=== PATIENT | male | born 1940 | race Caucasian/White ===

== ENCOUNTER → 2016-09-08 | Outpatient (CLI) | payer MEDICARE ==
--- OUTSIDE RECORDS SUMMARY | 2016-09-08 12:17 | XMS REPORT ---
Author Author Chet Tobin Organization [employer] Address Unknown Phone Unavailable Care Team Providers Care Antisubmarine Weapons Officer Name Role Phone Chet Tobin CP Unavailable Allergies No Known Allergies Problems Problem Type Condition ICD-9 Code Onset Dates Condition Status Problem Benign neoplasm of skin, site unspecified 216.9 Inactive Problem Other and unspecified conjunctivitis 372.39 Inactive Problem Aortic valve disorders 424.1 Inactive Problem Unspecified sinusitis (chronic) 473.9 Inactive Problem Acute upper respiratory infections of unspecified site 465.9 Inactive Problem Acute pharyngitis 462 Inactive Problem Occlusion and stenosis of carotid artery without mention of cerebral infarction 433.10 Inactive Problem Encounter for long-term (current) use of anticoagulants V58.61 Inactive Problem Special screening for malignant neoplasms, colon V76.51 Inactive Problem Hypertrophy (benign) of prostate without urinary obstruction and other lower urinary tract symptoms [LUTS] 600.00 Inactive Problem Allergic rhinitis 477.9 Active Problem Other follow-up examination V67.59 Inactive Problem CAD (coronary artery disease) 414.00 Active Problem Aortic stenosis 424.1 Active Problem Heart failure 428.9 Inactive Problem Hypertension 401.9 Active Problem Hyperlipidemia 272.4 Active Problem Lipoma of unspecified site 214.9 Inactive Problem Congestive heart failure, unspecified 428.0 Inactive Problem Cerebral vascular accident 434.91 Active Problem Atrial flutter 427.32 Active Problem Prostatic hyperplasia 600.90 Active Problem Cognitive impairment 294.9 Active Problem Heart failure, systolic 428.20 Active Problem Diabetes mellitus, type 2 250.00 Active Problem Unspecified hypertrophic and atrophic condition of skin 701.9 Inactive Problem Proteinuria 791.0 Active Problem Screening for unspecified condition V82.9 Inactive Problem Generalized hyperhidrosis 780.8 Inactive Problem Lipoma of other skin and subcutaneous tissue 214.1 Inactive Problem Unspecified seborrheic dermatitis 690.10 Inactive Problem Other fluid overload 276.69 Inactive Problem Obesity, unspecified 278.00 Active Medications No Known Medications Results No Known Results Summary Purpose eClinicalWorks Submission
--- NOTE | 2016-09-10 08:04 | ECHOCARDIOGRAPHY REPORT ---
PROCEDURE PHYSICIAN: CARLOS HUTCHINSON DATE OF PROCEDURE: 09/08/2016 TWO DIMENSIONAL ECHOCARDIOGRAM REPORT PRIMARY PHYSICIAN: OTHER PHYSICIAN: REFERRING PHYSICIAN: Dr. Jules ORDERING PHYSICIAN: INDICATION FOR THE PROCEDURE: Aortic valve stenosis. MEASUREMENTS DERIVED VALUES LV DIAMETER (LAX) NORMALS NORMALS Diastolic 5.4 (3.6-5.2) Eject. Fract. 60% (60%+/-6%) Systolic (2.3-3.9) Diastolic Vol. % Shortening (0.22-0.42) Systolic Vol. Aortic Root IVS THICKNESS Diastolic 1.2 (0.6-1.1) LVPW THICKNESS Diastolic 1.2 (0.6-1.1) LA DIAMETER Systolic 4.8 (2.1-3.7) FINDINGS: 1. Technical quality is acceptable. 2. The left ventricle is normal in size with mild left ventricular hypertrophy noted diffusely. Systolic function appeared to be normal. Estimated ejection fraction 60%. 3. The left atrium is dilated. No clot or thrombus were seen within the left atrium. 4. The right atrium and right ventricle are normal in size. No clot or thrombus were seen within the right side. 5. 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 Mild mitral regurgitation noted by color Doppler flow. No mitral valve prolapse. No mitral valve stenosis. 6. Aortic valve is heavily calcified, leaflets were not well visualized. Doppler across the aortic valve estimated the peak gradient of 21 mmHg, mean gradient of 12 mmHg, calculated valve area of 1.96 sq cm. Trivial, if any, aortic valve stenosis is present. There is mild aortic regurgitation noted by color Doppler flow. 7. Tricuspid valve is normal in morphology with moderate tricuspid regurgitation noted by color Doppler flow. Doppler across the tricuspid valve estimated pulmonary artery pressure of 14+ right atrial pressure. 8. Pulmonic valve is functioning normally. 9. No pericardial effusion. IN CONCLUSION: 1. Mild left ventricular hypertrophy noted diffusely. Systolic function appeared to be normal. Estimated ejection fraction 60%. 2. Left atrial dilatation. 3. Trivial aortic valve stenosis. Mild aortic regurgitation. 4. 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 Mild mitral regurgitation, moderate tricuspid regurgitation. 5. Estimated pulmonary artery pressure of 25 mmHg. Job ID: [id number] Dictated Date: 09/09/2016 15:46:23 Multiple Tube Winding Machine Operator Date: 09/10/2016 08:00:12 / charity
== END ==
LOC: CARD 12:13
PROVIDERS: ATTEND Internal Medicine Cardiovascular Disease
DX: I35.0 Nonrheumatic aortic (valve) stenosis (principal); I25.10 Atherosclerotic heart disease of native coronary artery without angina pectoris; I10 Essential (primary) hypertension; I34.0 Nonrheumatic mitral (valve) insufficiency; R07.9 Chest pain, unspecified
CPT/HCPCS: 93306

== ENCOUNTER → 2017-03-17 | Outpatient (CLI) | payer MEDICARE ==
[~2017-03-17] MED LIST: CATHETER FLUSH 10 ML SYR IV PRN; IOHEXOL 350 MG/ML 100 ML (OMNIPAQUE 350) VIAL IV ONE; NS 100 ML (IVPB) BAG IV ONE
[2017-03-17 09:23] LABS: ALANINE AMINOTRANSFERASE 18 U/L (0-55); ALBUMIN 3.6 GM/DL (3.2-4.5); ANION GAP 10 MMOL/L (5-14); ASPARTATE AMINO TRANSFERASE 22 U/L (5-34); BLOOD UREA NITROGEN 15 MG/DL (7-18); BUN/CREATININE RATIO 13; CALCIUM 8.9 MG/DL (8.5-10.1); CARBON DIOXIDE 25 MMOL/L (21-32); CHLORIDE 107 MMOL/L (98-107); CHOLESTEROL 230 MG/DL (< 200); CREATININE SERUM 1.13 MG/DL (0.60-1.30); DIRECT LDL 143 MG/DL (1-129); GFR ESTIMATED > 60; GLUCOSE 138 MG/DL (70-105); POTASSIUM 3.9 MMOL/L (3.6-5.0); SODIUM 142 MMOL/L (135-145); TOTAL PROTEIN 6.7 GM/DL (6.4-8.2); TRIGLYCERIDES 240 MG/DL (<150); VLDL CHOLESTEROL 48 MG/DL (5-40)
--- NOTE | 2017-03-17 11:47 | Diagnostic Imaging Report ---
EXAMINATION: The CT angiogram of the neck was performed with intravenous contrast with axial and MIP technique. Coronal reconstructions were performed. INDICATION: Severe atherosclerotic disease. CONTRAST: 80 mL of Omnipaque 350 was administered intravenously. FINDINGS: Please note, there is only moderate opacification of the arteries which could be related to slow circulation which is probably secondary to cardiac disease. There is a prominent plaque that is partially calcified but is predominantly soft plaque at the carotid bifurcation on the right side extending to the proximal internal carotid artery with an estimated underlying stenosis of 80%. The external carotid artery on the right side is patent and the right common carotid artery appears patent. The brachiocephalic artery is patent. The left common carotid artery is patent with atherosclerotic plaque at the carotid bifurcation on the left side resulting in a less than 50% stenosis in the proximal left internal carotid artery. Please note, there is tortuosity noted in the carotid arteries with a medial course of the mid segment of the carotid artery bilaterally, more on the right side, projecting into the retropharyngeal space. The vertebral arteries appears to be opacified with the proximal segments in particular not well evaluated. The soft tissues demonstrate symmetric appearance of the parotid and submandibular glands and an unremarkable appearance of the thyroid gland. IMPRESSION: 1. There is prominent plaque along the proximal right internal carotid artery resulting in an estimated stenosis of about 80%. 2. Atherosclerotic plaque along the proximal left internal carotid artery with a less than 50% stenosis. 3. The report was faxed to the of office of Dr. Gautam by RADHA at 11:50 AM. Dictated by: Dictated on workstation # [id number]
== END ==
LOC: RAD 08:37
PROVIDERS: ATTEND Internal Medicine Cardiovascular Disease
DX: I65.23 Occlusion and stenosis of bilateral carotid arteries (principal); I10 Essential (primary) hypertension; I35.0 Nonrheumatic aortic (valve) stenosis; E78.2 Mixed hyperlipidemia; I48.0 Paroxysmal atrial fibrillation
CPT/HCPCS: 36415; 70498; 80053; 80061

== ENCOUNTER → 2017-09-25 | Outpatient (CLI) | payer MEDICARE, OTHER | LOC: CARD 08:15 | PROVIDERS: ATTEND Internal Medicine Cardiovascular Disease | DX: I25.10 Atherosclerotic heart disease of native coronary artery without angina pectoris (principal); I10 Essential (primary) hypertension; E78.2 Mixed hyperlipidemia; I48.0 Paroxysmal atrial fibrillation; I34.0 Nonrheumatic mitral (valve) insufficiency; I35.8 Other nonrheumatic aortic valve disorders | CPT/HCPCS: 93306 ==

== ENCOUNTER → 2017-10-14 | Outpatient (CLI) | payer MEDICARE, OTHER ==
[~2017-10-14] MED LIST changes: -IOHEXOL 350 MG/ML 100 ML (OMNIPAQUE 350) VIAL IV ONE; -NS 100 ML (IVPB) BAG IV ONE; +REGADENOSON 0.4 MG/5 ML SYR (LEXISCAN) IV ONE
[2017-10-14 09:53] VITALS: BP 185/86
[2017-10-14 09:58] VITALS: BP 172/87
--- NOTE | 2017-10-14 18:08 | STRESS TEST ---
DATE OF SERVICE: 10/14/2017 LEXISCAN MYOVIEW STRESS TEST REPORT REFERRING PHYSICIAN: Baseline heart rate is 62. Baseline blood pressure 185/86. Baseline EKG is sinus rhythm with right bundle branch block. SUMMARY: The patient received 10.28 mCi of technetium-99 Myoview and the resting images were obtained. Then, the patient received 0.4 mg of Lexiscan followed by 29.1 mCi of technetium-99 Myoview. Throughout the test, there were no EKG changes. The resting and stress images were reviewed and compared in the short axis, horizontal long axis, and vertical long axis views. Review of the images showed fixed defect involving the whole anterior wall and anterolateral wall, a mild fixed defect at the inferoapical segment. SSS 11, SDS 0, TID value 1.03. On the gated images, the left ventricle appeared to be dilated with hypokinesia diffusely, more pronounced at the anterior wall and anterolateral wall and anterior septum. Calculated ejection fraction 41%. CONCLUSION: 1. The patient tolerated Lexiscan well. 2. Fixed defect involving the mid to apical anterior wall and anterior lateral wall and anterior septum, mild, mild fixed defect at the inferior apex. 3. Prominent left ventricle with hypokinesia noted diffusely, more pronounced at the anterior wall and anterolateral wall and anterior septum. Calculated ejection fraction 41%. Job ID: [id number] DocumentID: [id number] Dictated Date: 10/14/2017 15:40:40 Elementary School Social Worker Date: 10/14/2017 18:07:18 Dictated By: CARLOS HUTCHINSON MD
== END ==
LOC: CARD 07:48
PROVIDERS: ATTEND Internal Medicine Cardiovascular Disease
DX: I35.8 Other nonrheumatic aortic valve disorders (principal); I25.10 Atherosclerotic heart disease of native coronary artery without angina pectoris; I10 Essential (primary) hypertension; I34.0 Nonrheumatic mitral (valve) insufficiency; E78.5 Hyperlipidemia, unspecified; I48.0 Paroxysmal atrial fibrillation
CPT/HCPCS: 78452; 93017

== ENCOUNTER 2017-11-25 07:42 | Day surgery (SDC) | payer MEDICARE, MEDICAID ==
[2017-11-25] VITALS (10 sets, daily range): BP systolic 110–166; BP diastolic 72–99
[~2017-11-25] VITALS: Ht 170.2 cm; Wt 140.2 kg
--- OUTSIDE RECORDS SUMMARY | 2017-11-25 07:44 | XMS REPORT ---
Author Chet Carcamo [facility] eClinicalWorks Address Unknown Phone Unavailable Care Team Providers Care Olericulturist Name Role Phone Chet Tobin CP Unavailable Allergies, Adverse Reactions, Alerts Substance Reaction Event Type N.K.D.A. Info Not Available Non Drug Allergy Problems Problem Type Condition ICD-9 Code Onset Dates Condition Status Problem Benign neoplasm of skin, site unspecified 216.9 Inactive Assessment Atrial flutter 427.32 Active Problem Other and unspecified conjunctivitis 372.39 Inactive [...] Problem Diabetes mellitus, type 2 250.00 Active Assessment Heart failure, systolic 428.20 Active Problem Unspecified hypertrophic and atrophic condition of skin 701.9 Inactive Assessment Diabetes mellitus, type 2 250.00 Active Problem Proteinuria 791.0 Active Problem Screening for unspecified condition V82.9 Inactive Problem Generalized hyperhidrosis 780.8 Inactive Problem Lipoma of other skin and subcutaneous tissue 214.1 Inactive Problem Unspecified seborrheic dermatitis 690.10 Inactive Problem Other fluid overload 276.69 Inactive Problem Obesity, unspecified 278.00 Active Medications Medication Code System Code Instructions Start Date End Date Status Dosage Nasonex [facility] [address]-70 50 MCG/ACT Nasal 2 (two) in each nostril daily Jul 25, 2013 not defined Amiodarone HCl [facility] [address]-85 200 MG Oral 1 (one) Tablet two times daily January 31, 2014 not defined Lisinopril [facility] [address]-62 20 MG Oral 1 (one) daily January 31, 2014 1 tablet Carvedilol [facility] 44933698328 6.25 MG TAKE 1 TABLET BY MOUTH TWO TIMES DAILY Nitrostat [facility] [address]-25 0.4 MG Sublingual as needed not defined Xyzal [facility] [address]-38 5 MG Orally Once a day Feb 07, 2015 1 tablet in the evening Insulin Syringe NDC 0 31G X 5/16 Subcutaneous 1 (one) Misc four times daily Mar 22, 2013 dx 250.00 Apixaban [facility] [address]-53 5 MG Orally BID January 19, 2015 as directed atorvastatin NDC 0 40 MG Oral 1 (one) at bedtime January 31, 2014 1 tablet Metformin HCl [facility] [address]-78 1000 MG Orally Twice a day January 19, 2015 1 tablet with meals Embrace Blood Glucose Test NDC 0 1 In Vitro Three times daily November 09, 2014 as directed(last a1c 7.3% 01/31/14, life time use Dx 250.00 Spironolactone [facility] [address]-78 25 MG Oral 1 (one) Tablet daily January 31, 2014 not defined Fish Oil Concentrate [facility] [address]-54162 1000 MG Oral 1 daily not defined OneTouch Test NDC 0 1 In Vitro Three times daily November 13, 2014 as directed Levemir [facility] [address]-80 100 UNIT/ML Subcutaneous qHS January 19, 2015 15 units Eileen Contour Test NDC 0 In Vitro 1 (one) Strip three times daily November 24, 2013 In future pt does not want onetouchdx: 250.00 Furosemide [facility] [address]-91 20 MG Oral 1 (one) Tablet two times daily January 31, 2014 decreased dose OneTouch Basic System [facility] [address]-06 w/Device Subcutaneous Three times daily November 13, 2014 as directed Procedures Procedure Coding System Code Date Office Visit, Est Pt., Level 4 CPT-4 62145 Feb 22, 2015 Vital Signs Date/Time: Feb 22, 2015 Temperature 98.1 F Weight 311 lb 6 oz lbs Height 68 in Respiratory Rate 16 /min Cardiac Monitoring Heart Rate 72 /min Blood Pressure Diastolic 72 mm Hg Blood Pressure Systolic 132 mm Hg BMI 47.34 Index Results No Known Results Summary Purpose eClinicalWorks Submission
--- OUTSIDE RECORDS SUMMARY | 2017-11-25 07:44 | XMS REPORT ---
Author Chet Carcamo [facility] eClinicalWorks Address Unknown Phone Unavailable Care Team Providers Care Cephalometric Analyst Name Role Phone Chet Tobin CP Unavailable Allergies, Adverse Reactions, Alerts Substance Reaction Event Type N.K.D.A. Info Not Available Non Drug Allergy Problems Problem Type Condition Code Onset Dates Condition Status Assessment Heart failure, systolic I50.20 Active Assessment Severe aortic stenosis I35.0 Active Assessment Atrial flutter I48.92 Active Problem Atrial flutter I48.92 Active Problem Coronary artery disease involving [place] coronary artery of [place] heart, angina presence unspecified I25.10 Active Problem Type 2 diabetes mellitus E11.9 Active Problem Morbid obesity, unspecified obesity type E66.01 Active Problem Chronic systolic heart failure I50.22 Active Problem Severe aortic stenosis I35.0 Active Problem Essential hypertension I10 Active Medications Medication Code System Code Instructions Start Date End Date Status Dosage Xyzal [facility] [address]-27 5 MG Orally Once a day Feb 07, 2015 1 tablet in the evening INTERNET BUSINESS TRADER Basic System [facility] [address]-30 w/Device Subcutaneous Three times daily November 13, 2014 as directed atorvastatin NDC 0 40 MG Oral 1 (one) at bedtime January 31, 2014 1 tablet Spironolactone [facility] [address]-81 25 MG Oral 1 (one) Tablet daily January 31, 2014 1 tablet Apixaban [facility] [address]-01 5 MG Orally BID January 19, 2015 as directed OneTouch Test NDC 0 1 In Vitro Three times daily November 13, 2014 as directed Gabapentin [facility] [address]-63 100 MG Orally Three times a day 1 capsule Metformin HCl [facility] [address]-31 1000 MG Orally Twice a day January 19, 2015 1 tablet with meals Lisinopril [facility] [address]-84 40 MG Orally 1 (one) daily January 31, 2014 1 tablet Amiodarone HCl [facility] [address]-43 200 MG Oral 1 (one) Tablet two times daily January 31, 2014 1 tablet Carvedilol [facility] 63808085320 6.25 MG Orally two times daily TAKE 1 TABLET BY MOUTH TWO TIMES DAILY Furosemide [facility] [address]-73 20 MG Oral 1 (one) Tablet two times daily January 31, 2014 decreased dose Levemir [facility] [address]-93 100 UNIT/ML Subcutaneous qHS January 19, 2015 25 units Proventil HFA [facility] [address]-16 108 (90 Base) MCG/ACT Inhalation every 4 hrs 2 puffs as needed Insulin Syringe NDC 0 31G X 5/16 Subcutaneous 1 (one) Misc four times daily Mar 22, 2013 dx 250.00 Procedures Procedure Coding System Code Date Office Visit, Est Pt., Level 4 CPT-4 59927 Apr 14, 2016 Billed by outside source CPT-4 NOBLL Apr 14, 2016 Vital Signs Date/Time: Apr 14, 2016 Temperature 97.9 F Weight 299.5 lbs Height 68 in Respiratory Rate 16 /min Cardiac Monitoring Heart Rate 60 /min Blood Pressure Diastolic 88 mm Hg Blood Pressure Systolic 118 mm Hg BMI 45.53 Index Results No Known Results Summary Purpose eClinicalWorks Submission
--- OUTSIDE RECORDS SUMMARY | 2017-11-25 07:44 | XMS REPORT ---
Author Chet Carcamo Organization [employer] Address Unknown Phone Unavailable Care Team Providers Care Mill Worker Name Role Phone Chet Tobin CP Unavailable Allergies No Known Allergies Problems Problem Type Condition ICD-9 Code Onset Dates Condition Status Problem Aortic valve disorders 424.1 Active Problem Benign neoplasm of skin, site unspecified 216.9 Inactive Problem Unspecified persistent mental disorders due to conditions classified elsewhere 294.9 Active Problem Other and unspecified conjunctivitis 372.39 Inactive Problem Unspecified sinusitis (chronic) 473.9 Inactive Problem Acute upper respiratory infections of unspecified site 465.9 Inactive Problem Acute pharyngitis 462 Inactive Problem Obesity, unspecified 278.00 Active Problem Occlusion and stenosis of carotid artery without mention of cerebral infarction 433.10 Inactive Problem Lipoma of other skin and subcutaneous tissue 214.1 Inactive Problem Encounter for long-term (current) use of anticoagulants V58.61 Active Problem Unspecified seborrheic dermatitis 690.10 Inactive Problem Other and unspecified hyperlipidemia 272.4 Active Problem Diabetes mellitus without mention of complication, type II or unspecified type, not stated as uncontrolled 250.00 Active Problem Heart failure 428.9 Active Problem CAD (coronary artery disease) 414.00 Active Problem Other follow-up examination V67.59 Inactive Problem Unspecified systolic heart failure 428.20 Active Problem Aortic stenosis 424.1 Active Problem Hypertrophy (benign) of prostate without urinary obstruction and other lower urinary tract symptoms [LUTS] 600.00 Active Problem 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 Active Problem Unspecified essential hypertension 401.9 Active Problem Allergic rhinitis 477.9 Active Problem Special screening for malignant neoplasms, colon V76.51 Inactive Problem Lipoma of unspecified site 214.9 Inactive Problem Screening for unspecified condition V82.9 Inactive Problem Atrial flutter 427.32 Active Problem Congestive heart failure, unspecified 428.0 Inactive Problem Proteinuria 791.0 Active Problem Other fluid overload 276.69 Inactive Problem Generalized hyperhidrosis 780.8 Inactive Problem Unspecified hypertrophic and atrophic condition of skin 701.9 Inactive Medications No Known Medications Results No Known Results Summary Purpose eClinicalWorks Submission
--- OUTSIDE RECORDS SUMMARY | 2017-11-25 07:44 | XMS REPORT ---
Author Author Chet Tobin Organization [employer] Address Unknown Phone Unavailable Care Team Providers Care Desktop Operator Name Role Phone Chet Tobin CP Unavailable [...]
--- OUTSIDE RECORDS SUMMARY | 2017-11-25 07:45 | XMS REPORT ---
Author Chet Carcamo [facility] eClinicalWorks Address Unknown Phone Unavailable Care Team Providers Care Scale Model Maker Name Role Phone Chet Tobin CP Unavailable Allergies No Known Allergies Problems Problem Type Condition Code Onset Dates Condition Status Problem Occlusion and stenosis of carotid artery without mention of cerebral infarction 433.10 Inactive Problem Acute pharyngitis 462 Inactive Problem Hypertrophy (benign) of prostate without urinary obstruction and other lower urinary tract symptoms [LUTS] 600.00 Inactive Problem Encounter for long-term (current) use of anticoagulants V58.61 Inactive Problem Other follow-up examination V67.59 Inactive Problem Atrial flutter 427.32 Active Problem Congestive heart failure, unspecified 428.0 Inactive Problem Lipoma of unspecified site 214.9 Inactive Problem Screening for unspecified condition V82.9 Inactive Problem Prostatic hyperplasia 600.90 Active Problem Generalized hyperhidrosis 780.8 Inactive Problem Diabetes mellitus, type 2 250.00 Active Problem Unspecified hypertrophic and atrophic condition of skin 701.9 Inactive Problem Heart failure, systolic 428.20 Active Problem Hypertension 401.9 Active Problem Hyperlipidemia 272.4 Active Problem Heart failure, systolic I50.20 Active Problem Type 2 diabetes mellitus E11.9 Active Problem Obesity, unspecified 278.00 Active Problem Other fluid overload 276.69 Inactive Assessment Heart failure, systolic I50.20 Active Problem 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 Active Problem Proteinuria 791.0 Active Problem Severe aortic stenosis I35.0 Active Problem Cerebral vascular accident 434.91 Active Problem Atrial flutter I48.92 Active Problem Coronary artery disease involving enterprise coronary artery of enterprise heart, angina presence unspecified I25.10 Active Problem Unspecified sinusitis (chronic) 473.9 Inactive Problem Special screening for malignant neoplasms, colon V76.51 Inactive Problem Acute upper respiratory infections of unspecified site 465.9 Inactive Problem Allergic rhinitis 477.9 Active Problem Aortic valve disorders 424.1 Inactive Problem Lipoma of other skin and subcutaneous tissue 214.1 Inactive Problem Other and unspecified conjunctivitis 372.39 Inactive Problem Unspecified seborrheic dermatitis 690.10 Inactive Assessment Atrial flutter I48.92 Active Problem Aortic stenosis 424.1 Active Problem Benign neoplasm of skin, site unspecified 216.9 Inactive Problem Cognitive impairment 294.9 Active Problem CAD (coronary artery disease) 414.00 Active Problem Heart failure 428.9 Inactive Medications Medication Code System Code Instructions Start Date End Date Status Dosage Amiodarone HCl [facility] [address]-44 200 MG Oral 1 (one) Tablet two times daily January 31, 2014 1 tablet Furosemide [facility] [address]-80 20 MG Oral 1 (one) Tablet two times daily January 31, 2014 decreased dose Results No Known Results Summary Purpose eClinicalWorks Submission
--- OUTSIDE RECORDS SUMMARY | 2017-11-25 07:45 | XMS REPORT ---
Author Author Chet Tobin [facility] Address [address], [place] [id number] Care Team Providers Care Theatrical Trouper Name Role Phone Chet Tobin Unavailable PROBLEMS Type Condition ICD9-CM Code QEE05-HT Code Onset Dates Condition Status SNOMED Code Problem Atrial flutter I48.92 Active 2400789 Assessment Acute on chronic systolic (congestive) heart failure I50.23 Jun, Active 575397220 Problem Aortic stenosis, severe I35.0 Active 97962532 Problem Diabetes mellitus E11.9 Active 17367650 Problem Obesity, morbid E66.01 Active 733437713 Problem Coronary artery disease I25.10 Active 35884208 Problem Heart failure, systolic, chronic I50.22 Active 460274107 Problem Hypertension I10 Active 70142799 ALLERGIES Unknown Allergies SOCIAL HISTORY No smoking Hx information available PLAN OF CARE VITAL SIGNS Height 68 in 2016-06-24 Heart Rate 88 /min 2016-06-24 Respiratory Rate 20 /min 2016-06-24 Blood pressure systolic 138 mm Hg 2016-06-24 Blood pressure diastolic 88 mm Hg 2016-06-24 MEDICATIONS Medication Instructions Dosage Frequency Start Date End Date Duration Status Levemir 100 UNIT/ML Subcutaneous qHS 15 units Jan, Active Insulin Syringe 31G X 5/16 Subcutaneous 1 (one) Misc four times daily dx 250.00 17 Mar, 2013 30 Active Metformin HCl 1000 MG Orally Twice a day 1 tablet with meals 12h Jan, 90 days Active Carvedilol 12.5 MG Orally two times daily TAKE 1 TABLET BY MOUTH TWO TIMES DAILY Active Xyzal 5 MG Orally Once a day 1 tablet in the evening 24h Feb, 30 days Active Apixaban 5 MG Orally BID as directed 12h Jan, 90 days Active Furosemide 20 MG Oral 1 (one) Tablet two times daily decreased dose Jan, 90 days Active Proventil HFA 108 (90 Base) MCG/ACT Inhalation every 4 hrs 2 puffs as needed 4h Active TaigenToQuickoLabs Basic System w/Device Subcutaneous Three times daily as directed November, 30 days Active Gabapentin 100 MG Orally Three times a day 1 capsule 8h 90 days Active Amiodarone HCl 200 MG Oral 1 (one) Tablet two times daily 1 tablet Jan 90 days Active atorvastatin 40 MG Oral 1 (one) at bedtime 1 tablet Jan, 90 days Active OneTouch Test 1 In Vitro Three times daily as directed November, 30 days Active Spironolactone 25 MG Oral 1 (one) Tablet daily 1 tablet Jan, 90 days Active RESULTS No Results PROCEDURES Procedure Date Ordered Related Diagnosis Body Site Office Visit, Est Pt., Level 4 Jun 24, 2016 IMMUNIZATIONS No Known Immunizations
--- OUTSIDE RECORDS SUMMARY | 2017-11-25 07:45 | XMS REPORT ---
Author Author Chet Tobin Organization eClinicalWorks Address Unknown Phone Unavailable Care Team Providers Care Control Valve Technician Name Role Phone Chet Tobin CP Unavailable [...]
--- OUTSIDE RECORDS SUMMARY | 2017-11-25 07:45 | XMS REPORT ---
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 734637472 Problem Morbid obesity due to excess calories E66.01 Active 392653409 Problem Coronary artery disease involving [place] heart without angina pectoris , unspecified vessel or lesion type I25.10 Active 23176070 Problem Proteinuria, unspecified R80.9 Active 06246642 Problem Essential hypertension I10 Active 47613896 ALLERGIES No Information ENCOUNTERS Encounter Location Date Diagnosis [place] [address] [address] November, [address] [address] Oct, Coronary artery disease involving [place] heart without angina pectoris, unspecified vessel or lesion type I25.10 ; Type 2 diabetes mellitus with other circulatory complication, 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 ; Morbid obesity due to excess calories E66.01 ; Essential hypertension I10 ; Chronic atrial fibrillation I48.2 ; Proteinuria, unspecified R80.9 ; Hyperlipidemia, unspecified hyperlipidemia type E78.5 and BMI 45.0-49.9 , adult Z68.[address] [address] Oct, [place] [address] [address] Sep, Type 2 diabetes mellitus with other diabetic kidney complication E11.29 [place] [address] [place] [phone] Sep, Type 2 diabetes mellitus with other diabetic kidney complication E11.29 and BMI 45.0-49.9, adult Z68.42 [place] [address] [place] [id number] [place] [address] 12 Sep, 2017 [place] [address] [place] [id number] [place] [address] Jun, [place] [address] [place] [id number] [place] [address] Jun, [place] [address] [place] [id number] [place] [address] Jun, Encounter for immunization Z23 ; Type 2 diabetes mellitus with other circulatory complication, 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 ; Coronary artery disease involving [place] heart without angina pectoris , unspecified vessel or lesion type I25.10 ; Proteinuria, unspecified R80.9 and BMI 45.0-49.9, adult Z68.42 [place] [address] [place] [id number] [place] [address] 14 Mar, 2017 [place] [address] [place] [address] Feb, [place] [address] [place] [id number] [place] [address] Feb, Type 2 diabetes mellitus with other circulatory complication , 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 ; Proteinuria, unspecified R80.9 and Type 2 diabetes mellitus with other diabetic kidney complication E11.29 [place] [address] [place] [id number] [place] [address] Jan, Acute right-sided low back pain without sciatica M54.5 [place] [address] [place] [id number] [place] [address] Jan, Coronary artery disease involving [place] heart without angina pectoris, unspecified vessel or lesion type I25.10 ; Type 2 diabetes mellitus with other circulatory complication, 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 PLAN OF CARE VITAL SIGNS MEDICATIONS Unknown Medications RESULTS No Results PROCEDURES No Known procedures INSTRUCTIONS MEDICATIONS ADMINISTERED No Known Medications MEDICAL (GENERAL) HISTORY Type Description Date Medical History Hypertension Medical History Hyperlipidemia Medical History Seasonal allergies Medical History Restless leg syndrome Medical History Type 2 Diabetes Medical History Atrila Fibrillation Medical History CAD, aortic valvular repair Surgical History open heart surgery, valve replacement and blockage repair Surgical History Cardiac stent placement 2005 Surgical History Cardiac stent placement 2008 Surgical History Cardiac stent placement 2013 Hospitalization History Past surgeries
--- OUTSIDE RECORDS SUMMARY | 2017-11-25 07:45 | XMS REPORT ---
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 Active Problem Proteinuria 791.0 Active Problem Severe aortic stenosis I35.0 Active Problem Cerebral vascular accident 434.91 Active Problem Atrial flutter I48.92 Active Problem Coronary artery disease involving [place] coronary artery of [place] heart, angina presence unspecified I25.10 Active Problem [...] Problem Unspecified seborrheic dermatitis 690.10 Inactive Problem Aortic stenosis 424.1 Active Problem Benign neoplasm of skin, site unspecified 216.9 Inactive Problem Cognitive impairment 294.9 Active Problem CAD (coronary artery disease) 414.00 Active Problem Heart failure 428.9 Inactive Medications No Known Medications Results No Known Results Summary Purpose eClinicalWorks Submission
--- OUTSIDE RECORDS SUMMARY | 2017-11-25 07:45 | XMS REPORT ---
Author Author Chet Tobin [facility] Address [address], [place] [id number] Care Team Providers Care Knit Tubing Dyer Name Role Phone Chet Tobin Unavailable PROBLEMS Type Condition ICD9-CM Code UBO24-OV Code Onset Dates Condition Status SNOMED Code Problem Morbid obesity, unspecified obesity type E66.01 Active 144144655 Problem Chronic systolic heart failure I50.22 Active 684573200 Problem Heart failure, systolic I50.20 Active 468772422 Problem Type 2 diabetes mellitus E11.9 Active 12418435 Problem Severe aortic stenosis I35.0 Active 83111088 Problem Essential hypertension I10 Active 70104304 Problem Atrial flutter I48.92 Active 4292884 Problem Coronary artery disease involving [place] coronary artery of [place] heart, angina presence unspecified I25.10 Active [id number] ALLERGIES Unknown Allergies SOCIAL HISTORY No smoking Hx information available PLAN OF CARE VITAL SIGNS MEDICATIONS Unknown Medications RESULTS No Results PROCEDURES No Known procedures IMMUNIZATIONS No Known Immunizations
--- OUTSIDE RECORDS SUMMARY | 2017-11-25 07:45 | XMS REPORT | Referral Summary ---
Author Author [facility] Organization [facility] Address Unknown Phone Unavailable Care Team Providers Care Cleaner Touch Up Worker Name Role Phone [id number], [facility] PCP Unavailable Encounter VC Date(s): 06/24/16 - 07/21/[address] [facility] [address] [place] [address] Discharge Diagnosis: Gastric ulcer Discharge Disposition: 01-Home or Self Care Attending Physician: Izzy Morataya MD Admitting Physician: Izzy Morataya MD Vital Signs Most recent to 1 oldest [Reference Range]: Temperature Axillary 36.8 degC [35.2-36.7 degC] *HI* (07/17/16 12:00 PM) Temperature Oral 36.9 degC [35.8-37.3 degC] (07/21/16 8:10 AM) Temperature Temporal 36.7 degC Artery [36.3-37.8 (07/16/16 4:00 PM) degC] Peripheral Pulse 88 bpm Rate [60-100 bpm] (07/21/16 9:59 AM) Peripheral Pulse 74 bpm Rate with Activity (07/15/16 8:40 AM) Heart Rate Monitored 80 bpm [60-100 bpm] (07/20/16 9:28 PM) Respiratory Rate 16 br/min [14-20 br/min] (07/21/16 8:41 AM) Blood Pressure 119/65 mmHg [90-140/60-90 mmHg] (07/21/16 9:59 AM) Systolic Blood 127 mmHg Pressure with (07/15/16 8:40 AM) Activity Diastolic Blood 62 mmHg Pressure with (07/15/16 8:40 AM) Activity Mean Arterial 75 mmHg Pressure, Cuff (07/15/16 12:00 PM) Blood Pressure 100/49 mmHg Invasive (07/11/16 10:00 PM) [90-140/60-90 mmHg] Mean Arterial 67 mmHg Pressure, Invasive (07/11/16 10:00 PM) Pulse Rate [60-100 80 bpm bpm] (07/21/16 8:41 AM) SpO2 92 % (07/21/16 8:10 AM) Remote Telemetry Ongoing (07/20/16 9:00 PM) Problem List Condition Effective Dates Status Health Status Informant Acute Active pain(Confirmed) Alteration in Active nutrition(Confirmed) 1 At risk for Active falls(Confirmed)2 At risk for Active infection(Confirmed) 3 At risk of pressure Active sore(Confirmed) Bleeding Active precautions(Confirme d)4 Bowel Active dysfunction(Confirme d)5 Fluid Active imbalance(Confirmed) 6 Heart Active failure(Confirmed) Impaired gas Active exchange(Confirmed)7 Impaired skin Active integrity(Confirmed) 8 Ineffective airway Active clearance(Confirmed) 9 Knowledge Active deficit(Confirmed)10 Tissue perfusion Active alteration(Confirmed )11 1Problem added automatically by system based on initiation of Alteration in Nutrition Plan of Care 2This problem was added by Discern Expert. 3Problem added automatically by system based on initiation of At Risk for Infection in Nutrition Plan of Care 4Problem added automatically by system based on initiation of Bleeding Precautions Plan of Care 5Problem added automatically by system based on initiation of Bowel Dysfunction Plan of Care 6Problem added automatically by system based on initiation of Fluid Volume Imbalance Plan of Care 7Problem added automatically by system based on initiation of Impaired Gas Exchange Plan of Care 8Problem added automatically by system based on initiation of Impaired Skin Integrity Plan of Care 9Problem added automatically by system based on initiation of Ineffective Airway Clearance Plan of Care 10Problem added automatically by system based on initiation of Knowledge Deficit Plan of Care 11Problem added automatically by system based on initiation of Tissue Perfusion Cerebral Plan of Care Allergies, Adverse Reactions, Alerts No Known Allergies Medications amiodarone 200 mg, Oral, BID, 0 Refill(s) Start Date: 06/24/16 Status: Ordered apixaban 5 mg oral tablet 5 mg 1 tabs, Oral, BID, 0 Refill(s) Start Date: 07/21/16 Status: Ordered aspirin 81 mg oral delayed release tablet 81 mg 1 tabs, Oral, Daily, 0 Refill(s) Start Date: 07/21/16 Status: Ordered bumetanide 1 mg oral tablet 1 mg 1 tabs, Oral, BID, 0 Refill(s) Start Date: 07/21/16 Status: Ordered ferrous sulfate 325 mg (65 mg elemental iron) oral delayed release tablet 325 mg 1 tabs, Oral, Daily, 0 Refill(s) Start Date: 07/21/16 Status: Ordered Keflex 500 mg oral capsule 500 mg 1 caps, Oral, TID, 0 Refill(s) Start Date: 07/21/16 Stop Date: 07/28/16 Status: Ordered Levemir 100 units/mL subcutaneous solution 8 units, SubCutaneous, Bedtime (once a day), 0 Refill(s) Start Date: 07/21/16 Status: Ordered magnesium oxide 400 mg (241.3 mg elemental magnesium) oral tablet 400 mg 1 tabs, Oral, BID, 0 Refill(s) Start Date: 07/21/16 Status: Ordered metoprolol tartrate 25 mg oral tablet 6.25 mg 0.25 tabs, Oral, BID, 0 Refill(s) Start Date: 07/21/16 Status: Ordered potassium chloride 20 mEq oral tablet, extended release 40 mEq 2 tabs, Oral, BID, 0 Refill(s) Start Date: 07/21/16 Status: Ordered rOPINIRole 0.25 mg oral tablet 0.5 mg 2 tabs, Oral, TID, 0 Refill(s) Start Date: 07/21/16 Status: Ordered Senokot 8.6 mg oral tablet 8.6 mg 1 tabs, Oral, BID, 0 Refill(s) Start Date: 07/21/16 Status: Ordered spironolactone 25 mg oral tablet 25 mg 1 tabs, Oral, Daily, 0 Refill(s) Start Date: 08/28/15 Status: Ordered Xyzal 5 mg, Oral, qPM, 0 Refill(s) Start Date: 06/24/16 Status: Ordered Results Blood Gases Most recent to 1 oldest [Reference Range]: pH [7.35-7.45] 7.33 *LOW* (07/11/16 5:07 AM) PCO2 Arterial POC 42 mmHg [35-45 mmHg] (07/10/16 2:26 PM) pCO2 Art [35-45 43 mmHg mmHg] (07/11/16 5:07 AM) CO2 Totl Art [23-27 23 mEq/L mEq/L] (07/10/16 2:26 PM) Bicarbonate [22-26 22 mEq/L mEq/L] (07/11/16 5:07 AM) Bicarbonate Arterial 22 mEq/L POC [22-26 mEq/L] (07/10/16 2:26 PM) Base Excess Arterial -4 POC [0-2] *LOW* (07/10/16 2:26 PM) Base Excess Art -3 [0-2] *LOW* (07/11/16 5:07 AM) O2 Sat Art 98.3 % [90.0-97.0 %] *HI* (07/11/16 5:07 AM) pO2 Art [80-100 122 mmHg mmHg] *HI* (07/11/16 5:07 AM) O2 Saturation 94.0 % Arterial POC (07/10/16 2:26 PM) [90.0-97.0 %] pH Arterial POC 7.32 [7.35-7.45] *LOW* (07/10/16 2:26 PM) PO2 Arterial POC 76 mmHg [80-100 mmHg] *LOW* (07/10/16 2:26 PM) LPM Art 6.0 L/min (07/02/16 9:05 AM) O2 Panel it 0.9 fio2 50% (07/11/16 5:07 AM) Vent Mode vc+ (07/11/16 5:07 AM) Set Vt 550 mL (07/11/16 5:07 AM) Set Rate 14 br/min (07/11/16 5:07 AM) PEEP 5.0 (07/11/16 5:07 AM) Spec Site a-line (07/11/16 5:07 AM) pH Venous POC 7.27 [7.32-7.42] *LOW* (07/10/16 1:29 PM) PCO2 Venous POC 56 mmHg [41-51 mmHg] *HI* (07/10/16 1:29 PM) PO2 Venous POC 272 mmHg [80-100 mmHg] *HI* (07/10/16 1:29 PM) Total CO2 Venous POC 27 mEq/L [25-29 mEq/L] (07/10/16 1:29 PM) Bicarbonate Venous 26 mEq/L POC [24-28 mEq/L] (07/10/16 1:29 PM) Base Excess Venous -1 POC [0-4] *LOW* (07/10/16 1:29 PM) O2 Saturation Venous 100.0 % POC [90.0-97.0 %] *HI* (07/10/16 1:29 PM) Hematology Most recent to 1 oldest [Reference Range]: WBC [4.8-10.8 7.5 10*3/uL 10*3/uL] (07/20/16 8:01 AM) RBC [4.60-6.20] 3.08 *LOW* (07/20/16 8:01 AM) Hgb [14.0-18.0 8.6 gm/dL gm/dL] *LOW* (07/20/16 8:01 AM) Hct [42.0-52.0 %] 28.0 % *LOW* (07/20/16 8:01 AM) MCV [82.0-99.0 fL] 90.9 fL (07/20/16 8:01 AM) MCH [27.0-32.0 pg] 27.9 pg (07/20/16 8:01 AM) MCHC [32.0-36.0 30.7 gm/dL gm/dL] *LOW* (07/20/16 8:01 AM) RDW [11.5-14.5 %] 17.4 % *HI* (07/20/16 8:01 AM) Platelet [150-400 165 10*3/uL 10*3/uL] (07/20/16 8:01 AM) MPV [9.4-12.3 fL] 9.1 fL *LOW* (07/20/16 8:01 AM) Immature 0.5 % Granulocytes (07/19/16 5:13 AM) [0.0-1.0 %] Neutrophils [51-75 62 % %] (07/19/16 5:13 AM) Band Man [0-8 %] 1 % (07/02/16 6:04 AM) Lymphocytes [20-46 19 % %] *LOW* (07/19/16 5:13 AM) Monocytes [4-11 %] 14 % *HI* (07/19/16 5:13 AM) Eosinophils [0-4 %] 4 % (07/19/16 5:13 AM) Basophils [0-2 %] 1 % (07/19/16 5:13 AM) Neutro Absolute 4.68 [1.90-7.00] (07/19/16 5:13 AM) Lymph Absolute 1.40 [0.80-3.30] (07/19/16 5:13 AM) Barry Absolute 1.09 [0.30-1.00] *HI* (07/19/16 5:13 AM) Eos Absolute 0.29 [0.00-0.50] (07/19/16 5:13 AM) Baso Absolute 0.05 [0.00-0.20] (07/19/16 5:13 AM) Polychrom Occasional *ABN* (06/24/16 3:57 PM) Ovalocytes Occasional *ABN* (07/02/16 6:04 AM) [place] Cell Occasional *ABN* (07/02/16 6:04 AM) Stippled RBC Occasional *ABN* (07/02/16 6:04 AM) Nucleated RBC 0.0 /100 WBC Automated [0 /100 (07/19/16 5:13 AM) WBC] Differential Manual *ABN* (07/02/16 6:04 AM) Coagulation Most recent to 1 oldest [Reference Range]: INR [0.9-1.2] 1.9 *HI* (07/21/16 6:48 AM) PTT [25.0-35.0 39.4 seconds seconds] *HI* (07/10/16 1:25 PM) Fibrinogen Lvl 271 mg/dL [187-520 mg/dL] (07/10/16 1:25 PM) Thrombelastograph See Scan (07/10/16 1:25 PM) Chemistry Most recent to 1 oldest [Reference Range]: Sodium Lvl [136-144 136 mEq/L mEq/L] (07/21/16 6:48 AM) Potassium Lvl 3.8 mEq/L [3.6-5.1 mEq/L] (07/21/16 6:48 AM) Chloride [99-109 99 mEq/L mEq/L] (07/21/16 6:48 AM) CO2 [22-32 mEq/L] 31 mEq/L (07/21/16 6:48 AM) AGAP [3-20] 6 (07/21/16 6:48 AM) BUN [4-20 mg/dL] 27 mg/dL *HI* (07/21/16 6:48 AM) Glucose Lvl [70-100 116 mg/dL mg/dL] *HI* (07/21/16 6:48 AM) Creatinine Lvl 1.41 mg/dL [0.64-1.27 mg/dL] *HI* (07/21/16 6:48 AM) eGFR [>60] 49 1 *ABN* (07/21/16 6:48 AM) Calcium Lvl 8.3 mg/dL [8.6-10.0 mg/dL] *LOW* (07/21/16 6:48 AM) Albumin Lvl [3.5-4.8 2.5 gm/dL gm/dL] *LOW* (07/21/16 6:48 AM) Total Protein 5.4 gm/dL [6.1-7.9 gm/dL] *LOW* (07/21/16 6:48 AM) Globulin [1.9-4.3 2.9 gm/dL gm/dL] (07/21/16 6:48 AM) ALT [17-63 U/L] 72 U/L *HI* (07/21/16 6:48 AM) AST [15-41 U/L] 43 U/L *HI* (07/21/16 6:48 AM) Alk Phos [26-104 98 U/L U/L] (07/21/16 6:48 AM) Bili Total [0.2-1.2 1.5 mg/dL 2 mg/dL] *HI* (07/21/16 6:48 AM) Bili Direct [0.0-0.2 0.4 mg/dL mg/dL] *HI* (07/17/16 6:48 AM) Bili Indirect 1.2 mg/dL [0.0-1.0 mg/dL] *HI* (07/17/16 6:48 AM) Magnesium Lvl 1.7 mg/dL [1.8-2.5 mg/dL] *LOW* (07/20/16 8:01 AM) Phosphorus [2.4-4.7 3.2 mg/dL 3 mg/dL] (07/19/16 5:13 AM) Calcium Ionized 1.17 mmol/L [1.19-1.41 mmol/L] *LOW* (07/13/16 3:31 AM) BNP [0-99 pg/mL] 1497 pg/mL *HI* (07/09/16 6:13 AM) Troponin [<0.06 1.72 ng/mL 4 ng/mL] *HHI* (07/07/16 10:50 AM) Lactic Acid Lvl 2.0 mEq/L [0.5-2.2 mEq/L] (07/02/16 6:04 AM) Cortisol AM [7-18 27 mcg/dL mcg/dL] *HI* (07/02/16 6:04 AM) Sodium Arterial NPT 146 mEq/L [136-144 mEq/L] *HI* (07/10/16 2:26 PM) Potassium Arterial 3.3 mEq/L 5 NPT [3.6-5.1 mEq/L] *LOW* (07/10/16 2:26 PM) Calcium Ionized 1.05 mmol/L Arterial NPT *LOW* [1.19-1.41 mmol/L] (07/10/16 2:26 PM) HCT Arterial NPT 26.0 % (07/10/16 2:26 PM) HGB Arterial NPT 8.8 gm/dL (07/10/16 2:26 PM) Arterial Glucose NPT 130 mg/dL [70-100 mg/dL] *HI* (07/10/16 2:26 PM) Sodium Venous NPT 144 mEq/L [136-144 mEq/L] (07/10/16 1:29 PM) Potassium Venous NPT 3.5 mEq/L 6 [3.6-5.1 mEq/L] *LOW* (07/10/16 1:29 PM) Calcium Ionized 1.15 mmol/L Venous NPT *LOW* [1.19-1.41 mmol/L] (07/10/16 1:29 PM) Glucose Venous NPT 153 mg/dL [70-100 mg/dL] *HI* (07/10/16 1:29 PM) HCT Venous NPT 22.0 % (07/10/16 1:29 PM) HGB Benjamin NPT 7.5 gm/dL (07/10/16 1:29 PM) Activated Clotting 157 seconds Time NPT [100-146 *HI* seconds] (07/10/16 3:24 PM) Blood Glucose, 133 mg/dL Capillary [70-100 *HI* mg/dL] (07/21/16 10:52 AM) Blood Glucose, High Capillary Out of (07/03/16 6:36 AM) Range Chol [0-200 mg/dL] 127 mg/dL (06/25/16 6:36 AM) Trig [0-150 mg/dL] 86 mg/dL (06/25/16 6:36 AM) HDL [>40 mg/dL] 34 mg/dL *ABN* (06/25/16 6:36 AM) LDL [0-100 mg/dL] 76 mg/dL (06/25/16 6:36 AM) VLDL Cholesterol 17 mg/dL [0-30 mg/dL] (06/25/16 6:36 AM) Cardiac Risk 3.7 [0.0-5.7] (06/25/16 6:36 AM) T4 Free [0.6-1.1 1.5 ng/dL ng/dL] *HI* (06/24/16 3:57 PM) TSH [0.35-5.50] 1.69 (06/24/16 3:57 PM) Hgb A1c [4.1-5.6 %] 6.5 % *HI* (07/08/16 4:49 AM) eAvg Glucose 139.9 mg/dL (07/08/16 9:23 AM) 1Result Comment: Multiply eGFR results by 1.21 for race. 2Result Comment: Naproxen, specifically the metabolite O-desmethylnaproxen, may cause spurious elevation in Total Bilirubin levels. 3Result Comment: High dosages of liposomal Amphotericin B (AmBisome) therapy or other drug preparations that use a liposomal envelope to facilitate drug delivery may cause falsely elevated results for phosphorus. 4Result Comment: Critical value called, and read-back verified. Called to Yoly Crespo RN F4SW 07/07/2016 11:48 5Result Comment: This test was performed on a whole blood specimen. The presence or absence of hemolysis cannot be assessed. Hemolysis can falsely elevate potassium levels. Normals are for venous specimens only. 6Result Comment: This test was performed on a whole blood specimen. The presence or absence of hemolysis cannot be assessed. Hemolysis can falsely elevate potassium levels. Normals are for venous specimens only. Urinalysis Most recent to 1 oldest [Reference Range]: UA Color Yellow (07/12/16 9:08 AM) UA Appear Sl Cloudy (07/12/16 9:08 AM) UA pH [5.0-8.0] 5.0 (07/12/16 9:08 AM) UA Leuk Est Pos 1+ [Negative] *ABN* (07/12/16 9:08 AM) UA Nitrite Negative [Negative] (07/12/16 9:08 AM) UA Protein Pos 2+ [Negative] *ABN* (07/12/16 9:08 AM) UA Glucose Negative [Negative] (07/12/16 9:08 AM) UA Ketones Negative [Negative] (07/12/16 9:08 AM) UA Urobilinogen Negative [<1.0] (07/12/16 9:08 AM) UA Bili [Negative] Negative (07/12/16 9:08 AM) UA Blood [Negative] Pos 2+ *ABN* (07/12/16 9:08 AM) UA Spec Grav 1.015 [1.003-1.030] (07/12/16 9:08 AM) Type Not Specified (07/12/16 9:08 AM) UA WBC [0-4] 5-10 *ABN* (07/12/16 9:08 AM) UA RBC [0-2] 10-20 *ABN* (07/12/16 9:08 AM) Epithelial Cells 2-5 (07/12/16 9:08 AM) UA Bacteria Occasional *ABN* (07/12/16 9:08 AM) UA Hyal Cast [0-3 >12 [LPF] [LPF]] *ABN* (07/12/16 9:08 AM) UA Mucous Present (07/12/16 9:08 AM) Blood Bank Results Most recent to 1 oldest [Reference Range]: ABO/Rh AB POS (07/10/16 4:30 PM) Antibody Screen Tube NEG (07/10/16 4:30 PM) Microbiology Reports TEST: Blood Culture STATUS: Auth (Verified) BODY SITE: SOURCE: Blood COLLECTED DATE/TIME: 07/01/16 10:18 PM Blood Culture No growth after 5 days of incubation. TEST: Blood Culture STATUS: Auth (Verified) BODY SITE: SOURCE: Blood COLLECTED DATE/TIME: 07/01/16 10:18 PM Blood Culture No growth after 5 days of incubation. TEST: Blood Culture STATUS: Auth (Verified) BODY SITE: SOURCE: Blood COLLECTED DATE/TIME: 07/01/16 9:03 AM Blood Culture No growth after 5 days of incubation. TEST: Blood Culture STATUS: Auth (Verified) BODY SITE: SOURCE: Blood COLLECTED DATE/TIME: 07/01/16 8:55 AM Blood Culture No growth after 5 days of incubation. Immunizations Given and Recorded Vaccine Date Status Refusal Reason pneumococcal 23-polyvalent vaccine 06/24/16 Given Procedures Procedure Date Related Diagnosis Body Site Bypass Graft Coronary Artery with Valve 07/10/16 Replacement1 [place] Vein Endoscopic (Left)2 07/10/16 Esophagogastroduodenoscopy - SN3 07/03/16 Catheterization Left Heart with Coronary 06/26/16 Angiography4 Catheterization Right Heart5 06/26/16 Arterial stent 1auto-populated from documented surgical case 2auto-populated from documented surgical case 3auto-populated from documented surgical case 4auto-populated from documented surgical case 5auto-populated from documented surgical case Social History Social History Type Response Smoking Status Never smoker Assessment and Plan Extracted from: Title: Progress/SOAP Note Author: Vlad Rodas III, MD Date: 07/09/16 Assessment/Plan 1.Gastric ulcer Discussed approach with Dr White- though we don't expect healing of ulcers, no bleeding now and treatment underway for H pylori and is well- tolerated. Had critical + severe CAD; agree with decision to proceed. ContinueBID PPI + h pylori treatments postop. Addendum by Adrianna Duran is a fib with RBBB. 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
--- OUTSIDE RECORDS SUMMARY | 2017-11-25 07:45 | XMS REPORT ---
Author Author Chet Tobin Organization [employer] Address Unknown Phone Unavailable Care Team Providers Care Pellet Machine Operator Name Role Phone Chet Tobin CP Unavailable Allergies No Known Allergies Problems Problem Type Condition Code Onset Dates Condition Status Problem Chronic systolic heart failure I50.22 Active Assessment Heart failure, systolic I50.20 Active Problem Type 2 diabetes mellitus E11.9 Active Problem Atrial flutter I48.92 Active Problem Heart failure, systolic I50.20 Active Problem Essential hypertension I10 Active Problem Morbid obesity, unspecified obesity type E66.01 Active Problem Coronary artery disease involving lime coronary artery of lime heart, angina presence unspecified I25.10 Active Problem Severe aortic stenosis I35.0 Active Medications No Known Medications Results No Known Results Summary Purpose eClinicalWorks Submission
--- OUTSIDE RECORDS SUMMARY | 2017-11-25 07:45 | XMS REPORT ---
Author Author Chet Tobin [facility] [employer] Address Unknown Phone Unavailable Care Team Providers Care Grated Cheese Maker Name Role Phone Chet Tobin CP Unavailable Allergies No Known Allergies Problems Problem Type Condition Code Onset Dates Condition Status Problem Benign [...] Instructions Start Date End Date Status Dosage Insulin Syringe NDC 0 31G X 5/16 Subcutaneous 1 (one) Misc four times daily Mar 22, 2013 dx 250.00 Results No Known Results Summary Purpose [employer]ClinicalWorks Submission
--- OUTSIDE RECORDS SUMMARY | 2017-11-25 07:46 | XMS REPORT ---
Author Chet Carcamo Organization eClinicalWorks Address Unknown Phone Unavailable Care Team Providers Care Puppy Trainer Name Role Phone Chet Tobin CP Unavailable Allergies No Known Allergies Problems Problem Type Condition ICD-9 Code Onset Dates Condition Status Assessment Allergic rhinitis 477.9 Active Problem Aortic valve disorders 424.1 Active Problem [...] atrophic condition of skin 701.9 Inactive Medications Medication Code System Code Instructions Start Date End Date Status Dosage Xyzal [facility] [address]-54 5 MG Orally Once a day Feb 07, 2015 1 tablet in the evening Results No Known Results Summary Purpose eClinicalWorks Submission
--- OUTSIDE RECORDS SUMMARY | 2017-11-25 07:46 | XMS REPORT ---
Author Chet Carcamo [facility] eClinicalWorks Address Unknown Phone Unavailable Care Team Providers Care Floor Person Name Role Phone Chet Tobin CP Unavailable [...] I48.92 Active Problem Coronary artery disease involving [place] coronary artery of [place] heart, angina presence unspecified I25.10 Active Problem [...] Problem Unspecified seborrheic dermatitis 690.10 Inactive Assessment Diabetes mellitus, type 2 250.00 Active Problem Aortic stenosis 424.1 Active Problem Benign neoplasm of skin, site unspecified 216.9 Inactive Problem Cognitive impairment 294.9 Active Problem CAD (coronary artery disease) 414.00 Active Problem Heart failure 428.9 Inactive Medications Medication Code System Code Instructions Start Date End Date Status Dosage Metformin HCl [facility] [address]-09 1000 MG Orally Twice a day January 19, 2015 1 tablet with meals atorvastatin NDC 0 40 MG Oral 1 (one) at bedtime January 31, 2014 1 tablet Gabapentin [facility] [address]-93 100 MG Orally Three times a day 1 capsule Results No Known Results Summary Purpose eClinicalWorks Submission
--- OUTSIDE RECORDS SUMMARY | 2017-11-25 07:46 | XMS REPORT ---
Author Chet Carcamo [facility] eClinicalWorks Address Unknown Phone Unavailable Care Team Providers Care Oil Changer Name Role Phone Chet Tobin CP Unavailable Allergies, Adverse Reactions, Alerts Substance Reaction Event Type N.K.D.A. Info Not Available Non Drug Allergy Problems Problem Type Condition ICD-9 Code Onset Dates Condition Status Assessment Allergic rhinitis 477.9 Active Assessment Atrial flutter 427.32 Active Assessment CAD (coronary artery disease) 414.00 Active Assessment Heart failure 428.9 Active Assessment Aortic stenosis 424.1 Active Assessment Anticoagulated V58.61 Active Assessment Diabetes mellitus without mention of complication, type II or unspecified type, not stated as uncontrolled 250.00 Active Problem Benign neoplasm of skin, site unspecified 216.9 Inactive Problem Generalized hyperhidrosis 780.8 Inactive Problem Aortic valve disorders 424.1 Inactive Problem Unspecified hypertrophic and atrophic condition of skin 701.9 Inactive Problem Other and unspecified conjunctivitis 372.39 Inactive Problem Proteinuria 791.0 Active Problem Obesity, unspecified 278.00 Active Problem Other fluid overload 276.69 Inactive Problem Heart failure 428.9 Inactive Problem CAD (coronary artery disease) 414.00 Active Problem Acute pharyngitis 462 Inactive Problem Acute upper respiratory infections of unspecified site 465.9 Inactive Problem Aortic stenosis 424.1 Active Problem Unspecified sinusitis (chronic) 473.9 Inactive Problem Unspecified seborrheic dermatitis 690.10 Inactive Problem Lipoma of other skin and subcutaneous tissue 214.1 Inactive Problem Allergic rhinitis 477.9 Active Problem Special screening for malignant neoplasms, colon V76.51 Inactive Problem Hypertrophy (benign) of prostate without urinary obstruction and other lower urinary tract symptoms [LUTS] 600.00 Inactive Problem Other follow-up examination V67.59 Inactive Problem Occlusion and stenosis of carotid artery without mention of cerebral infarction 433.10 Inactive Problem Encounter for long-term (current) use of anticoagulants V58.61 Inactive Problem Lipoma of unspecified site 214.9 Inactive Problem Screening for unspecified condition V82.9 Inactive Problem Atrial flutter 427.32 Active Problem Congestive heart failure, unspecified 428.0 Inactive Medications Medication Code System Code Instructions Start Date End Date Status Dosage Levemir [facility] [address]-99 100 UNIT/ML Subcutaneous qHS January 19, 2015 15 units Apixaban [facility] [address]-36 5 MG Orally BID January 19, 2015 as directed atorvastatin NDC 0 40 MG Oral 1 (one) at bedtime January 31, 2014 not defined Nitrostat [facility] [address]-16 0.4 MG Sublingual as needed not defined OneTouch Basic System [facility] [address]-82 w/Device Subcutaneous Three times daily November 13, 2014 as directed Furosemide [facility] [address]-60 20 MG Oral 1 (one) Tablet two times daily January 31, 2014 decreased dose Metformin HCl [facility] [address]-85 1000 MG Orally Twice a day January 19, 2015 1 tablet with meals Fexofenadine HCl [facility] [address]-79 180 MG Orally Once a day January 19, 2015 1 tablet Embrace Blood Glucose Test [facility] 0 1 In Vitro Three times daily November 09, 2014 as directed(last a1c 7.3% 01/31/14, life time use Dx 250.00 Loratadine Allergy Relief [facility] 50788-16685 10 MG Oral 1 (one) Tablet Disperse daily May 26, 2013 not defined Carvedilol [facility] 88667341066 6.25 MG TAKE 1 TABLET BY MOUTH TWO TIMES DAILY OneTouch Test NDC 0 1 In Vitro Three times daily November 13, 2014 as directed Eileen Contour Test NDC 0 In Vitro 1 (one) Strip three times daily November 24, 2013 In future pt does not want onetouchdx: 250.00 Amiodarone HCl [facility] [address]-36 200 MG Oral 1 (one) Tablet two times daily January 31, 2014 not defined Nasonex [facility] [address]-23 50 MCG/ACT Nasal 2 (two) in each nostril daily Jul 25, 2013 not defined Insulin Syringe NDC 0 31G X 5/16 Subcutaneous 1 (one) Misc four times daily Mar 22, 2013 dx 250.00 Spironolactone [facility] [address]-08 25 MG Oral 1 (one) Tablet daily January 31, 2014 not defined Fish Oil Concentrate [facility] 13111-41797 1000 MG Oral 1 daily not defined Lisinopril [facility] [address]-50 20 MG Oral 1 (one) daily January 31, 2014 not defined Procedures Procedure Coding System Code Date PROTHROMBIN TIME CPT-4 97154 January 19, 2015 Office Visit, Est Pt., Level 4 CPT-4 84884 January 19, 2015 GLYCATED HEMOGLOBIN TEST CPT-4 86183 January 19, 2015 Vital Signs Date/Time: January 19, 2015 Temperature 98.1 F Weight 314.2 lbs Height 68 in Respiratory Rate 16 /min Cardiac Monitoring Heart Rate 60 /min Blood Pressure Diastolic 70 mm Hg Blood Pressure Systolic 142 mm Hg BMI 47.77 Index Results Name Result Date Reference Range Unit Abnormality Flag Complete Blood Count (CBC) w/ Differential 15555 Summary Purpose eClinicalWorks Submission
--- OUTSIDE RECORDS SUMMARY | 2017-11-25 07:46 | XMS REPORT ---
Author Chet Carcamo [facility] eClinicalWorks Address Unknown Phone Unavailable Care Team Providers Care Administrative Support Coordinator Name Role Phone Chet Tobin CP Unavailable [...] I48.92 Active Problem Coronary artery disease involving [place] coronary artery of [place] heart, angina presence unspecified I25.10 Active Problem [...] Problem Unspecified seborrheic dermatitis 690.10 Inactive Assessment Allergic rhinitis 477.9 Active Problem Aortic stenosis 424.1 Active Problem Benign neoplasm of skin, site unspecified 216.9 Inactive Problem Cognitive impairment 294.9 Active Problem CAD (coronary artery disease) 414.00 Active Problem Heart failure 428.9 Inactive Medications Medication Code System Code Instructions Start Date End Date Status Dosage Xyzal [facility] [address]-76 5 MG Orally Once a day Feb 07, 2015 1 tablet in the evening Results No Known Results Summary Purpose eClinicalWorks Submission
--- OUTSIDE RECORDS SUMMARY | 2017-11-25 07:46 | XMS REPORT | Referral Summary ---
Author Author [facility] Organization [facility] Address Unknown Phone Unavailable Care Team Providers Care Flanging Machine Operator Name Role Phone [facility] PCP Unavailable Encounter Date(s): 06/24/16 - 07/05/16 [facility] [address] [place] [address] Discharge Disposition: 01-Home or Self Care Attending Physician: Vlad Rodas III, MD Admitting Physician: Vlad Rodas III, MD Vital Signs No data available for this section Problem List Condition Effective Dates Status Health [...] 0 Refill(s) Start Date: 06/24/16 Status: Ordered atorvastatin 40 mg oral tablet 40 mg 1 tabs, Oral, Daily, 0 Refill(s) Start Date: 08/28/15 Status: Ordered carvedilol 6.25 mg oral tablet 6.25 mg 1 tabs, Oral, BID, 0 Refill(s) Start Date: 08/28/15 Status: Ordered Eliquis 5 mg oral tablet 5 mg 1 tabs, Oral, BID, # 60 tabs, 0 Refill(s) Start Date: 08/28/15 Status: Ordered furosemide 20 mg oral tablet 20 mg 1 tabs, Oral, BID, # 60 tabs, 0 Refill(s) Start Date: 08/29/15 Stop Date: 09/28/15 Status: Ordered gabapentin 100 mg, Oral, TID, 0 Refill(s) Start Date: 06/24/16 Status: Ordered Levemir 100 units/mL subcutaneous solution 25 units, SubCutaneous, Bedtime (once a day), 0 Refill(s) Start Date: 08/28/15 Status: Ordered lisinopril 40 mg oral tablet 40 mg 1 tabs, Oral, Daily, 0 Refill(s) Start Date: 08/28/15 Status: Ordered medicated otc powder medicated otc powder, for itch in between legs, 0 Refill(s) Start Date: 06/24/16 Status: Ordered metFORMIN 1000 mg oral tablet 1,000 mg 1 tabs, Oral, BID, 0 Refill(s) Start Date: 08/28/15 Status: Ordered muscle rub muscle rub, use once at night on chest every night, 0 Refill(s) Start Date: 06/24/16 Status: Ordered spironolactone 25 mg oral tablet 25 mg 1 tabs, Oral, Daily, 0 Refill(s) Start Date: 08/28/15 Status: Ordered Tylenol Extra Strength 1,000 mg, Oral, q6hr, Pain Mild (1-3), 0 Refill(s) Start Date: 08/28/15 Status: Ordered Vitamin D with Minerals oral tablet 1 tabs, Oral, Daily, # 30 tabs, 0 Refill(s) Start Date: 06/24/16 Status: Ordered Xyzal 5 mg, Oral, qPM, 0 Refill(s) Start Date: 06/24/16 Status: Ordered Results No data available for this section Immunizations Given and Recorded Vaccine Date Status Refusal Reason pneumococcal 23-polyvalent vaccine 06/24/16 Given Procedures Procedure Date Related Diagnosis Body Site Esophagogastroduodenoscopy - SN1 07/03/16 Catheterization Left Heart with Coronary 06/26/16 Angiography2 Catheterization Right Heart3 06/26/16 Arterial stent 1auto-populated from documented surgical case 2auto-populated from documented surgical case 3auto-populated from documented surgical case Social History Social History Type Response Smoking Status Never smoker Assessment and Plan No data available for this section
--- OUTSIDE RECORDS SUMMARY | 2017-11-25 07:46 | XMS REPORT ---
Author Chet Carcamo [facility] eClinicalWorks Address Unknown Phone Unavailable Care Team Providers Care High Court Justice Name Role Phone Chet Tobin CP Unavailable Allergies No Known Allergies Problems Problem Type Condition ICD-9 Code Onset Dates Condition Status Problem Benign neoplasm of skin, site unspecified 216.9 Inactive Assessment Allergic rhinitis 477.9 Active Problem Other and unspecified conjunctivitis 372.39 [...] atrophic condition of skin 701.9 Inactive Assessment Heart failure, systolic 428.20 Active Problem Proteinuria 791.0 Active Problem Screening for unspecified condition V82.9 Inactive Problem Generalized hyperhidrosis 780.8 Inactive Problem Lipoma of other skin and subcutaneous tissue 214.1 Inactive Problem Unspecified seborrheic dermatitis 690.10 Inactive Problem Other fluid overload 276.69 Inactive Problem Obesity, unspecified 278.00 Active Medications Medication Code System Code Instructions Start Date End Date Status Dosage Levemir NDC [address]-83 100 UNIT/ML Subcutaneous qHS January 19, 2015 25 units Eileen Contour Test NDC 0 In Vitro 1 (one) Strip three times daily November 24, 2013 In future pt does not want onetouchdx: 250.00 Lisinopril [facility] [address]-74 40 MG Orally 1 (one) daily January 31, 2014 1 tablet Carvedilol [facility] 45230316635 6.25 MG TAKE 1 TABLET BY MOUTH TWO TIMES DAILY Spironolactone [facility] [address]-26 25 MG Oral 1 (one) Tablet daily January 31, 2014 1 tablet Amiodarone HCl [facility] [address]-71 200 MG Oral 1 (one) Tablet two times daily January 31, 2014 1 tablet Fish Oil Concentrate [facility] [address]-28545 1000 MG Oral 1 daily not defined Apixaban [facility] [address]-12 5 MG Orally BID January 19, 2015 as directed atorvastatin NDC 0 40 MG Oral 1 (one) at bedtime January 31, 2014 1 tablet Embrace Blood Glucose Test NDC 0 1 In Vitro Three times daily November 09, 2014 as directed(last a1c 7.3% 01/31/14, life time use Dx 250.00 Insulin Syringe NDC 0 31G X 5/16 Subcutaneous 1 (one) Misc four times daily Mar 22, 2013 dx 250.00 Xyzal [facility] [address]-58 5 MG Orally Once a day Feb 07, 2015 1 tablet in the evening Furosemide [facility] [address]-65 20 MG Oral 1 (one) Tablet two times daily January 31, 2014 decreased dose OneTouch Test NDC 0 1 In Vitro Three times daily November 13, 2014 as directed Metformin HCl [facility] [address]-28 1000 MG Orally Twice a day January 19, 2015 1 tablet with meals Nitrostat [facility] [address]-38 0.4 MG Sublingual as needed not defined Nasonex [facility] [address]-65 50 MCG/ACT Nasal 2 (two) in each nostril daily Jul 25, 2013 not defined OneTouch Basic System [facility] [address]-27 w/Device Subcutaneous Three times daily November 13, 2014 as directed Results No Known Results Summary Purpose eClinicalWorks Submission
--- OUTSIDE RECORDS SUMMARY | 2017-11-25 07:46 | XMS REPORT ---
Author Author Chet Tobin Organization eClinicalWorks Address Unknown Phone Unavailable Care Team Providers Care Picture Copyist Name Role Phone Chet Tobin CP Unavailable Allergies No Known Allergies Problems Problem Type Condition Code Onset Dates Condition Status Problem Chronic systolic heart failure I50.22 Active Problem Type 2 diabetes mellitus E11.9 Active Problem Atrial flutter I48.92 Active Problem Heart failure, systolic I50.20 Active Problem Essential hypertension I10 Active Problem Morbid obesity, unspecified obesity type E66.01 Active Problem Coronary artery disease involving [place] coronary artery of [place] heart, angina presence unspecified I25.10 Active Problem Severe aortic stenosis I35.0 Active Medications No Known Medications Results No Known Results Summary Purpose eClinicalWorks Submission
--- OUTSIDE RECORDS SUMMARY | 2017-11-25 07:46 | XMS REPORT ---
Author Author Chet Tobin Organization eClinicalWorks Address Unknown Phone Unavailable Care Team Providers Care Tobacco Grader Name Role Phone Chet Tobin CP Unavailable [...]
--- OUTSIDE RECORDS SUMMARY | 2017-11-25 07:47 | XMS REPORT ---
Author Chet Carcamo [facility] eClinicalWorks Address Unknown Phone Unavailable Care Team Providers Care Hopper Feeder Name Role Phone Chet Tobin CP Unavailable [...] I48.92 Active Problem Coronary artery disease involving [place] coronary artery of [place] heart, angina presence unspecified I25.10 Active Problem [...]
--- OUTSIDE RECORDS SUMMARY | 2017-11-25 07:47 | XMS REPORT | Referral Summary ---
Author Author [facility] Organization [facility] Address Unknown Phone Unavailable Care Team Providers Care Operations And Intelligence Assistant Name Role Phone [facility] PCP Unavailable Encounter VC Date(s): 08/28/15 - 08/29/15 [facility] [address] [place] [address] Discharge Disposition: 01-Home or Self Care Attending Physician: Yamileth Estrella MD Admitting Physician: Yamileth Estrella MD Vital Signs Most recent to 1 oldest [Reference Range]: Temperature Oral 36.7 degC [35.8-37.3 degC] (08/29/15 11:00 AM) Peripheral Pulse 60 bpm Rate [60-100 bpm] (08/29/15 1:00 PM) Heart Rate Monitored 70 bpm [60-100 bpm] (08/29/15 8:46 AM) Respiratory Rate 20 br/min [14-20 br/min] (08/29/15 11:00 AM) Blood Pressure 122/75 mmHg [90-140/60-90 mmHg] (08/29/15 1:00 PM) Mean Arterial 72 mmHg Pressure, Cuff (08/28/15 3:30 AM) SpO2 95 % (08/29/15 1:00 PM) Problem List Condition Effective Dates Status Health Status Informant Acute Active pain(Confirmed) At risk for Active falls(Confirmed)1 Heart Active failure(Confirmed) Impaired gas Active exchange(Confirmed)2 Ineffective airway Active clearance(Confirmed) 3 1This problem was added by Discern Expert. 2Problem added automatically by system based on initiation of Impaired Gas Exchange Plan of Care 3Problem added automatically by system based on initiation of Ineffective Airway Clearance Plan of Care Allergies, Adverse Reactions, Alerts No Known Allergies Medications amiodarone 200 mg, Oral, Daily, 0 Refill(s) Start Date: 08/28/15 Status: Ordered atorvastatin 40 mg oral tablet [...] Stop Date: 09/28/15 Status: Ordered gabapentin 100 mg oral capsule 100 mg 1 caps, Oral, TID, # 90 caps, 0 Refill(s) Start Date: 08/29/15 Status: Ordered Levemir 100 units/mL subcutaneous solution 20 units, SubCutaneous, Bedtime (once a day), 0 Refill(s) Start Date: 08/28/15 Status: Ordered levocetirizine 5 mg oral tablet 5 mg 1 tabs, Oral, qPM, 0 Refill(s) Start Date: 08/28/15 Status: Ordered lisinopril 40 mg oral tablet 40 mg 1 tabs, Oral, Daily, 0 Refill(s) Start Date: 08/28/15 Status: Ordered metFORMIN 1000 mg oral tablet 1,000 mg 1 tabs, Oral, BID, 0 Refill(s) Start Date: 08/28/15 Status: Ordered Proventil HFA 90 mcg/inh inhalation aerosol 2-6 puffs, Inhalation, q2hr (scheduled), Shortness of Breath/Wheezing, # 1 Each , 0 Refill(s) Start Date: 08/29/15 Status: Ordered Proventil HFA 90 mcg/inh inhalation aerosol 2-6 puffs, Inhalation, BID, # 1 Each, 0 Refill(s) Start Date: 08/29/15 Stop Date: 09/28/15 Status: Ordered spironolactone 25 mg oral tablet 25 mg 1 tabs, Oral, Daily, 0 Refill(s) Start Date: 08/28/15 Status: Ordered Tylenol Extra Strength 1,000 mg, Oral, q6hr, Pain Mild (1-3), 0 Refill(s) Start Date: 08/28/15 Status: Ordered Results Hematology Most recent to 1 oldest [Reference Range]: WBC [4.8-10.8 6.5 10*3/uL 10*3/uL] (08/29/15 6:07 AM) RBC [4.60-6.20] 4.23 *LOW* (08/29/15 6:07 AM) Hgb [14.0-18.0 12.5 gm/dL gm/dL] *LOW* (08/29/15 6:07 AM) Hct [42.0-52.0 %] 38.2 % *LOW* (08/29/15 6:07 AM) MCV [82.0-99.0 fL] 90.3 fL (08/29/15 6:07 AM) MCH [27.0-32.0 pg] 29.6 pg (08/29/15 6:07 AM) MCHC [32.0-36.0 32.7 gm/dL gm/dL] (08/29/15 6:07 AM) RDW [11.5-14.5 %] 15.0 % *HI* (08/29/15 6:07 AM) Platelet [150-400 256 10*3/uL 10*3/uL] (08/29/15 6:07 AM) MPV [9.4-12.3 fL] 9.9 fL (08/29/15 6:07 AM) Immature 0.2 % Granulocytes (08/28/15 2:16 AM) [0.0-1.0 %] Neutrophils [51-75 74 % %] (08/28/15 2:16 AM) Lymphocytes [20-46 11 % %] *LOW* (08/28/15 2:16 AM) Monocytes [4-11 %] 12 % *HI* (08/28/15 2:16 AM) Eosinophils [0-4 %] 2 % (08/28/15 2:16 AM) Basophils [0-2 %] 0 % (08/28/15 2:16 AM) Neutro Absolute 6.07 10*3 [1.90-7.00 10*3] (08/28/15 2:16 AM) Lymph Absolute 0.92 10*3 [0.80-3.30 10*3] (08/28/15 2:16 AM) [place] Absolute 1.01 10*3 [0.30-1.00 10*3] *HI* (08/28/15 2:16 AM) Eos Absolute 0.13 10*3 [0.00-0.50 10*3] (08/28/15 2:16 AM) Baso Absolute 0.02 10*3 [0.00-0.20 10*3] (08/28/15 2:16 AM) Nucleated RBC 0.0 /100 WBC Automated [0 /100 (08/28/15 2:16 AM) WBC] Chemistry Most recent to 1 oldest [Reference Range]: Sodium Lvl [136-144 138 mEq/L mEq/L] (08/29/15 6:07 AM) Potassium Lvl 4.3 mEq/L 1 [3.6-5.1 mEq/L] (08/29/15 6:07 AM) Chloride [99-109 102 mEq/L mEq/L] (08/29/15 6:07 AM) CO2 [22-32 mEq/L] 28 mEq/L (08/29/15 6:07 AM) AGAP [3-20] 8 (08/29/15 6:07 AM) BUN [4-20 mg/dL] 23 mg/dL *HI* (08/29/15 6:07 AM) Glucose Lvl [70-100 126 mg/dL mg/dL] *HI* (08/29/15 6:07 AM) Creatinine Lvl 1.16 mg/dL [0.64-1.27 mg/dL] (08/29/15 6:07 AM) eGFR [>60] >60 2 (08/29/15 6:07 AM) Calcium Lvl 8.6 mg/dL [8.6-10.0 mg/dL] (08/29/15 6:07 AM) Albumin Lvl [3.5-4.8 2.7 gm/dL gm/dL] *LOW* (08/29/15 6:07 AM) Total Protein 5.9 gm/dL [6.1-7.9 gm/dL] *LOW* (08/28/15 2:16 AM) Globulin [1.9-4.3 3.0 gm/dL gm/dL] (08/28/15 2:16 AM) ALT [17-63 U/L] 38 U/L (08/28/15 2:16 AM) AST [15-41 U/L] 52 U/L *HI* (08/28/15 2:16 AM) Alk Phos [26-104 62 U/L U/L] (08/28/15 2:16 AM) Bili Total [0.2-1.2 2.4 mg/dL 3 mg/dL] *HI* (08/28/15 2:16 AM) Magnesium Lvl 2.0 mg/dL [1.8-2.5 mg/dL] (08/29/15 6:07 AM) Phosphorus [2.4-4.7 4.4 mg/dL 4 mg/dL] (08/29/15 6:07 AM) BNP [0-99 pg/mL] 577 pg/mL *HI* (08/28/15 2:16 AM) Troponin [<0.06 <0.05 ng/mL ng/mL] (08/28/15 2:16 AM) Blood Glucose, 140 mg/dL Capillary [70-100 *HI* mg/dL] (08/29/15 11:21 AM) 1Result Comment: Hemolyzed specimen. The following tests may be affected: Potassium. 08/29/2015 07:32 2Result Comment: Multiply eGFR results by 1.21 for race. 3Result Comment: Naproxen, specifically the metabolite O-desmethylnaproxen, may cause spurious elevation in Total Bilirubin levels. 4Result Comment: High dosages of liposomal Amphotericin B (AmBisome) therapy or other drug preparations that use a liposomal envelope to facilitate drug delivery may cause falsely elevated results for phosphorus. Microbiology Reports TEST: Respiratory Virus Panel - PCR STATUS: Auth (Verified) BODY SITE: SOURCE: Nasopharyngeal Swab COLLECTED DATE/TIME: 08/28/15 5:06 PM Respiratory Virus Panel - PCR RSV subtype B Positive by PCR . Specimen tested for the following FDA approved viral targets: Influenza A, Influenza A subtype H1, Influenza A subtype H3, Influenza A 2009 H1N1, Influenza B, Respiratory Syncytial Virus subtype A, Respiratory Syncytial Virus subtype B, Adenovirus B/E, Adenovirus C, Rhinovirus, Parainfluenza virus 1, Parainfluenza virus 2, Parainfluenza virus 3, and Human Metapneumovirus. . The following viral targets were also tested. Although not FDA approved, these targets have been validated by our laboratory for clinical diagnosis: Parainfluenza virus 4, Coronavirus 229E, Coronavirus NL63, Coronavirus HKU1, and Coronavirus OC43. ORGANISM:Respiratory Syncytial Virus subtype B Immunizations No data available for this section Procedures Procedure Date Related Diagnosis Body Site Arterial stent Social History Social History Type Response Smoking Status Never smoker Assessment and Plan No data available for this section
--- OUTSIDE RECORDS SUMMARY | 2017-11-25 07:47 | XMS REPORT ---
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 Problem Other and unspecified conjunctivitis 372.39 Inactive Problem Unspecified hypertrophic and atrophic condition of skin 701.9 Inactive Problem Unspecified sinusitis (chronic) 473.9 Inactive Problem Proteinuria 791.0 Active Problem Acute upper respiratory infections of unspecified site 465.9 Inactive Problem Other fluid overload 276.69 Inactive Problem Lipoma of other skin and subcutaneous tissue 214.1 Inactive Problem Obesity, unspecified 278.00 Active Problem 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 Active Problem Unspecified essential hypertension 401.9 Active Problem Encounter for long-term (current) use of anticoagulants V58.61 Active Problem Occlusion and stenosis of carotid artery without mention of cerebral infarction 433.10 Inactive Problem Special screening for malignant neoplasms, colon V76.51 Inactive Problem Acute pharyngitis 462 Inactive Problem Diabetes mellitus without mention of complication, type II or unspecified type, not stated as uncontrolled 250.00 Active Problem Unspecified seborrheic dermatitis 690.10 Inactive Problem Other and unspecified hyperlipidemia 272.4 Active Problem Coronary atherosclerosis of unspecified type of vessel, [place] or graft 414.00 Active Problem Other follow-up examination V67.59 Inactive Problem Atrial flutter 427.32 Active Problem Hypertrophy (benign) of prostate without urinary obstruction and other lower urinary tract symptoms [LUTS] 600.00 Active Problem Unspecified systolic heart failure 428.20 Active Problem Screening for unspecified condition V82.9 Inactive Problem Generalized hyperhidrosis 780.8 Inactive Problem Congestive heart failure, unspecified 428.0 Inactive Problem Lipoma of unspecified site 214.9 Inactive Medications Medication Code System Code Instructions Start Date End Date Status Dosage Eileen Contour Test NDC 0 In Vitro 1 (one) Strip three times daily November 24, 2013 In future pt does not want onetouchdx: 250.00 Warfarin Sodium [facility] [place] [address]-30 5 MG Oral 1 (one) Tablet daily January 31, 2014 I tab oral daily at 5 PM Claritin [facility] [place] [facility]] [address]-43 10 MG Oral 1 tab daily not defined Novolin R [facility] [place] 2] 97104210775 100 UNIT/ML INJECT 6 UNITS SUBCUTANEOUSLY THREE TIMES DAILY Nasonex [facility] [place] 2[place] [address]-29 50 MCG/ACT Nasal 2 (two) in each nostril daily Jul 25, 2013 not defined Amiodarone HCl [facility] [place] 2] [address]-11 200 MG Oral 1 (one) Tablet two times daily January 31, 2014 not defined Loratadine Allergy Relief [facility] [place] 2] [address]56[address]13 10 MG Oral 1 (one) Tablet Disperse daily May 26, 2013 not defined Spironolactone [facility] [place] 2] [address]-52 25 MG Oral 1 (one) Tablet daily January 31, 2014 not defined Lisinopril [facility] [place] 2] [address]-02 20 MG Oral 1 (one) daily January 31, 2014 not defined Plavix [facility] [place] 2] [address]-18 75 MG Oral 1 (one) daily January 31, 2014 not defined Fish Oil Concentrate [facility] [place] 2] 62[address]358 1000 MG Oral 1 daily not defined atorvastatin ND 0 40 MG Oral 1 (one) at bedtime January 31, 2014 not defined Insulin Syringe ND 0 31G X 5/16" 05 ML Subcutaneous 1 (one) Misc four times daily Mar 22, 2013 dx 250.00 Nitrostat [facility] [place] 2] [address]-14 0.4 MG Sublingual as needed not defined Carvedilol [facility] [place] 2] [address]-23 6.25 MG Oral 1 (one) two times daily January 31, 2014 not defined Furosemide [facility] [place] 2] [address]-11 20 MG Oral 1 (one) Tablet two times daily January 31, 2014 decreased dose Embrace Blood Glucose Test ND 0 1 In Vitro Three times daily November 09, 2014 as directed(last a1c 7.3% 01/31/14, life time use Dx 250.00 Results No Known Results Summary Purpose [employer] Submission
--- OUTSIDE RECORDS SUMMARY | 2017-11-25 07:47 | XMS REPORT ---
Author Chet Carcamo [facility] [employer] Address Unknown Phone Unavailable Care Team Providers Care Truck Unloader Name Role Phone Chet Tobin CP Unavailable [...]
--- OUTSIDE RECORDS SUMMARY | 2017-11-25 07:47 | XMS REPORT ---
Author Chet Carcamo Organization [employer] Address Unknown Phone Unavailable Care Team Providers Care Air Traffic Control Supervisor Name Role Phone Chet Tobin CP Unavailable [...] condition of skin 701.9 Inactive Assessment Diabetes mellitus without mention of complication, type II or unspecified type, not stated as uncontrolled 250.00 Active Problem Proteinuria 791.0 Active Problem Screening for unspecified condition V82.9 Inactive Problem Generalized hyperhidrosis 780.8 Inactive Problem Lipoma of other skin and subcutaneous tissue 214.1 Inactive Problem Unspecified seborrheic dermatitis 690.10 Inactive Problem Other fluid overload 276.69 Inactive Problem Obesity, unspecified 278.00 Active Medications Medication Code System Code Instructions Start Date End Date Status Dosage Spironolactone [facility] [address]-18 25 MG Oral 1 (one) Tablet daily January 31, 2014 1 tablet Amiodarone HCl [facility] [address]-64 200 MG Oral 1 (one) Tablet two times daily January 31, 2014 1 tablet Levemir [facility] [address]-27 100 UNIT/ML Subcutaneous qHS January 19, 2015 25 units Lisinopril [facility] [address]-66 40 MG Orally 1 (one) daily January 31, 2014 1 tablet Results No Known Results Summary Purpose [employer] Submission
--- OUTSIDE RECORDS SUMMARY | 2017-11-25 07:48 | XMS REPORT ---
Author Author ASHER GRIFFITHS Organization [facility] Address [address] 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 443888718 Problem Morbid obesity due to excess calories E66.01 Active 883783734 Problem 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 pectoris , unspecified vessel or lesion type I25.10 Active 36964272 Problem Proteinuria, unspecified R80.9 Active 52033359 Problem Essential hypertension I10 Active 74080593 ALLERGIES No Information ENCOUNTERS Encounter Location Date Diagnosis [facility] [id number] [place] [address] Oct, 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 pectoris, unspecified vessel or lesion type I25.10 ; Type 2 diabetes mellitus with other circulatory complication, 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 ; Morbid obesity due to excess calories E66.01 ; Essential hypertension I10 ; Chronic atrial fibrillation I48.2 ; Proteinuria, unspecified R80.9 ; Hyperlipidemia, unspecified hyperlipidemia type E78.5 and BMI 45.0-49.9 , adult Z68.42 [facility] [id number] [place] [address] Oct, [facility] [id number] [place] [address] Sep, Type 2 diabetes mellitus with other diabetic kidney complication E11.29 [facility] [address] [address] 13 Sep, 2017 Type 2 diabetes mellitus with other diabetic kidney complication E11.29 [address] [address] [address] 12 Sep, 2017 [address] [address] [address] Jun, [address] [id number] [place] [address] Jun, [address] [address] [place] [address] 11 Jun, 2017 Encounter for immunization Z23 ; Type 2 diabetes mellitus with other circulatory complication, 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 ; 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 pectoris , unspecified vessel or lesion type I25.10 ; Proteinuria, unspecified R80.9 and BMI 45.0-49.9, adult Z68.42 [address] [address] [address] [address] 14 Mar, 2017 [address] [place] [address] Feb, [address] [address] [address] Feb, Type 2 diabetes mellitus with other circulatory complication , 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 ; Proteinuria, unspecified R80.9 and Type 2 diabetes mellitus with other diabetic kidney complication E11.29 [place] [id number] [address] Jan, Acute right-sided low back pain without sciatica M54.5 [place] [address] [address] [address] 05 Jan, 2017 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 pectoris, unspecified vessel or lesion type I25.10 ; Type 2 diabetes mellitus with other circulatory complication, 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 ; Morbid obesity due to excess calories E66.01 ; Essential hypertension I10 and Chronic atrial fibrillation I48.2 IMMUNIZATIONS No Known Immunizations SOCIAL HISTORY Never Assessed REASON FOR VISIT Ropinirole refill PLAN OF CARE VITAL SIGNS MEDICATIONS Medication Instructions Dosage Frequency Start Date End Date Duration Status Ropinirole HCl 0.5 MG Orally 3 times a day 1 tablet 8h Active RESULTS No Results PROCEDURES No Known procedures [...] placement 2008 Surgical History Cardiac stent placement 2012 Hospitalization History Past surgeries
--- OUTSIDE RECORDS SUMMARY | 2017-11-25 07:48 | XMS REPORT ---
Author Author Chet Tobin Organization [employer] Address Unknown Phone Unavailable Care Team Providers Care Postdoctoral Fellow Name Role Phone Chet Tobin CP Unavailable [...]
--- OUTSIDE RECORDS SUMMARY | 2017-11-25 07:48 | XMS REPORT ---
Author Author Mushtaq Garcia Organization [employer] Address Unknown Phone Unavailable Care Team Providers Care Special Procedures Tech Name Role Phone Mushtaq Garcia CP Unavailable [...] Coronary atherosclerosis of unspecified type of vessel, [place] or graft 414.00 Active Problem Other follow-up [...] Start Date End Date Status Dosage Nasonex [facility] [address]-65 50 MCG/ACT Nasal 2 (two) in each nostril daily Jul 25, 2013 not defined Claritin [facility] [address]-27 10 MG Oral 1 tab daily not defined atorvastatin NDC 0 40 MG Oral 1 (one) at bedtime January 31, 2014 not defined Novolin R [facility] 08818296238 100 UNIT/ML INJECT 6 UNITS SUBCUTANEOUSLY THREE TIMES DAILY Warfarin Sodium [facility] [address]-94 5 MG Oral 1 (one) Tablet daily January 31, 2014 I tab oral daily at 5 PM Loratadine Allergy Relief [facility] 557[address]370 10 MG Oral 1 (one) Tablet Disperse daily May 26, 2013 not defined OneTouch Test NDC 0 1 In Vitro Three times daily November 13, 2014 as directed Fish Oil Concentrate [facility] [address]88 1000 MG Oral 1 daily not defined Embrace Blood Glucose Test NDC 0 1 In Vitro Three times daily November 09, 2014 as directed(last a1c 7.3% 01/31/14, life time use Dx 250.00 OneTouch Basic System [facility] [address]-71 w/Device Subcutaneous Three times daily November 13, 2014 as directed Plavix [facility] [address]-54 75 MG Oral 1 (one) daily January 31, 2014 not defined Lisinopril [facility] [address]-16 20 MG Oral 1 (one) daily January 31, 2014 not defined Nitrostat [facility] [address]-83 0.4 MG Sublingual as needed not defined Spironolactone [facility] [address]-84 25 MG Oral 1 (one) Tablet daily January 31, 2014 not defined Furosemide [facility] [address]-61 20 MG Oral 1 (one) Tablet two times daily January 31, 2014 decreased dose Insulin Syringe ND 0 31G X 5/16" 05 ML Subcutaneous 1 (one) Misc four times daily Mar 22, 2013 dx 250.00 Eileen Contour Test NDC 0 In Vitro 1 (one) Strip three times daily November 24, 2013 In future pt does not want onetouchdx: 250.00 Amiodarone HCl [facility] [address]-70 200 MG Oral 1 (one) Tablet two times daily January 31, 2014 not defined Carvedilol [facility] [address]-77 6.25 MG Oral 1 (one) two times daily January 31, 2014 not defined Results No Known Results Summary Purpose [employer] Submission
--- OUTSIDE RECORDS SUMMARY | 2017-11-25 07:48 | XMS REPORT ---
Author Author ASHER GRIFFITHS Organization [facility] Address [address] 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 592458206 Problem Morbid obesity due to excess calories E66.01 Active 329910364 Problem Coronary artery disease involving [place] heart without angina pectoris , unspecified vessel or lesion type I25.10 Active 00451226 Problem Proteinuria, unspecified R80.9 Active 44615994 Problem Essential hypertension I10 Active 89388409 ALLERGIES No Known Allergies ENCOUNTERS Encounter Location Date Diagnosis [id number] [place] [address] Oct, Coronary artery disease involving [place] heart without angina pectoris, unspecified vessel or lesion type I25.10 ; Type 2 diabetes mellitus with other circulatory complication, 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 ; Morbid obesity due to excess calories E66.01 ; Essential hypertension I10 ; Chronic atrial fibrillation I48.2 ; Proteinuria, unspecified R80.9 ; Hyperlipidemia, unspecified hyperlipidemia type E78.5 and BMI 45.0-49.9 , adult Z68.42 [facility] [address] [place] [address] Oct, [facility] [id number] [place] [address] Sep, Type 2 diabetes mellitus with other diabetic kidney complication E11.29 [facility] [address] [address] 13 Sep, 2017 Type 2 diabetes mellitus with other diabetic kidney complication E11.29 [address] [address] 12 Sep, 2017 [address] [address] Jun, [id number] [place] [address] Jun, [address] [place] [address] 11 Jun, 2017 Encounter for immunization Z23 ; Type 2 diabetes mellitus with other circulatory complication, 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 ; Coronary artery disease involving [place] heart without angina pectoris , unspecified vessel or lesion type I25.10 ; Proteinuria, unspecified R80.9 and BMI 45.0-49.9, adult Z68.42 [address] [address] 14 Mar, 2017 [address] [address] Feb, [address] [address] Feb, Type 2 diabetes mellitus with other circulatory complication , 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 ; Proteinuria, unspecified R80.9 and Type 2 diabetes mellitus with other diabetic kidney complication E11.29 [id number] [address] Jan, Acute right-sided low back pain without sciatica M54.5 [address] [address] [address] 05 Jan, 2017 Coronary artery disease involving lime heart without angina pectoris, unspecified vessel or lesion type I25.10 ; Type 2 diabetes mellitus with other circulatory complication, 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 ; Morbid obesity due to excess calories E66.01 ; Essential hypertension I10 and Chronic atrial fibrillation I48.2 IMMUNIZATIONS No Known Immunizations SOCIAL HISTORY Never Assessed [facility] FOR VISIT [facility] C[facility] Activity Details Follow Up 3 Months Reason:DMT2 VITAL SIGNS Height 67 in 2017-02-17 Weight 290.4 lbs 2017-02-17 Temperature 97.6 degrees Fahrenheit 2017-02-17 Heart Rate 84 bpm 2017-02-17 Respiratory Rate 18 2017-02-17 BMI 45.48 kg/m2 2017-02-17 Blood pressure systolic 134 mmHg 2017-02-17 Blood pressure diastolic 80 mmHg 2017-02-17 MEDICATIONS Medication Instructions Dosage Frequency Start Date End Date Duration Status Multivitamin Men - Active Lisinopril 2.5 MG Orally Once a day 1 tablet 24h Active Amiodarone HCl 200 MG Orally Once a day 1 tablet 24h Active Furosemide 40 MG Orally Once a day 1 tablet 24h Active Atorvastatin Calcium 40 mg Orally Once a day 0.5 tablet 24h Active Magnesium Oxide 400 mg Orally 2 times a day 1 tablet 12h Active Levocetirizine Dihydrochloride 5 MG Orally Once a day 1 tablet in the evening 24h Active Bumetanide 1 MG Orally twice a day 1 tablet 12h Active Metoprolol Tartrate 25 MG Orally Twice a day 1 tablet with food 12h Active Eliquis 5 mg Orally 2 times a day 12h Active Klor-Con M20 20 meq Orally 2 times a day 2 tablet with food 12h Active Fish Oil 1000 MG Orally twice a day 1 capsule 12h Active Ropinirole HCl 0.5 MG Orally 3 times a day 1 tablet 8h Active Colace 100 MG Orally Once a day 1 capsule as needed 24h Active Mupirocin 2 % Externally 2 times a day 1 application to affected area 12h Active Ferrous Sulfate 325 (65 Fe) MG Orally Once a day 1 tablet 24h Active RESULTS No Results PROCEDURES Procedure Date Ordered Result Body Site MICROALBUMIN, SEMIQUANT Feb 17, 2017 LAB NOT BILLED BY [facility] Feb 17, 2017 INSTRUCTIONS MEDICATIONS ADMINISTERED No Known Medications MEDICAL (GENERAL) HISTORY Type Description Date Medical History Hypertension Medical History Hyperlipidemia Medical History Seasonal allergies Medical History Restless leg syndrome Medical History Type 2 Diabetes Medical History Atrila Fibrillation Medical History CAD, aortic valvular repair Surgical History open heart surgery, valve replacement and blockage repair Surgical History Cardiac stent placement 2005 Surgical History Cardiac stent placement 2009 Surgical History Cardiac stent placement 2013 Hospitalization History Past surgeries
--- OUTSIDE RECORDS SUMMARY | 2017-11-25 07:48 | XMS REPORT ---
Author Author Chet Tobin [facility] Address [address] [place], [place] [address] Care Team Providers Care Help Desk Engineer Name Role Phone Chet Tobin Unavailable PROBLEMS Type Condition ICD9-CM Code VVQ28-KJ Code Onset Dates Condition Status SNOMED Code Problem Morbid obesity, unspecified obesity type E66.01 Active 450894986 Problem Chronic systolic heart failure I50.22 Active 629412939 Problem Heart failure, systolic I50.20 Active 100718708 Problem Type 2 diabetes mellitus E11.9 Active 19289026 Problem Severe aortic stenosis I35.0 Active 09147601 Problem Essential hypertension I10 Active 98259792 Problem Atrial flutter I48.92 Active 4390568 Problem Coronary artery disease involving [place] coronary artery of [place] heart, angina presence unspecified I25.10 Active 7639371299832 ALLERGIES Unknown Allergies SOCIAL HISTORY No smoking Hx information available PLAN OF CARE VITAL SIGNS MEDICATIONS Unknown Medications RESULTS No Results PROCEDURES No Known procedures IMMUNIZATIONS No Known Immunizations
--- OUTSIDE RECORDS SUMMARY | 2017-11-25 07:48 | XMS REPORT ---
Author Author Mushtaq Garcia Organization [employer] Address Unknown Phone Unavailable Care Team Providers Care Summer Babysitter Name Role Phone Mushtaq Garcia CP Unavailable [...] Coronary atherosclerosis of unspecified type of vessel, [place] or graft 414.00 Active Problem Other follow-up [...] Lipoma of unspecified site 214.9 Inactive Medications No Known Medications Results No Known Results Summary Purpose [employer] Submission
--- OUTSIDE RECORDS SUMMARY | 2017-11-25 07:48 | XMS REPORT | Referral Summary ---
Author Author [facility] Organization [facility] Address Unknown Phone Unavailable Care Team Providers Care Account Adjuster Name Role Phone [facility] PCP Unavailable Encounter VC Date(s): 06/10/16 - 06/10/16 [facility] [address] [place] [address] Discharge Disposition: 01-Home or Self Care Attending Physician: Paulo Rangel MD Admitting Physician: Paulo Rangel MD Vital Signs No data available for [...] Refill(s) Start Date: 08/28/15 Status: Ordered Results No data available for this section Immunizations No data available for this section Procedures Procedure Date Related Diagnosis Body Site Arterial stent Social History Social History Type Response Smoking Status Never smoker Assessment and Plan No data available for this section
--- OUTSIDE RECORDS SUMMARY | 2017-11-25 07:48 | XMS REPORT ---
Author Chet Carcamo [facility] [employer] Address Unknown Phone Unavailable Care Team Providers Care Training And Quality Manager Name Role Phone Chet Tobin CP Unavailable [...] I48.92 Active Problem Coronary artery disease involving [place] coronary artery of [place] heart, angina presence unspecified I25.10 Active Problem [...]
--- OUTSIDE RECORDS SUMMARY | 2017-11-25 07:48 | XMS REPORT ---
Author Chet Carcamo Organization [employer] Address Unknown Phone Unavailable Care Team Providers Care Manager Life Name Role Phone Chet Tobin CP Unavailable [...]
[2017-11-25] MEDS ORDERED: LIDOCAINE 1% INJ 20 ML 20 ML VIAL ONE (07:53)
[2017-11-25] MEDS ORDERED: NS IV 1000 ML 2,000 ML ONE (07:53)
[2017-11-25] MEDS ORDERED: NS IV 1000 ML 1,000 ML ONE (07:53)
[2017-11-25] MEDS ORDERED: NS IV 1000 ML 1,000 ML IV SCH ×2 (08:15→11:06)
[2017-11-25 08:38] LABS: BILIRUBIN,URINE NEGATIVE (NEGATIVE); CLARITY,URINE CLEAR; COLOR,URINE YELLOW; GLUCOSE, URINE (UA) 2+ (NEGATIVE); KETONES,URINE NEGATIVE (NEGATIVE); LEUKOCYTE ESTERASE ,URINE 2+ (NEGATIVE); NITRITE,URINE NEGATIVE (NEGATIVE); PH,URINE 5 (5-9); PROTEIN,URINE 4+ (NEGATIVE); UROBILINOGEN,URINE NORMAL (NORMAL)
[2017-11-25 08:42] LABS: MEAN PLATELET VOLUME 9.7 FL (7.4-10.4); RED BLOOD COUNT 4.87 10^6/uL (4.35-5.85); RED CELL DISTRIBUTION WIDTH 13.9 % (10.0-14.5); WHITE BLOOD COUNT 9.4 10^3/uL (4.3-11.0)
[2017-11-25] MEDS ORDERED: LEVO5TAB28 PO (08:50)
[2017-11-25] MEDS ORDERED: GABA-486 PO ×2 (08:50)
[2017-11-25] MEDS ORDERED: ROPI0.5T2 PO (08:50)
[2017-11-25] MEDS ORDERED: ACET-2267 PO (08:50)
[2017-11-25] MEDS ORDERED: METF10002 PO (08:50)
[2017-11-25] MEDS ORDERED: ROSU10TA PO (08:50)
[2017-11-25] MEDS ORDERED: OMG1KC PO (08:50)
[2017-11-25] MEDS ORDERED: BUME1TAB4 PO (08:50)
[2017-11-25] MEDS ORDERED: MULT-35 PO (08:50)
[2017-11-25] MEDS ORDERED: METO-333 PO (08:50)
[2017-11-25] MEDS ORDERED: FERR325T18 PO (08:50)
[2017-11-25] MEDS ORDERED: MAGN400T39 PO (08:50)
[2017-11-25] MEDS ORDERED: APIX5TAB PO (08:50)
[2017-11-25] MEDS ORDERED: POTA20TA15 PO (08:50)
[2017-11-25] MEDS ORDERED: HEParin 1000 UNIT/ML (10ML VIAL) FOR BOLUS ONE (08:50)
[2017-11-25] MEDS ORDERED: MULT-10 PO (08:50)
[2017-11-25] MEDS ORDERED: FURO40TA4 PO (08:50)
[2017-11-25] MEDS ORDERED: LISI-556 PO (08:50)
[2017-11-25] MEDS ORDERED: POLY17PO6 PO (08:50)
[2017-11-25] MEDS ORDERED: TURM500C7 PO (08:50)
[2017-11-25 08:57] LABS: PROTHROMBIN TIME PATIENT 13.1 SEC (12.2-14.7)
--- NOTE | 2017-11-25 08:59 | Diagnostic Imaging Report ---
Indication: Pre-heart catheterization. Time of exam: 8:24 AM Correlation is made with prior study from 07/19/2016. The heart is enlarged but stable. There are changes of median sternotomy and CABG. Right IJ line has been removed. No significant infiltrate or failure is seen. No effusion or pneumothorax is detected. Impression: Cardiomegaly and status post CABG. No acute feature is detected. Dictated by: Dictated on workstation # [id number]
[2017-11-25 09:04] LABS: BACTERIA,URINE TRACE /HPF; RBC,URINE RARE /HPF; SQUAMOUS EPITHELIAL CELL,UR RARE /HPF
[2017-11-25] MEDS ORDERED: ATOR40TA PO (09:05)
[2017-11-25 09:06] LABS: ALANINE AMINOTRANSFERASE 31 U/L (0-55); ALBUMIN 3.9 GM/DL (3.2-4.5); ALKALINE PHOSPHATASE 64 U/L (40-136); BUN/CREATININE RATIO 15; CALCIUM 8.9 MG/DL (8.5-10.1); CARBON DIOXIDE 25 MMOL/L (21-32); CHLORIDE 107 MMOL/L (98-107); CHOLESTEROL 244 MG/DL (< 200); CREATININE SERUM 1.07 MG/DL (0.60-1.30); GFR ESTIMATED > 60; GLUCOSE 178 MG/DL (70-105); HDL CHOLESTEROL 39 MG/DL (40-60); SODIUM 144 MMOL/L (135-145); TOTAL PROTEIN 6.9 GM/DL (6.4-8.2); TRIGLYCERIDES 470 MG/DL (<150)
[2017-11-25] MEDS ORDERED: fentaNYL INJECTION 100 MCG/2 ML AMP ONE (10:02)
[2017-11-25] MEDS ORDERED: MIDAZOLAM 5 MG/5 ML (VERSED) VIAL ONE (10:02)
[2017-11-25] MEDS ORDERED: meTOprolol 5 MG/5 ML (LOPRESSOR) VIAL ONE (10:57)
[2017-11-25] MEDS ORDERED: ENALAPRILAT 2.5 MG/2 ML (VASOTEC) VIAL IV ONE (10:57)
--- NOTE | 2017-11-25 11:05 | Cardiac Procedure Note-CS/ASA ---
Pre-Procedure Note Pre-Op Procedure Note H&P Reviewed The H&P was reviewed, patient examined and no changes noted. Date H&P Reviewed: November 25, 2017 Time H&P Reviewed: 11:05 Conscious Sedation Pre-Proced Time Reviewed: 11:05 ASA Class: 3 Airway Mallampati Classification: (unga appropriate class) I. II. III, IV Lungs Heart ASA score ASA 1: a normal healthy patient ASA 2: a patient with a mild systemic disease (mid diabetes, controlled hypertension, obesity x ASA 3: a patient with a severe systemic disease that limits activity (angina , COPD, prior Myocardial infarction) ASA 4: a patient with an incapacitating disease that is a constant threat to life (CHF, renal failure) ASA 5: a moribund patient not expected to survive 24 hrs. (ruptured aneurysm) ASA 6: a declared brain patient whose organs are being harvested. For emergent operations, add the letter E after the classification Grade 3 Sedation Plan: Analgesia, Amnesia, Plan communicated to team members, Discussed options with patient/fam, Discussed risks with patient/fam Note The patient is an appropriate candidate to undergo the planned procedure, sedation, and anesthesia. The patient immediately re-assessed prior to indication. CARLOS HUTCHINSON MD November 25, 2017 11:05
--- NOTE | 2017-11-25 11:08 | Discharge Inst-Post CATH ---
Discharge Inst-CATH Post Cardiac Cath D/C Inst Follow Up/Plan Appointment with Dr. Gautam's office in 2-4 weeks Hold metformin for 48 hours CARDIAC CATH DISCHARGE INSTRUCTIONS *Hold Metformin for 48 hours post heart cath. ACTIVITY * Go Home directly and rest. * Limit activity of the leg (or wrist if it was used) for 7 days including aerobics, swimming, jogging, bicycling, etc. * Restrict stair-climbing for 7 days if possible, if not, climb up with your non -cath leg, then bring together on the same step. * Avoid lifting, pushing, pulling or excessive movement of the affected extremity for 7 days. * Customary sexual activity may be resumed after 2 days-use caution not to use a position that strains or causes pain to the affected extremity. * No driving for 24 hours. * NO SMOKING. * Avoid straining for bowel movements for 7 days. * Gentle walking on level ground is allowed. * Returning to work will depend on the type of procedure and the results. Your doctor will discuss this with you. CALL YOUR DOCTOR FOR ANY OF THE FOLLOWING: *If bleeding from the puncture site occurs- Apply gentle pressure to site with clean cloth and call your doctor or EMS. * If a knot or lump forms under the skin, increases in size, or causes pain. * If bruising appears to be worsening or moving further down your leg instead of disappearing. * Temperature above 101 F. CARE OF YOUR GROIN INCISION; * Bruising or purple discoloration of the skin near the puncture site is common. * You may shower only, no bathtub bathing for 5 days. Be careful to avoid slipping as your leg may feel stiff. * If a closure device was used on your femoral artery, please see the attached guide regarding care of the device and your leg. * REMOVE the dressing from your groin the next day after your procedure in the shower. CARE OF YOUR WRIST INCISION; * Bruising or purple discoloration of the skin near the puncture site is common. * You may shower. * DO NOT submerge wrist. * Remove dressing in 24 hours. CARLOS GAUTAM MD November 25, 2017 11:08
--- NOTE | 2017-11-25 11:14 | Cardiac Cath Report ---
Cardiac Cath Report Physician (s)/Cosmetic Sales Assistant (s) Physician CARLOS HUTCHINSON MD Pre-Procedure Diagnosis Pre-Procedure Diagnosis: Coronary artery disease Post-Procedure Note Procedure Start Date: November 25, 2017 Name of Procedure: Coronary angiogram, vein graft angiogram, GOODSON angiogram Findings/Procedure Note PROCEDURE NOTE: After explaining the procedure to the patient, all pros and cons were explained , all questions were answered. The patient signed the consent and then he was placed on the cardiac catheterization laboratory. Groin was prepped SL fashion local anesthesia was used. Sheath placed in the right femoral artery. Lucas right and left catheter were used to access the coronary system. Lucas right catheter was used to evaluate the vein graft, IM catheter was used to evaluate the GOODSON At the end of the procedure the sheath was removed. Closure device was used FINDINGS: Hemodynamics Aorta 180/70 mean of 114 ANATOMY: Left Main is free of obstructive disease Left Anterior Descending is totally occluded proximally with patent GOODSON to LAD and vein graft to diagonal Left Circumflex has mild disease at the midportion, the second and third obtuse marginal branch has moderate to severe disease, fairly small arteries, there is a patent vein graft to the obtuse marginal branch Right Coronory Artery has diffuse ectasia with slow flow and patent vein graft Vein graft angiogram: The upper vein graft is a jump graft to the obtuse marginal branch and ostial lateral branch and posterior descending artery and they are patent with slow flow distally The lower vein graft is the vein graft to the diagonal artery and it is patent with good flow in the diagonal system and the LAD system GOODSON angiogram showed tortuous and patent GOODSON to the distal LAD with good flow distally CONCLUSION: 1. Patent GOODSON to LAD and vein graft to diagonal artery giving good flow to the LAD system that has been occluded proximally. 2. Patent jump graft to the first obtuse marginal branch which is a very small artery, posterolateral branch and right PDA that has ectasia and small vessel disease 3. The [place] circumflex artery has mild disease, the second and third obtuse marginal branch had moderate to severe disease but they are smaller arteries 4. The right coronary artery is a dominant artery with diffuse ectasia. Slow flow noted throughout the right system DISCUSSION AND RECOMMENDATION: Continue to maximize medical therapy Anesthesia Type: Conscious Sedation Estimated blood loss (mL): 10 ml Contrast Amount: 118 ml Total Radiation Dose: 1738 mGy Post-Procedure Diagnosis Post-operative diagnosis: Coronary artery disease Hypertension Hyperlipidemia Diabetes mellitus CARLOS HUTCHINSON MD November 25, 2017 11:14
[2017-11-25] MEDS ORDERED: PATIENT MAY USE OWN MEDS, ALL PO SCH (11:15)
== END 2017-11-25 15:45 | disposition home or self-care (01) ==
LOC: CATH 07:42 → SURG 11:24 → CATH 15:45
PROVIDERS: ATTEND Internal Medicine Cardiovascular Disease
DX: I25.10 Atherosclerotic heart disease of native coronary artery without angina pectoris (principal); I10 Essential (primary) hypertension; E78.5 Hyperlipidemia, unspecified; E11.9 Type 2 diabetes mellitus without complications; I48.0 Paroxysmal atrial fibrillation; Z95.2 Presence of prosthetic heart valve; Z95.1 Presence of aortocoronary bypass graft; Z79.899 Other long term (current) drug therapy; Z79.84 Long term (current) use of oral hypoglycemic drugs; Z11.2 Encounter for screening for other bacterial diseases
CPT/HCPCS: 36415; 71045; 80053; 80061; 81000; 85027; 85610; 85730; 87081; 87088; 93005; 93455

== ENCOUNTER → 2019-03-22 | Outpatient (CLI) | payer MEDICARE, MEDICAID ==
[~2019-03-22] MED LIST changes: +ACET-2267 PO; +APIX5TAB PO; +ATOR40TA PO; +BUME1TAB8 PO; -CATHETER FLUSH 10 ML SYR IV PRN; +FERR325T18 PO; +FURO40TA4 PO; +GABA-486 PO; +LEVO5TAB28 PO; +LISI-556 PO; +MAGN400T39 PO; +METF-399 PO; +METO-333 PO; +MULT-10 PO; +MULT-35 PO; +OMG1KC PO; +POLY17PO6 PO; +POTA20TA15 PO; -REGADENOSON 0.4 MG/5 ML SYR (LEXISCAN) IV ONE; +ROPI0.5T2 PO; +ROSU10TA22 PO; +TURM500C7 PO
[2019-03-22 13:11] LABS: ABG BASE EXCESS 0.5 MMOL/L (-2.5-2.5); ABG OXYGEN SATURATION 95 % (94-100); ABG PCO2 39 MMHG (35-45); ABG PH 7.42 (7.37-7.43); ABG PO2 77 MMHG (79-93); ABG TCO2 25.6 MMOL/L (21.0-31.0)
[2019-03-22 13:12] LABS: ALLENS TEST POS; INSPIRED O2 ROOM AIR; PATIENT TEMP 99.3; VENTILATOR NO
== END ==
LOC: PULM 12:18
PROVIDERS: ATTEND Nurse Practitioner Family
DX: J30.9 Allergic rhinitis, unspecified (principal); E66.01 Morbid (severe) obesity due to excess calories; I48.0 Paroxysmal atrial fibrillation; I50.9 Heart failure, unspecified; G47.10 Hypersomnia, unspecified
CPT/HCPCS: 82805

== ENCOUNTER 2019-04-22 20:40 | Inpatient (IN) | payer MEDICAID, MEDICARE ==
[~2019-04-22] VITALS: Ht 170.2 cm; Wt 128.1 kg
[2019-04-22] MEDS ORDERED: cefTRIAXone FOR IV USE 1,000 MG in WATER (STERILE) FOR INJECTION 10 ML IV ONE (21:00)
[2019-04-22] MEDS ORDERED: ACETAMINOPHEN 500 MG TAB (TYLENOL) PO PRN (21:00)
[2019-04-22 21:22] LABS: BILIRUBIN,URINE NEGATIVE (NEGATIVE); CLARITY,URINE SLIGHTLY CLOUDY; COLOR,URINE YELLOW; GLUCOSE, URINE (UA) 1+ (NEGATIVE); KETONES,URINE NEGATIVE (NEGATIVE); LEUKOCYTE ESTERASE ,URINE 1+ (NEGATIVE); NITRITE,URINE POSITIVE (NEGATIVE); PH,URINE 6.5 (5-9); PROTEIN,URINE 4+ (NEGATIVE)
[2019-04-22 21:29] LABS: BACTERIA,URINE FEW /HPF; RBC,URINE 50-100 /HPF; SQUAMOUS EPITHELIAL CELL,UR 0-2 /HPF
[2019-04-22 21:44] LABS: BASOPHILS % (AUTO) 0 % (0-10); EOSINOPHILS # (AUTO) 0.1 10^3/uL (0.0-0.3); EOSINOPHILS % (AUTO) 0 % (0-10); HEMATOCRIT 46 % (40-54); HEMOGLOBIN 15.3 G/DL (13.3-17.7); LYMPHOCYTES # (AUTO) 1.6 X 10^3 (1.0-4.0); LYMPHOCYTES % (AUTO) 10 % (12-44); MEAN CORPUSCULAR HEMOGLOBIN 30 PG (25-34); MEAN CORPUSCULAR HGB CONC 34 G/DL (32-36); MEAN CORPUSCULAR VOLUME 89 FL (80-99); MEAN PLATELET VOLUME 9.6 FL (7.4-10.4); MONOCYTES # (AUTO) 1.5 X 10^3 (0.0-1.0); MONOCYTES % (AUTO) 10 % (0-12); NEUTROPHILS # (AUTO) 12.3 X 10^3 (1.8-7.8); NEUTROPHILS % (AUTO) 80 % (42-75); PLATELET COUNT 270 10^3/uL (130-400); RED CELL DISTRIBUTION WIDTH 14.6 % (10.0-14.5); WHITE BLOOD COUNT 15.4 10^3/uL (4.3-11.0)
--- NOTE | 2019-04-22 21:55 | Diagnostic Imaging Report ---
Clinical indication: Patient with elevated blood pressure. Exam: Portable chest x-ray upright view. Comparisons: Portable chest x-ray dated 11/25/2017. Findings: Stable cardiomegaly. There is no significant pulmonary vascular congestion. There is improved aeration of both lung bases with residual mild bibasilar atelectasis. There is no pleural effusion or pneumothorax. Again seen is postoperative change to the chest with sternotomy wires. Bones show no significant interval abnormality. Impression: 1: There is cardiomegaly with no significant pulmonary vascular congestion. 2: There is mild bibasilar atelectasis. There is improved aeration of both lungs compared to the prior study. Dictated by: Dictated on workstation # [id number]
[2019-04-22 21:59] LABS: INR 1.2 (0.8-1.4); PROTHROMBIN TIME PATIENT 15.4 SEC (12.2-14.7)
[2019-04-22 22:05] LABS: ALANINE AMINOTRANSFERASE 21 U/L (0-55); ALBUMIN 3.7 GM/DL (3.2-4.5); ALKALINE PHOSPHATASE 103 U/L (40-136); BILIRUBIN,TOTAL 1.8 MG/DL (0.1-1.0); BUN/CREATININE RATIO 16; CALCIUM 9.2 MG/DL (8.5-10.1); CARBON DIOXIDE 21 MMOL/L (21-32); CHLORIDE 105 MMOL/L (98-107); CREATININE SERUM 1.06 MG/DL (0.60-1.30); GFR ESTIMATED > 60; GLUCOSE 145 MG/DL (70-105); MAGNESIUM 1.9 MG/DL (1.6-2.4); POTASSIUM 4.2 MMOL/L (3.6-5.0); SODIUM 137 MMOL/L (135-145); TOTAL PROTEIN 6.9 GM/DL (6.4-8.2)
[2019-04-22 22:22] LABS: EOSINOPHILS % (MANUAL) 1 %; LYMPHOCYTES % (MANUAL) 6 %; MONOCYTES % (MANUAL) 8 %; NEUTROPHILS % (MANUAL) 85 %; RBC MORPH NORMAL
[2019-04-22] MEDS ORDERED: FUROSEMIDE 40 MG/4 ML INJ (LASIX) IVP ONE (22:45)
[2019-04-22] MEDS ORDERED: meTOprolol SUCCINATE 100 MG (TOPROL XL) TAB PO ONE (23:00)
[2019-04-22] MEDS ORDERED: cefTRIAXone 1,000 MG IV (ROCEPHIN) VIAL ONE (23:41)
[2019-04-22] MEDS ORDERED: WATER (STERILE) FOR INJECTION 10 ML ONE (23:41)
[2019-04-23] VITALS (14 sets, daily range): BP systolic 101–166; BP diastolic 58–112
[2019-04-23 04:19] LABS: BASOPHILS % (AUTO) 0 % (0-10); EOSINOPHILS % (AUTO) 0 % (0-10); HEMATOCRIT 46 % (40-54); HEMOGLOBIN 15.2 G/DL (13.3-17.7); LYMPHOCYTES # (AUTO) 1.7 X 10^3 (1.0-4.0); LYMPHOCYTES % (AUTO) 10 % (12-44); MEAN CORPUSCULAR HEMOGLOBIN 30 PG (25-34); MEAN CORPUSCULAR HGB CONC 33 G/DL (32-36); MEAN CORPUSCULAR VOLUME 91 FL (80-99); MONOCYTES # (AUTO) 2.1 X 10^3 (0.0-1.0); MONOCYTES % (AUTO) 12 % (0-12); NEUTROPHILS # (AUTO) 14.1 X 10^3 (1.8-7.8); NEUTROPHILS % (AUTO) 78 % (42-75); PLATELET COUNT 268 10^3/uL (130-400); RED CELL DISTRIBUTION WIDTH 14.8 % (10.0-14.5); WHITE BLOOD COUNT 18.1 10^3/uL (4.3-11.0)
[2019-04-23 04:32] LABS: ALBUMIN 3.6 GM/DL (3.2-4.5); BILIRUBIN,TOTAL 2.6 MG/DL (0.1-1.0); CALCIUM 9.3 MG/DL (8.5-10.1); CREATININE SERUM 1.23 MG/DL (0.60-1.30); POTASSIUM 3.8 MMOL/L (3.6-5.0); TOTAL PROTEIN 6.8 GM/DL (6.4-8.2)
[2019-04-23] MEDS: inSUlin ASPART (NovoLOG) 1 UNIT/0.01 ML (CHARGE PER UNIT) SC SCH ×4 (06:11→21:49)
[2019-04-23] MEDS ORDERED: FLU QUADRIvalent (5+ YOA) 2019-2020 (AFLURIA) 0.5 ML IM ONE (08:15)
--- NOTE | 2019-04-23 08:35 | Diagnostic Imaging Report ---
INDICATION: Sepsis, elevated troponin, hypertension and hypoxia. Comparison made with prior examination 04/22/2019. FINDINGS: There is cardiomegaly. There has been previous median sternotomy. There is no pleural effusion, pneumothorax or pneumonia. IMPRESSION: No acute cardiopulmonary abnormality. Cardiomegaly. Dictated by: Dictated on workstation # [id number]
--- NOTE | 2019-04-23 08:50 | ED General ---
General Chief Complaint: Fever-Adult/Adol Stated Complaint: SEPSIS;UTI;ELEVATED TROPONIN;CHF;HTN;HYPOXIA; Nursing Triage Note: Patient reports chills starting this evening Nursing Sepsis Screen: Sepsis Risk Source of Information: Patient, EMS History of Present Illness Date Seen by Provider: Apr 22, 2019 Time Seen by Provider: 20:42 Initial Comments PT ARRIVES VIA EMS FROM HOME STATES HE BEGAN HAVING SUBJECTIVE FEVER AND CHILLS THIS AFTERNOON TEMP WAS 103.1 BY EMS. PT HAS NOT TAKEN ANYTHING FOR FEVER PT ALSO C/O URINARY FREQUENCY, NO PAIN ON URINATION. NO HEMATURIA NO ABDOMINAL PAIN NO NAUSEA/VOMITING/DIARRHEA NO CHEST PAIN HAS SOME SHORTNESS OF BREATH AND DYSPNEA ON EXERTION + ORTHOPNEA PT HAD 5 VESSEL CABG IN 2016 PT HAD CARDIAC CATH 11/[address] HUTCHINSON--GRAFTS WERE PATENT AND NO INTERVENTION WAS DONE. PT HAS HISTORY OF ATRIAL FIBRILLATION AND IS ON ELIQUIS PT HAS ALSO HAD AORTIC VALVE REPLACEMENT PT HAS CHRONIC LEG EDEMA BUT IS WORSE THAN NORMAL ALSO C/O ELEVATED BLOOD PRESSURE BP WAS 210/126 BY EMS AFTER VERY MINIMAL EXERTION BP DOWN TO 191/116 AT REST, BY EMS. PT IS DIABETIC, AND BLOOD GLUCOSE WAS 146 BY EMS. PT HAS NOT TAKEN ANYTHING FOR HIS SYMPTOMS PCP: [facility]--WAS SEEING DR. Lalit GRIFFITHS RN FIRST ASSIST: DR. HUTCHINSON Allergies and Home Medications Allergies Coded Allergies: No Known Drug Allergies (Unverified , 11/25/17) Home Medications Acetaminophen 500 Mg Tablet, 1,000 MG PO Q6H PRN for PAIN-MILD, (Reported) Apixaban 5 Mg Tablet, 5 MG PO BID, (Reported) Atorvastatin Calcium 40 Mg Tablet, 40 MG PO DAILY, (Reported) Bumetanide 1 Mg Tablet, 1 MG PO BID, (Reported) LAST FILLED #60 08-08-16 Ferrous Sulfate 325 Mg Tablet, 325 MG PO DAILY, (Reported) Furosemide 40 Mg Tablet, 40 MG PO DAILY, (Reported) LAST FILLED #90 06-16-17 Gabapentin 100 Mg Capsule, 100 MG PO DAILY, (Reported) Gabapentin 100 Mg Capsule, 200 MG PO HS, (Reported) TAKES 2 (100MG) CAPSULES Levocetirizine Dihydrochloride 5 Mg Tablet, 5 MG PO HS, (Reported) Lisinopril 5 Mg Tablet, 5 MG PO DAILY, (Reported) Magnesium Oxide 400 Mg Tablet, 400 MG PO DAILY, (Reported) Metoprolol Tartrate 25 Mg Tablet, 25 MG PO BID, (Reported) LAST FILLED # 180 06-16-17 Multivitamin 1 Each Tablet, 1 TAB PO DAILY, (Reported) Multivits,Stress Formula 1 Each Tablet, 1 TAB PO DAILY, (Reported) [place] 3 Polyunsat Fatty Acids 1,000 Mg Cap, 1,000 MG PO BID, (Reported) Polyethylene Glycol 3350 17 Gm Powd.pack, 17 GM PO DAILY PRN for CONSTIPATION- 2ND LINE, (Reported) Potassium Chloride 20 Meq Tab.er.prt, 40 MEQ PO BID, (Reported) LAST FILLED #360 12-05-16 TAKES 2 (20MEQ) TABLETS Ropinirole HCl 0.5 Mg Tablet, 0.5 MG PO TID, (Reported) Turmeric/Turmeric Root Extract 1 Each Capsule, 1 CAP PO BID, (Reported) Patient Home Medication List Home Medication List Reviewed: Yes Review of Systems Review of Systems Constitutional: chills, fever, malaise, weakness EENTM: no symptoms reported; No nose congestion, No throat pain Respiratory: see HPI, cough, dyspnea on exertion, orthopnea, short of breath Cardiovascular: No chest pain; edema; No palpitations, No syncope Gastrointestinal: no symptoms reported; No abdominal pain, No nausea, No vomiting Genitourinary: see HPI; No dysuria; frequency Musculoskeletal: no symptoms reported Skin: no symptoms reported Psychiatric/Neurological: Pre-Existing Deficit (PERIPHERAL NEUROPATHY) Hematologic/Lymphatic: No Symptoms Reported Immunological/Allergic: no symptoms reported Past Wotisri-Eetypu-Diahcs Hx Patient Social History Alcohol Use: Denies Use Recreational Drug Use: No Recent Foreign Travel: No Contact w/Someone Who Travel: No Recent Infectious Disease Expo: No Past Medical History Surgeries: Yes (5 VESSEL CABG 2016; CARDIAC CATH 11/2017--PATENT GRAFTS, NO INTERVENTION; AORTIC VALVE REPLACEMENT) Cardiac, CABG, Valve Replacement Respiratory: No Cardiac: Yes (CHF; 5 VESSEL CABG 2016; CARDIAC CATH 11/2017--PATENT GRAFTS, NO INTERVENTION; AORTIC VALVE REPLACEMENT/AORTIC STENOSIS; CAROTID DISEASE--NO INTERVENTION; ) Atrial Fibrillation, Chronic Edema/Swelling, Coronary Artery Disease, Heart Murmur, High Cholesterol, Hypertension, Peripheral Vascular, Valvular Heart Disease Neurological: Yes Neuropathy, Stroke Genitourinary: Yes (CHRONIC RENAL FAILURE) Renal Failure Gastrointestinal: Yes (HX OF ULCERATED PEPTIC ULCER/UPPER GI BLEED) Gastrointestinal Bleed Musculoskeletal: Yes Chronic Back Pain Endocrine: Yes (MORBID OBESITY) Diabetes, Non-Insulin dep HEENT: No Cancer: No Psychosocial: No Integumentary: No Blood Disorders: No Physical Exam Vital Signs Vital Signs - First Documented 04/22/19 04/22/19 04/23/19 20:40 23:44 00:20 Temp 38.8 Pulse 98 Resp 24 B/P (MAP) 161/107 (125) Pulse Ox 92 O2 Delivery Room Air O2 Flow Rate 2.00 Capillary Refill : Less Than 3 Seconds Height, Weight, BMI Height: 5'7.00" Weight: 309lbs. 0.0oz. [id number]; 45.04 BMI Method: General Appearance: Obese (MORBIDLY OBESE), Other (DYSPNEIC WITH MINIMAL EXER TION; + ORTHOPNEIC) HEENT: PERRL/EOMI, Other (VEYR POR DENTITION ) Neck: Normal Inspection, Non Tender Respiratory: Decreased Breath Sounds (IN BASES); No Rales, No Rhonci, No Wheezing; Other (DYSPNEIC WITH MINIMAL EXERTION, + ORTHOPNEA) Cardiovascular: Normal Peripheral Pulses, Systolic Murmur (1/6), Irregularly Irregular Gastrointestinal: Non Tender, Soft Back: No CVA Tenderness Extremity: No Calf Tenderness, Pedal Edema (2+ BILATERALLY) Neurologic/Psychiatric: Alert, Oriented x3, No Motor/Sensory Deficits (GROSSLY INTACT, EXCEPT FOR DECREASED SENSATION TO FEET. ), Normal Mood/Affect, kier operator II- XII Norm as Tested Skin: Normal Color, Warm/Dry Focused Exam Lactate Level 04/22/19 21:30: Lactic Acid Level 1.46 Progress/Results/Core Measures Suspected Sepsis Recent Fever Within 48 Hours: No Infection Criteria Present: Documented Infection New/Unexplained Altered Menta: No Sepsis Screen: Sepsis Risk SIRS Temperature: Pulse: 58 Respiratory Rate: 18 Laboratory Tests 04/22/19 21:30: White Blood Count 15.4H 04/23/19 03:35: White Blood Count 18.1H Blood Pressure 127 /72 Mean: 90 04/22/19 21:30: Lactic Acid Level 1.46 Laboratory Tests 04/22/19 21:30: Creatinine 1.06, INR Comment 1.2, Platelet Count 270, Total Bilirubin 1.8H 04/23/19 03:35: Creatinine 1.23, Platelet Count 268, Total Bilirubin 2.6H Results/Orders Lab Results Laboratory Tests Test 04/22/19 21:15 04/22/19 21:30 04/23/19 03:35 04/23/19 08:04 Range/Units Urine Color YELLOW Urine Clarity SLIGHTLY CLOUDY Urine pH 6.5 5-9 Urine Specific Russell 1.010 L 1.016-1.022 Urine Protein 4+ NEGATIVE Urine Glucose (UA) 1+ H NEGATIVE Urine Ketones NEGATIVE NEGATIVE Urine Nitrite POSITIVE H NEGATIVE Urine Bilirubin NEGATIVE NEGATIVE Urine Urobilinogen NORMAL NORMAL MG/DL Urine Leukocyte Esterase 1+ H NEGATIVE Urine RBC (Auto) 5+ H NEGATIVE Urine RBC 50-100 H /HPF Urine WBC 5-10 H /HPF Urine Squamous Epithelial Cells 0-2 /HPF Urine Crystals NONE /LPF Urine Bacteria FEW H /HPF Urine Casts NONE /LPF Urine Mucus NEGATIVE /LPF Urine Culture Indicated CULTURE PENDING White Blood Count 15.4 H 18.1 H 4.3-11.0 10^3/uL Red Blood Count 5.11 5.06 4.35-5.85 10^6/uL Hemoglobin 15.3 15.2 13.3-17.7 G/DL Hematocrit 46 46 40-54 % Mean Corpuscular Volume 89 91 80-99 FL Mean Corpuscular Hemoglobin 30 30 25-34 PG Mean Corpuscular Hemoglobin Concent 34 33 32-36 G/DL Red Cell Distribution Width 14.6 H 14.8 H 10.0-14.5 % Platelet Count 270 268 130-400 10^3/uL Mean Platelet Volume 9.6 10.0 7.4-10.4 FL Neutrophils (%) (Auto) 80 H 78 H 42-75 % Lymphocytes (%) (Auto) 10 L 10 L 12-44 % Monocytes (%) (Auto) 10 12 0-12 % Eosinophils (%) (Auto) 0 0 0-10 % Basophils (%) (Auto) 0 0 0-10 % Neutrophils # (Auto) 12.3 H 14.1 H 1.8-7.8 X 10^3 Lymphocytes # (Auto) 1.6 1.7 1.0-4.0 X 10^3 Monocytes # (Auto) 1.5 H 2.1 H 0.0-1.0 X 10^3 Eosinophils # (Auto) 0.1 0.0 0.0-0.3 10^3/uL Basophils # (Auto) 0.0 0.0 0.0-0.1 10^3/uL Neutrophils % (Manual) 85 % Lymphocytes % (Manual) 6 % Monocytes % (Manual) 8 % Eosinophils % (Manual) 1 % Blood Morphology Comment NORMAL Prothrombin Time 15.4 H 12.2-14.7 SEC INR Comment 1.2 0.8-1.4 Activated Partial Thromboplast Time 34 24-35 SEC Sodium Level 137 140 135-145 MMOL/L Potassium Level 4.2 3.8 3.6-5.0 MMOL/L Chloride Level 105 101 98-107 MMOL/L Carbon Dioxide Level 21 27 21-32 MMOL/L Anion Gap 11 12 5-14 MMOL/L Blood Urea Nitrogen 17 15 7-18 MG/DL Creatinine 1.06 1.23 0.60-1.30 MG/DL Estimat Glomerular Filtration Rate > 60 57 BUN/Creatinine Ratio 16 12 Glucose Level 145 H 156 H 70-105 MG/DL Lactic Acid Level 1.46 0.50-2.00 MMOL/L Calcium Level 9.2 9.3 8.5-10.1 MG/DL Corrected Calcium 9.4 9.6 8.5-10.1 MG/DL Magnesium Level 1.9 1.6-2.4 MG/DL Total Bilirubin 1.8 H 2.6 H 0.1-1.0 MG/DL Aspartate Amino Transf (AST/SGOT) 28 27 5-34 U/L Alanine Aminotransferase (ALT/SGPT) 21 21 0-55 U/L Alkaline Phosphatase 103 101 40-136 U/L Troponin I 0.068 H <0.028 NG/ML B-Type Natriuretic Peptide 682.8 H <100.0 PG/ML Total Protein 6.9 6.8 6.4-8.2 GM/DL Albumin 3.7 3.6 3.2-4.5 GM/DL Total Creatine Kinase 145 30-200 U/L My Orders Orders - LANNY MUÑOZ DO Ed Iv/Invasive Line Start (04/22/19 20:46) Ekg Tracing (04/22/19 20:46) O2 (04/22/19 20:46) Monitor-Rhythm Ecg Trace Only (04/22/19 20:46) BNP (04/22/19 20:46) Magnesium (04/22/19 20:46) Cbc With Automated Diff (04/22/19 20:46) Comprehensive Metabolic Panel (04/22/19 20:46) Blood Culture (04/22/19 20:46) Sputum Culture (04/22/19 20:46) Urinalysis (04/22/19 20:46) Urine Culture (04/22/19 20:46) Protime With Inr (04/22/19 20:46) Partial Thromboplastin Time (04/22/19 20:46) Chest 1 View, Ap/Pa Only (04/22/19 20:46) Acetaminophen Tablet (Tylenol Tablet) (04/22/19 21:00) Ed Iv/Invasive Line Start (04/22/19 20:46) Ed Iv/Invasive Line Start (04/22/19 20:46) Troponin I (04/22/19 20:46) Vital Signs Adult Sepsis Patie Q15M (04/22/19 20:46) O2 (04/22/19 20:46) Remove Rings In Anticipation O (04/22/19 20:46) Lactic Acid Analyzer (04/22/19 20:46) Influenza A And B Antigens (04/22/19 20:46) Ceftriaxone For Iv Use (Rocephin For I (04/22/19 21:00) Manual Differential (04/22/19 21:30) Furosemide Injection (Lasix Injection) (04/22/19 22:45) Metoprolol Succinate (Xl) Tab (Toprol Xl (04/22/19 23:00) Catheter(Urinary) Insert & Ass 03,15 (04/22/19 23:18) Medications Given in ED Current Medications Medications Dose Ordered Sig/Damien Route Start Time Stop Time Status Last Admin Dose Admin Acetaminophen 1,000 mg ONCE PRN PO 04/22/19 21:00 04/22/19 22:57 DC 04/22/19 22:57 1,000 MG Ceftriaxone Sodium 1000 mg/ Sterile Water 10 ml @ 200 mls/hr ONCE ONCE IV 04/22/19 21:00 04/22/19 21:02 DC 04/22/19 23:42 200 MLS/HR Furosemide 80 mg ONCE ONCE IVP 04/22/19 22:45 04/22/19 22:46 DC 04/22/19 22:57 80 MG Metoprolol Succinate 100 mg ONCE ONCE PO 04/22/19 23:00 04/22/19 23:01 DC 04/22/19 23:42 100 MG Vital Signs/I&O 04/22/19 04/23/19 04/23/19 04/23/19 23:44 00:20 00:28 00:41 Temp 36.8 37.2 Pulse 73 64 70 Resp 23 20 B/P (MAP) 163/99 (125) 158/77 (104) Pulse Ox 97 94 O2 Delivery Room Air Nasal Cannula Nasal Cannula O2 Flow Rate 2.00 2.00 04/23/19 04/23/19 04/23/19 04/23/19 00:42 00:43 00:59 01:13 Temp 37.1 Pulse 75 80 85 75 Resp 20 20 20 20 B/P (MAP) 159/75 161/112 (128) 159/89 (112) 157/81 (106) Pulse Ox 94 97 96 95 O2 Delivery Nasal Cannula Nasal Cannula Nasal Cannula O2 Flow Rate 2.00 2.00 2.00 2.00 04/23/19 04/23/19 04/23/19 04/23/19 01:42 02:53 02:54 03:41 Temp 37.8 Pulse 79 82 84 Resp 20 20 18 B/P (MAP) 146/91 (109) 166/100 (122) 159/75 (103) Pulse Ox 96 88 92 89 O2 Delivery Nasal Cannula Nasal Cannula Nasal Cannula Nasal Cannula O2 Flow Rate 2.00 2.00 2.00 3.00 04/23/19 04/23/19 04/23/19 04/23/19 04:00 04:41 05:41 06:10 Temp 37.4 Pulse 71 60 Resp 18 18 B/P (MAP) 126/83 (97) 127/72 (90) Pulse Ox 94 91 O2 Delivery Nasal Cannula Nasal Cannula Nasal Cannula Nasal Cannula O2 Flow Rate 4.00 4.00 4.00 4.00 04/23/19 07:00 Pulse 58 Capillary Refill : Less Than 3 Seconds Blood Pressure Mean: 90 Progress Note : Progress Note PT SITTING UP ON SIDE OF BED, VOIDING FREQUENTLY O2 SATS 90% ON ROOM AIR, WHILE SITTING UP ON SIDE OF BED. PLACED ON O2 AT 2L/NC AND SATS UP TO MID 90'S NO DETERIORATION IN PT'S CONDITION DURING ER STAY ECG Initial ECG Impression Date: Apr 22, 2019 Initial ECG Impression Time: 20:57 Initial ECG Rate: 92 Initial ECG Rhythm: A Fib/Flutter (RBBB AND LAFB; INFERIOR Q WAVES IN MULTIPLE LEADS) Initial ECG Comparisson: Changed (WAS IN NSR 11/25/17) Diagnostic Imaging Comments CXR--CARDIOMEGALY, NO SIGNIFICANT VASCULAR CONGESTION, MILD BIBASILAR ATELECTASIS, IMPROVED AERATION--PER RADIOLOGIST REPORT AT 2201 Reviewed: Reviewed by Me Departure Communication (Admissions) 2254--SPOKE WITH DR. STANFORD. WILL SEE PT IN CONSULT. ORDERS NOTED. 2257--SPOKE WITH DR. REEVES, HOSPITALIST WIDE [employer] GOODS INSPECTOR FOR [facility] [place] Impression Primary Impression: Sepsis Additional Impressions: NSTEMI (non-ST elevated myocardial infarction) CHF (congestive heart failure) UTI (urinary tract infection) NIDDM HTN (hypertension) CAD WITH HX OF CABG Disposition: ADMITTED INPATIENT Condition: Improved Admissions Decision to Admit Reason: Admit from ER (General) Decision to Admit/Date: Apr 22, 2019 Time/Decision to Admit Time: 23:00 Departure-Patient Inst. Referrals: ASHER GRIFFITHS MD (PCP) Primary Care Physician LANNY MUÑOZ DO Apr 23, 2019 08:50
[2019-04-23] MEDS ORDERED: meTOprolol SUCCINATE 100 MG (TOPROL XL) TAB PO SCH (09:00)
--- NOTE | 2019-04-23 11:25 | History & Physical-Hospitalist ---
History of Present Illness HPI/Chief Complaint This is a 78-year-old white male who is a poor historian. He notes that he had been doing fairly well until yesterday when he began having fever and chills and seemed to be much more short of breath than normal. He presents to the emergency room via ambulance with similar complaints. This morning he notes that he's feeling much better and breathing more easily. He has no specific complaint. Source: patient, old records Date Seen 04/23/19 Time Seen by a Provider: 10:30 Attending Physician Theresa Hernandez MD PCP Rosario Davidson MD Referring Physician Date of Admission Apr 22, 2019 at 23:00 Home Medications & Allergies Home Medications Reviewed patient Home Medication Reconciliation performed by pharmacy medication reconciliations certified pest control technician and/or nursing. Patients Allergies have been reviewed. Allergies Allergies Coded Allergies No Known Drug Allergies (Unverified11/25/17) Past Bdebgbq-Grgsjg-Muyyst Hx Past Med/Social Hx: Reviewed Nursing Past Med/Soc Hx Patient Social History Marrital Status: single, cohabiting Employed/Student: unemployed, retired Alcohol Use: Denies Use Recreational Drug Use: No Recent Foreign Travel: No Contact w/other who traveled: No Recent Infectious Disease Expo: No Past Medical History Surgeries: Cardiac, CABG, Valve Replacement Cardiac: Atrial Fibrillation, Chronic Edema/Swelling, Coronary Artery Disease, Heart Murmur, High Cholesterol, Hypertension, Peripheral Vascular, Valvular Heart Disease Neurological: Neuropathy, Stroke Genitourinary: Renal Failure Gastrointestinal: Gastrointestinal Bleed Musculoskeletal: Chronic Back Pain Endocrine: Diabetes, Non-Insulin dep History of Blood Disorders: No Family History No Pertinent Family Hx Review of Systems Constitutional: see HPI, chills, fever EENTM: no symptoms reported Respiratory: dyspnea on exertion, short of breath Cardiovascular: no symptoms reported Gastrointestinal: no symptoms reported Musculoskeletal: muscle weakness Skin: no symptoms reported Psychiatric/Neurological: No Symptoms Reported Physical Exam Physical Exam Vital Signs Vital Signs - First Documented 04/22/19 04/23/19 20:40 00:20 Temp 38.8 Pulse 98 Resp 24 B/P (MAP) 161/107 (125) Pulse Ox 92 O2 Delivery Room Air O2 Flow Rate 2.00 Capillary Refill : Less Than 3 Seconds Height, Weight, BMI Height: 5'7.00" Weight: 309lbs. 0.0oz. 140.616835qs; 45.04 BMI Method: General Appearance: No Apparent Distress, Obese HEENT: PERRL/EOMI, Other Neck: Non Tender, Limited Range of Motion Respiratory: No Accessory Muscle Use, No Respiratory Distress, Decreased Breath Sounds Cardiovascular: Systolic Murmur, Irregularly Irregular Gastrointestinal: Soft Rectal: Deferred Back: Normal Inspection, No CVA Tenderness Extremity: Pedal Edema Neurologic/Psychiatric: Alert, Oriented x3, No Motor/Sensory Deficits, Normal Mood/Affect Skin: Normal Color Results Results/Procedures Labs Laboratory Tests 04/22/19 21:30 04/23/19 03:35 04/24/19 04:08 Patient resulted labs reviewed. Imaging: Reviewed Imaging Report Assessment/Plan Admission Diagnosis Sepsis secondary to UTI Hypertension Positive troponin History coronary artery disease-status post CABG Hypoxia possible obstructive sleep apnea Chronic atrial fibrillation Type II diabetes on no medications Plan to admit for antibiotics, blood cultures pending cardiology consult and d ispensation based on recommendations by cardiology Admission Status: Inpatient Order (span 2 midnights) Reason for Inpatient Admission: Positive troponin with multiple comorbidities and sepsis Clinical Quality Measures DVT/VTE Risk/Contraindication: Risk Factor Score Per Nursin RFS Level Per Nursing on Admit: 4+=Very High Copy Copies To 1: [facility]/THERESA NGUYEN MD Apr 23, 2019 11:25
--- NOTE | 2019-04-23 13:47 | Consultation-Cardiology ---
HPI-Cardiology Cardiology Consultation: Date of Consultation 04/23/19 Time Seen by a Provider: 13:40 Date of Admission Attending Physician Theresa Hernandez MD Admitting Physician Rosario Davidson MD Consulting Physician SHAGGY STANFORD MD, MA, FACP, FACC, FSCAI, CCDS HPI: Chief Complaint: CC: Shortness of breath HPI FST-Xfsagi-Mflrkd Hx Patient Social History Marrital Status: single, cohabiting Employed/Student: unemployed, retired Alcohol Use: Denies Use Recreational Drug Use: No Recent Foreign Travel: No Recent Infectious Disease Expo: No Hospitalization with Isolation: Denies Past Medical History PMH As described under Assessment. Allergies and Home Medications Allergies Coded Allergies: No Known Drug Allergies (Unverified , 11/25/17) Home Medications Acetaminophen 500 Mg Tablet, 1,000 MG PO Q6H PRN for PAIN-MILD, (Reported) Apixaban 5 Mg Tablet, 5 MG PO BID, (Reported) Atorvastatin Calcium 40 Mg Tablet, 40 MG PO DAILY, (Reported) Bumetanide 1 Mg Tablet, 1 MG PO BID, (Reported) LAST FILLED #60 08-08-16 Ferrous Sulfate 325 Mg Tablet, 325 MG PO DAILY, (Reported) Furosemide 40 Mg Tablet, 40 MG PO DAILY, (Reported) LAST FILLED #90 06-16-17 Gabapentin 100 Mg Capsule, 100 MG PO DAILY, (Reported) Gabapentin 100 Mg Capsule, 200 MG PO HS, (Reported) TAKES 2 (100MG) CAPSULES Levocetirizine Dihydrochloride 5 Mg Tablet, 5 MG PO HS, (Reported) Lisinopril 5 Mg Tablet, 5 MG PO DAILY, (Reported) Magnesium Oxide 400 Mg Tablet, 400 MG PO DAILY, (Reported) Metoprolol Tartrate 25 Mg Tablet, 25 MG PO BID, (Reported) LAST FILLED # 180 06-16-17 Multivitamin 1 Each Tablet, 1 TAB PO DAILY, (Reported) Multivits,Stress Formula 1 Each Tablet, 1 TAB PO DAILY, (Reported) [place] 3 Polyunsat Fatty Acids 1,000 Mg Cap, 1,000 MG PO BID, (Reported) Polyethylene Glycol 3350 17 Gm Powd.pack, 17 GM PO DAILY PRN for CONSTIPATION- 2ND LINE, (Reported) Potassium Chloride 20 Meq Tab.er.prt, 40 MEQ PO BID, (Reported) LAST FILLED #360 12-05-16 TAKES 2 (20MEQ) TABLETS Ropinirole HCl 0.5 Mg Tablet, 0.5 MG PO TID, (Reported) Turmeric/Turmeric Root Extract 1 Each Capsule, 1 CAP PO BID, (Reported) Patient Home Medication List Home Medication List Reviewed: Yes Physical Exam-Cardiology Physical Exam Vital Signs/I&O 04/23/19 04/23/19 04/23/19 04/23/19 02:53 02:54 03:41 04:00 Temp 37.8 Pulse 82 84 Resp 20 18 B/P (MAP) 166/100 (122) 159/75 (103) Pulse Ox 88 92 89 O2 Delivery Nasal Cannula Nasal Cannula Nasal Cannula Nasal Cannula O2 Flow Rate 2.00 2.00 3.00 4.00 04/23/19 04/23/19 04/23/19 04/23/19 04:41 05:41 06:10 07:00 Temp 37.4 Pulse 71 60 58 Resp 18 18 B/P (MAP) 126/83 (97) 127/72 (90) Pulse Ox 94 91 O2 Delivery Nasal Cannula Nasal Cannula Nasal Cannula O2 Flow Rate 4.00 4.00 4.00 04/23/19 04/23/19 04/23/19 04/23/19 08:00 08:00 09:00 11:24 Temp 37.6 Pulse 63 Resp 20 B/P (MAP) 121/68 (85) Pulse Ox 94 94 O2 Delivery Nasal Cannula Nasal Cannula Nasal Cannula Nasal Cannula O2 Flow Rate 4.00 4.00 4.00 4.00 04/23/19 13:00 Pulse 46 04/23/19 00:00 Intake Total 10 ml Balance 10 ml Capillary Refill : Less Than 3 Seconds Data Review Labs Laboratory Tests 04/22/19 21:15: Urine Color YELLOW, Urine Clarity SLIGHTLY CLOUDY, Urine pH 6.5, Urine Specific [place] 1.010L, Urine Protein 4+, Urine Glucose (UA) 1+H, Urine Ketones NEGATIVE, Urine Nitrite POSITIVEH, Urine Bilirubin NEGATIVE, Urine Urobilinogen NORMAL, Urine Leukocyte Esterase 1+H, Urine RBC (Auto) 5+H, Urine RBC 50-100H, Urine WBC 5-10H, Urine Squamous Epithelial Cells 0-2, Urine Crystals NONE, Urine Bacteria FEWH, Urine Casts NONE, Urine Mucus NEGATIVE, Urine Culture Indicated CULTURE PENDING 04/22/19 21:30: White Blood Count 15.4H, Red Blood Count 5.11, Hemoglobin 15.3, Hematocrit 46, Mean Corpuscular Volume 89, Mean Corpuscular Hemoglobin 30, Mean Corpuscular Hemoglobin Concent 34, Red Cell Distribution Width 14.6H, Platelet Count 270, Mean Platelet Volume 9.6, Neutrophils (%) (Auto) 80H, Lymphocytes (%) (Auto) 10L , Monocytes (%) (Auto) 10, Eosinophils (%) (Auto) 0, Basophils (%) (Auto) 0, Neutrophils # (Auto) 12.3H, Lymphocytes # (Auto) 1.6, Monocytes # (Auto) 1.5H, Eosinophils # (Auto) 0.1, Basophils # (Auto) 0.0, Neutrophils % (Manual) 85, Lymphocytes % (Manual) 6, Monocytes % (Manual) 8, Eosinophils % (Manual) 1, Blood Morphology Comment NORMAL, Prothrombin Time 15.4H, INR Comment 1.2, Activated Partial Thromboplast Time 34, Sodium Level 137, Potassium Level 4.2, Chloride Level 105, Carbon Dioxide Level 21, Anion Gap 11, Blood Urea Nitrogen 17, Creatinine 1.06, Estimat Glomerular Filtration Rate > 60, BUN/Creatinine Ratio 16, Glucose Level 145H, Lactic Acid Level 1.46, Calcium Level 9.2, Corrected Calcium 9.4, Magnesium Level 1.9, Total Bilirubin 1.8H, Aspartate Amino Transf (AST/SGOT) 28, Alanine Aminotransferase (ALT/SGPT) 21, Alkaline Phosphatase 103, Troponin I 0.068H, B-Type Natriuretic Peptide 682.8H, Total Protein 6.9, Albumin 3.7 04/23/19 03:35: White Blood Count 18.1H, Red Blood Count 5.06, Hemoglobin 15.2, Hematocrit 46, Mean Corpuscular Volume 91, Mean Corpuscular Hemoglobin 30, Mean Corpuscular Hemoglobin Concent 33, Red Cell Distribution Width 14.8H, Platelet Count 268, Mean Platelet Volume 10.0, Neutrophils (%) (Auto) 78H, Lymphocytes (%) (Auto) 10L, Monocytes (%) (Auto) 12, Eosinophils (%) (Auto) 0, Basophils (%) (Auto) 0, Neutrophils # (Auto) 14.1H, Lymphocytes # (Auto) 1.7, Monocytes # (Auto) 2.1H, Eosinophils # (Auto) 0.0, Basophils # (Auto) 0.0, Sodium Level 140, Potassium Level 3.8, Chloride Level 101, Carbon Dioxide Level 27, Anion Gap 12, Blood Urea Nitrogen 15, Creatinine 1.23, Estimat Glomerular Filtration Rate 57, BUN/Creatinine Ratio 12, Glucose Level 156H, Calcium Level 9.3, Corrected Calcium 9.6, Total Bilirubin 2.6H, Aspartate Amino Transf (AST/SGOT) 27, Alanine Aminotransferase (ALT/SGPT) 21, Alkaline Phosphatase 101, Total Protein 6.8, Albumin 3.6 04/23/19 08:04: Troponin I 0.081H, Total Creatine Kinase 145, Myoglobin 102.6H 04/23/19 11:13: Glucometer 145H A/P-Cardiology Assessment/Admission Diagnosis UTI Ac on chronic systolic CHF due to dilated cardiomyopathy Mildly elevated troponin due to CHF (type 2 AL) Echo of 04/23/19: LVEF 30-35%, mod biatrial enlargement, no significant AoV stenosis, RVSP 23 mmHg Coronary artery disease status post CABG 5 and Trifecta 23 pericaridal tissue AVR at [facility] in [place] in Jun 2016. Last card cath on November 25, [address] Gautam: patent GOODSON to LAD, vein graft to diagonal artery giving good flow to the LAD system, patent jump graft to the first obtuse marginal branch which is a very small artery and the posterolateral branch and PDA of RCA. The [place] circumflex artery has mild disease, the second and third obtuse marginal branch had moderate to severe disease, but there are very small arteries. The right coronary artery is was dominant with diffuse ectasia and slow flow noted through followed the right system Paroxysmal atrial fibrillation, now apparently chronic and persistent. 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
[2019-04-23] MEDS: rOPINIRole 0.25 MG (REQUIP) TAB PO SCH ×2 (13:57→20:50)
[2019-04-23] MEDS ORDERED: lisINopril 20 MG (PRINIVIL) TABLET PO ONE (14:15)
[2019-04-23] MEDS: FUROSEMIDE 40 MG/4 ML INJ (LASIX) IVP SCH (18:02)
[2019-04-23] MEDS: OMEGA 3 (FISH OIL) 1000 MG CAP PO SCH (20:49)
[2019-04-23] MEDS: KCL 20 MEQ TAB (K-DUR) PO SCH (20:49)
[2019-04-23] MEDS: GABAPENTIN 100 MG (NEURONTIN) CAP PO SCH (20:50)
[2019-04-23] MEDS: APIXABAN 5 MG (ELIQUIS) TABLET PO SCH (20:50)
[2019-04-23] MEDS ORDERED: BUMETANIDE 1 MG (BUMEX) TAB PO SCH (21:00)
[2019-04-23] MEDS ORDERED: KCL 20 MEQ TAB (K-DUR) PO NR (21:00)
[2019-04-23] MEDS ORDERED: meTOprolol TARTRATE 25 MG (LOPRESSOR) TABLET PO SCH (21:00)
[2019-04-24 00:13] VITALS: BP 102/66
[2019-04-24] MEDS ORDERED: ACETAMINOPHEN 500 MG TAB (TYLENOL) PO PRN (00:30)
[2019-04-24 04:23] VITALS: BP 99/62
[2019-04-24 04:36] LABS: BASOPHILS % (AUTO) 0 % (0-10); EOSINOPHILS # (AUTO) 0.2 10^3/uL (0.0-0.3); EOSINOPHILS % (AUTO) 2 % (0-10); HEMATOCRIT 43 % (40-54); LYMPHOCYTES % (AUTO) 22 % (12-44); MEAN CORPUSCULAR HEMOGLOBIN 30 PG (25-34); MEAN CORPUSCULAR HGB CONC 32 G/DL (32-36); MEAN CORPUSCULAR VOLUME 92 FL (80-99); MEAN PLATELET VOLUME 9.9 FL (7.4-10.4); MONOCYTES # (AUTO) 1.6 X 10^3 (0.0-1.0); MONOCYTES % (AUTO) 12 % (0-12); NEUTROPHILS # (AUTO) 8.7 X 10^3 (1.8-7.8); NEUTROPHILS % (AUTO) 64 % (42-75); PLATELET COUNT 248 10^3/uL (130-400); RED CELL DISTRIBUTION WIDTH 14.9 % (10.0-14.5); WHITE BLOOD COUNT 13.5 10^3/uL (4.3-11.0)
[2019-04-24 05:00] LABS: ALBUMIN 3.1 GM/DL (3.2-4.5); BILIRUBIN,TOTAL 2.2 MG/DL (0.1-1.0); CALCIUM 8.7 MG/DL (8.5-10.1); CREATININE SERUM 1.56 MG/DL (0.60-1.30); POTASSIUM 4.1 MMOL/L (3.6-5.0)
[2019-04-24 05:13] LABS: BAND NEUTROPHILS 2 %; LYMPHOCYTES % (MANUAL) 20 %; MONOCYTES % (MANUAL) 12 %; NEUTROPHILS % (MANUAL) 66 %; RBC MORPH NORMAL
[2019-04-24] MEDS: inSUlin ASPART (NovoLOG) 1 UNIT/0.01 ML (CHARGE PER UNIT) SC SCH ×4 (06:02→20:33)
--- NOTE | 2019-04-24 07:05 | NUR ---
While getting report, this RN along with MINISTERIO Tillman, noticed that pt HR dropped into the 20's. Vitals taken at this time and Pt is non-symptomatic and states he feels better. MINISTERIO Tillman paged Dr. Umanzor at this time. [phone]-Dr. umanzor called back and orders received.
[2019-04-24 07:10] VITALS: BP 111/60
[2019-04-24] MEDS: FUROSEMIDE 40 MG/4 ML INJ (LASIX) IVP SCH (07:31)
[2019-04-24] MEDS ORDERED: lisINopril 5 MG (PRINIVIL) TABLET PO SCH (09:00)
[2019-04-24] MEDS ORDERED: FUROSEMIDE 40 MG (LASIX) TAB PO SCH (09:00)
[2019-04-24] MEDS: lisINopril 20 MG (PRINIVIL) TABLET PO SCH (09:28)
[2019-04-24] MEDS: rOPINIRole 0.25 MG (REQUIP) TAB PO SCH ×3 (09:28→20:32)
[2019-04-24] MEDS: MAGNESIUM OXIDE (MAG-OX)400 MG TAB PO SCH (09:28)
[2019-04-24] MEDS: APIXABAN 5 MG (ELIQUIS) TABLET PO SCH ×2 (09:28→20:32)
[2019-04-24] MEDS: GABAPENTIN 100 MG (NEURONTIN) CAP PO SCH ×2 (09:28→20:33)
[2019-04-24] MEDS: OMEGA 3 (FISH OIL) 1000 MG CAP PO SCH ×2 (09:28→20:33)
[2019-04-24] MEDS: KCL 20 MEQ TAB (K-DUR) PO SCH (09:29)
--- NOTE | 2019-04-24 10:40 | Progress Note - Hospitalist ---
Subjective HPI/CC On Admission Date Seen by Provider: Apr 24, 2019 Time Seen by Provider: 09:30 This is a 78-year-old white male who is a poor historian. He notes that he had been doing fairly well until yesterday when he began having fever and chills and seemed to be much more short of breath than normal. He presents to the [facility] room via ambulance with similar complaints. This morning he notes that he's feeling much better and breathing more easily. He has no specific complaint. Subjective/Events-last exam Patient is lying down flat this morning and says that he although he is tired he is feeling better. He continues to require oxygen at 3-4 L nasal cannula. He has not previously been on oxygen at home. He continues to have some weakness in require assistance to get out of bed. His heart rate dropped down into the 20s this morning and his metoprolol has been held. Review of Systems Pulmonary: Dyspnea Neurological: Weakness Focused Exam Lactate Level 04/22/19 21:30: Lactic Acid Level 1.46 Objective Exam Vital Signs Vital Signs Date Time Temp Pulse Resp B/P (MAP) Pulse Ox O2 Delivery O2 Flow Rate FiO2 04/24/19 16:00 Nasal Cannula 4.00 04/24/19 16:00 36.8 61 18 121/69 (86) 91 Capillary Refill : Less Than 3 Seconds General Appearance: Obese HEENT: Other (poor dentition) Neck: Other (short for) Respiratory: Chest Non Tender, Lungs Clear, Normal Breath Sounds, No Accessory Muscle Use, No Respiratory Distress Cardiovascular: Systolic Murmur, Irregularly Irregular Gastrointestinal: Normal Bowel Sounds, No Organomegaly, Non Tender, Soft Rectal: Deferred Back: Normal Inspection Extremity: Normal Capillary Refill, Pedal Edema Neurologic/Psychiatric: Alert, Oriented x3, No Motor/Sensory Deficits, Normal 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 Imaging: Reviewed Imaging Report Assessment/Plan Assessment and Plan Assess & Plan/Chief Complaint Sepsis secondary to UTI-on Rocephin day number 2 culture pending Hypertension-good control Positive troponin-secondary to congestive heart failure per cardiology History coronary artery disease-status post CABG Hypoxia possible obstructive sleep apnea-will need further evaluation for possible chronic O2 use at the time of discharge Chronic atrial fibrillation-with slow ventricular response recently just started on metoprolol Type II diabetes on no medications Congestive heart failure-acute on qqupvah-xjjaiyyg-iyzlwmol fraction of 30 percent secondary to dilated cardiomyopathy Aortic valve replacement Chronic renal disease with elevation of creatinine secondary to diuresis today Plan-DC Pandya catheter continue medication adjustment recheck labs in the morning Diagnosis/Problems Diagnosis/Problems (1) Sepsis Status: Acute Qualifiers: Severe sepsis shock status: without septic shock (2) CHF (congestive heart failure) Status: Resolved Qualifiers: Heart failure chronicity: acute on chronic Resolution Date/Time: 04/24/19 @ 10:44 (3) UTI (urinary tract infection) Status: Acute (4) CAD (coronary artery disease) Qualifiers: Coronary Disease-Associated Artery/Lesion type: bypass graft (5) Diabetes mellitus Qualifiers: Diabetes mellitus type: type 2 (6) Hypoxia Status: Acute Clinical Quality Measures DVT/VTE Risk/Contraindication: Risk Factor Score Per Nursin RFS Level Per Nursing on Admit: 4+=Very High NILAM REEVES MD Apr 24, 2019 10:40
[2019-04-24 12:00] VITALS: BP 109/59
--- NOTE | 2019-04-24 14:32 | Progress Note - Cardiology ---
Cardiology SOAP Progress Note Subjective: Continuing gen weakness and malaise No cp or palp or syncope Chronic exertional shortness of breath Chronic leg swelling, better today Objective: I&O/Vital Signs 04/24/19 04/24/19 04/24/19 04/24/19 04:00 04:23 07:00 07:10 Temp 35.6 Pulse 51 42 47 Resp 24 18 B/P (MAP) 99/62 (74) 111/60 (77) Pulse Ox 96 93 O2 Delivery Nasal Cannula Nasal Cannula Nasal Cannula O2 Flow Rate 4.00 4.00 4.00 04/24/19 04/24/19 04/24/19 04/24/19 08:00 09:00 11:33 12:00 Temp 36.7 Pulse 47 Resp 20 B/P (MAP) 109/59 (76) Pulse Ox 95 97 O2 Delivery Nasal Cannula Nasal Cannula Nasal Cannula Nasal Cannula O2 Flow Rate 4.00 4.00 4.00 4.00 04/24/19 12:56 Pulse 50 04/24/19 00:00 Intake Total 875 ml Output Total 700 ml Balance 175 ml Weight (Pounds): 309 Weight (Ounces): 0.0 Weight (Calculated Kilograms): 140.333358 Constitutional: AAO x 3, well-developed, well-nourished Respiratory: No accessory muscle use; other (fair to good bilat air entry, diminished at the bases) Cardiovascular: irregularly irregular, S1 and S2, systolic murmur (2/6 TELLY at card base) Gastrointestional: No tender; soft; No guarding, No rebound; audible bowel sounds Extremities: swelling (1-2 + edema of the legs); No clubbing, No cyanosis Neurologic/Psychiatric: oriented x 3, other (able to move all limbs equally) Skin: No rash on exposed areas, No ulcerations on exposed areas Results/Procedures: Labs Laboratory Tests 04/23/19 16:41: Glucometer 114H 04/23/19 21:48: Glucometer 172H 04/24/19 04:08: White Blood Count 13.5H, Red Blood Count 4.74, Hemoglobin 14.0, Hematocrit 43, Mean Corpuscular Volume 92, Mean Corpuscular Hemoglobin 30, Mean Corpuscular Hemoglobin Concent 32, Red Cell Distribution Width 14.9H, Platelet Count 248, Mean Platelet Volume 9.9, Neutrophils (%) (Auto) 64, Lymphocytes (%) (Auto) 22, Monocytes (%) (Auto) 12, Eosinophils (%) (Auto) 2, Basophils (%) (Auto) 0, Neutrophils # (Auto) 8.7H, Lymphocytes # (Auto) 3.0, Monocytes # (Auto) 1.6H, Eosinophils # (Auto) 0.2, Basophils # (Auto) 0.0, Neutrophils % (Manual) 66, Lymphocytes % (Manual) 20, Monocytes % (Manual) 12, Band Neutrophils 2, Blood Morphology Comment NORMAL, Sodium Level 136, Potassium Level 4.1, Chloride Level 102, Carbon Dioxide Level 23, Anion Gap 11, Blood Urea Nitrogen 30H, Creatinine 1.56H, Estimat Glomerular Filtration Rate 43, BUN/Creatinine Ratio 19, Glucose Level 132H, Calcium Level 8.7, Corrected Calcium 9.4, Magnesium Level 2.0, Total Bilirubin 2.2H, Aspartate Amino Transf (AST/SGOT) 19, Alanine Aminotransferase (ALT/SGPT) 18, Alkaline Phosphatase 83, Total Protein 6.0L, Albumin 3.1L, Thyroid Stimulating Hormone (TSH) 1.52 Microbiology 04/22/19 Blood Culture - Preliminary, Resulted No growth Laboratory Tests 04/22/19 21:30 04/23/19 03:35 04/24/19 04:08 A/P: Assessment: UTI Chronic A Fib with a slow vent response (asymptomatic). Stroke prophylaxis with Eliquis Ac on chronic systolic CHF due to dilated cardiomyopathy CKD 2-3, superimposed ac renal insuff that is likely due to diuretic therapy Mildly elevated troponin due to CHF (type 2 CO) Echo of 04/23/19: LVEF 30-35%, mod biatrial enlargement, no significant AoV s tenosis, RVSP 23 mmHg Coronary artery disease status post CABG 5 and Trifecta 23 pericaridal tissue AVR at [facility] in [place] in Jun 2016. Last card cath on November 25, [address] Gautam: patent GOODSON to LAD, vein graft to diagonal artery giving good flow to the LAD system, patent jump graft to the first obtuse marginal branch which is a very small artery and the posterolateral branch and PDA of RCA. The [place] circumflex artery has mild disease, the second and third obtuse marginal branch had moderate to severe disease, but there are very small arteries. The right coronary artery is was dominant with diffuse ectasia and slow flow noted through followed the right system History of intermittently elevated liver enzymes Hypertension Hyperlipidemia, by history Carotid arterial disease followed by Dr Maldonado and Dr Gautam DM II, followed by his pcp H/o leg edema, bilateral H/o GI bleed Plan: * Reduce diuretics due to worsening renal function, probably related to diuretic therapy * D/c beta-jeannie due to bradycardia * Monitor labs closely SHAGGY STANFORD MD FACP FAC CCDS Apr 24, 2019 14:31
[2019-04-24 16:00] VITALS: BP 121/69
[2019-04-24] MEDS: TRIM/SULFAMETH 160/800 (SEPTRA DS) TAB PO SCH (17:47)
[2019-04-24 20:00] VITALS: BP 115/71
--- NOTE | 2019-04-24 20:33 | NUR ---
THIS RN INFORMED PT THAT HE WOULD NEED SOME INSULIN DUE TO INCREASED BLOOD GLUCOSE LEVEL OF 218. PT STATED HE DOES NOT WANT INSULIN FOR FEAR OF "GOING INTO INSULIN SHOCK." THIS RN INFORMED PT OF THE INDICATION FOR INSULIN AND RISKS ASSOCIATED WITH REFUSAL. PT ACCEPTED RISKS AND CONTINUED TO REFUSE INSULIN. THIS RN STATED THE NEED FOR ANOTHER FINGERSTICK BLOOD GLUCOSE LATER IN THE SHIFT AND ASKED PT IF HE WOULD ACCEPT INSULIN IF BLOOD GLUCOSE WAS EVEN MORE ELEVATED IN WHICH PT STATED "NO, I DO NOT WANT ANY INSULIN AT ALL." THIS RN WILL CONTINUE TO MONITOR BLOOD GLUCOSE LEVELS AND WILL ASK PT IF HE WANTS INSULIN AT 0600 SCHEDULED NOVOLOG IF INDICATED.
[2019-04-25] VITALS: BP 117/69
[2019-04-25 04:00] VITALS: BP 91/53
[2019-04-25] MEDS: inSUlin ASPART (NovoLOG) 1 UNIT/0.01 ML (CHARGE PER UNIT) SC SCH ×2 (05:13→11:39)
[2019-04-25 05:16] LABS: BASOPHILS % (AUTO) 0 % (0-10); EOSINOPHILS # (AUTO) 0.3 10^3/uL (0.0-0.3); EOSINOPHILS % (AUTO) 3 % (0-10); HEMATOCRIT 43 % (40-54); HEMOGLOBIN 14.1 G/DL (13.3-17.7); LYMPHOCYTES # (AUTO) 1.8 X 10^3 (1.0-4.0); LYMPHOCYTES % (AUTO) 16 % (12-44); MEAN CORPUSCULAR HEMOGLOBIN 30 PG (25-34); MEAN CORPUSCULAR HGB CONC 33 G/DL (32-36); MEAN CORPUSCULAR VOLUME 92 FL (80-99); MEAN PLATELET VOLUME 9.9 FL (7.4-10.4); MONOCYTES # (AUTO) 1.3 X 10^3 (0.0-1.0); MONOCYTES % (AUTO) 12 % (0-12); NEUTROPHILS # (AUTO) 7.5 X 10^3 (1.8-7.8); NEUTROPHILS % (AUTO) 69 % (42-75); PLATELET COUNT 252 10^3/uL (130-400); RED CELL DISTRIBUTION WIDTH 14.7 % (10.0-14.5); WHITE BLOOD COUNT 10.9 10^3/uL (4.3-11.0)
[2019-04-25 05:38] LABS: ALBUMIN 3.1 GM/DL (3.2-4.5); BILIRUBIN,TOTAL 1.2 MG/DL (0.1-1.0); CALCIUM 8.6 MG/DL (8.5-10.1); CREATININE SERUM 1.26 MG/DL (0.60-1.30); POTASSIUM 4.1 MMOL/L (3.6-5.0)
[2019-04-25] MEDS: TRIM/SULFAMETH 160/800 (SEPTRA DS) TAB PO SCH (06:20)
[2019-04-25] MEDS ORDERED: KCL 20 MEQ TAB (K-DUR) PO SCH (07:00)
[2019-04-25 08:00] VITALS: BP 153/72
[2019-04-25] MEDS: APIXABAN 5 MG (ELIQUIS) TABLET PO SCH (08:13)
[2019-04-25] MEDS: lisINopril 20 MG (PRINIVIL) TABLET PO SCH (08:13)
[2019-04-25] MEDS: MAGNESIUM OXIDE (MAG-OX)400 MG TAB PO SCH (08:13)
[2019-04-25] MEDS: OMEGA 3 (FISH OIL) 1000 MG CAP PO SCH (08:13)
[2019-04-25] MEDS: GABAPENTIN 100 MG (NEURONTIN) CAP PO SCH (08:13)
[2019-04-25] MEDS: rOPINIRole 0.25 MG (REQUIP) TAB PO SCH ×2 (08:13→13:12)
--- NOTE | 2019-04-25 08:52 | Cardiology Progress Note ---
Subjective Date Seen by Provider: Apr 25, 2019 Time Seen by Provider: 08:47 Subjective/Events-last exam Patient is sitting, comfortable, no chest pain, mild dyspnea, no palpitation. Review of Systems General: No Chills, No Night Sweats; Fatigue; No Malaise, No Appetite, No Other HEENT: No Head Aches, No Visual Changes, No Eye Pain, No Ear Pain, No Dysphasia, No Sinus Congestion, No Post Nasal Drip, No Sore Throat, No Other Pulmonary: Dyspnea; No Cough, No Pleuritic Chest Pain, No Other Cardiovascular: No: Chest Pain, Palpitations, Orthopnea, Paroxysmal Noc. Dyspnea, Edema, Lt Headedness, Other Focused Exam Lactate Level 04/22/19 21:30: Lactic Acid Level 1.46 Objective-Cardiology Exam Last Set of Vital Signs Vital Signs 04/25/19 08:00 Temp 37.1 Pulse 69 Resp 18 B/P (MAP) 153/72 (99) Pulse Ox 99 O2 Delivery Room Air Capillary Refill : Less Than 3 Seconds I&O Intake and Output 04/25/19 00:00 Intake Total 1225 ml Output Total 925 ml Balance 300 ml Intake Oral 1225 ml Output Urine Total 925 ml # Voids 1 General: Alert, Oriented X3, Cooperative HEENT: Atraumatic, PERRLA Neck: Supple, No JVD, No Thyromegaly Lungs: Clear to Auscultation, Normal Air Movement Heart: Regular Rate, Normal S1, Normal S2, No Murmurs Abdomen: Normal Bowel Sounds, Soft, No Tenderness, No Hepatosplenomegaly, No Masses Extremities: No Clubbing, No Cyanosis, No Edema, Normal Pulses, No Tenderness/Swelling Skin: No Rashes, No Breakdown, No Significant Lesion Neuro: Normal Gait, Normal Speech, Strength at 5/5 X4 Ext, Normal Tone, Sen sation Intact Psych/Mental Status: Mental Status NL, Mood NL Results Lab Laboratory Tests 04/25/19 04:40 A/P-Cardiology Admission Diagnosis Urinary tract infection Chronic permanent atrial fibrillation Coronary artery disease Congestive heart failure, acute on chronic left ventricular systolic dysfunction, ischemic cardiomyopathy Assessment/Plan UTI, receiving Bactrim. Continue on current medication monitor Chronic A Fib with borderline bradycardia secondary to beta blockers, has been asymptomatic, restart beta blockers once ready to go home and continue to monitor as an outpatient Ac on chronic systolic CHF due to dilated cardiomyopathy, back to baseline, im proved. Continue to monitor CKD 2-3, superimposed ac renal insuff that is likely due to diuretic therapy, renal functions are back to baseline. Continue to monitor as an outpatient Mildly elevated troponin due to CHF (type 2 [place]) Echo of 04/23/19: LVEF 30-35%, mod biatrial enlargement, no significant AoV stenosis, RVSP 23 mmHg Coronary artery disease status post CABG 5 and Trifecta 23 pericaridal tissue AVR at [facility] in [place] in Jun 2016. Last card cath on November 25, 2017 patent GOODSON to LAD, vein graft to diagonal artery giving good flow to the LAD system, patent jump graft to the first obtuse marginal branch which is a very small artery and the posterolateral branch and PDA of RCA. The [place] circumflex artery has mild disease, the second and third obtuse marginal branch had moderate to severe disease, but there are very small arteries. The right coronary artery is was dominant with diffuse ectasia and slow flow noted through followed the right system, continue with medical therapy no intervention is buddy mmended History of intermittently elevated liver enzymes, continue to monitor renal function Hypertension, monitor blood pressure Hyperlipidemia, by history, continue on current meds and monitor Carotid arterial disease followed by Dr Maldonado, continue to monitor Diabetes mellitus, followed and managed by primary care physician H/o leg edema, bilateral, better at this time. Continue to monitor H/o GI bleed Clinical Quality Measures DVT/VTE Risk/Contraindication: Risk Factor Score Per Nursin RFS Level Per Nursing on Admit: 4+=Very High CARLOS HUTCHINSON MD Apr 25, 2019 08:52
[2019-04-25] MEDS ORDERED: FUROSEMIDE 40 MG/4 ML INJ (LASIX) IVP SCH (09:00)
[2019-04-25] MEDS ORDERED: ROSU10TA28 PO (10:04)
[2019-04-25] MEDS ORDERED: ROPI0.5T2 PO (10:04)
[2019-04-25] MEDS ORDERED: MV,M1TAB2 PO (10:04)
[2019-04-25] MEDS ORDERED: TURM538C PO (10:04)
[2019-04-25] MEDS ORDERED: METF-399 PO (10:04)
[2019-04-25] MEDS ORDERED: VITA1TAB33 PO (10:04)
[2019-04-25] MEDS ORDERED: SULF1TAB35 PO (10:25)
--- NOTE | 2019-04-25 10:29 | NUR ---
SPOKE WITH THE PATIENT ABOUT HIS MEDICATIONS. HE HAD HIS BOTTLES WITH HIM WITH THE EXCEPTION OF SOME OTC MEDS. HE WAS ABLE TO LIST ALL HIS OTC MEDS. HE STATES HIS KIDNEY DR. DR. BURT CASTAÑEDA AT [phone] RECENTLY INCREASED HIS LISINOPRIL DOSE AND TOLD HIM TO STOP HIS POTASSIUM. HE STATES THIS WAS A RECENT CHANGE. 02-22-19 LISINOPRIL 5MG DAILY #60 (INCREASED TO 2 TABS DAILY) 02-22-19 POTASSIUM 20MEQ #240 FOR 60 DAYS (DISCONTINUED RECENTLY) I COMPARED HIS BOTTLES WITH THE EXT MED HX. HE IS PAST DUE FOR SEVERAL MEDICATIONS BUT STATES HE DOES TAKE THEM DAILY, HE JUST HAS SUPPLIES BUILT UP FROM WHERE THEY HAVE BEEN FILLED TOO SOON OVER TIME. I NOTED THE PAST DUE FILL DATES ON THE MED REC BUT THEY ARE FOLLOWS: 09-03-18 METFORMIN 1000MG BID #180 (BOTTLES ARE MOSTLY FULL) 06-17-18 ELIQUIS 5MG BID #180 (STATES HE SOMETIMES GETS SAMPLES) 06-16-17 GABAPENTIN 100MG TID #270 HE TAKES 1 AM AND 2 HS (ARIE STATES THIS WAS ALSO FILLED 10-16-18 #270) OTC: SUPER B COMPLEX WITH C Thursday AND THURSDAY MAG OX 400MG DAILY IRON 325MG DAILY FISH OIL BID MENS MTV DAILY TURMERIC BID MIRALAX PRN TYLENOL PRN STRESS TAB DAILY
--- NOTE | 2019-04-25 10:35 | Discharge Summary ---
JO ANN LIAO [facility] 04/25/19 1034: Diagnosis/Chief Complaint Date of Admission Apr 22, 2019 at 23:00 Date of Discharge Discharge Date: Apr 25, 2019 Admission Diagnosis Sepsis secondary to UTI Hypertension Positive troponin History coronary artery disease-status post CABG Hypoxia possible obstructive sleep apnea Chronic atrial fibrillation Type II diabetes on no medications Plan to admit for antibiotics, blood cultures pending cardiology consult and dispensation based on recommendations by cardiology Primary Care Rosario Davidson MD Discharge Diagnosis (1) Sepsis Status: Acute (2) CHF (congestive heart failure) Status: Resolved (3) UTI (urinary tract infection) Status: Acute (4) CAD (coronary artery disease) (5) Diabetes mellitus (6) Hypoxia Status: Acute Discharge Summary Discharge Physical Exam Allergies: Coded Allergies: No Known Drug Allergies (Unverified , 11/25/17) Vitals & I&Os Vital Signs Date Time Temp Pulse Resp B/P (MAP) Pulse Ox O2 Delivery O2 Flow Rate FiO2 04/25/19 08:00 Room Air 04/25/19 08:00 37.1 69 18 153/72 (99) 99 04/24/19 16:00 4.00 General Appearance: No Apparent Distress, WD/WN Skin: Normal Color, Warm/Dry Neurologic/Psychiatric: Alert, Normal Mood/Affect Hospital Course Pt was brought to the ER with SOB and recent onset fever and chills. In the ER he was found to have a UTI and he was started on Rocephin. In the ER his oxygen saturation dropped to the low 90s on room air and he was put on 2L O2 nasal cannula that brought levels in mid-upper 90s. He continued to require 3-4L to maintain his oxygen saturation in mid 90s. He has a significant history of cardiac disease and cardiology was consulted regarding elevated BNP and troponin in the ER. Troponin levels were elevated secondary to CHF as determined by cardiology. Cardiology recommended an increase in several medications to help control his blood pressure. His condition improved over the couple days and he was discharged to home on oral Bactrim for the UTI with instructions to follow up with his PCP and Cardiology in the next week. Labs (last 24 hrs) Laboratory Tests 04/25/19 04:40: White Blood Count 10.9, Red Blood Count 4.70, Hemoglobin 14.1, Hematocrit 43, Mean Corpuscular Volume 92, Mean Corpuscular Hemoglobin 30, Mean Corpuscular Hemoglobin Concent 33, Red Cell Distribution Width 14.7H, Platelet Count 252, Mean Platelet Volume 9.9, Neutrophils (%) (Auto) 69, Lymphocytes (%) (Auto) 16, Monocytes (%) (Auto) 12, Eosinophils (%) (Auto) 3, Basophils (%) (Auto) 0, Neutrophils # (Auto) 7.5, Lymphocytes # (Auto) 1.8, Monocytes # (Auto) 1.3H, Eosinophils # (Auto) 0.3, Basophils # (Auto) 0.0, Sodium Level 137, Potassium Level 4.1, Chloride Level 102, Carbon Dioxide Level 25, Anion Gap 10, Blood Urea Nitrogen 28H, Creatinine 1.26, Estimat Glomerular Filtration Rate 55, BUN/Creatinine Ratio 22, Glucose Level 134H, Calcium Level 8.6, Corrected Soham cium 9.3, Total Bilirubin 1.2H, Aspartate Amino Transf (AST/SGOT) 29, Alanine Aminotransferase (ALT/SGPT) 25, Alkaline Phosphatase 91, B-Type Natriuretic Peptide 323.1H, Total Protein 6.0L, Albumin 3.1L Microbiology 04/22/19 Blood Culture - Preliminary, Resulted No growth 04/22/19 Urine Culture - Final, Complete Escherichia coli Patient resulted labs reviewed. Pending Labs Laboratory Tests 04/25/19 04:40: White Blood Count 10.9, Red Blood Count 4.70, Hemoglobin 14.1, Hematocrit 43, Mean Corpuscular Volume 92, Mean Corpuscular Hemoglobin 30, Mean Corpuscular Hemoglobin Concent 33, Red Cell Distribution Width 14.7, Platelet Count 252, Mean Platelet Volume 9.9, Neutrophils (%) (Auto) 69, Lymphocytes (%) (Auto) 16, Monocytes (%) (Auto) 12, Eosinophils (%) (Auto) 3, Basophils (%) (Auto) 0, Neutrophils # (Auto) 7.5, Lymphocytes # (Auto) 1.8, Monocytes # (Auto) 1.3, Eosinophils # (Auto) 0.3, Basophils # (Auto) 0.0, Sodium Level 137, Potassium Level 4.1, Chloride Level 102, Carbon Dioxide Level 25, Anion Gap 10, Blood Urea Nitrogen 28, Creatinine 1.26, Estimat Glomerular Filtration Rate 55, BUN/Creatinine Ratio 22, Glucose Level 134, Calcium Level 8.6, Corrected Calcium 9.3, Total Bilirubin 1.2, Aspartate Amino Transf (AST/SGOT) 29, Alanine Aminotransferase (ALT/SGPT) 25, Alkaline Phosphatase 91, B-Type Natriuretic Peptide 323.1, Total Protein 6.0, Albumin 3.1 Imaging: Reviewed Imaging Report Discharge Home Medications: Active Scripts Active Bactrim Ds Tablet (Sulfamethoxazole/Trimethoprim) 1 Each Tablet 1 Each PO BID Reported Rosuvastatin Calcium 10 Mg Tablet 10 Mg PO HS Metformin HCl 1,000 Mg Tablet 1,000 Mg PO BID LAST FILLED #180 09-03-18 Super B Complex-Vitamin C (B Complex with Vitamin C) 1 Each Tablet 1 Tab PO MOWEFR Ropinirole HCl 0.5 Mg Tablet 1 Mg PO HS TAKES 2 (0.5MG) TABLETS Turmeric (Turmeric Root Extract) 538 Mg Capsule 538 Mg PO BID One Daily For Men 50+ Adv Tab (Mv,Minerals/FA/Lycopene/Ginkgo) 1 Each Tablet 1 Tab PO DAILY Metoprolol Tartrate 25 Mg Tablet 25 Mg PO BID Tylenol Extra Strength (Acetaminophen) 500 Mg Tablet 1,000 Mg PO Q6H PRN Fish Oil 1,000 mg Capsule ([place] 3 Polyunsat Fatty Acids) 1,000 Mg Cap 1,000 Mg PO BID Ferrous Sulfate 325 Mg Tablet 325 Mg PO DAILY Miralax (Polyethylene Glycol 3350) 17 Gm Powd.pack 17 Gm PO DAILY PRN Bumetanide 1 Mg Tablet 1 Mg PO BID Furosemide 40 Mg Tablet 40 Mg PO DAILY Ropinirole HCl 0.5 Mg Tablet 0.5 Mg PO DAILY Gabapentin 100 Mg Capsule 200 Mg PO HS LAST FILLED #270 10-16-18 TAKES 2 (100MG) CAPSULES Gabapentin 100 Mg Capsule 100 Mg PO DAILY LAST FILLED #270 10-16-18 Xyzal (Levocetirizine Dihydrochloride) 5 Mg Tablet 5 Mg PO HS Stress Formula (Multivits,Stress Formula) 1 Each Tablet 1 Tab PO DAILY Magnesium (Magnesium Oxide) 400 Mg Tablet 400 Mg PO DAILY Eliquis (Apixaban) 5 Mg Tablet 5 Mg PO BID LAST FILLED #180 06-17-18 Lisinopril 5 Mg Tablet 10 Mg PO DAILY TAKES 2 (5MG) TABLETS Instructions to patient/family Please see electronic discharge instructions given to patient. Clinical Quality Measures DVT/VTE Risk/Contraindication: Risk Factor Score Per Nursin RFS Level Per Nursing on Admit: 4+=Very High SHAYLEE VALVERDE DO 04/25/192053: Diagnosis/Chief Complaint Discharge Diagnosis (1) Hypoxia Status: Acute (2) CHF (congestive heart failure) Status: Resolved (3) CAD (coronary artery disease) (4) Diabetes mellitus (5) HTN (hypertension) (6) HLP (7) Sepsis Status: Acute (8) UTI (urinary tract infection) Status: Acute Discharge Summary Discharge Physical Exam Allergies: Coded Allergies: No Known Drug Allergies (Unverified , 11/25/17) General Appearance: No Apparent Distress, WD/WN, Chronically ill, Obese Respiratory: Normal Breath Sounds Cardiovascular: Regular Rate, Rhythm Neurologic/Psychiatric: Alert, Oriented x3, No Motor/Sensory Deficits, Normal Mood/Affect Hospital Course Was the Problem List Reviewed?: Yes Hospital course: Pt had a lengthy hospital course for 4 days when he was admitted for sepsis due to UTI elevated troponin and hypoxia with volume overload. Cardiology was consulted, empiric antibiotics were given which showed [place]-sensitive E.coli. He was able to get back to his baseline functioning and cardiology placed him back on his diuretic therapy and beta block aide so at time of DC everyone was in agreement with DC plan and he already has home health with [facility] arranged at home and will have PT and OT provide pt a shower and home O2 evaluation and antibiotic of Bactrim was sent in to [facility] pharmacy for UTI. Discussion & Recommendations Discharge Planning: <30 minutes discharge planning Supervisory-Addendum Brief Verification & Attestation Participated in pt care: history, MDM, physical Personally performed: exam, history, MDM, supervision of care Care discussed with: Medical Student Procedures: n/a Results interpretation: Verified all documentation Verification and Attestation of Medical Student E/M Service A medical student performed and documented this service in my presence. I reviewed and verified all information documented by the medical student and made modifications to such information, when appropriate. I personally performed the physical exam and medical decision making. Shaylee Valverde, Apr 25, 2019,20:55 Problem Qualifiers (1) Sepsis: Severe sepsis shock status: without septic shock (2) CHF (congestive heart failure): Heart failure chronicity: acute on chronic (3) CAD (coronary artery disease): Coronary Disease-Associated Artery/Lesion type: bypass graft (4) Diabetes mellitus: Diabetes mellitus type: type 2 JO ANN LIAO [facility] Apr 25, 2019 10:34 SHAYLEE VALVERDE DO Apr 25, 2019 20:54
--- NOTE | 2019-04-25 11:24 | NUR ---
SPO2 DROPPED TO 87% ON ROOM AIR AT REST. PT REFUSED TO BE PLACED BACK ON OXYGEN AND STATED HE DOES NOT NEED IT AT HOME. Addendum: 04/25/19 at 1129 by EMILY VELÁZQUEZ RT Amended: Links added.
--- NOTE | 2019-04-25 12:01 | Physical Therapy Evaluation ---
PT Evaluation-General Medical Diagnosis Admission Date Apr 22, 2019 at 23:00 Medical Diagnosis: CHF, UTI, sepsis Onset Date: Apr 22, 2019 Therapy Diagnosis Therapy Diagnosis: debility Height/Weight Height (Feet): 5 Height (Inches): 7.00 Weight (Pounds): 309 Weight (Ounces): 0.0 Precautions Precautions/Isolations: Fall Prevention, Standard Precautions Weight Bear Status Right Lower Extremity: Right Full Weight Bearing Left Lower Extremity: Left Full Weight Bearing Referral Physician: Grecia Reason for Referral: Evaluation/Treatment Medical History Pertinent Medical History: Atrial Fib, CAD, DM, Neuropathy, PVD Social History Home: Apartment Current Living Status: caregiver Entry Into Home: Elevator Prior Prior Level of Function SCALE: Activities may be completed with or without assistive devices. 2-Rbzhicgjkl-fiuofop completes the activity by him/herself with no assistance from a helper. 5-Set-up or Clean-up Assistance-helper sets up or cleans up; patient completes activity. [place] assists only prior to or following the activity. 4-Supervision or Touching Assistance-helper provides verbal cues and/or touching/steadying and/or contact guard assistance as patient completes activity. Assistance may be provided throughout the activity or intermittently. 3-Partial/Moderate Assistance-helper does LESS THAN HALF the effort. [place] lifts, holds or supports trunk or limbs, but provides less than half the effort. 2-Substantial/Maximal Assistance-helper does MORE THAN HALF the effort. [place] lifts or holds trunk or limbs and provides more than half the effort. 0-Msbdesoey-drrinw does ALL the effort. Patient does none of the effort to complete the activity. Or, the assistance of 2 or more helpers is required for the patient to complete the activity. If activity was not attempted, code reason: 7-Patient Refused. 9-Not Applicable-not attempted and the patient did not perform the activity before the current illness, exacerbation or injury. 10-Not Attempted due to Environmental Limitations-(lack of equipment, weather restraints, etc.). 88-Not Attempted due to Medical Conditions or Safety Concerns. Bed Mobility: 6 Transfers (B,C,W/C): 6 Gait: 6 Stairs: 6 Indoor Mobility (Ambulation): Independent Prior Devices Use: None PT Evaluation-Current Subjective Patient agrees to PT at this time. Patient declines use of gait belt initially and use of walker. Patient reports he has a caregiver in place to help him at his apartment after discharge. Pain Numeric Pain Scale: 0-No Pain Location: No Pain Reported Objective Patient Orientation: Person, Place, Time, Situation ROM/Strength ROM Lower Extremities WFL Strength Lower Extremities WFL Integumentary/Posture Bowel Incontinence: No Bladder Incontinence: No Neuromuscular (Tone, Coordination, Reflexes) WFL Sensory Vision: Functional Hearing: Functional Transfers Roll Left to Right (QC): 6 Sit to Lying (QC): 6 Lying to Sitting/Side of Bed(Q: 6 Sit to Stand (QC): 6 Chair/Pyw-ho-Yvcri Xfer(QC): 6 Gait Does the Patient Walk?: Yes Mode of Locomotion: Walk Anticipated Mode of Locomotion: Walk Distance (FIM): [phone] ft Walk 10 feet (QC): 6 Walk 50 ft with 2 Turns(QC): 6 Walk 150 ft (QC): 6 Distance: 250' Gait Assistive Device: None Balance Sitting Static: Normal Sitting Dynamic: Normal Standing Static: Normal Standing Dynamic: Normal Picking up an Object (QC): 88 Assessment/Needs Patient was able to perform bed mobility, transfers, and gait independently. Patient declined use of walker for ambulation. Patient also declined use of O2 in room or at home. Rehab Potential: Fair Post Rehab Potential-Barriers: compliance PT Airline Radio Operator Goals Airline Radio Operator Goals PT Airline Radio Operator Goals Time Frame: May 02, 2019 Sit to Lying (QC): 6 Lying-Sitting on Side/Bed(QC): 6 Sit to Stand (QC): 6 Roll Left to Right (QC): 6 Chair/Oww-pk-Lftoe Xfer(QC): 6 Car Transfer (QC): 6 Does the Patient Walk: Yes Distance: 300' Walk 10 feet (QC): 6 Walk 10ft-Uneven Surface(QC): 6 Walk 50ft with 2 Turns (QC): 6 Walk 150 ft (QC): 6 Gait Assistive Device: None PT Plan Treatment/Plan Treatment Plan: Discontinue PT, goals met Treatment Plan: Other Treatment Duration: Apr 25, 2019 Frequency: 1 time per week Estimated Hrs Per Day: .25 hour per day Patient and/or Family Agrees t: Yes Time/GCodes Time In: 1120 Time Out: 1136 Total Billed Treatment Time: 16 Total Billed Treatment 1 visit EVMod x16 min ABILIO DE SOUZA PT Apr 25, 2019 12:01
[2019-04-25 13:00] VITALS: BP 120/74
--- NOTE | 2019-04-25 14:43 | Occupational Therapy Eval ---
OT Evaluation-General/PLF Medical Diagnosis Admission Date Apr 22, 2019 at 23:00 Medical Diagnosis: CHF, UTI, sepsis Onset Date: Apr 22, 2019 Therapy Diagnosis Therapy Diagnosis: decr self care, weakness, decr act tolerance Height/Weight Height (Feet): 5 Height (Inches): 7.00 Weight (Pounds): 309 Weight (Ounces): 0.0 Precautions Precautions/Isolations: Fall Prevention, Standard Precautions Safety Interventions: None Referral Physician: Grecia Referral Reason: Evaluation/Treatment Medical History Pertinent Medical History: Atrial Fib, CABG, CAD, CVA, DM, Neuropathy, PVD, Renal Insufficiency Additional Medical History Aortic valve replacement. Chronic leg edema. Chronic back pain. Morbid obesity. GI bleed Current History Admitted with sepsis, UTI, CHF, HTN, hypoxia, NSTEMI Reviewed History: Yes Social History Home: Apartment ([facility]) Current Living Status: caregiver Entry Into Home: Elevator ADL-Prior Level of Function SCALE: Activities may be completed with or without assistive devices. 9-Alghknkghk-vjfsfgn completes the activity by him/herself with no assistance from a helper. 5-Set-up or Clean-up Assistance-helper sets up or cleans up; patient completes activity. [place] assists only prior to or following the activity. 4-Supervision or Touching Assistance-helper provides verbal cues and/or touching/steadying and/or contact guard assistance as patient completes activity. Assistance may be provided throughout the activity or intermittently. 3-Partial/Moderate Assistance-helper does LESS THAN HALF the effort. [place] lifts, holds or supports trunk or limbs, but provides less than half the effort. 2-Substantial/Maximal Assistance-helper does MORE THAN HALF the effort. [place] lifts or holds trunk or limbs and provides more than half the effort. 7-Blnuqqrli-qtbbjv does ALL the effort. Patient does none of the effort to complete the activity. Or, the assistance of 2 or more helpers is required for the patient to complete the activity. If activity was not attempted, code reason: 7-Patient Refused. 9-Not Applicable-not attempted and the patient did not perform the activity before the current illness, exacerbation or injury. 10-Not Attempted due to Environmental Limitations-(lack of equipment, weather restraints, etc.). 88-Not Attempted due to Medical Conditions or Safety Concerns. ADL PLOF Comments Pt reported that he has been able to manage his basic self care needs but he has help with cooking, cleaning, laundry. 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 He sometimes has a little difficulty putting on his socks Self Care: Independent Functional Cognition: Independent DME/Equipment: Bath Chair, Grab Bars OT Current Status Subjective Pt seen in room, up at EOB, agreeable to OT. Anticipating DC today if he is able to care for himself. Pain reported 0/10 Appearance Alert, cooperative, talkative Mental Status/Objective Attachments: Saline Lock Current Glasses/Contacts: Yes Hand Dominance: Right Upper Extremity ROM Grossly WFL bilat Upper Extremity Sensation Reports no problems Upper Extremity Strength Grossly 4/5 bilat ADL-Treatment ADL-Current He was able to take slipper socks off. Walked to bathroom without AD but touched furniture along the way. Transferred in/out of shower with SBA. Pt washed all body parts except his back and turned water on/off and retrieved towel, shower bench, grab bars, hand held shower. He was able to don underwear, sweat pants and shirt without help. He had a little difficulty putting on his socks and was provided with information on a sock aid. He also has a shower chair and was encouraged to use it at home. Info shared on transfer tub bench. He declined use of oxygen, stating, "I don't need it." and was asked periodically throughout shower about it. He also took IV out of hand while in the shower but it was not bleeding at end of shower. Nursing notified. Pt educ techniques for donning socks. He preferred to let his feet be open to air until his daughter arrives. Pt also showed OT 2 small wounds on R velarde - shared with nursing. Pt left up at EOB, all needs met. Shower/Bathe Self (QC): 6 Upper Body Dressing (QC): 6 Lower Body Dressing (QC): 6 Education OT Patient Education: Modified ADL techniques, Purpose of tx/functional activities, Safety issues, Use of adapted equipment Teaching Recipient: Patient Teaching Methods: Demonstration, Discussion Response to Teaching: Verbalize Understanding, Return Demonstration OT Short Term Goals Short Term Goals 1=Demonstrate adherence to instructed precautions during ADL tasks. 2=Patient will verbalize/demonstrate understanding of assistive devices/modifications for ADL. 3=Patient will improve strength/tolerance for activity to enable patient to perform ADL's. OT Mechanical Door Repairer Goals Mechanical Door Repairer Goals Time Frame: Apr 25, 2019 Shower/Bathe Self (QC): 6 Upper Body Dressing (QC): 6 Lower Body Dressing (QC): 6 1=Demonstrate adherence to instructed precautions during ADL tasks. 2=Patient will verbalize/demonstrate understanding of assistive devices/modifications for ADL. 3=Patient will improve strength/tolerance for activity to enable patient to perform ADL's. OT Education/Plan Problem List/Assessment Assessment: Decreased Activ Tolerance, Decreased UE Strength, Impaired Self- Care Skills Pt would benefit from skilled OT to increase his independence in basic self care to allow him to safely return home to his apartment Discharge Recommendations Plan/Recommendations: Discharge/Goals Met (all goals met) Equpiment Recommendations-D/C: Extended Bath Bench, Sock Aide Treatment Plan/Plan of Care Treatment,Training & Education: Yes Patient would benefit from OT for education, treatment and training to promote independence in ADL's, mobility, safety and/or upper extremity function for ADL's. Plan of Care: ADL Retraining Treatment Duration: Apr 25, 2019 Frequency: 1 time per week Estimated Hrs Per Day: .5 hour per day Agreement: Yes Rehab Potential: Fair Time/GCodes Start Time: 13:25 Stop Time: 14:30 Total Time Billed (hr/min): 65 Billed Treatment Time visit, evaluation low intensity 15 minutes, ADL 50 minutes JULIANO PACHECO OT Apr 25, 2019 14:43
== END 2019-04-25 15:20 | disposition home or self-care (01) | DRG 871 ==
LOC: EDUNIT# 20:40 → ER 20:41 → CSD 23:00
PROVIDERS: ADMIT Internal Medicine; ATTEND Internal Medicine
DX: A41.51 Sepsis due to Escherichia coli [E. coli] (principal); N39.0 Urinary tract infection, site not specified; I13.0 Hypertensive heart and chronic kidney disease with heart failure and stage 1 through stage 4 chronic kidney disease, or unspecified chronic kidney disease; I50.23 Acute on chronic systolic (congestive) heart failure; N18.3 Chronic kidney disease, stage 3 (moderate); I48.20 Chronic atrial fibrillation, unspecified; I21.A1 Myocardial infarction type 2; E66.01 Morbid (severe) obesity due to excess calories; Z68.41 Body mass index [BMI] 40.0-44.9, adult; I25.10 Atherosclerotic heart disease of native coronary artery without angina pectoris; I25.5 Ischemic cardiomyopathy; R09.02 Hypoxemia; G47.33 Obstructive sleep apnea (adult) (pediatric); E11.51 Type 2 diabetes mellitus with diabetic peripheral angiopathy without gangrene; E78.5 Hyperlipidemia, unspecified; N28.9 Disorder of kidney and ureter, unspecified; I77.89 Other specified disorders of arteries and arterioles; E78.00 Pure hypercholesterolemia, unspecified; R01.1 Cardiac murmur, unspecified; M54.9 Dorsalgia, unspecified; Z95.2 Presence of prosthetic heart valve; Z87.19 Personal history of other diseases of the digestive system; Z79.01 Long term (current) use of anticoagulants; Z95.1 Presence of aortocoronary bypass graft; Z86.73 Personal history of transient ischemic attack (TIA), and cerebral infarction without residual deficits
CPT/HCPCS: 36415; 71045; 80053; 81000; 82550; 82962; 83605; 83735; 83874; 83880; 84443; 84484; 85007; 85025; 85027; 85610; 85730; 87040; 87077; 87088; 87186; 93005; 93041; 93306; 94761; 96374; 96375

== ENCOUNTER 2019-04-25 21:22 | Emergency (ER) | payer MEDICARE ==
[~2019-04-25] VITALS: Ht 170 cm; Wt 131.8 kg
[~2019-04-25 21:22] MED LIST changes: +MV,M1TAB2 PO; +ROSU10TA28 PO; +SULF1TAB35 PO; +TURM538C PO; +VITA1TAB33 PO
[2019-04-25 21:51] LABS: BASOPHILS % (AUTO) 0 % (0-10); EOSINOPHILS # (AUTO) 0.3 10^3/uL (0.0-0.3); EOSINOPHILS % (AUTO) 3 % (0-10); HEMATOCRIT 47 % (40-54); HEMOGLOBIN 15.4 G/DL (13.3-17.7); LYMPHOCYTES # (AUTO) 2.3 X 10^3 (1.0-4.0); LYMPHOCYTES % (AUTO) 20 % (12-44); MEAN CORPUSCULAR HEMOGLOBIN 30 PG (25-34); MEAN CORPUSCULAR HGB CONC 33 G/DL (32-36); MEAN CORPUSCULAR VOLUME 91 FL (80-99); MEAN PLATELET VOLUME 9.8 FL (7.4-10.4); MONOCYTES # (AUTO) 1.7 X 10^3 (0.0-1.0); MONOCYTES % (AUTO) 15 % (0-12); NEUTROPHILS # (AUTO) 7.4 X 10^3 (1.8-7.8); NEUTROPHILS % (AUTO) 63 % (42-75); PLATELET COUNT 302 10^3/uL (130-400); WHITE BLOOD COUNT 11.8 10^3/uL (4.3-11.0)
[2019-04-25 22:00] LABS: INR 1.3 (0.8-1.4); PROTHROMBIN TIME PATIENT 16.8 SEC (12.2-14.7)
[2019-04-25 22:08] LABS: ALANINE AMINOTRANSFERASE 43 U/L (0-55); ALBUMIN 3.4 GM/DL (3.2-4.5); ALKALINE PHOSPHATASE 95 U/L (40-136); BILIRUBIN,TOTAL 1.3 MG/DL (0.1-1.0); BUN/CREATININE RATIO 16; CALCIUM 9.3 MG/DL (8.5-10.1); CARBON DIOXIDE 22 MMOL/L (21-32); CHLORIDE 101 MMOL/L (98-107); CREATINE KINASE 120 U/L (30-200); CREATININE SERUM 1.42 MG/DL (0.60-1.30); GFR ESTIMATED 48; GLUCOSE 115 MG/DL (70-105); MAGNESIUM 2.1 MG/DL (1.6-2.4); POTASSIUM 5.5 MMOL/L (3.6-5.0); SODIUM 136 MMOL/L (135-145); TOTAL PROTEIN 7.9 GM/DL (6.4-8.2)
[2019-04-25 22:27] LABS: CREATINE KINASE MB 3.3 NG/ML (<6.6); TSH (THYROID ANALYZER) 2.24 UIU/ML (0.35-4.94)
[2019-04-25] MEDS ORDERED: SOD POLYSTERENE 15 GM/60 ML (KAYEXALATE) UNIT DOSE PO ONE (22:45)
[2019-04-25] MEDS ORDERED: CALCIUM GLUC. 10% 4.65 MEQ/10 ML VIAL IV ONE (22:45)
[2019-04-25 23:59] LABS: BILIRUBIN,URINE NEGATIVE (NEGATIVE); CLARITY,URINE CLEAR; COLOR,URINE YELLOW; GLUCOSE, URINE (UA) NEGATIVE (NEGATIVE); KETONES,URINE NEGATIVE (NEGATIVE); LEUKOCYTE ESTERASE ,URINE 1+ (NEGATIVE); NITRITE,URINE NEGATIVE (NEGATIVE); PH,URINE 6.5 (5-9); PROTEIN,URINE 3+ (NEGATIVE)
--- NOTE | 2019-04-26 00:05 | ED General ---
General Chief Complaint: Neurological Problems Stated Complaint: POSS SEIZURE Nursing Triage Note: Patient brought to ER room 3 via [facility] with complaint of seizure. Per EMS patient was sitting in a chair in his residence when he began having a seizure. Per patient's girlfriend the seizure was a tonic-clonic seizure and lasted approximately 5 minutes. When EMS arrived patient was awake and alert and answering questions appropriately but seems sluggish. Patient was released from this facility today after being admitted for hyperkalemia and UTI. Nursing Sepsis Screen: No Definite Risk Allergies and Home Medications Allergies Coded Allergies: No Known Drug Allergies (Unverified , 11/25/17) Home Medications Acetaminophen 500 Mg Tablet, 1,000 MG PO Q6H PRN for PAIN-MILD, (Reported) Apixaban 5 Mg Tablet, 5 MG PO BID, (Reported) LAST FILLED #180 06-17-18 B Complex with Vitamin C 1 Each Tablet, 1 TAB PO MoWeFr, (Reported) Bumetanide 1 Mg Tablet, 1 MG PO BID, (Reported) Ferrous Sulfate 325 Mg Tablet, 325 MG PO DAILY, (Reported) Furosemide 40 Mg Tablet, 40 MG PO DAILY, (Reported) Gabapentin 100 Mg Capsule, 100 MG PO DAILY, (Reported) LAST FILLED #270 10-16-18 Gabapentin 100 Mg Capsule, 200 MG PO HS, (Reported) LAST FILLED #270 10-16-18 TAKES 2 (100MG) CAPSULES Levocetirizine Dihydrochloride 5 Mg Tablet, 5 MG PO HS, (Reported) Lisinopril 5 Mg Tablet, 10 MG PO DAILY, (Reported) TAKES 2 (5MG) TABLETS Magnesium Oxide 400 Mg Tablet, 400 MG PO DAILY, (Reported) Metformin HCl 1,000 Mg Tablet, 1,000 MG PO BID, (Reported) LAST FILLED #180 09-03-18 Metoprolol Tartrate 25 Mg Tablet, 25 MG PO BID, (Reported) Multivits,Stress Formula 1 Each Tablet, 1 TAB PO DAILY, (Reported) Mv,Minerals/FA/Lycopene/Ginkgo 1 Each Tablet, 1 TAB PO DAILY, (Reported) [place] 3 Polyunsat Fatty Acids 1,000 Mg Cap, 1,000 MG PO BID, (Reported) Polyethylene Glycol 3350 17 Gm Powd.pack, 17 GM PO DAILY PRN for CONSTIPATION- 2ND LINE, (Reported) Ropinirole HCl 0.5 Mg Tablet, 0.5 MG PO DAILY, (Reported) Ropinirole HCl 0.5 Mg Tablet, 1 MG PO HS, (Reported) TAKES 2 (0.5MG) TABLETS Rosuvastatin Calcium 10 Mg Tablet, 10 MG PO HS, (Reported) Sulfamethoxazole/Trimethoprim 1 Each Tablet, 1 EACH PO BID Prescribed by: KYLE VALVERDE on 04/25/19 1025 Turmeric Root Extract 538 Mg Capsule, 538 MG PO BID, (Reported) Past Zxtgyio-Evwhaj-Lidxfd Hx Patient Social History Alcohol Use: Denies Use Recreational Drug Use: No Smoking Status: Unknown if Ever Smoked 2nd Hand Smoke Exposure: No Recent Foreign Travel: No Contact w/Someone Who Travel: No Recent Infectious Disease Expo: No Recent Hopitalizations: Yes Immunizations Up To Date PED Vaccines UTD: Yes Seasonal Allergies Seasonal Allergies: No Past Medical History Surgeries: Yes Appendectomy, Cardiac, CABG, Valve Replacement Respiratory: No Cardiac: Yes Atrial Fibrillation, Chronic Edema/Swelling, Coronary Artery Disease, Heart Murmur, High Cholesterol, Hypertension, Peripheral Vascular, Valvular Heart Disease Neurological: Yes Neuropathy, Stroke Genitourinary: Yes (CHRONIC RENAL FAILURE) Renal Failure Gastrointestinal: Yes (HX OF ULCERATED PEPTIC ULCER/UPPER GI BLEED) Gastrointestinal Bleed Musculoskeletal: Yes Chronic Back Pain Endocrine: Yes (MORBID OBESITY) Diabetes, Non-Insulin dep HEENT: No Cancer: No Psychosocial: No Integumentary: No Blood Disorders: No Family Medical History No Pertinent Family Hx Physical Exam Vital Signs Vital Signs - First Documented 04/25/19 21:27 Temp 37.7 Pulse 72 Resp 14 B/P (MAP) 136/101 (113) Pulse Ox 94 O2 Delivery Room Air Capillary Refill : Less Than 3 Seconds Height, Weight, BMI Height: 5'7.00" Weight: 309lbs. 0.0oz. [id number]; 45.00 BMI Method: Focused Exam Lactate Level 04/25/19 21:35: Lactic Acid Level 1.98 Lactic Acid Level Laboratory Tests Test 04/25/19 21:35 Lactic Acid Level 1.98 MMOL/L (0.50-2.00) Progress/Results/Core Measures Suspected Sepsis Recent Fever Within 48 Hours: No Infection Criteria Present: None New/Unexplained Altered Menta: No Sepsis Screen: No Definite Risk SIRS Temperature: Pulse: 72 Respiratory Rate: 14 Laboratory Tests 04/25/19 21:35: White Blood Count 11.8H Blood Pressure 136 /101 Mean: 113 04/25/19 21:35: Lactic Acid Level 1.98 Laboratory Tests 04/25/19 21:35: Creatinine 1.42H, INR Comment 1.3, Platelet Count 302, Total Bilirubin 1.3H Results/Orders Lab Results Laboratory Tests Test 04/25/19 21:35 04/25/19 23:54 Range/Units White Blood Count 11.8 H 4.3-11.0 10^3/uL Red Blood Count 5.17 4.35-5.85 10^6/uL Hemoglobin 15.4 13.3-17.7 G/DL Hematocrit 47 40-54 % Mean Corpuscular Volume 91 80-99 FL Mean Corpuscular Hemoglobin 30 25-34 PG Mean Corpuscular Hemoglobin Concent 33 32-36 G/DL Red Cell Distribution Width 15.0 H 10.0-14.5 % Platelet Count 302 130-400 10^3/uL Mean Platelet Volume 9.8 7.4-10.4 FL Neutrophils (%) (Auto) 63 42-75 % Lymphocytes (%) (Auto) 20 12-44 % Monocytes (%) (Auto) 15 H 0-12 % Eosinophils (%) (Auto) 3 0-10 % Basophils (%) (Auto) 0 0-10 % Neutrophils # (Auto) 7.4 1.8-7.8 X 10^3 Lymphocytes # (Auto) 2.3 1.0-4.0 X 10^3 Monocytes # (Auto) 1.7 H 0.0-1.0 X 10^3 Eosinophils # (Auto) 0.3 0.0-0.3 10^3/uL Basophils # (Auto) 0.0 0.0-0.1 10^3/uL Prothrombin Time 16.8 H 12.2-14.7 SEC INR Comment 1.3 0.8-1.4 Activated Partial Thromboplast Time 39 H 24-35 SEC Sodium Level 136 135-145 MMOL/L Potassium Level 5.5 H 3.6-5.0 MMOL/L Chloride Level 101 98-107 MMOL/L Carbon Dioxide Level 22 21-32 MMOL/L Anion Gap 13 5-14 MMOL/L Blood Urea Nitrogen 23 H 7-18 MG/DL Creatinine 1.42 H 0.60-1.30 MG/DL Estimat Glomerular Filtration Rate 48 BUN/Creatinine Ratio 16 Glucose Level 115 H 70-105 MG/DL Lactic Acid Level 1.98 0.50-2.00 MMOL/L Calcium Level 9.3 8.5-10.1 MG/DL Corrected Calcium 9.8 8.5-10.1 MG/DL Magnesium Level 2.1 1.6-2.4 MG/DL Total Bilirubin 1.3 H 0.1-1.0 MG/DL Aspartate Amino Transf (AST/SGOT) 70 H 5-34 U/L Alanine Aminotransferase (ALT/SGPT) 43 0-55 U/L Alkaline Phosphatase 95 40-136 U/L Total Creatine Kinase 120 30-200 U/L Creatine Kinase MB 3.3 <6.6 NG/ML Myoglobin 108.9 H 10.0-92.0 NG/ML Troponin I < 0.028 <0.028 NG/ML B-Type Natriuretic Peptide 276.3 H <100.0 PG/ML Total Protein 7.9 6.4-8.2 GM/DL Albumin 3.4 3.2-4.5 GM/DL TSH Butler Testing 2.24 0.35-4.94 UIU/ML My Orders Orders - LANNY MUÑOZ DO Ed Iv/Invasive Line Start (04/25/19 21:31) Ekg Tracing (04/25/19:) O2 (04/25/19:31) Monitor-Rhythm Ecg Trace Only (04/25/19:31) Ct Head Wo-R/O Stroke (04/25/19 21:31) Chest 1 View, Ap/Pa Only (04/25/19 21:) BNP (04/25/19:31) Cbc With Automated Diff (04/25/19:) Comprehensive Metabolic Panel (04/25/19:) Creatine Kinase (04/25/19 21:31) Creatine Kinase Mb (04/25/19:31) Drug Screen Stat (Urine) (04/25/19:) Lactic Acid Analyzer (04/25/19:31) Magnesium (04/25/19:31) Protime With Inr (04/25/19:) Partial Thromboplastin Time (04/25/19:) Thyroid Analyzer (10/21/19 21:31) Ua Culture If Indicated (04/25/19 21:31) Blood Culture (04/25/19 21:31) Myoglobin Serum (04/25/19 21:31) Troponin I (04/25/19 21:31) Calcium Gluconate 10% Inj (Calcium Glu (04/25/19 22:45) Sodium Polystyrene Sulfonate (Kayexalate (04/25/19 22:45) Medications Given in ED Current Medications Medications Dose Ordered Sig/Damien Route Start Time Stop Time Status Last Admin Dose Admin Calcium Gluconate 4.65 meq ONCE ONCE IV 04/25/19 22:45 04/25/19 22:46 DC 04/25/19 22:53 4.65 MEQ Vital Signs/I&O 04/25/19 21:27 Temp 37.7 Pulse 72 Resp 14 B/P (MAP) 136/101 (113) Pulse Ox 94 O2 Delivery Room Air Capillary Refill : Less Than 3 Seconds Blood Pressure Mean: 113 Departure Impression Primary Impression: Choking episode Additional Impressions: POSSIBLE SYNCOPAL EPISODE Hyperkalemia Chronic renal disease Disposition: 01 HOME, SELF-CARE Condition: Stable Departure-Patient Inst. Referrals: ASHER GRIFFITHS MD (PCP/Family) Primary Care Physician Patient Instructions: Choking, Hyperkalemia (DC), Syncope (Fainting) (DC) Add. Discharge Instructions: CONTINUE ALL YOUR CURRENT MEDICATIONS PRESCRIBED FOLLOW UP WITH YOUR DR THIS WEEK FOR FURTHER CARE All discharge instructions reviewed with patient and/or family. Voiced understanding. LANNY MUÑOZ DO Apr 26, 2019 00:05
[2019-04-26 00:11] LABS: AMPHETAMINE SCREEN, URINE NEGATIVE (NEGATIVE); BARBITURATE SCREEN URINE NEGATIVE (NEGATIVE); BENZODIAZEPINES SCREEN URINE NEGATIVE (NEGATIVE); CANNABINOID SCREEN, URINE NEGATIVE (NEGATIVE); COCAINE SCREEN URINE NEGATIVE (NEGATIVE); METHADONE STAT NEGATIVE (NEGATIVE); METHAMPHETAMINE SCREEN URINE S NEGATIVE (NEGATIVE); OPIATE SCREEN URINE NEGATIVE (NEGATIVE); OXYCODONE STAT NEGATIVE (NEGATIVE); PROPOXYPHENE STAT NEGATIVE (NEGATIVE); TRICYCLIC ANTIDEPRESSANTS SCRE NEGATIVE (NEGATIVE)
[2019-04-26 00:26] VITALS: BP 138/84
[2019-04-26 00:27] LABS: BACTERIA,URINE NEGATIVE /HPF; WBC,URINE 0-2 /HPF
--- NOTE | 2019-04-26 07:22 | Diagnostic Imaging Report ---
EXAMINATION: Chest radiograph, portable AP view. DATE: 04/25/2019 10:17 PM hours. INDICATION: 78-year-old male, seizure. COMPARISON: April 23, 2019. FINDINGS: There are median sternotomy wires. Stable cardiomegaly and overall appearance of the cardiac mediastinal silhouette. There is no identified pneumothorax. Lung volumes are somewhat low. There is no identified interval focal airspace consolidation. IMPRESSION: 1. Cardiomegaly without identified interval acute cardiopulmonary abnormality. Dictated by: Dictated on workstation # [id number]
--- NOTE | 2019-04-26 07:25 | Diagnostic Imaging Report ---
PROCEDURE: CT head wo r/o stroke. TECHNIQUE: Multiple contiguous axial images were obtained through the brain without the use of intravenous contrast. Auto Exposure Controls were utilized during the CT exam to meet ALARA standards for radiation dose reduction. DATE: April 25, 2019. COMPARISON: CT head February 13, 2013. MRI brain February 09, 2013. INDICATION: 78-year-old male, seizure. FINDINGS: There is an oval soft tissue attenuation mass in the right parietal scalp measuring 3.8 x 1.4 cm in size on axial image 15. Internal attenuation measures 46 Hounsfield units. There is no adjacent osseous abnormality involving the skull. This mass previously measured 3.9 x 1.5 cm in size on February 13, 2013. Long-term stability is most consistent with a benign lesion. The visualized portions of the paranasal sinuses, mastoid air cells, and middle ears are well aerated bilaterally. There is mild proportional prominence of the ventricles and CSF spaces consistent with mild cerebral volume loss. There are areas of low attenuation in the periventricular and subcortical white matter consistent with changes of chronic small vessel ischemic disease. Very small CSF attenuation focus in the bilateral basal ganglia is unchanged and may relate to remote prior lacunar infarct versus prominent perivascular space. There is also a stable CSF attenuation focus in the left side of the tony which could relate to remote prior infarct of the tony. There is no abnormal extra-axial fluid collection. There is no evidence of acute intracranial hemorrhage. There is no mass effect or midline shift. IMPRESSION: 1. No identified acute intracranial abnormality. 2. Mild cerebral volume loss with changes of chronic small vessel ischemic disease. 3. 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 Dictated by: Dictated on workstation # [id number]
== END 2019-04-26 00:30 | disposition home or self-care (01) ==
LOC: EDUNIT# 21:22 → ER 21:23
DX: T17.908A Unspecified foreign body in respiratory tract, part unspecified causing other injury, initial encounter (principal); E87.5 Hyperkalemia; E11.22 Type 2 diabetes mellitus with diabetic chronic kidney disease; I12.9 Hypertensive chronic kidney disease with stage 1 through stage 4 chronic kidney disease, or unspecified chronic kidney disease; N18.9 Chronic kidney disease, unspecified; E11.40 Type 2 diabetes mellitus with diabetic neuropathy, unspecified; I48.91 Unspecified atrial fibrillation; I25.10 Atherosclerotic heart disease of native coronary artery without angina pectoris; E78.00 Pure hypercholesterolemia, unspecified; E66.01 Morbid (severe) obesity due to excess calories; Z68.42 Body mass index [BMI] 45.0-49.9, adult; Z79.01 Long term (current) use of anticoagulants; Z86.73 Personal history of transient ischemic attack (TIA), and cerebral infarction without residual deficits; Z90.49 Acquired absence of other specified parts of digestive tract; Z95.1 Presence of aortocoronary bypass graft
CPT/HCPCS: 36415; 70450; 71045; 80053; 80306; 81000; 82550; 82553; 83605; 83735; 83874; 83880; 84443; 84484; 85025; 85610; 85730; 87040; 93005; 93041

== ENCOUNTER 2019-05-11 15:31 | Inpatient (IN) | payer MEDICAID, MEDICARE ==
[2019-05-11] VITALS (9 sets, daily range): BP systolic 132–165; BP diastolic 68–100
[~2019-05-11] VITALS: Ht 177 cm; Wt 121.7 kg
--- NOTE | 2019-05-11 15:35 | NUR ---
UNABLE TO DO STROKE SCALE D/T INABLITY TO FOLLOW INST
[2019-05-11] MEDS ORDERED: LACTATED RINGERS 1,000 ML IV ONE (15:45)
[2019-05-11 16:04] LABS: BASOPHILS % (AUTO) 0 % (0-10); EOSINOPHILS # (AUTO) 0.1 10^3/uL (0.0-0.3); EOSINOPHILS % (AUTO) 1 % (0-10); HEMATOCRIT 50 % (40-54); HEMOGLOBIN 16.8 G/DL (13.3-17.7); LYMPHOCYTES # (AUTO) 1.8 X 10^3 (1.0-4.0); LYMPHOCYTES % (AUTO) 15 % (12-44); MEAN CORPUSCULAR HEMOGLOBIN 29 PG (25-34); MEAN CORPUSCULAR HGB CONC 33 G/DL (32-36); MEAN CORPUSCULAR VOLUME 88 FL (80-99); MEAN PLATELET VOLUME 9.5 FL (7.4-10.4); MONOCYTES # (AUTO) 1.1 X 10^3 (0.0-1.0); MONOCYTES % (AUTO) 10 % (0-12); NEUTROPHILS # (AUTO) 8.6 X 10^3 (1.8-7.8); NEUTROPHILS % (AUTO) 74 % (42-75); PLATELET COUNT 313 10^3/uL (130-400); RED CELL DISTRIBUTION WIDTH 14.7 % (10.0-14.5); WHITE BLOOD COUNT 11.7 10^3/uL (4.3-11.0)
[2019-05-11 16:09] LABS: BILIRUBIN,URINE NEGATIVE (NEGATIVE); CLARITY,URINE SLIGHTLY CLOUDY; COLOR,URINE YELLOW; GLUCOSE, URINE (UA) 1+ (NEGATIVE); KETONES,URINE 3+ (NEGATIVE); LEUKOCYTE ESTERASE ,URINE NEGATIVE (NEGATIVE); NITRITE,URINE NEGATIVE (NEGATIVE); PH,URINE 6 (5-9); PROTEIN,URINE 4+ (NEGATIVE)
--- NOTE | 2019-05-11 16:15 | NUR ---
DAUGHTER STATES PT HAS NOT BEEN TAKING MEDS CORRECTLY
--- NOTE | 2019-05-11 16:22 | ED Neurological Problem ---
General Chief Complaint: Neuro-Stroke Like Symptoms Stated Complaint: AMS Source: patient Exam Limitations: no limitations History of Present Illness Date Seen by Provider: May 11, 2019 Time Seen by Provider: 15:41 Initial Comments Here by EMS with report of being found in a car unresponsive. Apparently he was seen in the car in the same position yesterday afternoon that nobody really thought of out of it at that point that it was abnormal. When he was in the same position today he was checked on. EMS notes that he has right sided weakness of arm and leg with flaccid right arm and left gaze that is persistent. He is not talking and is not answering questions. He had incontinence of urine and stool. He was noted to be hypertensive. Otherwise no significant history from EMS and otherwise found. Daughter arrives and states that he has not been taking his medications recently. She talked to him yesterday sometime between noon and 6 PM. She notes that he was having difficulty walking Thursday night, 3 nights ago. This was the last time she saw him [id number]. No obvious injury noted. Last known well time would have been noon or earlier yesterday, greater than 24 hours ago. Timing/Duration: 24 hours Severity: severe Allergies and Home Medications Allergies Coded Allergies: No Known Drug Allergies (Unverified , 11/25/17) Home Medications Acetaminophen 500 Mg Tablet, 1,000 MG PO Q6H PRN for PAIN-MILD, (Reported) Apixaban 5 Mg Tablet, 5 MG PO BID, (Reported) LAST FILLED #180 06-17-18 B Complex with Vitamin C 1 Each Tablet, 1 TAB PO MoWeFr, (Reported) Bumetanide 1 Mg Tablet, 1 MG PO BID, (Reported) Ferrous Sulfate 325 Mg Tablet, 325 MG PO DAILY, (Reported) Furosemide 40 Mg Tablet, 40 MG PO DAILY, (Reported) Gabapentin 100 Mg Capsule, 100 MG PO DAILY, (Reported) LAST FILLED #270 10-16-18 Gabapentin 100 Mg Capsule, 200 MG PO HS, (Reported) LAST FILLED #270 10-16-18 TAKES 2 (100MG) CAPSULES Levocetirizine Dihydrochloride 5 Mg Tablet, 5 MG PO HS, (Reported) Lisinopril 5 Mg Tablet, 10 MG PO DAILY, (Reported) TAKES 2 (5MG) TABLETS Magnesium Oxide 400 Mg Tablet, 400 MG PO DAILY, (Reported) Metformin HCl 1,000 Mg Tablet, 1,000 MG PO BID, (Reported) LAST FILLED #180 09-03-18 Metoprolol Tartrate 25 Mg Tablet, 25 MG PO BID, (Reported) Multivits,Stress Formula 1 Each Tablet, 1 TAB PO DAILY, (Reported) Mv,Minerals/FA/Lycopene/Ginkgo 1 Each Tablet, 1 TAB PO DAILY, (Reported) [place] 3 Polyunsat Fatty Acids 1,000 Mg Cap, 1,000 MG PO BID, (Reported) Polyethylene Glycol 3350 17 Gm Powd.pack, 17 GM PO DAILY PRN for CONSTIPATION- 2ND LINE, (Reported) Ropinirole HCl 0.5 Mg Tablet, 0.5 MG PO DAILY, (Reported) Ropinirole HCl 0.5 Mg Tablet, 1 MG PO HS, (Reported) TAKES 2 (0.5MG) TABLETS Rosuvastatin Calcium 10 Mg Tablet, 10 MG PO HS, (Reported) Sulfamethoxazole/Trimethoprim 1 Each Tablet, 1 EACH PO BID Prescribed by: KYLE VALVERDE on 04/25/19 1025 Turmeric Root Extract 538 Mg Capsule, 538 MG PO BID, (Reported) Patient Home Medication List Home Medication List Reviewed: Yes Review of Systems Review of Systems Constitutional: see HPI Unable to determine review of systems due to altered mental status Past Crfijeb-Cgeplk-Dssbsq Hx Past Med/Social Hx: Reviewed Nursing Past Med/Soc Hx Patient Social History 2nd Hand Smoke Exposure: No Recent Foreign Travel: No Contact w/Someone Who Travel: No Recent Hopitalizations: Yes Immunizations Up To Date PED Vaccines UTD: Yes Seasonal Allergies Seasonal Allergies: No Past Medical History Surgeries: Yes Appendectomy, Cardiac, CABG, Valve Replacement Respiratory: No Cardiac: Yes Atrial Fibrillation, Chronic Edema/Swelling, Coronary Artery Disease, Heart Murmur, High Cholesterol, Hypertension, Peripheral Vascular, Valvular Heart Disease Neurological: Yes Neuropathy, Stroke Genitourinary: Yes (CHRONIC RENAL FAILURE) Renal Failure Gastrointestinal: Yes (HX OF ULCERATED PEPTIC ULCER/UPPER GI BLEED) Gastrointestinal Bleed Musculoskeletal: Yes Chronic Back Pain Endocrine: Yes (MORBID OBESITY) Diabetes, Non-Insulin dep HEENT: No Cancer: No Psychosocial: No Integumentary: No Blood Disorders: No Family Medical History No Pertinent Family Hx Past history from records review. Patient unable to answer questions due to altered mental status Physical Exam Vital Signs Vital Signs - First Documented 05/11/19 15:35 Temp 36.9 Pulse 80 Resp 18 B/P (MAP) 181/131 (148) Pulse Ox 94 O2 Delivery Room Air Capillary Refill : Height, Weight, BMI Height: 5'7.00" Weight: 309lbs. 0.0oz. 140.380385qu; 45.00 BMI Method: General Appearance: WD/WN, no apparent distress, obese HEENT: other (gaze deviation to the left with pupils equal and round and reactive. Dry mucous membranes.) Neck: non-tender, supple Respiratory: no accessory muscle use, crackles (bilateral bases) Cardiovascular: no murmur, irregularly irregular Gastrointestinal: soft, no organomegaly, no pulsatile mass Extremities: pelvis stable, pedal edema (bilateral 2+ to the mid tibia), other (spontaneous movement of left leg and arm but not on right) Neurologic/Psychiatric: other (eyes open spontaneously but otherwise does not answer questions or speak. Gaze fixed to the left and does not cross midline. Does withdraw from pain with proximal muscles of the right arm and right leg. Does pull right leg back some with touch to the bottom of the foot. More pronounced and sustained on the left leg.) [place] Nerves: gaze palsy Coordination/Gait: other (unable to determine due to significant altered mental status) Motor/Sensory: other (spontaneous movement of left arm but not of right arm. Unable to determine strength otherwise due to altered mental status) Skin: normal color, warm/dry Smells of urine and stool and was incontinent of both. Focused Exam Lactate Level 05/11/19 15:50: Lactic Acid Level 2.00 Lactic Acid Level Laboratory Tests Test 05/11/19 15:50 Lactic Acid Level 2.00 MMOL/L (0.50-2.00) Progress/Results/Core Measures Results/Orders Lab Results Laboratory Tests Test 05/11/19 15:50 Range/Units White Blood Count 11.7 H 4.3-11.0 10^3/uL Red Blood Count 5.73 4.35-5.85 10^6/uL Hemoglobin 16.8 13.3-17.7 G/DL Hematocrit 50 40-54 % Mean Corpuscular Volume 88 80-99 FL Mean Corpuscular Hemoglobin 29 25-34 PG Mean Corpuscular Hemoglobin Concent 33 32-36 G/DL Red Cell Distribution Width 14.7 H 10.0-14.5 % Platelet Count 313 130-400 10^3/uL Mean Platelet Volume 9.5 7.4-10.4 FL Neutrophils (%) (Auto) 74 42-75 % Lymphocytes (%) (Auto) 15 12-44 % Monocytes (%) (Auto) 10 0-12 % Eosinophils (%) (Auto) 1 0-10 % Basophils (%) (Auto) 0 0-10 % Neutrophils # (Auto) 8.6 H 1.8-7.8 X 10^3 Lymphocytes # (Auto) 1.8 1.0-4.0 X 10^3 Monocytes # (Auto) 1.1 H 0.0-1.0 X 10^3 Eosinophils # (Auto) 0.1 0.0-0.3 10^3/uL Basophils # (Auto) 0.0 0.0-0.1 10^3/uL Prothrombin Time 15.8 H 12.2-14.7 SEC INR Comment 1.2 0.8-1.4 Activated Partial Thromboplast Time 36 H 24-35 SEC D-Dimer 0.77 H 0.00-0.49 UG/ML Urine Color YELLOW Urine Clarity SLIGHTLY CLOUDY Urine pH 6 5-9 Urine Specific [place] 1.020 1.016-1.022 Urine Protein 4+ NEGATIVE Urine Glucose (UA) 1+ H NEGATIVE Urine Ketones 3+ H NEGATIVE Urine Nitrite NEGATIVE NEGATIVE Urine Bilirubin NEGATIVE NEGATIVE Urine Urobilinogen NORMAL NORMAL MG/DL Urine Leukocyte Esterase NEGATIVE NEGATIVE Urine RBC (Auto) 5+ H NEGATIVE Urine RBC NONE /HPF Urine WBC NONE /HPF Urine Crystals NONE /LPF Urine Bacteria TRACE /HPF Urine Casts NONE /LPF Urine Mucus NEGATIVE /LPF Urine Culture Indicated NO Sodium Level 142 135-145 MMOL/L Potassium Level 4.0 3.6-5.0 MMOL/L Chloride Level 105 98-107 MMOL/L Carbon Dioxide Level 23 21-32 MMOL/L Anion Gap 14 5-14 MMOL/L Blood Urea Nitrogen 13 7-18 MG/DL Creatinine 0.86 0.60-1.30 MG/DL Estimat Glomerular Filtration Rate > 60 BUN/Creatinine Ratio 15 Glucose Level 134 H 70-105 MG/DL Lactic Acid Level 2.00 0.50-2.00 MMOL/L Calcium Level 9.6 8.5-10.1 MG/DL Corrected Calcium 9.8 8.5-10.1 MG/DL Total Bilirubin 2.7 H 0.1-1.0 MG/DL Aspartate Amino Transf (AST/SGOT) 77 H 5-34 U/L Alanine Aminotransferase (ALT/SGPT) 36 0-55 U/L Alkaline Phosphatase 98 40-136 U/L Troponin I 0.113 H <0.028 NG/ML Total Protein 7.2 6.4-8.2 GM/DL Albumin 3.8 3.2-4.5 GM/DL My Orders Orders - JAMAL TAY MD Cbc With Automated Diff (05/11/19 15:45) Protime With Inr (05/11/19:45) Partial Thromboplastin Time (05/11/19:45) Comprehensive Metabolic Panel (05/11/1945) Fibrin Degradation Products (05/11/19:45) Troponin I (05/11/19:45) Chest 1 View, Ap/Pa Only (05/11/19:45) Catheter(Urinary) Insert & Ass 03,15 (05/11/19 15:45) Ekg Tracing (05/11/19 15:45) Nothing By Mouth (05/12/19 Breakfast) Accucheck Stat ONCE (05/11/19:45) Ed Iv/Invasive Line Start (05/11/19 15:45) Ed Iv/Invasive Line Start (05/11/19 15:45) Vital Signs Stroke Patient Q15M (05/11/19 15:45) O2 (05/11/19 15:45) Intake & Output 06,14,22 (05/11/19 15:45) Monitor-Rhythm Ecg Trace Only (05/11/19 15:45) Dysphagia Screening Tool (05/11/19 15:45) Lipid Panel (05/12/19 06:00) I-Stat Bedside Testing (05/11/19 15:45) Blood Culture (05/11/19 15:45) Sputum Culture (05/11/19 15:45) Urinalysis (05/11/19 15:45) Urine Culture (05/11/19 15:45) Vital Signs Adult Sepsis Patie Q15M (05/11/19 15:45) Remove Rings In Anticipation O (05/11/19 15:45) Lactic Acid Analyzer (05/11/19 15:45) Lactated Ringers (Lr 1000 Ml Iv Solution (05/11/19 15:45) Ct Angio Head/Neck (05/11/19 16:16) Iohexol Injection (Omnipaque 350 Mg/Ml 1 (05/11/19 16:30) Received Contrast (Hold Metformin- Contr (05/11/19 16:30) Sodium Chloride Flush (Catheter Flush Sy (05/11/19 16:30) Ns (Ivpb) (Sodium Chloride 0.9% Ivpb Bag (05/11/19 16:30) Aspirin Suppository (Aspirin Suppository (05/11/19 19:00) Medications Given in ED Current Medications Medications Dose Ordered Sig/Damien Route Start Time Stop Time Status Last Admin Dose Admin Iohexol 75 ml ONCE ONCE IV 05/11/19 16:30 05/11/19 16:31 DC 05/11/19 17:33 75 ML Lactated Ringer's 1,000 ml @ 0 mls/hr Q0M ONCE IV 05/11/19 15:45 05/11/19 15:50 DC 05/11/19 16:26 1,000 MLS/HR Sodium Chloride 10 ml NEEDED PRN IV 05/11/19 16:30 05/11/19 17:33 10 ML Sodium Chloride 100 ml ONCE ONCE IV 05/11/19 16:30 05/11/19 16:31 DC 05/11/19 17:33 80 ML Vital Signs/I&O 05/11/19 05/11/19 15:35 18:29 Temp 36.9 Pulse 80 102 Resp 18 18 B/P (MAP) 181/131 (148) 170/92 Pulse Ox 94 94 O2 Delivery Room Air Room Air iStat Bedside Lab Testing Sodium (Na): 141.00 Potassium (K): 3.80 Chloride (CI): 106.00 TCO2: 22.00 Glucose (Glu): 146.00 Urea Nitrogen (BUN)/Urea: 13.00 Creatinine (Crea): 0.80 Anion Gap*: 18.00 Progress Progress Note : Progress Note Seen and evaluated on arrival by EMS. Stroke order set initiated as well as sepsis order set. I-STAT done. Unable to assess stroke scale due to significant altered mental status. It would be quite high due to findings as above. We will get CT of the head as well as CT and her head and neck. I did inform the daughter of the severity of symptoms and concerns of significant stroke. She verbalizes understanding. 181, CT somewhat delayed due to difficulty with IV access. I was able to place a midline 20-gauge catheter to the right bicep area via ultrasound guidance. CT angiogram completed and shows significant abnormalities as listed below. I did make contact with the stroke neurologist on-call, Dr. Herr. We reviewed the findings and the case. No indication for intra-arterial thrombectomy or other procedures currently. Patient is significantly outside of TPA window as his last known well time was yesterday morning some time. No indication for transfer currently. Does have findings concerning for evolving large stroke although no intra-cerebral embolisms were noted on CT angiogram. He does have significant stenosis of all 4 main arteries to the brain. Dr. Herr believes that there was likely cardioembolic stroke and these may have dissolved, which is not an uncommon scenario. After reviewing the case, we will keep the patient here with the understanding that if there is progression or further needs that he could be transferred to . He is recommending antiplatelet therapy but not anticoagulation currently. His recommendation would be to hold anticoagulation for one week as this is a large stroke. Agrees with MRI brain and carotid artery ultrasound tomorrow. We will manage blood pressure to keep systolic blood pressure less than 180 by GA and labetalol and this was ordered. Currently blood pressures have been in the 160s to 180s range and is currently 170 systolic. Patient has received a liter of normal saline that was initiated by EMS and we will continue gentle hydration. 1835: I did discuss the case at length with Dr. Tan. I have relayed the recommendations of the stroke neurologist and he agrees. 1839: I did discuss the case with Dr. Valverde and she accepts patient for admission to the ICU, inpatient status. 1845: I did discuss the case with Dr. Umanzor, on-call for cardiology. He will follow the case is well. I did discuss with him regarding the anticoagulation. The patient has a very poor prognosis overall and I did discuss this with the patient's family. We did discuss CODE STATUS and currently he will remain full code. I did recommend that they talk with each other regarding this as his stroke will likely leave him with significant deficits. One of his daught ers has commented already that he would not want to live like that. We will consult palliative care to help with determination of goals of care for the patient. Patient will remain nothing by mouth. Admit, inpatient status, critical condition. Initial ECG Impression Date: May 11, 2019 Initial ECG Impression Time: 16:18 Initial ECG Rate: 68 Initial ECG Rhythm: A Fib/Flutter Initial ECG Impression: Atrial Fibrillation Comment Atrial fibrillation with right bundle-branch block. No evidence of ST elevation MS. Normal axis. Similar to previous of 04/25/19. Interpreted by me. Diagnostic Imaging Diagonstic Imaging: Xray Plain Films/CT/US/NM/MRI: chest Comments NAME: KRIS BUSTOS MED REC#: [id number] PT STATUS: REG ER : 1940 PHYSICIAN: JAMAL TAY MD ADMIT DATE: 05/11/19/ER Signed POSDate of Exam: 05/11/19 CHEST 1 VIEW, AP/PA ONLY INDICATION: Unresponsive patient. Frontal chest obtained at 4:38 p.m. and compared with 04/25/2019. FINDINGS: There is prominent cardiomegaly with post-sternotomy change. There is mild central vascular congestion which is similar to the prior study. There is no consolidation, pneumothorax, or pleural fluid. IMPRESSION: Prominent cardiomegaly with post-sternotomy change. Central vascular congestion appears stable compared to the prior study. There is no new infiltrate, pneumothorax, or pleural fluid. Dictated by: Dictated on workstation # [id number] Dict: 05/11/19 1648 Trans: 05/11/191701 Interpreted by: CARLOZ ESPANA MD Electronically signed by: CARLOZ ESPANA MD 05/11/191701 Diagonstic Imaging: CT Plain Films/CT/US/NM/MRI: other Comments [facility]. POS [place], [place] POS NAME: KRIS BUSTOS MED REC#: [id number] PT STATUS: REG ER : 1940 PHYSICIAN: JAMAL TAY MD ADMIT DATE: 05/11/19/ER Draft POSDate of Exam:05/11/19 CT ANGIO HEAD/NECK PROCEDURE: CT angiography of the head and CT angiography of the neck with and without contrast. TECHNIQUE: Contiguous noncontrast images were obtained from the skull base through the vertex. After intravenous contrast administration, helical CT angiography of the neck was performed. Source data was reformatted into 3D MIP projections. Delayed post contrast acquisition was also obtained. Auto Exposure Controls were utilized during the CT exam to meet ALARA standards for radiation dose reduction. INDICATION: Unresponsive patient. COMPARISON: CT head dated 04/25/2019. FINDINGS: CTA neck: Included portions of the aortic arch show mild scattered calcified aortic atherosclerosis. There is moderate calcified and noncalcified atherosclerosis of the left carotid bulb. Additionally, there is eccentric noncalcified plaque at the origin of the left internal carotid artery. This appears to result in at least 50% stenosis of the origin of the left internal carotid artery (image 164, series 601). On the right, there is high-grade near occlusive stenosis secondary to eccentric calcified and noncalcified plaque of the proximal internal carotid artery. There is also moderate calcified atherosclerosis of the distal intracranial portions of the bilateral internal carotid arteries. No additional distal high-grade stenosis however is identified. Within the posterior circulation, there is moderate concentric calcified atherosclerosis of the distal V4 portion of the right vertebral artery. Residual lumen is difficult to assess given its small caliber, but this is likely hemodynamically significant as well. Similar appearance is also noted on the left. Osseous structures show age-related degenerative changes of the cervical spine. Included portions of the lung apices are unremarkable. CTA [place]: There is normal opacification of the bilateral anterior and middle cerebral arteries. There is no evidence of intraluminal thrombosis, aneurysm, nor vascular malformation. Within the posterior circulation, there is normal appearance of basilar artery. There is normal enhancement of the bilateral superior cerebellar and posterior cerebral arteries. Right posterior communicating artery is patent. Left is not well visualized. CT head: Ventricles and cortical sulci are diffusely prominent consistent with background age-related parenchymal volume loss. There is no new mass effect or midline shift. There is however new area of subtle diminished attenuation with loss of normal cary-white matter junction differentiation involving the posterior lateral left frontal lobe (image 24, series 4). Findings are consistent with acute infarct. Similar appearance is also noted involving the subinsular region on the left. There is no evidence of hemorrhagic transformation. Similar appearance of decreased attenuation is also identified within the anterior and inferolateral margins of the right frontal lobe. Postcontrast images show gyral enhancement to this area, which may be on the basis of luxury perfusion. These findings are also concerning for acute infarct. Similarly, there is no evidence of hemorrhagic transformation. There is background chronic small vessel ischemic changes with scattered and confluent areas of decreased attenuation within the periventricular and subcortical deep white matter. Bony calvarium is intact. Visualized portions of paranasal sinuses and mastoid air cells are clear. There is a large subcutaneous cystic structure posterior lateral in the right, which may be on the basis of large sebaceous cyst. IMPRESSION: 1. Findings consistent with acute infarcts involving the inferior anterolateral right frontal lobe and superior posterior lateral left frontal lobe. There is likely some luxury perfusion on the right, but there is no evidence of hemorrhagic transformation on either side. 2. No large vessel occlusion is identified intracranially in the areas of suspected acute infarct. Additionally, there is no evidence of aneurysm or intracranial vascular malformation. 3. Advanced calcified and noncalcified atherosclerotic disease. Pertinent findings in summary include probable 50-70% hemodynamically significant stenosis of the origin of the left internal carotid artery, high-grade near occlusive stenosis of the origin of the right internal carotid artery, and probable concentric hemodynamically significant stenoses of the bilateral distal vertebral arteries. 4. Background age-related parenchymal volume loss and chronic small vessel ischemic changes in deep white matter. Results were called to Dr. Tay by Dr. Ocampo at 1750 hours on 05/11/2019. 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 Referrals: ASHER GRIFFITHS MD (PCP/Family) Primary Care Physician JAMAL TAY MD May 11, 2019 16:22 POS
[2019-05-11 16:25] LABS: ALANINE AMINOTRANSFERASE 36 U/L (0-55); ALBUMIN 3.8 GM/DL (3.2-4.5); ALKALINE PHOSPHATASE 98 U/L (40-136); BILIRUBIN,TOTAL 2.7 MG/DL (0.1-1.0); BUN/CREATININE RATIO 15; CALCIUM 9.6 MG/DL (8.5-10.1); CARBON DIOXIDE 23 MMOL/L (21-32); CHLORIDE 105 MMOL/L (98-107); CREATININE SERUM 0.86 MG/DL (0.60-1.30); GFR ESTIMATED > 60; GLUCOSE 134 MG/DL (70-105); SODIUM 142 MMOL/L (135-145); TOTAL PROTEIN 7.2 GM/DL (6.4-8.2)
[2019-05-11 16:26] LABS: FIBRIN DEGRADATION PRODUCTS 0.77 UG/ML (0.00-0.49); INR 1.2 (0.8-1.4); PROTHROMBIN TIME PATIENT 15.8 SEC (12.2-14.7)
[2019-05-11 16:27] LABS: BACTERIA,URINE TRACE /HPF
[2019-05-11] MEDS ORDERED: NS 100 ML (IVPB) BAG IV ONE (16:30)
[2019-05-11] MEDS ORDERED: IOHEXOL 350 MG/ML 100 ML (OMNIPAQUE 350) VIAL IV ONE (16:30)
[2019-05-11] MEDS ORDERED: HOLD METFORMIN - RECEIVED CONTRAST 20 ML VIAL IV SCH (16:30)
[2019-05-11] MEDS ORDERED: CATHETER FLUSH 10 ML SYR IV PRN (16:30)
--- NOTE | 2019-05-11 16:51 | Diagnostic Imaging Report ---
INDICATION: Unresponsive patient. Frontal chest obtained at 4:38 p.m. and compared with 04/25/2019. FINDINGS: There is prominent cardiomegaly with post-sternotomy change. There is mild central vascular congestion which is similar to the prior study. There is no consolidation, pneumothorax, or pleural fluid. IMPRESSION: Prominent cardiomegaly with post-sternotomy change. Central vascular congestion appears stable compared to the prior study. There is no new infiltrate, pneumothorax, or pleural fluid. Dictated by: Dictated on workstation # [id number]
--- NOTE | 2019-05-11 18:08 | Diagnostic Imaging Report ---
PROCEDURE: CT angiography of the head and CT angiography of the neck with and without contrast. TECHNIQUE: Contiguous noncontrast images were obtained from the skull base through the vertex. After intravenous contrast administration, helical CT angiography of the neck was performed. Source data was reformatted into 3D MIP projections. Delayed post contrast acquisition was also obtained. Auto Exposure Controls were utilized during the CT exam to meet ALARA standards for radiation dose reduction. INDICATION: Unresponsive patient. COMPARISON: CT head dated 04/25/2019. FINDINGS: CTA neck: Included portions of the aortic arch show mild scattered calcified aortic atherosclerosis. There is moderate calcified and noncalcified atherosclerosis of the left carotid bulb. Additionally, there is eccentric noncalcified plaque at the origin of the left internal carotid artery. This appears to result in at least 50% stenosis of the origin of the left internal carotid artery (image 164, series 601). On the right, there is high-grade near occlusive stenosis secondary to eccentric calcified and noncalcified plaque of the proximal internal carotid artery. There is also moderate calcified atherosclerosis of the distal intracranial portions of the bilateral internal carotid arteries. No additional distal high-grade stenosis however is identified. Within the posterior circulation, there is moderate concentric calcified atherosclerosis of the distal V4 portion of the right vertebral artery. Residual lumen is difficult to assess given its small caliber, but this is likely hemodynamically significant as well. Similar appearance is also noted on the left. Osseous structures show age-related degenerative changes of the cervical spine. Included portions of the lung apices are unremarkable. CTA [place]: There is normal opacification of the bilateral anterior and middle cerebral arteries. There is no evidence of intraluminal thrombosis, aneurysm, nor vascular malformation. Within the posterior circulation, there is normal appearance of basilar artery. There is normal enhancement of the bilateral superior cerebellar and posterior cerebral arteries. Right posterior communicating artery is patent. Left is not well visualized. CT head: Ventricles and cortical sulci are diffusely prominent consistent with background age-related parenchymal volume loss. There is no new mass effect or midline shift. There is however new area of subtle diminished attenuation with loss of normal cary-white matter junction differentiation involving the posterior lateral left frontal lobe (image 24, series 4). Findings are consistent with acute infarct. Similar appearance is also noted involving the subinsular region on the left. There is no evidence of hemorrhagic transformation. Similar appearance of decreased attenuation is also identified within the anterior and inferolateral margins of the right frontal lobe. Postcontrast images show gyral enhancement to this area, which may be on the basis of luxury perfusion. These findings are also concerning for acute infarct. Similarly, there is no evidence of hemorrhagic transformation. There is background chronic small vessel ischemic changes with scattered and confluent areas of decreased attenuation within the periventricular and subcortical deep white matter. Bony calvarium is intact. Visualized portions of paranasal sinuses and mastoid air cells are clear. There is a large subcutaneous cystic structure posterior lateral in the right, which may be on the basis of large sebaceous cyst. IMPRESSION: 1. Findings consistent with acute infarcts involving the inferior anterolateral right frontal lobe and superior posterior lateral left frontal lobe. There is likely some luxury perfusion on the right, but there is no evidence of hemorrhagic transformation on either side. 2. No large vessel occlusion is identified intracranially in the areas of suspected acute infarct. Additionally, there is no evidence of aneurysm or intracranial vascular malformation. 3. Advanced calcified and noncalcified atherosclerotic disease. Pertinent findings in summary include probable 50-70% hemodynamically significant stenosis of the origin of the left internal carotid artery, high-grade near occlusive stenosis of the origin of the right internal carotid artery, and probable concentric hemodynamically significant stenoses of the bilateral distal vertebral arteries. 4. Background age-related parenchymal volume loss and chronic small vessel ischemic changes in deep white matter. Results were called to Dr. Cazares by Dr. Juarez at 1750 hours on 05/11/2019. Dictated by: Dictated on workstation # [id number]
[2019-05-11] MEDS ORDERED: ASPIRIN 300 MG (5 GR) SUPPOSITORY PR STA (19:00)
[2019-05-11] MEDS ORDERED: APAP 325 MG/10.15 ML LIQ (TYLENOL) UDC NG PRN (19:30)
[2019-05-11] MEDS ORDERED: ACETAMINOPHEN 325 MG TABLET PO PRN (19:30)
--- NOTE | 2019-05-11 20:00 | NUR ---
SCD's not placed at this time, d/t bilateral venous doppler not done.
[2019-05-11] MEDS: NS IV 1000 ML 1,000 ML IV SCH (21:20)
[2019-05-12] VITALS (13 sets, daily range): BP systolic 129–199; BP diastolic 78–104
--- NOTE | 2019-05-12 03:23 | Pulmonary Consultation ---
JOSÉ ANTONIO AVILA MED STUDENT 05/12/19 0323: History of Present Illness History of Present Illness Date of Consultation 05/12/19 03:21 Time Seen by Provider: 03:21 Date of Admission 05/11/19 History of Present Illness Patient is a 78 year old male presenting to the ED via EMS on 05/11/19 after being found unresponsive in the car, and he was seen in the same position in the car the previous day. EMS found the patient to have right sided weakness of the upper extremity and lower extremity as well as left gaze, hypertension, AMS, incontinence with urine and stool. His daughter stated that he had not been compliant with medications recently, and she last spoke to him on 05/10/19 in the afternoon. She last saw him on Thursday and did note that he was having difficulty walking. He was last known to be well over 24 hours ago. The ED spoke to [facility] about the patient. It was decided that there is no indication for transfer at this time. CTA was performed, anti-platelet therapy was starter and anticoagulation will be held per Dr. Carmenza shah, labetalol was administered, and EKG performed showing Afib and RBBB similar to last EKG 04/25/19. . Allergies and Home Medications Allergies Coded Allergies: No Known Drug Allergies (Unverified , 11/25/17) Home Medications Acetaminophen 500 Mg Tablet, 1,000 MG PO Q6H PRN for PAIN-MILD, (Reported) Apixaban 5 Mg Tablet, 5 MG PO BID, (Reported) LAST FILLED #180 06-17-18 B Complex with Vitamin C 1 Each Tablet, 1 TAB PO MoWeFr, (Reported) Bumetanide 1 Mg Tablet, 1 MG PO BID, (Reported) Ferrous Sulfate 325 Mg Tablet, 325 MG PO DAILY, (Reported) Furosemide 40 Mg Tablet, 40 MG PO DAILY, (Reported) Gabapentin 100 Mg Capsule, 100 MG PO DAILY, (Reported) LAST FILLED #270 10-16-18 Gabapentin 100 Mg Capsule, 200 MG PO HS, (Reported) LAST FILLED #270 10-16-18 TAKES 2 (100MG) CAPSULES Levocetirizine Dihydrochloride 5 Mg Tablet, 5 MG PO HS, (Reported) Lisinopril 5 Mg Tablet, 10 MG PO DAILY, (Reported) TAKES 2 (5MG) TABLETS Magnesium Oxide 400 Mg Tablet, 400 MG PO DAILY, (Reported) Metformin HCl 1,000 Mg Tablet, 1,000 MG PO BID, (Reported) LAST FILLED #180 09-03-18 Metoprolol Tartrate 25 Mg Tablet, 25 MG PO BID, (Reported) Multivits,Stress Formula 1 Each Tablet, 1 TAB PO DAILY, (Reported) Mv,Minerals/FA/Lycopene/Ginkgo 1 Each Tablet, 1 TAB PO DAILY, (Reported) Gould 3 Polyunsat Fatty Acids 1,000 Mg Cap, 1,000 MG PO BID, (Reported) Polyethylene Glycol 3350 17 Gm Powd.pack, 17 GM PO DAILY PRN for CONSTIPATION- 2ND LINE, (Reported) Ropinirole HCl 0.5 Mg Tablet, 0.5 MG PO DAILY, (Reported) Ropinirole HCl 0.5 Mg Tablet, 1 MG PO HS, (Reported) TAKES 2 (0.5MG) TABLETS Rosuvastatin Calcium 10 Mg Tablet, 10 MG PO HS, (Reported) Sulfamethoxazole/Trimethoprim 1 Each Tablet, 1 EACH PO BID Prescribed by: KYLE VALVERDE on 04/25/19 1025 Turmeric Root Extract 538 Mg Capsule, 538 MG PO BID, (Reported) Past Nwxeesv-Apdirq-Wgresx Hx Past Med/Social Hx: Reviewed Nursing Past Med/Soc Hx Patient Social History Alcohol Use: Denies Use Recreational Drug Use: No Smoking Status: Unknown if Ever Smoked 2nd Hand Smoke Exposure: No Recent Foreign Travel: No Contact w/Someone Who Travel: No Recent Infectious Disease Expo: No Recent Hopitalizations: No Physical Abuse: No Sexual Abuse: No Immunizations Up To Date PED Vaccines UTD: Yes Seasonal Allergies Seasonal Allergies: No Past Medical History Surgeries: Yes Appendectomy, Cardiac, CABG, Valve Replacement Respiratory: No Cardiac: Yes Atrial Fibrillation, Chronic Edema/Swelling, Coronary Artery Disease, Heart Murmur, High Cholesterol, Hypertension, Peripheral Vascular, Valvular Heart Dis ease Neurological: Yes Neuropathy, Stroke Genitourinary: Yes (CHRONIC RENAL FAILURE) Renal Failure Gastrointestinal: Yes (HX OF ULCERATED PEPTIC ULCER/UPPER GI BLEED) Gastrointestinal Bleed Musculoskeletal: Yes Chronic Back Pain Endocrine: Yes (MORBID OBESITY) Diabetes, Non-Insulin dep HEENT: No Cancer: No Psychosocial: No Integumentary: No Blood Disorders: No Family Medical History No Pertinent Family Hx Past history from records review. Patient unable to answer questions due to altered mental status Review of Systems Date Seen by Provider: May 12, 2019 Time Seen by Provider: 03:54 Other Unable to obtain from patient due to altered mental status Sepsis Event Evaluation Height, Weight, BMI Height: 5'7.00" Weight: 309lbs. 0.0oz. 140.447470wh; 39.96 BMI Method: Exam Exam Vital Signs Date Time Temp Pulse Resp B/P (MAP) Pulse Ox O2 Delivery O2 Flow Rate FiO2 05/12/19 01:00 91 29 155/94 (114) 97 Room Air 05/12/19 01:00 91 05/12/19 00:00 37.6 05/12/19 00:00 95 25 156/104 (121) 95 Room Air 05/11/19 23:00 93 22 133/97 (109) 95 Room Air 05/11/19 22:22 101 23 152/96 (114) 95 Room Air 05/11/19 21:00 86 27 144/92 (109) 96 Room Air 05/11/19 20:45 98 33 165/97 (119) 95 Room Air 05/11/19 20:30 96 24 134/84 (101) 97 Room Air 05/11/19 20:15 90 30 161/99 (119) 96 Room Air 05/11/19 20:00 84 26 132/68 (89) 95 Room Air 05/11/19 19:45 36.9 05/11/19 19:45 93 22 142/100 (114) 96 Room Air 05/11/19 19:30 90 29 152/80 (104) 94 Room Air 05/11/19 19:26 87 05/11/19 18:29 102 18 170/92 94 Room Air 05/11/19 15:35 36.9 80 18 181/131 (148) 94 Room Air I & O 05/12/19 07:00 Intake Total 1000 ml Output Total 1000 ml Balance 0 ml Height & Weight Height: 5'7.00" Weight: 309lbs. 0.0oz. 140.308334eu; 39.96 BMI Method: General Appearance: Obese, Other (Patient resting in bed with occasional twitching) HEENT: No Scleral Icterus (L), No Scleral Icterus (R); Other (PERRL, eyes deviated to the left) Neck: Supple; No Carotid Bruit (not appreciated ), No Lymphadenopathy (L), No Lymphadenopathy (R) Respiratory: Lungs Clear, No Accessory Muscle Use, No Respiratory Distress Cardiovascular: No Murmur, Normal Peripheral Pulses, Irregularly Irregular Capillary Refill: Less Than 3 Seconds Peripheral Pulses: 2+ Dorsalis Pedis (R), 2+ Left Dors-Pedis (L), 2+ Radial Pulses (R), 2+ Radial Pulses (L) Gastrointestinal: normal bowel sounds, soft, no pulsatile mass Extremity: No Pedal Edema Neurologic/Psychiatric: No Facial Droop; Motor Weakness (right arm flaccid, unable to assess strength), Other (unable to follow verbal commands, left lateral deviation of eyes ) Skin: Normal Color, Warm/Dry Results Lab Laboratory Tests 05/11/19 15:50 Radiology 05/11/19 Chest Xray IMPRESSION: Prominent cardiomegaly with post-sternotomy change. Central vascular congestion appears stable compared to the prior study. There is no new infiltrate, pneumothorax, or pleural fluid. 05/11/19 CTA head and neck IMPRESSION: 1. Findings consistent with acute infarcts involving the inferior anterolateral right frontal lobe and superior posterior lateral left frontal lobe. There is likely some luxury perfusion on the right, but there is no evidence of hemorrhagic transformation on either side. 2. No large vessel occlusion is identified intracranially in the areas of suspected acute infarct. Additionally, there is no evidence of aneurysm or intracranial vascular malformation. 3. Advanced calcified and noncalcified atherosclerotic disease. Pertinent findings in summary include probable 50-70% hemodynamically significant stenosis of the origin of the left internal carotid artery, high-grade near occlusive stenosis of the origin of the right internal carotid artery, and probable concentric hemodynamically significant stenoses of the bilateral distal vertebral arteries. 4. Background age-related parenchymal volume loss and chronic small vessel ischemic changes in deep white matter. Assessment/Plan Assessment/Plan Stroke, likely cardioembolic -CTA displayed inferior anterior R fintal lobe and superior posterior left lateral frontal lobe acute infarct without large vessel occlusion -hold anticoagulation therapy per discussion with [facility] -Continue antiplatelet therapy -MRI today Carotid stenosis -50-70% stenosis of L carotid -near occlusion of R carotic -Carotid ultrasound today Hypertension -Tight blood pressure management systolic less than 180 -Labetalol 20mg Q2hr PRN for systolic over 180 Afib -currently in Afib -Echo -determine is rhythm management is appropriate -Consult cards CALIN TAN DO 05/12/19 0602: History of Present Illness History of Present Illness Time Seen by Provider: 07:39 History of Present Illness Patient is a 78 year old male presenting to the ED via EMS on 05/11/19 after being found unresponsive in the car, and he was seen in the same position in the car the previous day. EMS found the patient to have right sided weakness of the upper extremity and lower extremity as well as left gaze, hypertension, AMS, incontinence with urine and stool. His daughter stated that he had not been compliant with medications recently, and she last spoke to him on 05/10/19 in the afternoon. She last saw him on Thursday and did note that he was having difficulty walking. He was last known to be well over 24 hours ago. The ED spoke to [facility] about the patient. It was decided that there is no indication for transfer at this time. CTA was performed, anti-platelet therapy was starter and anticoagulation will be held per Dr. Carmenza shah, labetalol was administered, and EKG performed showing Afib and RBBB similar to last EKG 04/25/19. Allergies and Home Medications Allergies Coded Allergies: No Known Drug Allergies (Unverified , 11/25/17) Home Medications Acetaminophen 500 Mg Tablet, 1,000 MG PO Q6H PRN for PAIN-MILD, (Reported) Apixaban 5 Mg Tablet, 5 MG PO BID, (Reported) LAST FILLED #180 06-17-18 B Complex with Vitamin C 1 Each Tablet, 1 TAB PO MoWeFr, (Reported) Bumetanide 1 Mg Tablet, 1 MG PO BID, (Reported) Ferrous Sulfate 325 Mg Tablet, 325 MG PO DAILY, (Reported) Furosemide 40 Mg Tablet, 40 MG PO DAILY, (Reported) Gabapentin 100 Mg Capsule, 100 MG PO DAILY, (Reported) LAST FILLED #270 10-16-18 Gabapentin 100 Mg Capsule, 200 MG PO HS, (Reported) LAST FILLED #270 10-16-18 TAKES 2 (100MG) CAPSULES Levocetirizine Dihydrochloride 5 Mg Tablet, 5 MG PO HS, (Reported) Lisinopril 5 Mg Tablet, 10 MG PO DAILY, (Reported) TAKES 2 (5MG) TABLETS Magnesium Oxide 400 Mg Tablet, 400 MG PO DAILY, (Reported) Metformin HCl 1,000 Mg Tablet, 1,000 MG PO BID, (Reported) LAST FILLED #180 09-03-18 Metoprolol Tartrate 25 Mg Tablet, 25 MG PO BID, (Reported) Multivits,Stress Formula 1 Each Tablet, 1 TAB PO DAILY, (Reported) Mv,Minerals/FA/Lycopene/Ginkgo 1 Each Tablet, 1 TAB PO DAILY, (Reported) Gould 3 Polyunsat Fatty Acids 1,000 Mg Cap, 1,000 MG PO BID, (Reported) Polyethylene Glycol 3350 17 Gm Powd.pack, 17 GM PO DAILY PRN for CONSTIPATION- 2ND LINE, (Reported) Ropinirole HCl 0.5 Mg Tablet, 0.5 MG PO DAILY, (Reported) Ropinirole HCl 0.5 Mg Tablet, 1 MG PO HS, (Reported) TAKES 2 (0.5MG) TABLETS Rosuvastatin Calcium 10 Mg Tablet, 10 MG PO HS, (Reported) Sulfamethoxazole/Trimethoprim 1 Each Tablet, 1 EACH PO BID Prescribed by: KYLE VALVERDE on 04/25/19 1025 Turmeric Root Extract 538 Mg Capsule, 538 MG PO BID, (Reported) Exam Exam General Appearance: Obese, Other (Patient resting in bed with occasional twitching) HEENT: No Scleral Icterus (L), No Scleral Icterus (R); Other (PERRL, eyes deviated to the left) Neck: Supple; No Carotid Bruit (not appreciated ), No Lymphadenopathy (L), No Lymphadenopathy (R) Respiratory: Lungs Clear, No Accessory Muscle Use, No Respiratory Distress Cardiovascular: No Murmur, Normal Peripheral Pulses, Irregularly Irregular Capillary Refill: Less Than 3 Seconds Gastrointestinal: normal bowel sounds, soft, no pulsatile mass Extremity: No Pedal Edema Neurologic/Psychiatric: No Facial Droop; Motor Weakness (right arm flaccid, chris ble to assess strength), Other (unable to follow verbal commands, left lateral deviation of eyes ) Skin: Normal Color, Warm/Dry Assessment/Plan Assessment/Plan Stroke, likely cardioembolic -CTA displayed inferior anterior R fontal lobe and superior posterior left lateral frontal lobe acute infarct without large vessel occlusion -hold anticoagulation therapy per discussion with [facility] x 1 wk -Continue antiplatelet therapy -I talked with [facility] again this AM secondary to family wanting everything possible done. [facility] once again said there is nothing they can do that we are not already doing. -Pt's prognosis is very poor. Consult hospice for education. Carotid stenosis -50-70% stenosis of L carotid -near occlusion of R carotic -Carotid ultrasound today Hypertension -Tight blood pressure management systolic less than 180 -Labetalol 20mg Q2hr PRN for systolic over 180 Afib -currently in Afib -Echo -Consult cards Supervisory-Addendum Brief Verification & Attestation Participated in pt care: history Personally performed: exam, history Care discussed with: Medical Student Procedures: n/a Verification and Attestation of Medical Student E/M Service A medical student performed and documented this service in my presence. I reviewed and verified all information documented by the medical student and made modifications to such information, when appropriate. I personally performed the physical exam and medical decision making. Calin Tan, May 12, 2019,07:48 JOSÉ ANTONIO AVILA MED STUDENT May 12, 2019 03:23 CALIN LANZA DO May 12, 2019 06:02 POS
[2019-05-12] MEDS ORDERED: RT-ALBUTEROL SULF 2.5 MG/3 ML PRE-MIX VIAL INH PRN ×2 (04:00→09:15)
[2019-05-12 04:48] LABS: BASOPHILS % (AUTO) 0 % (0-10); EOSINOPHILS # (AUTO) 0.1 10^3/uL (0.0-0.3); EOSINOPHILS % (AUTO) 1 % (0-10); HEMATOCRIT 46 % (40-54); HEMOGLOBIN 15.2 G/DL (13.3-17.7); LYMPHOCYTES # (AUTO) 1.5 X 10^3 (1.0-4.0); LYMPHOCYTES % (AUTO) 12 % (12-44); MEAN CORPUSCULAR HEMOGLOBIN 30 PG (25-34); MEAN CORPUSCULAR HGB CONC 33 G/DL (32-36); MEAN CORPUSCULAR VOLUME 88 FL (80-99); MEAN PLATELET VOLUME 9.4 FL (7.4-10.4); MONOCYTES # (AUTO) 1.3 X 10^3 (0.0-1.0); MONOCYTES % (AUTO) 11 % (0-12); NEUTROPHILS # (AUTO) 9.3 X 10^3 (1.8-7.8); NEUTROPHILS % (AUTO) 76 % (42-75); PLATELET COUNT 281 10^3/uL (130-400); RED CELL DISTRIBUTION WIDTH 14.9 % (10.0-14.5); WHITE BLOOD COUNT 12.2 10^3/uL (4.3-11.0)
[2019-05-12 04:58] LABS: BUN/CREATININE RATIO 15; CALCIUM 8.6 MG/DL (8.5-10.1); CARBON DIOXIDE 20 MMOL/L (21-32); CHLORIDE 109 MMOL/L (98-107); CREATININE SERUM 0.84 MG/DL (0.60-1.30); GFR ESTIMATED > 60; GLUCOSE 143 MG/DL (70-105); MAGNESIUM 1.6 MG/DL (1.6-2.4); PHOSPHORUS 3.3 MG/DL (2.3-4.7); POTASSIUM 3.8 MMOL/L (3.6-5.0); SODIUM 142 MMOL/L (135-145)
[2019-05-12] MEDS: POTASSIUM CL 10MEQ/50ML IVPB 50 ML IV SCH (05:03)
[2019-05-12] MEDS: KCL 20 MEQ TAB (K-DUR) PO SCH (05:03)
--- NOTE | 2019-05-12 05:15 | NUR ---
0506--Daughter, Francisca Gordillo, called at this time to notify her of pt's transfer to 4th floor, daughter voiced concerns over moving pt "too soon". Therapeutic communication attempted, daughter again verbalized concern, states her boyfriend had a second stroke 2 hours after moving to another floor last summer (and he ). Daughter requested this RN to ask Dr Paige what her reasons were and call back [phone]--Dr Paige notified of daughter's concerns, continue plan to move pt to [facility] [place] [phone]--Daughter called, updated, verbalized understanding
[2019-05-12] MEDS: MAGNESIUM 1 GM/100 ML IVPB 100 ML IV SCH (06:24)
--- NOTE | 2019-05-12 06:35 | NUR ---
Pt transferred to [facility] via bed, belongings with pt, bedside report given to Shruthi.
[2019-05-12 07:07] LABS: BASOPHILS % (AUTO) 0 % (0-10); EOSINOPHILS # (AUTO) 0.1 10^3/uL (0.0-0.3); EOSINOPHILS % (AUTO) 1 % (0-10); HEMATOCRIT 50 % (40-54); HEMOGLOBIN 16.3 G/DL (13.3-17.7); LYMPHOCYTES # (AUTO) 1.9 X 10^3 (1.0-4.0); LYMPHOCYTES % (AUTO) 14 % (12-44); MEAN CORPUSCULAR HEMOGLOBIN 29 PG (25-34); MEAN CORPUSCULAR HGB CONC 33 G/DL (32-36); MEAN CORPUSCULAR VOLUME 89 FL (80-99); MONOCYTES # (AUTO) 1.4 X 10^3 (0.0-1.0); MONOCYTES % (AUTO) 11 % (0-12); NEUTROPHILS # (AUTO) 9.7 X 10^3 (1.8-7.8); NEUTROPHILS % (AUTO) 74 % (42-75); PLATELET COUNT 271 10^3/uL (130-400); RED CELL DISTRIBUTION WIDTH 14.9 % (10.0-14.5); WHITE BLOOD COUNT 13.1 10^3/uL (4.3-11.0)
[2019-05-12 07:38] LABS: ALANINE AMINOTRANSFERASE 37 U/L (0-55); ALBUMIN 3.5 GM/DL (3.2-4.5); ALKALINE PHOSPHATASE 101 U/L (40-136); BILIRUBIN,TOTAL 3.2 MG/DL (0.1-1.0); BUN/CREATININE RATIO 15; CALCIUM 8.9 MG/DL (8.5-10.1); CARBON DIOXIDE 20 MMOL/L (21-32); CHLORIDE 108 MMOL/L (98-107); CREATININE SERUM 0.87 MG/DL (0.60-1.30); GFR ESTIMATED > 60; GLUCOSE 135 MG/DL (70-105); MAGNESIUM 1.7 MG/DL (1.6-2.4); PHOSPHORUS 3.3 MG/DL (2.3-4.7); POTASSIUM 3.8 MMOL/L (3.6-5.0); SODIUM 141 MMOL/L (135-145); TOTAL PROTEIN 6.6 GM/DL (6.4-8.2)
[2019-05-12 07:39] LABS: CHOLESTEROL 180 MG/DL (< 200); HDL CHOLESTEROL 37 MG/DL (40-60); TRIGLYCERIDES 108 MG/DL (<150); VLDL CHOLESTEROL 22 MG/DL (5-40)
--- NOTE | 2019-05-12 07:40 | Diagnostic Imaging Report ---
INDICATION: Stroke. COMPARISON: Comparison made with prior examination from 05/11/2019. FINDINGS: There is cardiomegaly. There has been previous median sternotomy. There are patchy bibasilar infiltrates. There is a small left pleural fusion. There is no pneumothorax. Mediastinum is unremarkable. IMPRESSION: 1. Patchy bibasilar infiltrates with a left pleural effusion. 2. Cardiomegaly. Dictated by: Dictated on workstation # [id number]
--- NOTE | 2019-05-12 08:21 | Speech Therapy Progress Note ---
Therapy Progress Note ST attempted to see patient this am for Bedside Dysphagia Evaluation. Nursing was in the room taking vitals. Patient presented with eyes closed and non responsive to verbal and tactile prompts. ST will follow up. DELIA TINSLEY May 12, 2019 08:21 POS
--- NOTE | 2019-05-12 08:59 | Occ Therapy Progress Note ---
Therapy Progress Note OT eval received. Chart reviewed. Attempted to awaken pt. Pt. is unresponsive. Nursing aware. Will not awake to sternal rub. Will not open eyes. Will continue to monitor pt. when more aroused for occupational therapy treatment. 0825 1,visit SADIE BROWN OT May 12, 2019 08:59 POS
[2019-05-12] MEDS: ASPIRIN E.C. 325 MG (ECOTRIN) TABLET PO SCH (09:00)
[2019-05-12] MEDS: NS IV 1000 ML 1,000 ML IV SCH (10:00)
--- NOTE | 2019-05-12 10:02 | History & Physical-Hospitalist ---
History of Present Illness HPI/Chief Complaint Chief Complaint: Catastrophicstroke HPI: This is a 78 yoWM with a PMH of A-SOCORRO who was found in his car for over 36 hours in the same positionfound to have suffered an embolic type stroke that'scatastrophic. He was placed in the ICU for close monitoring but now he is less responsive and palliative care has been consulted. MRI is being obtained under Dr. Tan's instruction to confirms the catastrophic loss of brain function in order to simply put for end of life care. Source: family, RN/MD Exam Limitations: clinical condition Date Seen 05/12/19 Time Seen by a Provider: 09:00 Attending Physician Shaylee Paige Julie A MD Referring Physician Date of Admission May 11, 2019 at 18:51 Home Medications & Allergies Home Medications Reviewed patient Home Medication Reconciliation performed by pharmacy medication reconciliations server support technician and/or nursing. Patients Allergies have been reviewed. Allergies Allergies Coded Allergies No Known Drug Allergies (Unverified11/25/17) Past Slxktvx-Oobjrv-Vxgvzj Hx Past Med/Social Hx: Reviewed Nursing Past Med/Soc Hx, Reviewed and Corrections made Patient Social History Marrital Status: single Alcohol Use: Denies Use Recreational Drug Use: No Smoking Status: Unknown if Ever Smoked 2nd Hand Smoke Exposure: No Recent Foreign Travel: No Contact w/other who traveled: No Recent Hopitalizations: No Recent Infectious Disease Expo: No Immunizations Up To Date Pediatric: Yes Seasonal Allergies Seasonal Allergies: No Past Medical History Surgeries: Appendectomy, Cardiac, CABG, Valve Replacement Cardiac: Atrial Fibrillation, Chronic Edema/Swelling, Coronary Artery Disease, Heart Murmur, High Cholesterol, Hypertension, Peripheral Vascular, Valvular Heart Disease Neurological: Neuropathy, Stroke Genitourinary: Renal Failure Gastrointestinal: Gastrointestinal Bleed Musculoskeletal: Chronic Back Pain Endocrine: Diabetes, Non-Insulin dep History of Blood Disorders: No Family History No Pertinent Family Hx Past history from records review. Patient unable to answer questions due to altered mental status Review of Systems Constitutional: see HPI Physical Exam Physical Exam Vital Signs Vital Signs - First Documented 05/11/19 05/12/19 15:35 03:53 Temp 36.9 Pulse 80 Resp 18 B/P (MAP) 181/131 (148) Pulse Ox 94 O2 Delivery Room Air FiO2 21 Capillary Refill : Less Than 3 Seconds Height, Weight, BMI Height: 5'7.00" Weight: 309lbs. 0.0oz. 140.134308zb; 39.96 BMI Method: General Appearance: No Apparent Distress, Chronically ill, Obese, Other (unresponsive) Neurologic/Psychiatric: Disoriented (comatose) Results Results/Procedures Labs Laboratory Tests 05/11/19 15:50 05/12/19 04:30 05/12/19 06:26 Patient resulted labs reviewed. Assessment/Plan Admission Diagnosis Assessment: Catastrophic CVA Plan: Palliative care Admission Status: Inpatient Order (span 2 midnights) Reason for Inpatient Admission: CVA Diagnosis/Problems Diagnosis/Problems (1) Acute cardioembolic stroke Status: Acute (2) 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 Status: Acute (3) Bilateral carotid artery stenosis Status: Acute (4) Atrial fibrillation Status: Acute Qualifiers: Atrial fibrillation type: longstanding persistent Qualified Codes: I48.11 - Longstanding persistent atrial fibrillation (5) HLP (6) HTN (hypertension) (7) Hypoxia Status: Acute (8) CHF (congestive heart failure) Status: Resolved Resolution Date/Time: 04/24/19 @ 10:44 (9) CAD (coronary artery disease) (10) Diabetes mellitus Clinical Quality Measures DVT/VTE Risk/Contraindication: Risk Factor Score Per Nursin RFS Level Per Nursing on Admit: 4+=Very High SHAYLEE PAIGE DO May 12, 2019 10:02 POS
[2019-05-12] MEDS ORDERED: LORazepam INJ 2 MG/ML (ATIVAN) VIAL IVP PRN (10:30)
--- NOTE | 2019-05-12 10:31 | NUR ---
PALLIATIVE CARE RN in to see patient. Grand-daughter and then daughter arrived to room. Long discussion about patient's illness and the POC for the next 24-48 hours. We will get an MRI to determine severity. Patient does not open his eyes, however he does lift his eyebrows when spoken to and accelerates his RR as well. He is fidgety, moving his upper extremity and in his LE mostly the right leg. He has known RLS. He has reflexes b/l in both LE. I have taked to the RN about his appearance of discomfort and he will call the doctor regarding this. Will continue to follow and offer assist as needed for next steps in his POC.
--- NOTE | 2019-05-12 11:13 | NUR ---
UNABLE TO TALK WITH THE PATIENT AT THIS TIME. FAMILY ARE NOT SURE OF HIS MEDICATIONS. HE WAS HERE IN [place] WITH HIS BOTTLES AND I WENT OVER HIS MEDS WITH HIM IN DETAIL, AT THAT TIME HE WAS PAST DUE FOR REFILL ON HIS METFORMIN, ELIQUIS, AND GABAPENTIN. HE ALSO REPORTED HIS LISINOPRIL WAS INCREASED FROM 5MG DAILY TO 10 MG DAILY AND HIS POTASSIUM WAS STOPPED. I LEFT EVERYTHING IT WAS REPORTED ON HIS PREVIOUS ADMISSION EXCEPT NOW HE IS PAST DUE FOR REFILL ON SEVERAL MORE MEDICATIONS. I NOTED THE DATES ON THE MED REC. HE WAS PRESCRIBED BACTRIM 04-25-19 THAT [facility] DID FILL HOWEVER I REMOVED IT FROM THE MED REC AT THIS TIME SINCE IT SHOULD BE COMPLETED. I LEFT THE OTC MEDS REPORTED PREVIOUSLY: SUPER B COMPLEX Thu MAG OX DAILY IRON 325MG DAILY FISH OIL BID MTV DAILY TURMERIC BID MIRALAX PRN TYLENOL PRN STRESS TAB DAILY
[2019-05-12] MEDS: RT-ALBUTEROL SULF 2.5 MG/3 ML PRE-MIX VIAL INH SCH ×3 (11:23→19:37)
[2019-05-12] MEDS: ASPIRIN 300 MG (5 GR) SUPPOSITORY PR SCH (12:11)
--- NOTE | 2019-05-12 12:15 | NUR ---
Dr Paige and Dr. Tan notified about pt not fitting in MRI. Test not done.
--- NOTE | 2019-05-12 15:41 | Consultation-Cardiology ---
HPI-Cardiology Cardiology Consultation Date of Consultation 05/12/19 Date of Admission Time Seen by Provider: 15:36 Indication: CVA HPI Patient is a 78 y/o male with history of CAD s/p CABG with AVR, PAF, Carotid artery stenosis. Presented to the ER yesterday afternoon after being found unresponsive in his car with right side flaccid. W/o done in ER revealed large CVA. Patient is unresponsive, daughter at bedside to answer questions. Per daughter, patient had not been taking his medications recently. Last known well time was >24 hours prior to finding him in his vehicle. Home Medications & Allergies Allergies: Coded Allergies: No Known Drug Allergies (Unverified , 11/25/17) Home Medication List Reviewed: Yes VMR-[id number] Hx Patient Social History Marital Status: single Alcohol Use: Denies Use Recreational Drug Use: No Smoking Status: Unknown if Ever Smoked 2nd Hand Smoke Exposure: No Recent Foreign Travel: No Recent Infectious Disease Expo: No Recent Hopitalizations: No Past Medical History CAD, H/O AVR, PAF, CAR[place], HTN Family Medical History Significant Family History: No Pertinent Family Hx Review of Systems-General Review of Systems ROS-Unable to Obtain: Unable to obtain Constitutional: see HPI, other (Unable to provide review of system due to cur rent condition) Reviewed Test Results Reviewed Test Results Lab Laboratory Tests 05/11/19 15:50: White Blood Count 11.7H, Red Blood Count 5.73, Hemoglobin 16.8, Hematocrit 50, Mean Corpuscular Volume 88, Mean Corpuscular Hemoglobin 29, Mean Corpuscular Hemoglobin Concent 33, Red Cell Distribution Width 14.7H, Platelet Count 313, Mean Platelet Volume 9.5, Neutrophils (%) (Auto) 74, Lymphocytes (%) (Auto) 15, Monocytes (%) (Auto) 10, Eosinophils (%) (Auto) 1, Basophils (%) (Auto) 0, Neutrophils # (Auto) 8.6H, Lymphocytes # (Auto) 1.8, Monocytes # (Auto) 1.1H, Eosinophils # (Auto) 0.1, Basophils # (Auto) 0.0, Prothrombin Time 15.8H, INR Comment 1.2, Activated Partial Thromboplast Time 36H, D-Dimer 0.77H, Urine Color YELLOW, Urine Clarity SLIGHTLY CLOUDY, Urine pH 6, Urine Specific [place] 1.020, Urine Protein 4+, Urine Glucose (UA) 1+H, Urine Ketones 3+H, Urine Nitrite NEGATIVE, Urine Bilirubin NEGATIVE, Urine Urobilinogen NORMAL, Urine Leukocyte Esterase NEGATIVE, Urine RBC (Auto) 5+H, Urine RBC NONE, Urine WBC NONE, Urine Crystals NONE, Urine Bacteria TRACE, Urine Casts NONE, Urine Mucus NEGATIVE, Urine Culture Indicated NO, Sodium Level 142, Potassium Level 4.0, Chloride Level 105, Carbon Dioxide Level 23, Anion Gap 14, Blood Urea Nitrogen 13, Creatinine 0.86, Estimat Glomerular Filtration Rate > 60, BUN/Creatinine Ratio 15, Glucose Level 134H, Lactic Acid Level 2.00, Calcium Level 9.6, Corrected Calcium 9.8, Total Bilirubin 2.7H, Aspartate Amino Transf (AST/SGOT) 77H, A lanine Aminotransferase (ALT/SGPT) 36, Alkaline Phosphatase 98, Troponin I 0.113H, Total Protein 7.2, Albumin 3.8 05/12/19 04:30: White Blood Count 12.2H, Red Blood Count 5.16, Hemoglobin 15.2, Hematocrit 46, Mean Corpuscular Volume 88, Mean Corpuscular Hemoglobin 30, Mean Corpuscular Hemoglobin Concent 33, Red Cell Distribution Width 14.9H, Platelet Count 281, Mean Platelet Volume 9.4, Neutrophils (%) (Auto) 76H, Lymphocytes (%) (Auto) 12, Monocytes (%) (Auto) 11, Eosinophils (%) (Auto) 1, Basophils (%) (Auto) 0, Neutrophils # (Auto) 9.3H, Lymphocytes # (Auto) 1.5, Monocytes # (Auto) 1.3H, Eosinophils # (Auto) 0.1, Basophils # (Auto) 0.0, Sodium Level 142, Potassium Level 3.8, Chloride Level 109H, Carbon Dioxide Level 20L, Anion Gap 13, Blood Urea Nitrogen 13, Creatinine 0.84, Estimat Glomerular Filtration Rate > 60, BUN/Creatinine Ratio 15, Glucose Level 143H, Calcium Level 8.6, Phosphorus Level 3.3, Magnesium Level 1.6 05/12/19 06:26: White Blood Count 13.1H, Red Blood Count 5.59, Hemoglobin 16.3, Hematocrit 50, Mean Corpuscular Volume 89, Mean Corpuscular Hemoglobin 29, Mean Corpuscular Hemoglobin Concent 33, Red Cell Distribution Width 14.9H, Platelet Count 271, Mean Platelet Volume 10.0, Neutrophils (%) (Auto) 74, Lymphocytes (%) (Auto) 14, Monocytes (%) (Auto) 11, Eosinophils (%) (Auto) 1, Basophils (%) (Auto) 0, Neutrophils # (Auto) 9.7H, Lymphocytes # (Auto) 1.9, Monocytes # (Auto) 1.4H, Eosinophils # (Auto) 0.1, Basophils # (Auto) 0.0, Sodium Level 141, Potassium Level 3.8, Chloride Level 108H, Carbon Dioxide Level 20L, Anion Gap 13, Blood Urea Nitrogen 13, Creatinine 0.87, Estimat Glomerular Filtration Rate > 60, BUN/Creatinine Ratio 15, Glucose Level 135H, Calcium Level 8.9, Corrected Calcium 9.3, Total Bilirubin 3.2H, Aspartate Amino Transf (AST/SGOT) 83H, Alanine Aminotransferase (ALT/SGPT) 37, Alkaline Phosphatase 101, Total Protein 6.6, Albumin 3.5, Phosphorus Level 3.3, Magnesium Level 1.7, Triglycerides Level 108, Cholesterol Level 180, LDL Cholesterol Direct 133H, VLDL Cholesterol 22, HDL Cholesterol 37L Radiology Laboratory Tests 05/11/19 15:50: White Blood Count 11.7H, Red Blood Count 5.73, Hemoglobin 16.8, Hematocrit 50, Mean Corpuscular Volume 88, Mean Corpuscular Hemoglobin 29, Mean Corpuscular Hemoglobin Concent 33, Red Cell Distribution Width 14.7H, Platelet Count 313, Mean Platelet Volume 9.5, Neutrophils (%) (Auto) 74, Lymphocytes (%) (Auto) 15, Monocytes (%) (Auto) 10, Eosinophils (%) (Auto) 1, Basophils (%) (Auto) 0, N eutrophils # (Auto) 8.6H, Lymphocytes # (Auto) 1.8, Monocytes # (Auto) 1.1H, Eosinophils # (Auto) 0.1, Basophils # (Auto) 0.0, Prothrombin Time 15.8H, INR Comment 1.2, Activated Partial Thromboplast Time 36H, D-Dimer 0.77H, Urine Color YELLOW, Urine Clarity SLIGHTLY CLOUDY, Urine pH 6, Urine Specific [place] 1.020, Urine Protein 4+, Urine Glucose (UA) 1+H, Urine Ketones 3+H, Urine Nitrite NEGATIVE, Urine Bilirubin NEGATIVE, Urine Urobilinogen NORMAL, Urine Leukocyte Esterase NEGATIVE, Urine RBC (Auto) 5+H, Urine RBC NONE, Urine WBC NONE, Urine Crystals NONE, Urine Bacteria TRACE, Urine Casts NONE, Urine Mucus NEGATIVE, Urine Culture Indicated NO, Sodium Level 142, Potassium Level 4.0, Chloride Level 105, Carbon Dioxide Level 23, Anion Gap 14, Blood Urea Nitrogen 13, Creatinine 0.86, Estimat Glomerular Filtration Rate > 60, BUN/Creatinine Ratio 15, Glucose Level 134H, Lactic Acid Level 2.00, Calcium Level 9.6, Corrected Calcium 9.8, Total Bilirubin 2.7H, Aspartate Amino Transf (AST/SGOT) 77H, Alanine Aminotransferase (ALT/SGPT) 36, Alkaline Phosphatase 98, Troponin I 0.113H, Total Protein 7.2, Albumin 3.8 05/12/19 04:30: White Blood Count 12.2H, Red Blood Count 5.16, Hemoglobin 15.2, Hematocrit 46, Mean Corpuscular Volume 88, Mean Corpuscular Hemoglobin 30, Mean Corpuscular Hemoglobin Concent 33, Red Cell Distribution Width 14.9H, Platelet Count 281, Mean Platelet Volume 9.4, Neutrophils (%) (Auto) 76H, Lymphocytes (%) (Auto) 12, Monocytes (%) (Auto) 11, Eosinophils (%) (Auto) 1, Basophils (%) (Auto) 0, Neutrophils # (Auto) 9.3H, Lymphocytes # (Auto) 1.5, Monocytes # (Auto) 1.3H, Eosinophils # (Auto) 0.1, Basophils # (Auto) 0.0, Sodium Level 142, Potassium Level 3.8, Chloride Level 109H, Carbon Dioxide Level 20L, Anion Gap 13, Blood Urea Nitrogen 13, Creatinine 0.84, Estimat Glomerular Filtration Rate > 60, BUN/Creatinine Ratio 15, Glucose Level 143H, Calcium Level 8.6, Phosphorus Level 3.3, Magnesium Level 1.6 05/12/19 06:26: White Blood Count 13.1H, Red Blood Count 5.59, Hemoglobin 16.3, Hematocrit 50, Mean Corpuscular Volume 89, Mean Corpuscular Hemoglobin 29, Mean Corpuscular Hemoglobin Concent 33, Red Cell Distribution Width 14.9H, Platelet Count 271, Mean Platelet Volume 10.0, Neutrophils (%) (Auto) 74, Lymphocytes (%) (Auto) 14, Monocytes (%) (Auto) 11, Eosinophils (%) (Auto) 1, Basophils (%) (Auto) 0, Neut rophils # (Auto) 9.7H, Lymphocytes # (Auto) 1.9, Monocytes # (Auto) 1.4H, Eosinophils # (Auto) 0.1, Basophils # (Auto) 0.0, Sodium Level 141, Potassium Level 3.8, Chloride Level 108H, Carbon Dioxide Level 20L, Anion Gap 13, Blood Urea Nitrogen 13, Creatinine 0.87, Estimat Glomerular Filtration Rate > 60, BUN/Creatinine Ratio 15, Glucose Level 135H, Calcium Level 8.9, Corrected Calcium 9.3, Total Bilirubin 3.2H, Aspartate Amino Transf (AST/SGOT) 83H, Alanine Aminotransferase (ALT/SGPT) 37, Alkaline Phosphatase 101, Total Protein 6.6, Albumin 3.5, Phosphorus Level 3.3, Magnesium Level 1.7, Triglycerides Level 108, Cholesterol Level 180, LDL Cholesterol Direct 133H, VLDL Cholesterol 22, HDL Cholesterol 37L ECG Impression ECG Initial ECG Rhythm: A Fib/Flutter Initial ECG Impression: Atrial Fibrillation Physical Exam Physical Exam Vital Signs Vital Signs - First Documented 05/11/19 05/12/19 15:35 03:53 Temp 36.9 Pulse 80 Resp 18 B/P (MAP) 181/131 (148) Pulse Ox 94 O2 Delivery Room Air FiO2 21 Capillary Refill : Less Than 3 SecondsLess Than 3 Seconds Height, Weight, BMI Height: 5'7.00" Weight: 309lbs. 0.0oz. 140.750468js; 39.96 BMI Method: General Appearance: Obese, Other (Patient resting in bed with occasional twitching, unable to respond) HEENT: No Scleral Icterus (L), No Scleral Icterus (R); Other (PERRL, eyes deviated to the left) Neck: Supple; No Carotid Bruit (not appreciated ), No Lymphadenopathy (L), No Lymphadenopathy (R) Respiratory: Lungs Clear, No Accessory Muscle Use, No Respiratory Distress Cardiovascular: No Murmur, Normal Peripheral Pulses, Irregularly Irregular Extremity: No Pedal Edema Neurologic/Psychiatric: No Facial Droop; Motor Weakness (right arm flaccid, unable to assess strength), Other (unable to follow verbal commands, left lateral deviation of eyes ) Skin: Normal Color, Warm/Dry A/P-Cardiology Admission Diagnosis CVA CAD PAF [place] Assessment/Plan CVA- CTA revealed displayed inferior anterior R fontal lobe and superior posterior left lateral frontal lobe acute infarct without large vessel occlusion. Per [facility] neurology, continue on antiplatelet at this time and hold OAC x 1 week. Coronary artery disease status post CABG 5 using GOODSON to LAD, vein graft to the first diagonal, vein graft to the obtuse marginal sequential to the posterior lateral of the right and PDA and aortic valve replacement using tissue valve done in July [address] White at [facility] in [place]. Had an abnormal stress test, cardiac catheterization done on November 25, 2017 showing patent GOODSON to LAD, vein graft to diagonal artery giving good flow to the LAD system that has been occluded proximally and patent jump graft to the first obtuse marginal branch which is a very small artery and the posterolateral branch of the right PDA that has ectasia and small vessel disease. The [place] circumflex artery has mild disease, the second and third obtuse marginal branch had moderate to severe disease but there are very small arteries. The right coronary artery is a dominant artery with diffuse ectasia and slow flow noted through followed the right system, medical therapy is recommended Paroxysmal atrial fibrillation, EKG reveals atrial fibrillation, rate control led. Maintained on Eliquis as outpatient, patient's daughter reports he had not been compliant with medication recently. [id number] score is 5, maintained on Eliquis. Continue to monitor Severe right carotid artery stenosis, was referred to [facility], monitored by Dr. Goodman. CTA neck done revealing near occlusion of right ICA, left ICA 50- 70%. History of elevated liver enzymes, continue to monitor. Hypertension, continue to monitor blood pressure to keep SBP <180 Hyperlipidemia, lipid profile from June 09, 2018 showing total cholesterol 165, HDL 39, triglyceride 193, LDL 97, continue to monitor History of chronic kidney disease, continue to monitor renal function, followed by [facility] healthcare management consultant as outpatient. Diabetes mellitus, followed and managed by primary care physician History of chronic peripheral edema Obesity History of upper GI bleed Thank you for allowing us to participate in the management of Mr. Hinton. This is Dasha Hung PA-C, as a scribe for Dr. Gautam. Patient was seen and evaluated with Dasha, examination performed, management plan was discussed, agree with the current scribed note, I made few changes to the note using Italic font 78 years old gentleman with acute CVA, did not qualify for TPA. Has history of carotid stenosis and paroxysmal atrial fibrillation Unable to provide history, moving his upper left extremity Heart is irregular, currently in atrial fibrillation, lungs were clear Started on aspirin and Plavix, will need to be on oral anticoagulation Monitor blood pressure Clinical Quality Measures DVT/VTE Risk/Contraindication: Risk Factor Score Per Nursin RFS Level Per Nursing on Admit: 4+=Very High DASHA GREGORIO May 12, 2019 15:41 CARLOS MESA MD May 12, 2019 16:03 POS
--- NOTE | 2019-05-12 15:44 | NUR ---
Palliative Care RN called to room to talk to the daughter about next steps. Patient was unable to have MRI due to size, Dr. Gautam was in the room and explained that the MRI does not add anything to the treatment plan. I had long discussion regarding POC and that we need to give him 24-48 hours. DU\During this time patient may either get worse or improve somewhat. Had a long discussion with daughter regarding CODE status. She would like to talk to her sister and her daughter about this before making a decision. Palliative Care will continue to follow and offer support as needed.
[2019-05-13] VITALS (8 sets, daily range): BP systolic 165–183; BP diastolic 78–100
[2019-05-13] MEDS: NS IV 1000 ML 1,000 ML IV SCH ×2 (00:26→13:37)
--- NOTE | 2019-05-13 01:20 | NUR ---
Dr Paige notified of change in pt condition, no new orders.
[2019-05-13 04:00] LABS: BASOPHILS % (AUTO) 0 % (0-10); EOSINOPHILS # (AUTO) 0.2 10^3/uL (0.0-0.3); EOSINOPHILS % (AUTO) 2 % (0-10); HEMATOCRIT 46 % (40-54); HEMOGLOBIN 15.1 G/DL (13.3-17.7); LYMPHOCYTES # (AUTO) 1.8 X 10^3 (1.0-4.0); LYMPHOCYTES % (AUTO) 15 % (12-44); MEAN CORPUSCULAR HEMOGLOBIN 30 PG (25-34); MEAN CORPUSCULAR HGB CONC 33 G/DL (32-36); MEAN CORPUSCULAR VOLUME 89 FL (80-99); MEAN PLATELET VOLUME 9.7 FL (7.4-10.4); MONOCYTES # (AUTO) 1.4 X 10^3 (0.0-1.0); MONOCYTES % (AUTO) 12 % (0-12); NEUTROPHILS # (AUTO) 8.7 X 10^3 (1.8-7.8); NEUTROPHILS % (AUTO) 72 % (42-75); PLATELET COUNT 257 10^3/uL (130-400); RED CELL DISTRIBUTION WIDTH 14.9 % (10.0-14.5); WHITE BLOOD COUNT 12.2 10^3/uL (4.3-11.0)
[2019-05-13 04:20] LABS: BUN/CREATININE RATIO 15; CALCIUM 8.5 MG/DL (8.5-10.1); CARBON DIOXIDE 20 MMOL/L (21-32); CHLORIDE 110 MMOL/L (98-107); CREATININE SERUM 0.88 MG/DL (0.60-1.30); GFR ESTIMATED > 60; GLUCOSE 134 MG/DL (70-105); MAGNESIUM 1.7 MG/DL (1.6-2.4); PHOSPHORUS 3.1 MG/DL (2.3-4.7); POTASSIUM 3.8 MMOL/L (3.6-5.0); SODIUM 143 MMOL/L (135-145)
[2019-05-13] MEDS: POTASSIUM CL 10MEQ/50ML IVPB 50 ML IV SCH (05:17)
[2019-05-13] MEDS: RT-ALBUTEROL SULF 2.5 MG/3 ML PRE-MIX VIAL INH SCH ×4 (06:36→18:13)
--- NOTE | 2019-05-13 06:39 | Pulmonary Progress Note ---
JOSÉ ANTONIO AVILA MED STUDENT 05/13/19 0639: Subjective Date Seen by a Provider: May 13, 2019 Time Seen by a Provider: 07:08 Subjective/Events-last exam No acute events overnight. Patient not responsive to verbal commands. Palliative has discussed prognosis and code status with family. Sepsis Event Evaluation Height, Weight, BMI Height: 5'7.00" Weight: 309lbs. 0.0oz. 140.895089dc; 39.96 BMI Method: Focused Exam Lactate Level 05/11/19 15:50: Lactic Acid Level 2.00 Exam Exam Vital Signs Date Time Temp Pulse Resp B/P (MAP) Pulse Ox O2 Delivery O2 Flow Rate FiO2 05/13/19 04:00 36.8 88 24 179/79 (112) 89 Room Air 05/13/19 00:20 36.4 108 24 183/87 (119) 89 Room Air 05/12/19 20:30 Room Air 05/12/19 19:52 37.3 92 18 199/98 (131) 90 Room Air 05/12/19 19:38 90 Room Air 05/12/19 16:28 37.2 80 20 185/89 (121) 90 Room Air 05/12/19 15:26 91 Room Air 05/12/19 12:00 37.1 97 18 156/88 (110) 98 Room Air 05/12/19 11:30 90 Room Air 05/12/19 08:54 37.6 86 92 21 05/12/19 08:39 92 Room Air 05/12/19 08:00 37.4 98 18 () 89 Room Air 05/12/19 08:00 100 30 175/97 (123) 96 Room Air 05/12/19 08:00 Room Air I & O 05/13/19 07:00 Intake Total 1000 ml Output Total 600 ml Balance 400 ml Height & Weight Height: 5'7.00" Weight: 309lbs. 0.0oz. 140.523027ov; 39.96 BMI Method: General Appearance: No Apparent Distress, Chronically ill, Obese, Other (unresponsive) HEENT: No Scleral Icterus (L), No Scleral Icterus (R); Other (PERRL, eyes deviated to the left) Neck: Supple; No Carotid Bruit (not appreciated ), No Lymphadenopathy (L), No Lymphadenopathy (R) Respiratory: Lungs Clear, No Accessory Muscle Use, No Respiratory Distress Cardiovascular: No Murmur, Normal Peripheral Pulses, Irregularly Irregular Capillary Refill: Less Than 3 Seconds Peripheral Pulses: 2+ Dorsalis Pedis (R), 2+ Left Dors-Pedis (L), 2+ Radial Pulses (R), 2+ Radial Pulses (L) Gastrointestinal: normal bowel sounds, soft, no pulsatile mass Extremity: No Pedal Edema Neurologic/Psychiatric: Disoriented (comatose) Skin: Normal Color, Warm/Dry Results Lab Laboratory Tests 05/11/19 15:50 05/12/19 04:30 05/12/19 06:26 05/13/19 03:45 Radiology 05/12/19 Chest Xray 1. Patchy bibasilar infiltrates with a left pleural effusion. 2. Cardiomegaly. Assessment/Plan Assessment/Plan Stroke, likely cardioembolic -CTA displayed inferior anterior R fontal lobe and superior posterior left lateral frontal lobe acute infarct without large vessel occlusion -MRI could not be performed due to patient size -hold anticoagulation therapy per discussion with [facility] x 1 wk -Continue antiplatelet therapy -[facility] was contacted again 05/12 secondary to family wanting all intervention. [facility] confirmed that there is nothing more than what we are doing here. -Palliative has discussed code status and prognosis with daughter Carotid stenosis -50-70% stenosis of L carotid -near occlusion of R carotic Hypertension -Tight blood pressure management systolic less than 180 -Labetalol 20mg Q2hr PRN for systolic over 180 Afib -currently in Afib -Cards consulted REBECCA TAN DO 05/16/19 1451: Exam Exam General Appearance: No Apparent Distress, Chronically ill Respiratory: Lungs Clear, No Accessory Muscle Use, No Respiratory Distress Cardiovascular: No Murmur, Normal Peripheral Pulses Gastrointestinal: normal bowel sounds, soft, no pulsatile mass Extremity: No Pedal Edema Supervisory-Addendum Brief Verification & Attestation Participated in pt care: history Personally performed: exam, history Care discussed with: Medical Student Procedures: n/a Verification and Attestation of Medical Student E/M Service A medical student performed and documented this service in my presence. I reviewed and verified all information documented by the medical student and made modifications to such information, when appropriate. I personally performed the physical exam and medical decision making. Rebecca Tan, May 16, 2019,14:51 JOSÉ ANTONIO AVILA MED STUDENT May 13, 2019 06:39 REBECCA LANZA DO May 16, 2019 14:51 POS
[2019-05-13] MEDS: KCL 20 MEQ TAB (K-DUR) PO SCH (07:00)
[2019-05-13] MEDS: MAGNESIUM 1 GM/100 ML IVPB 100 ML IV SCH (07:00)
--- NOTE | 2019-05-13 08:08 | Diagnostic Imaging Report ---
EXAMINATION: Portable erect AP chest at 3:48 a.m. INDICATION: CVA, respiratory distress. FINDINGS: The cardiomegaly and the sternotomy wires and surgical clips seen on the prior exam of 05/12/2019 are again evident and not significantly changed. As suggested on the prior exam, there is a small amount of atelectasis/infiltrate and fluid in the left lung base. This finding is essentially no different. The central pulmonary vascularity is somewhat more prominent than on the prior study but there is no evidence for overt failure. The mediastinum is not widened. The osseous structures are intact. IMPRESSION: The central pulmonary vascularity does seem somewhat more prominent than on the prior exam but there is no evidence for overt failure. The overall appearance of the chest is otherwise stable. Dictated by: Dictated on workstation # [id number]
[2019-05-13] MEDS: ASPIRIN E.C. 325 MG (ECOTRIN) TABLET PO SCH (09:00)
--- NOTE | 2019-05-13 09:28 | Occ Therapy Progress Note ---
Therapy Progress Note OT attempted eval this AM. Attempted to waken pt, pt opened eyes briefly to knock on door and to his name, closing his eyes shortly after opening. Pt did not respond to sternal rub. Will attempt eval again later when pt is more aroused. 1, KETTY Najera OT May 13, 2019 09:28 POS
--- NOTE | 2019-05-13 10:17 | Cardiology Progress Note ---
Subjective Date Seen by Provider: May 13, 2019 Time Seen by Provider: 10:15 Subjective/Events-last exam patient is in bed, not responsive. Review of Systems General: Other (unable to provide review of systems) Focused Exam Lactate Level 05/11/19 15:50: Lactic Acid Level 2.00 Objective-Cardiology Exam Last Set of Vital Signs Vital Signs 05/12/19 05/13/19 08:54 08:00 Temp 36.8 Pulse 92 Resp 20 B/P (MAP) 165/78 (107) Pulse Ox 93 O2 Delivery Room Air FiO2 21 Capillary Refill : Less Than 3 SecondsLess Than 3 Seconds I&O Intake and Output 05/13/19 00:00 Intake Total 1000 ml Output Total 1000 ml Balance 0 ml Intake Oral 0 ml IV Total 1000 ml Output Urine Total 1000 ml # Bowel Movements 1 General: Other (not following command or responsive, opening his eyes) Neck: Supple Lungs: Clear to Auscultation, Normal Air Movement Heart: Normal S1, Normal S2 Abdomen: Normal Bowel Sounds Extremities: No Clubbing, No Cyanosis Results Lab Laboratory Tests 05/13/19 03:45 A/P-Cardiology Admission Diagnosis CVA CAD PAF [place] Assessment/Plan CVA- CTA revealed displayed inferior anterior R fontal lobe and superior posterior left lateral frontal lobe acute infarct without large vessel occlusion. Per [facility], continue on antiplatelet at this time and hold OAC x 1 week. Coronary artery disease status post CABG 5 using GOODSON to LAD, vein graft to the first diagonal, vein graft to the obtuse marginal sequential to the posterior lateral of the right and PDA and aortic valve replacement using tissue valve done in July [address] White at [facility] in [place]. Had an abnormal stress test, cardiac catheterization done on November 25, 2017 showing patent GOODSON to LAD, vein graft to diagonal artery giving good flow to the LAD system that has been occluded proximally and patent jump graft to the first obtuse marginal branch which is a very small artery and the posterolateral branch of the right PDA that has ectasia and small vessel disease. The [place] circumflex artery has mild disease, the second and third obtuse marginal branch had moderate to severe disease but there are very small arteries. The right coronary artery is a dominant artery with diffuse ectasia and slow flow noted through followed the right system, medical therapy is recommended Paroxysmal atrial fibrillation, EKG reveals atrial fibrillation, rate controlled. Maintained on Eliquis as outpatient, patient's daughter reports he had not been compliant with medication recently. [id number] score is 5, maintained on Eliquis. Continue to monitor Severe right carotid artery stenosis, was referred to [facility], monitored by Dr. Goodman. CTA neck done revealing near occlusion of right ICA, left ICA 50- 70%. History of elevated liver enzymes, continue to monitor. Hypertension, continue to monitor blood pressure to keep SBP <180 Hyperlipidemia, lipid profile from June 09, 2018 showing total cholesterol 165, HDL 39, triglyceride 193, LDL 97, continue to monitor History of chronic kidney disease, continue to monitor renal function, followed by [facility] client support consultant as outpatient. Diabetes mellitus, followed and managed by primary care physician History of chronic peripheral edema Obesity History of upper GI bleed Overall patient has poor prognosis, had a long discussion with the daughter, followed with medical service recommendation Clinical Quality Measures DVT/VTE Risk/Contraindication: Risk Factor Score Per Nursin RFS Level Per Nursing on Admit: 4+=Very High CARLOS HUTCHINSON MD May 13, 2019 10:17 POS
--- NOTE | 2019-05-13 11:06 | Progress Note - Hospitalist ---
Subjective HPI/CC On Admission Date Seen by Provider: May 13, 2019 Time Seen by Provider: 10:00 Chief Complaint: Catastrophicstroke HPI: This is a 78 yoWM with a PMH of A-SOCORRO who was found in his car for over 36 hours in the same positionfound to have suffered an embolic type stroke that'scatastrophic. He was placed in the ICU for close monitoring but now he is less responsive and palliative care has been consulted. MRI is being obtained under Dr. Tan's instruction to confirms the catastrophic loss of brain function in order to simply put for end of life care. Subjective/Events-last exam Pt in comfort care protocol. Dr. Gautam agrees. Dr. Tan agrees. Daughter still back and forth whether he needed a second opinion. Overall very poor prognosis given the catastrophic stroke and found down in his car after a day in half in the same position and chronic debility on an ongoing basis. Review of Systems Neurological: Confusion Focused Exam Lactate Level 05/11/19 15:50: Lactic Acid Level 2.00 Objective Exam Vital Signs Vital Signs Date Time Temp Pulse Resp B/P (MAP) Pulse Ox O2 Delivery O2 Flow Rate FiO2 05/13/19 16:09 36.0 96 22 179/90 (119) 90 Room Air 05/13/19 11:22 21 Capillary Refill : Less Than 3 SecondsLess Than 3 Seconds General Appearance: No Apparent Distress, Chronically ill, Obese, Other (comatose) Results/Procedures Lab Laboratory Tests 05/13/19 03:45 Patient resulted labs reviewed. 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 Status: Acute (3) Bilateral carotid artery stenosis Status: Acute (4) Atrial fibrillation Status: Acute Qualifiers: Atrial fibrillation type: longstanding persistent Qualified Codes: I48.11 - Longstanding persistent atrial fibrillation (5) HLP (6) HTN (hypertension) (7) Hypoxia Status: Acute (8) CHF (congestive heart failure) Status: Resolved Resolution Date/Time: 04/24/19 @ 10:44 (9) CAD (coronary artery disease) (10) Diabetes mellitus Clinical Quality Measures DVT/VTE Risk/Contraindication: Risk Factor Score Per Nursin RFS Level Per Nursing on Admit: 4+=Very High KYLE VALVERDE DO May 13, 2019 11:06 POS
--- NOTE | 2019-05-13 11:10 | NUR ---
PALLIATIVE CARE RN in to see patient and talk with daughter. She is really anxious about making right decision for the patient and has requested of Dr. Paige for referral of s 2nd or 3rd opinion from [place]. I know she has heard from Dr. Gautam and Dr.. Paige regarding the need of this but it will quell her anxiety about "doing the right thing by her father". Will notify Dr. Paige
[2019-05-13] MEDS: ASPIRIN 300 MG (5 GR) SUPPOSITORY PR SCH (13:37)
--- NOTE | 2019-05-13 14:16 | Speech Therapy Progress Note ---
Therapy Progress Note ST unable to complete BDE due to unresponsive state of the patient. Patient is considered for pallative care based on physician's notes. ST will follow as needed. DELIA TINSLEY May 13, 2019 14:16 POS
[2019-05-14] VITALS (9 sets, daily range): BP systolic 136–194; BP diastolic 83–99
[2019-05-14] MEDS: NS IV 1000 ML 1,000 ML IV SCH ×2 (03:02→15:08)
--- NOTE | 2019-05-14 04:40 | NUR ---
pt placed on telemetry and IV LaBetolol given for elevated BP
[2019-05-14] MEDS: LABETALOL HCL 20 MG/4 ML VIAL IV PRN ×2 (04:44→16:12)
[2019-05-14 06:36] LABS: BASOPHILS % (AUTO) 0 % (0-10); EOSINOPHILS # (AUTO) 0.2 10^3/uL (0.0-0.3); EOSINOPHILS % (AUTO) 1 % (0-10); HEMATOCRIT 47 % (40-54); HEMOGLOBIN 15.2 G/DL (13.3-17.7); LYMPHOCYTES # (AUTO) 1.3 X 10^3 (1.0-4.0); LYMPHOCYTES % (AUTO) 10 % (12-44); MEAN CORPUSCULAR HEMOGLOBIN 29 PG (25-34); MEAN CORPUSCULAR HGB CONC 33 G/DL (32-36); MEAN CORPUSCULAR VOLUME 90 FL (80-99); MEAN PLATELET VOLUME 9.9 FL (7.4-10.4); MONOCYTES # (AUTO) 1.4 X 10^3 (0.0-1.0); MONOCYTES % (AUTO) 10 % (0-12); NEUTROPHILS # (AUTO) 10.4 X 10^3 (1.8-7.8); NEUTROPHILS % (AUTO) 79 % (42-75); PLATELET COUNT 267 10^3/uL (130-400); WHITE BLOOD COUNT 13.3 10^3/uL (4.3-11.0)
[2019-05-14] MEDS: RT-ALBUTEROL SULF 2.5 MG/3 ML PRE-MIX VIAL INH SCH ×4 (06:36→19:32)
--- NOTE | 2019-05-14 06:36 | Pulmonary Progress Note ---
Subjective Time Seen by a Provider: 14:50 Sepsis Event Evaluation Height, Weight, BMI Height: 5'7.00" Weight: 309lbs. 0.0oz. 140.691464ve; 39.96 BMI Method: Focused Exam Lactate Level 05/11/19 15:50: Lactic Acid Level 2.00 Exam Exam Vital Signs Date Time Temp Pulse Resp B/P (MAP) Pulse Ox O2 Delivery O2 Flow Rate FiO2 05/14/19 04:40 92 05/14/19 03:45 184/90 (121) 05/14/19 03:35 36.4 98 18 191/87 (121) 92 Room Air 05/14/19 00:00 174/90 (118) 05/13/19 23:25 36.2 93 18 176/95 (122) 90 Room Air 05/13/19 20:00 91 Room Air 05/13/19 19:52 36.3 90 22 175/100 (125) 91 Room Air 05/13/19 18:14 91 Room Air 05/13/19 16:09 36.0 96 22 179/90 (119) 90 Room Air 05/13/19 15:40 90 Room Air 05/13/19 12:00 36.8 100 20 165/91 (115) 92 Room Air 05/13/19 11:22 90 Room Air 05/13/19 11:22 36.8 94 90 21 05/13/19 10:47 90 Room Air 05/13/19 08:00 36.8 92 20 165/78 (107) 93 Room Air 05/13/19 08:00 Room Air 05/13/19 06:42 91 Room Air I & O 05/14/19 07:00 Intake Total 1000 ml Output Total 625 ml Balance 375 ml Height & Weight Height: 5'7.00" Weight: 309lbs. 0.0oz. 140.036031zn; 39.96 BMI Method: General Appearance: No Apparent Distress, Chronically ill, Obese, Other (comatose) HEENT: No Scleral Icterus (L), No Scleral Icterus (R); Other (PERRL, eyes deviated to the left) Neck: Supple; No Carotid Bruit (not appreciated ), No Lymphadenopathy (L), No Lymphadenopathy (R) Respiratory: Lungs Clear, No Accessory Muscle Use, No Respiratory Distress Cardiovascular: No Murmur, Normal Peripheral Pulses, Irregularly Irregular Capillary Refill: Less Than 3 Seconds Peripheral Pulses: 2+ Dorsalis Pedis (R), 2+ Left Dors-Pedis (L), 2+ Radial Pulses (R), 2+ Radial Pulses (L) Gastrointestinal: normal bowel sounds, soft, no pulsatile mass Extremity: No Pedal Edema Neurologic/Psychiatric: Disoriented (comatose) Skin: Normal Color, Warm/Dry Results Lab Laboratory Tests 05/13/19 03:45 Assessment/Plan Assessment/Plan Stroke, likely cardioembolic -CTA displayed inferior anterior R fontal lobe and superior posterior left lateral frontal lobe acute infarct without large vessel occlusion -MRI could not be performed due to patient size -hold anticoagulation therapy per discussion with [facility] x 1 wk -Continue antiplatelet therapy -[facility] was contacted again 05/12 secondary to family wanting all intervention. [facility] confirmed that there is nothing more than what we are doing here. -Palliative has discussed code status and prognosis with daughter Carotid stenosis -50-70% stenosis of L carotid -near occlusion of R carotic Hypertension -Labetalol - PRN Afib -currently in Afib -Cards consulted Pt will most likely need fci and/or Hospice. If family wants continued aggressive care will most likely need PEG tube for TF. REBECCA ADAMES DO May 14, 2019 06:36 POS
--- NOTE | 2019-05-14 06:55 | Diagnostic Imaging Report ---
INDICATION: Stroke. Comparison made with prior examination 05/13/2019 FINDINGS: There is cardiomegaly. There is some venous congestion. There has been previous median sternotomy and coronary bypass graft. No pleural effusion or pneumothorax. IMPRESSION: Cardiomegaly and moderately severe central pulmonary venous congestion. Dictated by: Dictated on workstation # [id number]
[2019-05-14 07:08] LABS: BUN/CREATININE RATIO 18; CARBON DIOXIDE 19 MMOL/L (21-32); CHLORIDE 111 MMOL/L (98-107); SODIUM 143 MMOL/L (135-145)
[2019-05-14 07:09] LABS: CALCIUM 8.7 MG/DL (8.5-10.1); GFR ESTIMATED > 60; GLUCOSE 152 MG/DL (70-105); MAGNESIUM 1.9 MG/DL (1.6-2.4); PHOSPHORUS 2.9 MG/DL (2.3-4.7)
[2019-05-14] MEDS: ACETAMINOPHEN 650 MG SUPP (TYLENOL) PR PRN ×2 (08:08→08:10)
--- NOTE | 2019-05-14 08:40 | NUR ---
TYLENOL WAS ONLY GIVEN ONCE THIS AM. THE SECOND WAS A DUPLICATE.
[2019-05-14] MEDS: ASPIRIN 300 MG (5 GR) SUPPOSITORY PR SCH (09:00)
[2019-05-14] MEDS: ASPIRIN E.C. 325 MG (ECOTRIN) TABLET PO SCH (09:00)
--- NOTE | 2019-05-14 09:35 | Occ Therapy Progress Note ---
Therapy Progress Note Attempted to awaken pt, pt. is unresponsive to sternal rub and will not open eyes. OT will continue to monitor pt for when more aroused for OT tx. 0924 1,visit KETTY HALL OT May 14, 2019 09:35 POS
[2019-05-14] MEDS: MAGNESIUM 1 GM/100 ML IVPB 100 ML IV SCH (10:52)
[2019-05-14] MEDS: POTASSIUM CL 10MEQ/50ML IVPB 50 ML IV SCH (10:52)
[2019-05-14] MEDS: KCL 20 MEQ TAB (K-DUR) PO SCH (10:53)
--- NOTE | 2019-05-14 13:38 | Progress Note - Hospitalist ---
Subjective HPI/CC On Admission Date Seen by Provider: May 14, 2019 Time Seen by Provider: 13:15 Chief Complaint: Catastrophicstroke HPI: This is a 78 yoWM with a PMH of A-SOCORRO who was found in his car for over 36 hours in the same positionfound to have suffered an embolic type stroke that'scatastrophic. He was placed in the ICU for close monitoring but now he is less responsive and palliative care has been consulted. MRI is being obtained under Dr. Tan's instruction to confirms the catastrophic loss of brain function in order to simply put for end of life care. 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 He has severe right-sided neglect. Patient's family said that he said the name of a granddaughter. Also that he has had some tears. At the time my interview the patient does not follow commands but withdraws to stimulus and again has severe right-sided neglect. 30 minutes was spent with the family going over the CAT scan results and I showed him images of the CT of the brain so that they might have a better understanding of the severity of the stroke. We discussed pursuing an MRI which I don't think would change will continue do at this juncture. He has not cleared swallowing studies and again is not following commands well enough that I would feel safe pursuing that at this day we'll plan to repeat a CT head on Thursday so that we have further delineation of the size of the bilateral stroke. Focused Exam Lactate Level 05/11/19 15:50: Lactic Acid Level 2.00 Objective Exam Vital Signs Vital Signs Date Time Temp Pulse Resp B/P (MAP) Pulse Ox O2 Delivery O2 Flow Rate FiO2 05/14/19 12:00 37.0 92 24 178/99 (125) 93 Nasal Cannula 2.00 05/13/19 11:22 21 Capillary Refill : Less Than 3 SecondsLess Than 3 Seconds General Appearance: Other (signs of a stroke poorly responsive eyes open) HEENT: Tonsillar Enlargement (eyes deviate to the left), Other Neck: Limited Range of Motion Respiratory: Lungs Clear, Normal Breath Sounds, No Accessory Muscle Use, No Respiratory Distress Cardiovascular: Systolic Murmur, Irregularly Irregular Gastrointestinal: Normal Bowel Sounds, No Organomegaly, Non Tender, Soft Rectal: Deferred Extremity: Normal Range of Motion, Non Tender, No Calf Tenderness Neurologic/Psychiatric: Abnormal donor specialist II-XII Results/Procedures Lab Laboratory Tests 05/14/19 06:05 Patient resulted labs reviewed. Imaging: Reviewed Imaging Films, Reviewed Imaging Report Assessment/Plan Assessment and Plan Assess & Plan/Chief Complaint right-sided CVA Left-sided CVA Carotid artery stenosis chronic atrial fibrillation Right-sided jewel-plegia Hypertension allowed to run elevated to save the penumbra Prognosis is poor we will plan for a follow-up CT Thursday this juncture the family wishes a full code Clinical Quality Measures DVT/VTE Risk/Contraindication: Risk Factor Score Per Nursin RFS Level Per Nursing on Admit: 4+=Very High NILAM REEVES MD May 14, 2019 13:38 POS
--- NOTE | 2019-05-14 14:29 | Progress Note - Cardiology ---
Cardiology SOAP Progress Note Subjective: Unresponsive No communication Objective: I&O/Vital Signs 05/14/19 05/14/19 05/14/19 05/14/19 03:35 03:45 04:40 06:36 Temp 36.4 Pulse 98 92 Resp 18 B/P (MAP) 191/87 (121) 184/90 (121) Pulse Ox 92 90 O2 Delivery Room Air Room Air 05/14/19 05/14/19 05/14/19 05/14/19 07:00 08:00 08:08 08:10 Temp 37.7 37.7 37.7 Pulse 73 89 Resp 24 B/P (MAP) 179/88 (118) Pulse Ox 90 O2 Delivery Room Air 05/14/19 05/14/19 05/14/19 05/14/19 08:38 09:15 10:04 12:00 Temp 36.6 36.5 37.0 Pulse 84 92 Resp 22 24 B/P (MAP) 136/90 (105) 178/99 (125) Pulse Ox 95 90 93 O2 Delivery Nasal Cannula Nasal Cannula Nasal Cannula O2 Flow Rate 2.00 2.00 2.00 05/14/19 13:00 Pulse 75 05/14/19 00:00 Intake Total 1000 ml Output Total 625 ml Balance 375 ml Weight (Pounds): 309 Weight (Ounces): 0.0 Weight (Calculated Kilograms): 140.993116 Constitutional: other (unresponsive, spontaneously breathing) Respiratory: No accessory muscle use; other (fair, bilateral air entry; diminished at the bases) Cardiovascular: regular rate-rhythm, S1 and S2, systolic murmur (soft TELLY at the card base) Gastrointestional: No tender; soft; No guarding, No rebound; audible bowel sounds Extremities: swelling (mild to mod, bilat, pitting and nonpitting edema); No clubbing, No cyanosis Neurologic/Psychiatric: other (unresponsive, spontaneous breathing) Skin: No rash on exposed areas, No ulcerations on exposed areas Results/Procedures: Labs Laboratory Tests 05/14/19 06:05: White Blood Count 13.3H, Red Blood Count 5.19, Hemoglobin 15.2, Hematocrit 47, Mean Corpuscular Volume 90, Mean Corpuscular Hemoglobin 29, Mean Corpuscular Hemoglobin Concent 33, Red Cell Distribution Width 15.0H, Platelet Count 267, Mean Platelet Volume 9.9, Neutrophils (%) (Auto) 79H, Lymphocytes (%) (Auto) 10L , Monocytes (%) (Auto) 10, Eosinophils (%) (Auto) 1, Basophils (%) (Auto) 0, Neutrophils # (Auto) 10.4H, Lymphocytes # (Auto) 1.3, Monocytes # (Auto) 1.4H, Eosinophils # (Auto) 0.2, Basophils # (Auto) 0.0, Sodium Level 143, Potassium Level 4.0, Chloride Level 111H, Carbon Dioxide Level 19L, Anion Gap 13, Blood Urea Nitrogen 14, Creatinine 0.80, Estimat Glomerular Filtration Rate > 60, BUN/Creatinine Ratio 18, Glucose Level 152H, Calcium Level 8.7, Phosphorus Level 2.9, Magnesium Level 1.9 Microbiology 05/11/19 Blood Culture - Preliminary, Resulted No growth 05/11/19 MRSA Screen - Final, Complete MRSA not isolated 05/11/19 Urine Culture - Final, Complete NO GROWTH Laboratory Tests 05/13/19 03:45 05/14/19 06:05 A/P: Assessment: Large CVA leading to unresponsiveness - CTA revealed displayed inferior anterior R fontal lobe and superior posterior left lateral frontal lobe acute infarct without large vessel occlusion. [facility] has advised continuation of antiplatelet at this time and to hold OAC x 1 week (from time of presentation). Coronary artery disease status post CABG 5 using GOODSON to LAD, vein graft to the first diagonal, vein graft to the obtuse marginal sequential to the posterior lateral of the right and PDA and aortic valve replacement using tissue valve done in July [address] White at [facility] in [place]. Last cath November 25, 2017 showing patent GOODSON to LAD, vein graft to diagonal artery giving good flow to the LAD system that has been occluded proximally, and patent jump graft to the first obtuse marginal branch which is a very small artery and the posterolateral branch of the right PDA that has ectasia. [place] circumflex artery has mild disease, the second and third obtuse marginal branch have moderate to severe disease but there are very small arteries. The right coronary artery is a dominant artery with diffuse ectasia and slow flow noted through followed the right system Paroxysmal atrial fibrillation. Had been advised Eliquis, but had been noncompliant prior to this stroke Severe right carotid artery stenosis, managed by Dr. Goodman (per Dr Gautam's notes) History of elevated liver enzymes Hypertension Hyperlipidemia History of chronic kidney disease, currently with eGFR >60 Diabetes mellitus II History of chronic peripheral edema Obesity Plan: * I examined the patient, discussed his case with Dr Pindeo yesterday, and reviewed his records * Continue current regimen * Resume apixaban when considered safe from a neurological standpoint Clinical Quality Measures Type of Care: Type of Care: Pallative Care SHAGGY STANFORD MD FACP FAC CCDS May 14, 2019 14:29 POS
[2019-05-15] VITALS (10 sets, daily range): BP systolic 92–220; BP diastolic 60–120
[2019-05-15] MEDS: LABETALOL HCL 20 MG/4 ML VIAL IV PRN ×2 (00:39→19:36)
--- NOTE | 2019-05-15 00:42 | NUR ---
BP TAKEN MANUALLY BY THIS RN AFTER TECH REPORTED ELEVATED BP VIA AUTO CUFF. MANUAL BP READ 220/120. IV LABETOLOL ADMIN AT THIS TIME
[2019-05-15] MEDS: NS IV 1000 ML 1,000 ML IV SCH ×2 (04:43→17:39)
--- NOTE | 2019-05-15 05:36 | NUR ---
THIS RN TOOK BP MANUALLY AND READ 160/80.
[2019-05-15 06:07] LABS: BASOPHILS % (AUTO) 0 % (0-10); EOSINOPHILS # (AUTO) 0.2 10^3/uL (0.0-0.3); EOSINOPHILS % (AUTO) 1 % (0-10); HEMATOCRIT 46 % (40-54); HEMOGLOBIN 14.8 G/DL (13.3-17.7); LYMPHOCYTES # (AUTO) 1.3 X 10^3 (1.0-4.0); LYMPHOCYTES % (AUTO) 11 % (12-44); MEAN CORPUSCULAR HEMOGLOBIN 29 PG (25-34); MEAN CORPUSCULAR HGB CONC 32 G/DL (32-36); MEAN CORPUSCULAR VOLUME 92 FL (80-99); MEAN PLATELET VOLUME 10.5 FL (7.4-10.4); MONOCYTES # (AUTO) 1.2 X 10^3 (0.0-1.0); MONOCYTES % (AUTO) 10 % (0-12); NEUTROPHILS # (AUTO) 9.2 X 10^3 (1.8-7.8); NEUTROPHILS % (AUTO) 77 % (42-75); PLATELET COUNT 237 10^3/uL (130-400); RED CELL DISTRIBUTION WIDTH 15.2 % (10.0-14.5); WHITE BLOOD COUNT 11.9 10^3/uL (4.3-11.0)
[2019-05-15 06:28] LABS: BUN/CREATININE RATIO 22; CALCIUM 8.6 MG/DL (8.5-10.1); CARBON DIOXIDE 19 MMOL/L (21-32); CHLORIDE 112 MMOL/L (98-107); CREATININE SERUM 0.78 MG/DL (0.60-1.30); GFR ESTIMATED > 60; GLUCOSE 144 MG/DL (70-105); POTASSIUM 4.3 MMOL/L (3.6-5.0); SODIUM 145 MMOL/L (135-145)
[2019-05-15] MEDS: POTASSIUM CL 10MEQ/50ML IVPB 50 ML IV SCH (06:51)
[2019-05-15] MEDS: KCL 20 MEQ TAB (K-DUR) PO SCH (06:52)
[2019-05-15] MEDS: MAGNESIUM 1 GM/100 ML IVPB 100 ML IV SCH (06:52)
[2019-05-15] MEDS: RT-ALBUTEROL SULF 2.5 MG/3 ML PRE-MIX VIAL INH SCH ×4 (07:22→20:22)
--- NOTE | 2019-05-15 07:45 | Diagnostic Imaging Report ---
INDICATION: Stroke, infiltrate. TECHNIQUE: Single view chest 3:49 AM. CORRELATION STUDY: 05/14/2019 FINDINGS: Poststernotomy changes. Unchanged rather significant severity cardiac enlargement. There is presence of pulmonary vascular congestion and edema slightly improved. Bibasilar areas of infiltrate and/or edema do persist, roughly stable to perhaps increased at the left lung base. Probable left pleural effusion. IMPRESSION: 1. Findings of congestive heart failure again demonstrated, does appear to be slightly improved. 2. Bibasilar areas of infiltrate and/or edema, stable to perhaps slightly increased at the left lung base along with slightly increasing left pleural effusion. Dictated by: Dictated on workstation # [id number]
[2019-05-15] MEDS: ASPIRIN 300 MG (5 GR) SUPPOSITORY PR SCH (08:45)
[2019-05-15] MEDS: ASPIRIN E.C. 325 MG (ECOTRIN) TABLET PO SCH (08:45)
--- NOTE | 2019-05-15 15:01 | Progress Note - Hospitalist ---
Subjective HPI/CC On Admission Date Seen by Provider: May 15, 2019 Time Seen by Provider: 14:45 Chief Complaint: Catastrophicstroke HPI: This is a 78 yoWM with a PMH of HAROLDO who was found in his car for over 36 hours in the same positionfound to have suffered an embolic type stroke that'scatastrophic. He was placed in the ICU for close monitoring but now he is less responsive and palliative care has been consulted. MRI is being obtained under Dr. Tan's instruction to confirms the catastrophic loss of brain function in order to simply put for end of life care. Subjective/Events-last exam Patient and asleep with sonorous respirations. Difficult to arouse. Family is not present in the room Objective Exam Vital Signs Vital Signs Date Time Temp Pulse Resp B/P (MAP) Pulse Ox O2 Delivery O2 Flow Rate FiO2 05/15/19 14:15 92 Nasal Cannula 2.00 05/15/19 13:00 76 05/15/19 12:02 194/78 (116) 05/15/19 11:59 36.5 24 05/13/19 11:22 21 Capillary Refill : Less Than 3 SecondsLess Than 3 Seconds General Appearance: Obese Neck: Other (Short) Respiratory: Chest Non Tender, Lungs Clear, Normal Breath Sounds, No Accessory Muscle Use, No Respiratory Distress Cardiovascular: Regular Rate, Rhythm, No Gallop, No Murmur Gastrointestinal: Normal Bowel Sounds, Non Tender, Soft Rectal: Deferred Extremity: Pedal Edema Neurologic/Psychiatric: Other (Cannot arouse patient) Results/Procedures Lab Laboratory Tests 05/15/19 04:58 Patient resulted labs reviewed. Imaging: Reviewed Imaging Films, Reviewed Imaging Report Assessment/Plan Assessment and Plan Assess & Plan/Chief Complaint right-sided CVA Left-sided CVA Carotid artery stenosis chronic atrial fibrillation Right-sided jewel-plegia Hypertension allowed to run elevated to save the penumbra Prognosis is poor we will plan for a follow-up CT Thursday ; at this juncture the family wishes a full code Clinical Quality Measures DVT/VTE Risk/Contraindication: Risk Factor Score Per Nursin RFS Level Per Nursing on Admit: 4+=Very High NILAM REEVES MD May 15, 2019 15:01 POS
--- NOTE | 2019-05-15 17:01 | Progress Note - Cardiology ---
Cardiology SOAP Progress Note Subjective: Not able to provide any history Objective: I&O/Vital Signs 05/15/19 05/15/19 05/15/19 05/15/19 07:00 07:22 08:00 08:00 Temp 37.0 Pulse 65 82 Resp 16 B/P (MAP) 92/60 (71) Pulse Ox 86 95 92 O2 Delivery Nasal Cannula Nasal Cannula Nasal Cannula O2 Flow Rate 2.00 2.00 2.00 05/15/19 05/15/19 05/15/19 05/15/19 08:59 11:01 11:59 12:02 Temp 36.7 36.5 Pulse 63 81 Resp 18 24 B/P (MAP) 183/84 (117) 177/101 (126) 178/102 (127) Pulse Ox 92 94 94 O2 Delivery Nasal Cannula Nasal Cannula Nasal Cannula O2 Flow Rate 2.00 2.00 2.00 05/15/19 05/15/19 05/15/19 05/15/19 12:02 13:00 14:15 15:39 Temp 36.4 Pulse 76 70 Resp 18 B/P (MAP) 194/78 (116) 176/105 (128) Pulse Ox 92 92 O2 Delivery Nasal Cannula Room Air O2 Flow Rate 2.00 05/15/19 00:00 Intake Total 0 ml Output Total 700 ml Balance -700 ml Weight (Pounds): 309 Weight (Ounces): 0.0 Weight (Calculated Kilograms): [id number] Constitutional: other (unresponsive, other than minimal motion of eyelids upon addressing him) Respiratory: No accessory muscle use; other (fair, bilateral air entry; diminished at the bases) Cardiovascular: regular rate-rhythm, S1 and S2, systolic murmur (soft TELLY at the card base) Gastrointestional: No tender; soft; No guarding, No rebound; audible bowel sounds Extremities: swelling (mild to mod, bilat, pitting and nonpitting edema); No clubbing, No cyanosis Neurologic/Psychiatric: other (unresponsive, other than minimal motion of eyelids upon addressing him) Skin: No rash on exposed areas, No ulcerations on exposed areas Results/Procedures: Labs Laboratory Tests 05/15/19 04:58: White Blood Count 11.9H, Red Blood Count 5.06, Hemoglobin 14.8, Hematocrit 46, Mean Corpuscular Volume 92, Mean Corpuscular Hemoglobin 29, Mean Corpuscular Hemoglobin Concent 32, Red Cell Distribution Width 15.2H, Platelet Count 237, Mean Platelet Volume 10.5H, Neutrophils (%) (Auto) 77H, Lymphocytes (%) (Auto) 11L, Monocytes (%) (Auto) 10, Eosinophils (%) (Auto) 1, Basophils (%) (Auto) 0, Neutrophils # (Auto) 9.2H, Lymphocytes # (Auto) 1.3, Monocytes # (Auto) 1.2H, Eosinophils # (Auto) 0.2, Basophils # (Auto) 0.0, Sodium Level 145, Potassium Level 4.3, Chloride Level 112H, Carbon Dioxide Level 19L, Anion Gap 14, Blood Urea Nitrogen 17, Creatinine 0.78, Estimat Glomerular Filtration Rate > 60, BUN/Creatinine Ratio 22, Glucose Level 144H, Calcium Level 8.6, Phosphorus Level 3.0, Magnesium Level 2.0 Microbiology 05/11/19 Blood Culture - Preliminary, Resulted No growth 05/11/19 MRSA Screen - Final, Complete MRSA not isolated 05/11/19 Urine Culture - Final, Complete NO GROWTH Laboratory Tests 05/14/19 06:05 05/15/19 04:58 Laboratory Tests 05/14/19 06:05 05/15/19 04:58 A/P: Assessment: Large CVA leading to unresponsiveness - CTA revealed displayed inferior anterior R fontal lobe and superior posterior left lateral frontal lobe acute infarct without large vessel occlusion. [facility] has advised continuation of antiplatelet at this time and to hold OAC x 1 week (from time of presentation). Coronary artery disease status post CABG 5 using GOODSON to LAD, vein graft to the first diagonal, vein graft to the obtuse marginal sequential to the posterior lateral of the right and PDA and aortic valve replacement using tissue valve done in July [address] White at [facility] in [place]. Last c ath November 25, 2017 showing patent GOODSON to LAD, vein graft to diagonal artery giving good flow to the LAD system that has been occluded proximally, and patent jump graft to the first obtuse marginal branch which is a very small artery and the posterolateral branch of the right PDA that has ectasia. The [place] circumflex artery has mild disease, the second and third obtuse marginal branch have moderate to severe disease but there are very small arteries. The right coronary artery is a dominant artery with diffuse ectasia and slow flow noted through followed the right system Paroxysmal atrial fibrillation. Had been advised Eliquis, but had been noncompliant prior to this stroke Severe right carotid artery stenosis, managed by Dr. Goodman (per Dr Gautam's notes) History of elevated liver enzymes Hypertension Hyperlipidemia History of chronic kidney disease, currently with eGFR >60 Diabetes mellitus II History of chronic peripheral edema Obesity Plan: * Continue current regimen * Resume apixaban when considered safe from a neurological standpoint Clinical Quality Measures Type of Care: Type of Care: Pallative SHAGGY Ho MD FACP FAC CCDS May 15, 2019 17:01 POS
--- NOTE | 2019-05-15 17:41 | NUR ---
PT OCCASIONALLY WILL SPEAK IN GARBLED SENTENCES. PT ANSWERED QUESTIONS ABOUT PAIN.
[2019-05-16] VITALS (9 sets, daily range): BP systolic 164–197; BP diastolic 83–98
[2019-05-16] MEDS: LABETALOL HCL 20 MG/4 ML VIAL IV PRN ×3 (00:46→20:34)
[2019-05-16 05:47] LABS: BASOPHILS % (AUTO) 0 % (0-10); EOSINOPHILS # (AUTO) 0.1 10^3/uL (0.0-0.3); EOSINOPHILS % (AUTO) 1 % (0-10); HEMATOCRIT 48 % (40-54); HEMOGLOBIN 15.4 G/DL (13.3-17.7); LYMPHOCYTES # (AUTO) 1.2 X 10^3 (1.0-4.0); LYMPHOCYTES % (AUTO) 10 % (12-44); MEAN CORPUSCULAR HEMOGLOBIN 29 PG (25-34); MEAN CORPUSCULAR HGB CONC 32 G/DL (32-36); MEAN CORPUSCULAR VOLUME 92 FL (80-99); MEAN PLATELET VOLUME 9.9 FL (7.4-10.4); MONOCYTES # (AUTO) 1.2 X 10^3 (0.0-1.0); MONOCYTES % (AUTO) 10 % (0-12); NEUTROPHILS # (AUTO) 9.2 X 10^3 (1.8-7.8); NEUTROPHILS % (AUTO) 78 % (42-75); PLATELET COUNT 284 10^3/uL (130-400); RED CELL DISTRIBUTION WIDTH 15.5 % (10.0-14.5); WHITE BLOOD COUNT 11.7 10^3/uL (4.3-11.0)
[2019-05-16 06:14] LABS: BUN/CREATININE RATIO 22; CALCIUM 8.8 MG/DL (8.5-10.1); CARBON DIOXIDE 19 MMOL/L (21-32); CHLORIDE 114 MMOL/L (98-107); CREATININE SERUM 0.78 MG/DL (0.60-1.30); GFR ESTIMATED > 60; GLUCOSE 154 MG/DL (70-105); MAGNESIUM 2.1 MG/DL (1.6-2.4); POTASSIUM 4.3 MMOL/L (3.6-5.0); SODIUM 145 MMOL/L (135-145)
[2019-05-16] MEDS: MAGNESIUM 1 GM/100 ML IVPB 100 ML IV SCH (06:17)
[2019-05-16] MEDS: POTASSIUM CL 10MEQ/50ML IVPB 50 ML IV SCH (06:17)
[2019-05-16] MEDS: KCL 20 MEQ TAB (K-DUR) PO SCH (06:17)
[2019-05-16] MEDS: NS IV 1000 ML 1,000 ML IV SCH ×2 (06:56→19:30)
[2019-05-16] MEDS: RT-ALBUTEROL SULF 2.5 MG/3 ML PRE-MIX VIAL INH SCH ×3 (07:21→20:12)
[2019-05-16] MEDS: ASPIRIN E.C. 325 MG (ECOTRIN) TABLET PO SCH (07:40)
--- NOTE | 2019-05-16 08:22 | Diagnostic Imaging Report ---
Indication: Cerebrovascular injury Portable chest 4:45 AM There are postoperative changes from CABG surgery. Heart size and pulmonary vascularity are increased. Lungs are clear. There are no effusions or pneumothoraces. IMPRESSION: Pulmonary venous congestion. No significant change from the previous day. Dictated by: Dictated on workstation # [id number]
--- NOTE | 2019-05-16 08:47 | Cardiology Progress Note ---
Subjective Date Seen by Provider: May 16, 2019 Time Seen by Provider: 08:35 Subjective/Events-last exam Patient in bed, able to say "yes" when question asked this morning and able to blink eyes when asked. Continues to have right side hemiparesis. Review of Systems General: Other (unable to provide review of systems) Objective-Cardiology Exam Last Set of Vital Signs Vital Signs 05/13/19 05/16/19 11:22 08:00 Temp 36.2 Pulse 66 Resp 20 B/P (MAP) 174/83 (113) Pulse Ox 90 O2 Delivery Nasal Cannula O2 Flow Rate 2.00 FiO2 21 Capillary Refill : Less Than 3 SecondsLess Than 3 Seconds I&O Intake and Output 05/16/19 00:00 Intake Total 0 ml Output Total 1050 ml Balance -1050 ml Intake Oral 0 ml Output Urine Total 1050 ml General: Alert, Other (move his leg, occasionally open his eyes) Neck: Supple Lungs: Clear to Auscultation, Normal Air Movement Heart: Normal S1, Normal S2 Abdomen: Normal Bowel Sounds Extremities: No Clubbing, No Cyanosis Neuro: Other (aphasia, right side hemiparesis) Results Lab Laboratory Tests 05/16/19 05:35 A/P-Cardiology Admission Diagnosis CVA CAD PAF [place] Assessment/Plan CVA- CTA revealed displayed inferior anterior R fontal lobe and superior posterior left lateral frontal lobe acute infarct without large vessel occlusion. Per [facility], continue on antiplatelet at this time and hold OAC x 1 week. Coronary artery disease status post CABG 5 using GOODSON to LAD, vein graft to the first diagonal, vein graft to the obtuse marginal sequential to the posterior lateral of the right and PDA and aortic valve replacement using tissue valve done in July [address] White at [facility] in [place]. Had an abnormal stress test, cardiac catheterization done on November 25, 2017 showing patent GOODSON to LAD, vein graft to diagonal artery giving good flow to the LAD system that has been occluded proximally and patent jump graft to the first obtuse marginal branch which is a very small artery and the posterolateral branch of the right PDA that has ectasia and small vessel disease. The [place] circumflex artery has mild disease, the second and third obtuse marginal branch had moderate to severe disease but there are very small arteries. The right coronary artery is a dominant artery with diffuse ectasia and slow flow noted through followed the right system, medical therapy is recommended Paroxysmal atrial fibrillation, EKG reveals atrial fibrillation, rate contro lled. Maintained on Eliquis as outpatient, patient's daughter reports he had not been compliant with medication recently. [id number] score is 5, maintained on Eliquis. Continue to monitor Severe right carotid artery stenosis, was referred to [facility], monitored by Dr. Goodman. CTA neck done revealing near occlusion of right ICA, left ICA 50- 70%. History of elevated liver enzymes, continue to monitor. Hypertension, continue to monitor blood pressure to keep SBP <180 Hyperlipidemia, lipid profile from June 09, 2018 showing total cholesterol 165, HDL 39, triglyceride 193, LDL 97, continue to monitor History of chronic kidney disease, continue to monitor renal function, followed by [facility] sales and leasing consultant as outpatient. Diabetes mellitus, followed and managed by primary care physician History of chronic peripheral edema Obesity History of upper GI bleed Overall patient has poor prognosis, had a long discussion with the daughter, followed with medical service recommendation Patient was seen and evaluated with Dasha, examination performed, management plan was discussed, agree with the current scribed note, I made few changes to the note using Italic font Patient is laying down in bed, has some involuntary movement, opening his eyes to some stimuli Dense stroke as described above, will need to be back on oral anticoagulation Continue to monitor heart rate and blood pressure Poor prognosis Clinical Quality Measures DVT/VTE Risk/Contraindication: Risk Factor Score Per Nursin RFS Level Per Nursing on Admit: 4+=Very High DASHA GREGORIO May 16, 2019 8:47 am CARLOS MESA MD May 16, 2019 9:13 am LORRAINE
[2019-05-16] MEDS: ASPIRIN 300 MG (5 GR) SUPPOSITORY PR SCH (10:07)
--- NOTE | 2019-05-16 10:08 | NUR ---
Pattern Perforating Machine Operator presence at bedside. Pt resting; offered compassionate touch and prayer.
--- NOTE | 2019-05-16 10:48 | NUR ---
PALLIATIVE CARE RN to room to see patient. He is finishing a bath and is more alert than at the end of last week. He is minimally verbal and was able to raise his left arm and use it to sponge out his mouth. Will need to have an ST/PT/OT evaluation today. Will continue discussion with family regarding needs post discharge. If he can work with PT/OT/ST then he can go SKILLED to NH of choice.
--- NOTE | 2019-05-16 11:59 | Progress Note ---
Objective Exam Last Set of Vital Signs Vital Signs Date Time Temp Pulse Resp B/P (MAP) Pulse Ox O2 Delivery O2 Flow Rate FiO2 05/16/19 11:15 Nasal Cannula 2.00 05/16/19 08:00 36.2 66 20 174/83 (113) 90 05/13/19 11:22 21 Capillary Refill : Less Than 3 SecondsLess Than 3 Seconds I&O Intake and Output 05/16/19 00:00 Intake Total 0 ml Output Total 1050 ml Balance -1050 ml Intake Oral 0 ml Output Urine Total 1050 ml Results/Procedures Lab Laboratory Tests 05/16/19 05:35: White Blood Count 11.7H, Red Blood Count 5.27, Hemoglobin 15.4, Hematocrit 48, Mean Corpuscular Volume 92, Mean Corpuscular Hemoglobin 29, Mean Corpuscular Hemoglobin Concent 32, Red Cell Distribution Width 15.5H, Platelet Count 284, Mean Platelet Volume 9.9, Neutrophils (%) (Auto) 78H, Lymphocytes (%) (Auto) 10L , Monocytes (%) (Auto) 10, Eosinophils (%) (Auto) 1, Basophils (%) (Auto) 0, Neutrophils # (Auto) 9.2H, Lymphocytes # (Auto) 1.2, Monocytes # (Auto) 1.2H, Eosinophils # (Auto) 0.1, Basophils # (Auto) 0.0, Sodium Level 145, Potassium Level 4.3, Chloride Level 114H, Carbon Dioxide Level 19L, Anion Gap 12, Blood Urea Nitrogen 17, Creatinine 0.78, Estimat Glomerular Filtration Rate > 60, BUN/Creatinine Ratio 22, Glucose Level 154H, Calcium Level 8.8, Phosphorus Level 3.0, Magnesium Level 2.1 Microbiology 05/11/19 Blood Culture - Preliminary, Resulted No growth 05/11/19 MRSA Screen - Final, Complete MRSA not isolated 05/11/19 Urine Culture - Final, Complete NO GROWTH Radiology Laboratory Tests 05/11/19 15:50: White Blood Count 11.7H, Red Blood Count 5.73, Hemoglobin 16.8, Hematocrit 50, Mean Corpuscular Volume 88, Mean Corpuscular Hemoglobin 29, Mean Corpuscular Hemoglobin Concent 33, Red Cell Distribution Width 14.7H, Platelet Count 313, Mean Platelet Volume 9.5, Neutrophils (%) (Auto) 74, Lymphocytes (%) (Auto) 15, Monocytes (%) (Auto) 10, Eosinophils (%) (Auto) 1, Basophils (%) (Auto) 0, Neutrophils # (Auto) 8.6H, Lymphocytes # (Auto) 1.8, Monocytes # (Auto) 1.1H, Eosinophils # (Auto) 0.1, Basophils # (Auto) 0.0, Prothrombin Time 15.8H, INR Comment 1.2, Activated Partial Thromboplast Time 36H, D-Dimer 0.77H, Urine Color YELLOW, Urine Clarity SLIGHTLY CLOUDY, Urine pH 6, Urine Specific [place] 1.020, Urine Protein 4+, Urine Glucose (UA) 1+H, Urine Ketones 3+H, Urine Nitrite NEGATIVE, Urine Bilirubin NEGATIVE, Urine Urobilinogen NORMAL, Urine Leukocyte Esterase NEGATIVE, Urine RBC (Auto) 5+H, Urine RBC NONE, Urine WBC NONE, Urine Crystals NONE, Urine Bacteria TRACE, Urine Casts NONE, Urine Mucus NEGATIVE, Urine Culture Indicated NO, Sodium Level 142, Potassium Level 4.0, Chloride Level 105, Carbon Dioxide Level 23, Anion Gap 14, Blood Urea Nitrogen 13, Creatinine 0.86, Estimat Glomerular Filtration Rate > 60, BUN/Creatinine Ratio 15, Glucose Level 134H, Lactic Acid Level 2.00, Calcium Level 9.6, Corrected Calcium 9.8, Total Bilirubin 2.7H, Aspartate Amino Transf (AST/SGOT) 77H, Alanine Aminotransferase (ALT/SGPT) 36, Alkaline Phosphatase 98, Troponin I 0.113H, Total Protein 7.2, Albumin 3.8 05/12/19 04:30: White Blood Count 12.2H, Red Blood Count 5.16, Hemoglobin 15.2, Hematocrit 46, Mean Corpuscular Volume 88, Mean Corpuscular Hemoglobin 30, Mean Corpuscular Hemoglobin Concent 33, Red Cell Distribution Width 14.9H, Platelet Count 281, Mean Platelet Volume 9.4, Neutrophils (%) (Auto) 76H, Lymphocytes (%) (Auto) 12, Monocytes (%) (Auto) 11, Eosinophils (%) (Auto) 1, Basophils (%) (Auto) 0, Neutrophils # (Auto) 9.3H, Lymphocytes # (Auto) 1.5, Monocytes # (Auto) 1.3H, Eosinophils # (Auto) 0.1, Basophils # (Auto) 0.0, Sodium Level 142, Potassium Level 3.8, Chloride Level 109H, Carbon Dioxide Level 20L, Anion Gap 13, Blood Urea Nitrogen 13, Creatinine 0.84, Estimat Glomerular Filtration Rate > 60, BUN/Creatinine Ratio 15, Glucose Level 143H, Calcium Level 8.6, Phosphorus Level 3.3, Magnesium Level 1.6 05/12/19 06:26: White Blood Count 13.1H, Red Blood Count 5.59, Hemoglobin 16.3, Hematocrit 50, Mean Corpuscular Volume 89, Mean Corpuscular Hemoglobin 29, Mean Corpuscular Hemoglobin Concent 33, Red Cell Distribution Width 14.9H, Platelet Count 271, Mean Platelet Volume 10.0, Neutrophils (%) (Auto) 74, Lymphocytes (%) (Auto) 14, Monocytes (%) (Auto) 11, Eosinophils (%) (Auto) 1, Basophils (%) (Auto) 0, Neutrophils # (Auto) 9.7H, Lymphocytes # (Auto) 1.9, Monocytes # (Auto) 1.4H, Eosinophils # (Auto) 0.1, Basophils # (Auto) 0.0, Sodium Level 141, Potassium Level 3.8, Chloride Level 108H, Carbon Dioxide Level 20L, Anion Gap 13, Blood Urea Nitrogen 13, Creatinine 0.87, Estimat Glomerular Filtration Rate > 60, BUN/Creatinine Ratio 15, Glucose Level 135H, Calcium Level 8.9, Corrected Calcium 9.3, Total Bilirubin 3.2H, Aspartate Amino Transf (AST/SGOT) 83H, Alanin e Aminotransferase (ALT/SGPT) 37, Alkaline Phosphatase 101, Total Protein 6.6, Albumin 3.5, Phosphorus Level 3.3, Magnesium Level 1.7, Triglycerides Level 108, Cholesterol Level 180, LDL Cholesterol Direct 133H, VLDL Cholesterol 22, HDL Cholesterol 37L Clinical Quality Measures DVT/VTE Risk/Contraindication: Risk Factor Score Per Nursin RFS Level Per Nursing on Admit: 4+=Very High PAUL RENTERIA MD May 16, 2019 11:59 POS
--- NOTE | 2019-05-16 14:09 | NUR ---
RD ASSESSMENT Noted during screen pt has been NPO x5d. Spoke with RN regarding plan of care. RN said that the pt could be receiving a PEG tube placement. Given pt's current condition, enteral nutrition would be the best route for the pt to meet their caloric needs. Will continue to follow and provide TF recommendations if necessary. Colin Ivan, MS, RD, LD
--- NOTE | 2019-05-16 14:13 | Physical Therapy Evaluation ---
PT Evaluation-General Medical Diagnosis Admission Date May 11, 2019 at 18:51 Medical Diagnosis: Bilateral frontal stroke Onset Date: May 11, 2019 Therapy Diagnosis Therapy Diagnosis: weakness, debility Height/Weight Height (Feet): 5 Height (Inches): 7.00 Weight (Pounds): 309 Weight (Ounces): 0.0 Precautions Precautions/Isolations: Aspiration, Fall Prevention, Standard Precautions Weight Bear Status Right Lower Extremity: Right Weight Bearing/Tolerated Left Lower Extremity: Left Weight Bearing/Tolerated Referral Physician: Alexander Reason for Referral: Evaluation/Treatment Medical History Pertinent Medical History: Atrial Fib, CABG, CAD, CVA, DM, Neuropathy, PVD, Renal Insufficiency Current History EMS found patient unresponsive in vehicle after over 36 hours. Reviewed History: Yes Prior Prior Level of Function SCALE: Activities may be completed with or without assistive devices. 1-Troaoymewa-[id number] completes the activity by him/herself with no assistance from a helper. 5-Set-up or Clean-up Assistance-helper sets up or cleans up; patient completes activity. [place] assists only prior to or following the activity. 4-Supervision or Touching Assistance-helper provides verbal cues and/or touching/steadying and/or contact guard assistance as patient completes activity. Assistance may be provided throughout the activity or intermittently. 3-Partial/Moderate Assistance-helper does LESS THAN HALF the effort. [place] lifts, holds or supports trunk or limbs, but provides less than half the effort. 2-Substantial/Maximal Assistance-helper does MORE THAN HALF the effort. [place] lifts or holds trunk or limbs and provides more than half the effort. 5-Oumoixgdn-qyefjv does ALL the effort. Patient does none of the effort to complete the activity. Or, the assistance of 2 or more helpers is required for the patient to complete the activity. If activity was not attempted, code reason: 7-Patient Refused. 9-Not Applicable-not attempted and the patient did not perform the activity before the current illness, exacerbation or injury. 10-Not Attempted due to Environmental Limitations-(lack of equipment, weather restraints, etc.). 88-Not Attempted due to Medical Conditions or Safety Concerns. Bed Mobility: 6 Transfers (B,C,W/C): 6 Gait: 6 Stairs: 6 Indoor Mobility (Ambulation): Independent Stairs: Independent PT Evaluation-Current Subjective Patient largely unresponsive to questions, answering some yes/no with a nod. Daughter present in room for short amount of time during tx. Patient reported pain but could not localize or rate it. Objective Patient Orientation: Non-Verbal/Aphasic, Unresponsive Problem Solving: Poor Attachments: Oxygen, Pandya Catheter, IV ROM/Strength ROM Lower Extremities WFL Strength Lower Extremities Left: grossly 3/5; Right: unable to assess Integumentary/Posture Integumentary See nursing notes Bowel Incontinence: Yes Bladder Incontinence: Yes Posture WFL Neuromuscular (Tone, Coordination, Reflexes) Left: grossly intact; Right: diminished Sensory Vision: Functional Hearing: Functional Transfers Roll Left to Right (QC): 1 Lying to Sitting/Side of Bed(Q: 1 Sit to Stand (QC): 1 Balance Sitting Static: Normal Sitting Dynamic: Normal Standing Static: Fair Standing Dynamic: Fair Assessment/Needs Patient co-treated with OT for safety and transfers. Patient was largely unresponsive to therapist questions and movement. Patient moved L arm and leg by self, but had difficulty following commands to move extremities. Patient unable to perform movement of RLE but foot jerked with stimuli to bottom of R foot. Patient dependent on bed mobility to sit to EOB but able to maintain balance once sitting. Patient was max assist for transfer from bed to chair with assist of 2, but patient was able to bear weight through LE. Patient positioned in chair with LE elevated. Rehab Potential: Guarded PT Senior Government Program Analyst Goals Fpc Goals PT Senior Government Program Analyst Goals Time Frame: May 23, 2019 Sit to Lying (QC): 2 Lying-Sitting on Side/Bed(QC): 2 Sit to Stand (QC): 2 Roll Left to Right (QC): 2 Chair/Uia-zw-Frcwk Xfer(QC): 2 Car Transfer (QC): 2 PT Plan Problem List Problem List: Activity Tolerance, Functional Strength, Safety, Balance, Transfer, Bed Mobility Treatment/Plan Treatment Plan: Continue Plan of Care Treatment Plan: Bed Mobility, Education, Functional Activity Yennifer, Functional Strength, Safety, Therapeutic Exercise, Transfers Frequency: 6 times per week Estimated Hrs Per Day: .25 hour per day Patient and/or Family Agrees t: Yes Time/GCodes Time In: 1239 Time Out: 1303 Total Billed Treatment Time: 24 Total Billed Treatment 1 visit EVHighC 15min FA 9min ABILIO DE SOUZA PT May 16, 2019 14:13 POS
--- NOTE | 2019-05-16 14:50 | Progress Note ---
Subjective Subjective/Events-last exam Seen at 1153 am. Afebrile, occasionally answering yes or no, has said a few names and given family members kisses. Objective Exam Last Set of Vital Signs Vital Signs Date Time Temp Pulse Resp B/P (MAP) Pulse Ox O2 Delivery O2 Flow Rate FiO2 05/16/19 13:45 37.6 63 95 28 05/16/19 13:40 20 164/97 (119) Nasal Cannula 2.00 Capillary Refill : Less Than 3 SecondsLess Than 3 Seconds I&O Intake and Output 05/16/19 00:00 Intake Total 0 ml Output Total 1050 ml Balance -1050 ml Intake Oral 0 ml Output Urine Total 1050 ml General: Alert, No Acute Distress Lungs: Clear to Auscultation, Normal Air Movement Heart: Regular Rate, No Murmurs Abdomen: Normal Bowel Sounds, Soft Neuro: Other (no movement of right side, does not respond to questions, but shakes my hand) Results/Procedures Lab Laboratory Tests 05/16/19 05:35: White Blood Count 11.7H, Red Blood Count 5.27, Hemoglobin 15.4, Hematocrit 48, Mean Corpuscular Volume 92, Mean Corpuscular Hemoglobin 29, Mean Corpuscular Hemoglobin Concent 32, Red Cell Distribution Width 15.5H, Platelet Count 284, Mean Platelet Volume 9.9, Neutrophils (%) (Auto) 78H, Lymphocytes (%) (Auto) 10L , Monocytes (%) (Auto) 10, Eosinophils (%) (Auto) 1, Basophils (%) (Auto) 0, Neutrophils # (Auto) 9.2H, Lymphocytes # (Auto) 1.2, Monocytes # (Auto) 1.2H, Eosinophils # (Auto) 0.1, Basophils # (Auto) 0.0, Sodium Level 145, Potassium Level 4.3, Chloride Level 114H, Carbon Dioxide Level 19L, Anion Gap 12, Blood Urea Nitrogen 17, Creatinine 0.78, Estimat Glomerular Filtration Rate > 60, BUN/Creatinine Ratio 22, Glucose Level 154H, Calcium Level 8.8, Phosphorus Level 3.0, Magnesium Level 2.1 Microbiology 05/11/19 Blood Culture - Preliminary, Resulted No growth 05/11/19 MRSA Screen - Final, Complete MRSA not isolated 05/11/19 Urine Culture - Final, Complete NO GROWTH Radiology Laboratory Tests 05/11/19 15:50: White Blood Count 11.7H, Red Blood Count 5.73, Hemoglobin 16.8, Hematocrit 50, Mean Corpuscular Volume 88, Mean Corpuscular Hemoglobin 29, Mean Corpuscular Hemoglobin Concent 33, Red Cell Distribution Width 14.7H, Platelet Count 313, Mean Platelet Volume 9.5, Neutrophils (%) (Auto) 74, Lymphocytes (%) (Auto) 15, Monocytes (%) (Auto) 10, Eosinophils (%) (Auto) 1, Basophils (%) (Auto) 0, Neutrophils # (Auto) 8.6H, Lymphocytes # (Auto) 1.8, Monocytes # (Auto) 1.1H, Eosinophils # (Auto) 0.1, Basophils # (Auto) 0.0, Prothrombin Time 15.8H, INR Comment 1.2, Activated Partial Thromboplast Time 36H, D-Dimer 0.77H, Urine Color YELLOW, Urine Clarity SLIGHTLY CLOUDY, Urine pH 6, Urine Specific [place] 1.020, Urine Protein 4+, Urine Glucose (UA) 1+H, Urine Ketones 3+H, Urine Nitrite NEGATIVE, Urine Bilirubin NEGATIVE, Urine Urobilinogen NORMAL, Urine Leukocyte Esterase NEGATIVE, Urine RBC (Auto) 5+H, Urine RBC NONE, Urine WBC NONE, Urine Crystals NONE, Urine Bacteria TRACE, Urine Casts NONE, Urine Mucus NEGATIVE, Urine Culture Indicated NO, Sodium Level 142, Potassium Level 4.0, Chloride Level 105, Carbon Dioxide Level 23, Anion Gap 14, Blood Urea Nitrogen 13, Creatinine 0.86, Estimat Glomerular Filtration Rate > 60, BUN/Creatinine Ratio 15, Glucose Level 134H, Lactic Acid Level 2.00, Calcium Level 9.6, Corrected Calcium 9.8, Total Bilirubin 2.7H, Aspartate Amino Transf (AST/SGOT) 77H, Jc ine Aminotransferase (ALT/SGPT) 36, Alkaline Phosphatase 98, Troponin I 0.113H, Total Protein 7.2, Albumin 3.8 05/12/19 04:30: White Blood Count 12.2H, Red Blood Count 5.16, Hemoglobin 15.2, Hematocrit 46, Mean Corpuscular Volume 88, Mean Corpuscular Hemoglobin 30, Mean Corpuscular Hemoglobin Concent 33, Red Cell Distribution Width 14.9H, Platelet Count 281, Mean Platelet Volume 9.4, Neutrophils (%) (Auto) 76H, Lymphocytes (%) (Auto) 12, Monocytes (%) (Auto) 11, Eosinophils (%) (Auto) 1, Basophils (%) (Auto) 0, Neutrophils # (Auto) 9.3H, Lymphocytes # (Auto) 1.5, Monocytes # (Auto) 1.3H, Eosinophils # (Auto) 0.1, Basophils # (Auto) 0.0, Sodium Level 142, Potassium Level 3.8, Chloride Level 109H, Carbon Dioxide Level 20L, Anion Gap 13, Blood Urea Nitrogen 13, Creatinine 0.84, Estimat Glomerular Filtration Rate > 60, BUN/Creatinine Ratio 15, Glucose Level 143H, Calcium Level 8.6, Phosphorus Level 3.3, Magnesium Level 1.6 05/12/19 06:26: White Blood Count 13.1H, Red Blood Count 5.59, Hemoglobin 16.3, Hematocrit 50, Mean Corpuscular Volume 89, Mean Corpuscular Hemoglobin 29, Mean Corpuscular Hemoglobin Concent 33, Red Cell Distribution Width 14.9H, Platelet Count 271, Mean Platelet Volume 10.0, Neutrophils (%) (Auto) 74, Lymphocytes (%) (Auto) 14, Monocytes (%) (Auto) 11, Eosinophils (%) (Auto) 1, Basophils (%) (Auto) 0, Neutrophils # (Auto) 9.7H, Lymphocytes # (Auto) 1.9, Monocytes # (Auto) 1.4H, Eosinophils # (Auto) 0.1, Basophils # (Auto) 0.0, Sodium Level 141, Potassium Level 3.8, Chloride Level 108H, Carbon Dioxide Level 20L, Anion Gap 13, Blood Urea Nitrogen 13, Creatinine 0.87, Estimat Glomerular Filtration Rate > 60, BUN/Creatinine Ratio 15, Glucose Level 135H, Calcium Level 8.9, Corrected Calcium 9.3, Total Bilirubin 3.2H, Aspartate Amino Transf (AST/SGOT) 83H, A lanine Aminotransferase (ALT/SGPT) 37, Alkaline Phosphatase 101, Total Protein 6.6, Albumin 3.5, Phosphorus Level 3.3, Magnesium Level 1.7, Triglycerides Level 108, Cholesterol Level 180, LDL Cholesterol Direct 133H, VLDL Cholesterol 22, HDL Cholesterol 37L Assessment/Plan Assessment/Plan (1) Acute cardioembolic stroke Status: Acute Assessment & Plan: Has had some return of speech, minimal movement, not awake enough to complete swallow eval yesterday. Will try again today, if unable to swallow or not alert enough, will consult Surgery tomorrow to discuss PEG with family. (2) HTN (hypertension) Status: Chronic Assessment & Plan: Some HTN permitted after acute stroke. Labetalol prn BP > 180. Qualifiers: Qualified Codes: I10 - Essential (primary) hypertension (3) Diabetes mellitus Status: Chronic Assessment & Plan: Blood sugar 130s-150s, monitor. Qualifiers: (4) DVT prophylaxis Status: Acute Assessment & Plan: Per stroke center, holding anticoagulation, on antiplatelet only for now. (5) Discharge planning issues Status: Acute Assessment & Plan: custodial referrals for senior living to be started today. Clinical Quality Measures DVT/VTE Risk/Contraindication: Risk Factor Score Per Nursin RFS Level Per Nursing on Admit: 4+=Very High PAUL RENTREIA MD May 16, 2019 14:50 POS
--- NOTE | 2019-05-16 14:53 | Pulmonary Progress Note ---
Subjective Time Seen by a Provider: 14:52 Subjective/Events-last exam No family at bedside. Sepsis Event Evaluation Height, Weight, BMI Height: 5'7.00" Weight: 309lbs. 0.0oz. 140.491339hg; 39.96 BMI Method: Exam Exam Vital Signs Date Time Temp Pulse Resp B/P (MAP) Pulse Ox O2 Delivery O2 Flow Rate FiO2 05/16/19 13:45 37.6 63 95 28 05/16/19 13:40 63 20 164/97 (119) 95 Nasal Cannula 2.00 05/16/19 13:08 186/97 (126) 05/16/19 13:00 80 05/16/19 12:00 37.6 79 18 197/93 (127) 94 Nasal Cannula 2.00 05/16/19 11:15 Nasal Cannula 2.00 05/16/19 08:00 36.2 66 20 174/83 (113) 90 Nasal Cannula 2.00 05/16/19 08:00 92 Nasal Cannula 2.00 05/16/19 07:21 92 Nasal Cannula 2.00 05/16/19 07:00 70 05/16/19 04:00 36.2 58 21 180/86 (117) 92 Nasal Cannula 2.00 05/16/19 00:51 73 05/16/19 00:00 36.0 86 20 180/97 (124) 93 Nasal Cannula 2.00 05/15/19 20:21 92 Nasal Cannula 2.00 05/15/19 20:00 92 Nasal Cannula 2.00 05/15/19 19:37 35.8 85 22 207/101 (136) 90 Nasal Cannula 2.00 05/15/19 19:00 89 05/15/19 15:39 36.4 70 18 176/105 (128) 92 Room Air I & O 05/16/19 07:00 Intake Total 0 ml Output Total 1200 ml Balance -1200 ml Height & Weight Height: 5'7.00" Weight: 309lbs. 0.0oz. 140.829185ng; 39.96 BMI Method: General Appearance: No Apparent Distress, Chronically ill HEENT: No Scleral Icterus (L), No Scleral Icterus (R); Other (PERRL, eyes deviated to the left) Neck: Supple; No Carotid Bruit (not appreciated ), No Lymphadenopathy (L), No Lymphadenopathy (R) Respiratory: Lungs Clear, No Accessory Muscle Use, No Respiratory Distress Cardiovascular: No Murmur, Normal Peripheral Pulses Capillary Refill: Less Than 3 Seconds Peripheral Pulses: 2+ Dorsalis Pedis (R), 2+ Left Dors-Pedis (L), 2+ Radial Pulses (R), 2+ Radial Pulses (L) Gastrointestinal: normal bowel sounds, soft, no pulsatile mass Extremity: No Pedal Edema Neurologic/Psychiatric: Disoriented (comatose) Skin: Normal Color, Warm/Dry Results Lab Laboratory Tests 05/15/19 04:58 05/16/19 05:35 Assessment/Plan Assessment/Plan Stroke, likely cardioembolic -CTA displayed inferior anterior R fontal lobe and superior posterior left lateral frontal lobe acute infarct without large vessel occlusion -MRI could not be performed due to patient size -hold anticoagulation therapy per discussion with [facility] x 1 wk -Continue antiplatelet therapy -[facility] was contacted again 05/12 secondary to family wanting all intervention. [facility] confirmed that there is nothing more than what we are doing here. -Palliative has discussed code status and prognosis with daughter Carotid stenosis -50-70% stenosis of L carotid -near occlusion of R carotic Hypertension -Labetalol - PRN Afib -currently in Afib -Cards consulted Pt will most likely need alf and/or Hospice. If family wants continued aggressive care will most likely need PEG tube for TF. I am going to sign off. Please call with any questions or concerns. REBECCA ADAMES DO May 16, 2019 14:53 POS
--- NOTE | 2019-05-16 15:15 | Occupational Therapy Eval ---
OT Evaluation-General/PLF Medical Diagnosis Admission Date May 11, 2019 at 18:51 Medical Diagnosis: Bilateral frontal stroke Onset Date: May 11, 2019 Therapy Diagnosis Therapy Diagnosis: Decreased ADL function Height/Weight Height (Feet): 5 Height (Inches): 7.00 Weight (Pounds): 309 Weight (Ounces): 0.0 Precautions Precautions/Isolations: Aspiration, Fall Prevention, Standard Precautions Safety Interventions: Bed Exit Alarm Referral Physician: Alexander Referral Reason: Activity Tolerance, Self Care, Evaluation/Treatment, Strengthening/ROM Medical History Pertinent Medical History: Atrial Fib, CABG, CAD, CVA, DM, Neuropathy, PVD, Renal Insufficiency Additional Medical History See above. Current History Per H&P: "This is a 78 y/o WM with a PMH of A-FIB who was found in his car for over 36 hours in the same positionfound to have suffered an embolic type stroke that'scatastrophic. He was placed in the ICU for close monitoring but now he is less responsive and palliative care has been consulted. MRI is being obtained under Dr. Tan's instruction to confirms the catastrophic loss of brain function in order to simply put for end of life care." Reviewed History: Yes Social History Pt not able to verbalize responses to home environment. ADL-Prior Level of Function SCALE: Activities may be completed with or without assistive devices. 8-Zvmdistheq-taszzze completes the activity by him/herself with no assistance from a helper. 5-Set-up or Clean-up Assistance-helper sets up or cleans up; patient completes activity. [place] assists only prior to or following the activity. 4-Supervision or Touching Assistance-helper provides verbal cues and/or touching/steadying and/or contact guard assistance as patient completes activity. Assistance may be provided throughout the activity or intermittently. 3-Partial/Moderate Assistance-helper does LESS THAN HALF the effort. [place] lifts, holds or supports trunk or limbs, but provides less than half the effort. 2-Substantial/Maximal Assistance-helper does MORE THAN HALF the effort. [place] lifts or holds trunk or limbs and provides more than half the effort. 2-Suuaxgbud-qcukxz does ALL the effort. Patient does none of the effort to complete the activity. Or, the assistance of 2 or more helpers is required for the patient to complete the activity. If activity was not attempted, code reason: 7-Patient Refused. 9-Not Applicable-not attempted and the patient did not perform the activity before the current illness, exacerbation or injury. 10-Not Attempted due to Environmental Limitations-(lack of equipment, weather restraints, etc.). 88-Not Attempted due to Medical Conditions or Safety Concerns. Self Care: Independent Functional Cognition: Independent Drive Self: Yes OT Current Status Subjective Pt seen in bed, pt easily woken with verbalization. Pt's R hand edematous, R leg edematous and hardened; nursing notified. Pt agreeable to OT / PT cotreatment/ evaluation. Pt does not respond if any pain is present. Mental Status/Objective Patient Orientation: Unable to Assess (pt responds with nods inconsistently; does not verbalize), Eyes Open Current Upper Extremity ROM R UE flaccid L UE decreased strength Upper Extremity Coordination R impaired L WFL Upper Extremity Sensation R impaired- does not respond to light touch or cold rag L WFL Upper Extremity Strength R impaired L impaired Edema: present RUE/ RLE ADL-Treatment Shower/Bathe Self (QC): 1 (Pt asked to grab wipe, pt hold on to wipe and does not use in functional way. ) Upper Body Dressing (QC): 1 Lower Body Dressing (QC): 1 On/Off Footwear (QC): 1 Other Treatments PT/ OT cotreatment due to severity of CVA, safety, and dependence in transfers. OT focuses on UB movement, eye tracking, direction following, and ADL abilities; PT focuses on LB movement and sensation, gait and balance, and gross motor movements. Based on clinical judgment, pt TD with all ADL activities. Pt sits in bed, opens eyes to verbalizations, tracks faces to L side to midline. Pt unable to track past midline. Pt does not turn head to R. Pt completes AROM of L UE with max cues, unable to strength test but weak bowling ball patcher strength. Flaccid and edematous R UE. Pt bed mob with TD, sits EOB for ~5 minutes without assist. Pt transfers EOB to recliner chair with Max A (PT reports pt supporting self in standing during transfer). Pt positioned with R arm propped to encourage edema management; pt responds with facial expressions and nodding more consistently while in sitting position. Pt's L hand guided to R hand to grasp; pt encouraged to hold/ look to R hand; pt returns L hand to chair with call light in hand. Pt's cervical range assessed: pt completes full ROM to L side, requires PROM to R side as eyes do not stay in midline but return to L side. Pt left with call light in hand, all needs met. Daughter present through middle of session. Education OT Patient Education: Correct positioning, Modified ADL techniques, Purpose of tx/functional activities, Safety issues, Transfer techniques Teaching Recipient: Patient Teaching Methods: Demonstration, Discussion Response to Teaching: Unable to Return Demonstration, Return Demonstration, Unable to Comprehend, Reinforcement Needed OT Short Term Goals Short Term Goals 1=Demonstrate adherence to instructed precautions during ADL tasks. 2=Patient will verbalize/demonstrate understanding of assistive devices/modifications for ADL. 3=Patient will improve strength/tolerance for activity to enable patient to perform ADL's. OT Usp Goals [employer] Goals Time Frame: May 23, 2019 Eating (QC): 3 Oral Hygiene (QC): 3 Shower/Bathe Self (QC): 2 Upper Body Dressing (QC): 3 Lower Body Dressing (QC): 2 On/Off Footwear (QC): 2 Toileting Hygiene (QC): 3 Toilet/Commode Transfer (QC): 3 Additional Goals: 1-Demonstrate ADL Tasks, 2-Verbalize Understanding, 3- ImproveStrength/Yennifer 1=Demonstrate adherence to instructed precautions during ADL tasks. 2=Patient will verbalize/demonstrate understanding of assistive devices/modifications for ADL. 3=Patient will improve strength/tolerance for activity to enable patient to perform ADL's. OT Education/Plan Problem List/Assessment Assessment: Decreased Activ Tolerance, Decreased UE Strength, Dependent Transfers, Edema, Impaired Bed Mobility, Impaired Cognition, Impaired Coordination, Impaired Funct Balance, Impaired I ADL's, Impaired Self-Care Skills, Visual-Perceptual Deficit Discharge Recommendations Plan/Recommendations: Continue POC Therapy Discharge Recommendati: 24 Hour Supervision, Post Acute OT Treatment Plan/Plan of Care Treatment,Training & Education: Yes Patient would benefit from OT for education, treatment and training to promote independence in ADL's, mobility, safety and/or upper extremity function for ADL's. Plan of Care: ADL Retraining, Caregiver Training, Cognitive Retraining, Functional Mobility, Group Exercise/Act as Ind, UE Funct Exercise/Act, UE Neuromus Re-Ed/Coord, Visual/Perceptual Retrain, W/C Management Training Treatment Duration: May 23, 2019 Frequency: 5 times per week Estimated Hrs Per Day: .25 hour per day Agreement: Yes Rehab Potential: Guarded Time/GCodes Start Time: 12:39 Stop Time: 13:03 Total Time Billed (hr/min): 24 Billed Treatment Time OT/PT cotreatment: PT/ OT cotreatment due to severity of CVA, safety, and dependence in transfers. OT focuses on UB movement, eye tracking, direction following, and ADL abilities; PT focuses on LB movement and sensation, gait and balance, and gross motor movements. 1, EVH (15), ADL (9)= 24 BRIA SHUKLA OTR May 16, 2019 15:15 POS
[2019-05-16] MEDS ORDERED: IOHEXOL 350 MG/ML 100 ML (OMNIPAQUE 350) VIAL IV ONE (15:30)
[2019-05-16] MEDS ORDERED: HOLD METFORMIN - RECEIVED CONTRAST 20 ML VIAL IV SCH (15:30)
[2019-05-16] MEDS ORDERED: NS 100 ML (IVPB) BAG IV ONE (15:30)
--- NOTE | 2019-05-16 15:40 | Diagnostic Imaging Report ---
PROCEDURE: CT head with and without contrast. TECHNIQUE: Multiple contiguous axial images were obtained through the brain before and after the administration of intravenous contrast. Auto Exposure Controls were utilized during the CT exam to meet ALARA standards for radiation dose reduction. INDICATION: CVA. Correlation is made with prior CT from 05/11/2019. FINDINGS: There has been development of areas of low density in bilateral frontal lobes. Overall territory of involvement is greatest on the left. There is also low density involving the left temporal lobe and portions of the left posterior parietal lobe. These are consistent with subacute areas of infarction. No significant mass effect or midline shift is identified. No acute intra-axial or extra-axial hemorrhage is identified. No abnormal enhancement following contrast administration is identified. IMPRESSION: Subacute infarcts of bilateral middle cerebral artery territories, largest on the left. No hemorrhagic transformation is seen. There is no mass effect or midline shift. Dictated by: Dictated on workstation # [id number]
--- NOTE | 2019-05-16 15:46 | ST Dysphagia Evaluation ---
Speech Evaluation-General Medical Diagnosis Bilateral frontal stroke Onset Date: May 11, 2019 Therapy Diagnosis Therapy Diagnosis: Oropharyngeal Dysphagia Precautions Precautions: Aspiration Precautions/Isolations: Aspiration, Standard Precautions Medical History Pertinent Medical History: Atrial Fib, CABG, CAD, CVA, DM, Neuropathy, PVD, Renal Insufficiency Reviewed History: Yes Speech PLF/Current-Dysphagia Prior Level of Function Prior to CVA the patient was able to eat what he wanted to without difficulty. Subjective The patient alerted to his name and opened his eyes. He was non verbal in my presence. Cognitive Status Patient Orientation: Unable to Assess, Eyes Open Oral Motor Skills Dentition: Natural, Tumbled, Stained Ability to Follow Directions: Unable Patient has been NPO pending BDE. Oral Expression Ability: Severe Impairment Oral-Facial Assessment Oral-Facial Dentition: Normal Labial Seal Description: Reduced ROM, Weak, Poor Coordination Unable to complete. Lingual Protrusion: Abnormal Lingual ROM: Abnormal Lingual Strength: Abnormal Pharynx Velopharyngeal Move.: Absent Volitional Dry Swallow: No Voluntary Cough: No Can Clear Throat Volitionally: No Productive Cough: No Productive Throat Clear: No Dysphagia Evaluation Consistencies Presented: Thin Liquid 1/2 tsp presentation with severe swallow delay. Oral Phase: Absent Oral Transit Dietary Recommendations: NPO Liquid Recommendations: NPO Alternate food source (PEG) Dysphagia Evaluation Summary Patient is a 78 year old man who was hospitalized after being found unresponsive in his car. The patient has had a bilateral CVA. Patient is primarily non verbal and unable to follow directions. Patient has been attempted for a BDE last week, however due to his non responsive status he was unable to complete. The patient was seen this afternoon with only a presentation of 1/2 tsp of water with severe delay in swallow onset noted. The patient is unsafe for any oral intake at this time. Recommendations are to have an alternate food source implemented. Barriers to Learning Patient's current medical status. Speech-Plan Patient/Family Goals Patient/Family Goals: Patient's family goals are unknown at this time. Patient is a full code per family request. Treatment Plan Speech Therapy Treatment Plan: Discontinue ST Patient should be considered for PEG placement. Treatment Duration: May 16, 2019 Frequency: 1 time per week Estimated Hrs Per Day: .25 hour per day Rehab Potential: Guarded Barriers to Learning: Patient's medical status. Pt/Family Agrees to Plan: Yes Safety Risks/Education Teaching Recipient: Patient Teaching Methods: Discussion Response to Teaching: Reinforcement Needed Education Topics Provided: Unsafe oral intake patient. Time Speech Therapy Time In: 15:30 Speech Therapy Time Out: 15:40 Total Billed Time: 10 Billed Treatment Time TimothyJAMAICA BETHANIA ST May 16, 2019 15:46 POS
[2019-05-17] VITALS (7 sets, daily range): BP systolic 159–187; BP diastolic 75–124
[2019-05-17] MEDS: NS IV 1000 ML 1,000 ML IV SCH (03:55)
[2019-05-17 06:03] LABS: BASOPHILS # (AUTO) 0.1 10^3/uL (0.0-0.1); BASOPHILS % (AUTO) 0 % (0-10); EOSINOPHILS # (AUTO) 0.2 10^3/uL (0.0-0.3); EOSINOPHILS % (AUTO) 2 % (0-10); HEMATOCRIT 46 % (40-54); HEMOGLOBIN 14.6 G/DL (13.3-17.7); LYMPHOCYTES # (AUTO) 1.5 X 10^3 (1.0-4.0); LYMPHOCYTES % (AUTO) 12 % (12-44); MEAN CORPUSCULAR HEMOGLOBIN 30 PG (25-34); MEAN CORPUSCULAR HGB CONC 32 G/DL (32-36); MEAN CORPUSCULAR VOLUME 93 FL (80-99); MEAN PLATELET VOLUME 9.9 FL (7.4-10.4); MONOCYTES # (AUTO) 1.3 X 10^3 (0.0-1.0); MONOCYTES % (AUTO) 11 % (0-12); NEUTROPHILS # (AUTO) 9.3 X 10^3 (1.8-7.8); NEUTROPHILS % (AUTO) 75 % (42-75); PLATELET COUNT 259 10^3/uL (130-400); RED CELL DISTRIBUTION WIDTH 15.5 % (10.0-14.5); WHITE BLOOD COUNT 12.4 10^3/uL (4.3-11.0)
[2019-05-17 06:25] LABS: BUN/CREATININE RATIO 36; CALCIUM 8.4 MG/DL (8.5-10.1); CARBON DIOXIDE 21 MMOL/L (21-32); CHLORIDE 116 MMOL/L (98-107); CREATININE SERUM 0.77 MG/DL (0.60-1.30); GFR ESTIMATED > 60; GLUCOSE 146 MG/DL (70-105); MAGNESIUM 2.1 MG/DL (1.6-2.4); PHOSPHORUS 2.8 MG/DL (2.3-4.7); POTASSIUM 4.3 MMOL/L (3.6-5.0); SODIUM 146 MMOL/L (135-145)
[2019-05-17] MEDS: POTASSIUM CL 10MEQ/50ML IVPB 50 ML IV SCH (06:31)
[2019-05-17] MEDS: MAGNESIUM 1 GM/100 ML IVPB 100 ML IV SCH (06:32)
[2019-05-17] MEDS: KCL 20 MEQ TAB (K-DUR) PO SCH (06:32)
[2019-05-17] MEDS: RT-ALBUTEROL SULF 2.5 MG/3 ML PRE-MIX VIAL INH SCH (07:22)
--- NOTE | 2019-05-17 07:49 | Diagnostic Imaging Report ---
INDICATION: Cerebrovascular accident. COMPARISON: 05/16/2019 FINDINGS: Single frontal radiographic view of the chest was obtained and demonstrates persistent moderate cardiomegaly. Pulmonary vasculature is within normal limits. Sternotomy wires are noted. Lungs show patchy airspace opacities within the left base partially obscuring the left hemidiaphragm. Small effusions are suspected. There is asymmetric patchy airspace opacity within the left base. No pneumothorax is identified on either side. Osseous structures show no gross acute abnormalities. IMPRESSION: 1. Stable exam of the chest showing cardiomegaly, but no evidence of overt failure. 2. Probable small bibasilar effusions with asymmetric left basilar atelectasis and/or infiltrate. Dictated by: Dictated on workstation # [id number]
[2019-05-17] MEDS: ASPIRIN E.C. 325 MG (ECOTRIN) TABLET PO SCH (08:25)
--- NOTE | 2019-05-17 08:29 | Cardiology Progress Note ---
Subjective Date Seen by Provider: May 17, 2019 Time Seen by Provider: 08:25 Subjective/Events-last exam patient is in bed, opening his eyes. Not communicating Review of Systems General: Other ( unable to provide review of systems) Objective-Cardiology Exam Last Set of Vital Signs Vital Signs 05/16/19 05/17/19 05/17/19 13:45 04:00 07:22 Temp 36.8 Pulse 66 Resp 21 B/P (MAP) 159/90 (113) Pulse Ox 92 O2 Delivery Nasal Cannula O2 Flow Rate 3.00 FiO2 28 Capillary Refill : Less Than 3 SecondsLess Than 3 Seconds I&O Intake and Output 05/17/19 00:00 Intake Total 0 ml Output Total 1300 ml Balance -1300 ml Intake Oral 0 ml Output Urine Total 1300 ml General: Alert, No Acute Distress, Other ( opening his eyes) Neck: Supple Lungs: Clear to Auscultation, Normal Air Movement Heart: Regular Rate, No Murmurs Abdomen: Normal Bowel Sounds, Soft Extremities: No Clubbing, No Cyanosis Neuro: Other (no movement of right side, does not respond to questions, but shakes my hand) Results Lab Laboratory Tests 05/17/19 05:10 A/P-Cardiology Admission Diagnosis CVA CAD PAF [place] Assessment/Plan CVA- CTA revealed displayed inferior anterior R fontal lobe and superior po sterior left lateral frontal lobe acute infarct without large vessel occlusion. Per [facility] neurology, continue on antiplatelet at this time and hold OAC x 1 week. Coronary artery disease status post CABG 5 using GOODSON to LAD, vein graft to the first diagonal, vein graft to the obtuse marginal sequential to the posterior lateral of the right and PDA and aortic valve replacement using tissue valve done in July [address] White at [facility] in [place]. Had an abnormal stress test, cardiac catheterization done on November 25, 2017 showing patent GOODSON to LAD, vein graft to diagonal artery giving good flow to the LAD system that has been occluded proximally and patent jump graft to the first obtuse marginal branch which is a very small artery and the posterolateral branch of the right PDA that has ectasia and small vessel disease. The [place] circumflex artery has mild disease, the second and third obtuse marginal branch had moderate to severe disease but there are very small arteries. The right coronary artery is a dominant artery with diffuse ectasia and slow flow noted through followed the right system, medical therapy is recommended Paroxysmal atrial fibrillation, EKG reveals atrial fibrillation, rate controlled. Maintained on Eliquis as outpatient, patient's daughter reports he had not been compliant with medication recently. [id number] score is 5, maintained on Eliquis. Continue to monitor Severe right carotid artery stenosis, was referred to [facility] monitored by Dr. Goodman. CTA neck done revealing near occlusion of right ICA, left ICA 50- 70%. History of elevated liver enzymes, continue to monitor. Hypertension, continue to monitor blood pressure to keep SBP <180 Hyperlipidemia, lipid profile from June 09, 2018 showing total cholesterol 165, HDL 39, triglyceride 193, LDL 97, continue to monitor History of chronic kidney disease, continue to monitor renal function, followed by [facility] business system consultant as outpatient. Diabetes mellitus, followed and managed by primary care physician History of chronic peripheral edema Obesity History of upper GI bleed Overall patient has poor prognosis, had a long discussion with the daughter, followed with medical service recommendation Clinical Quality Measures DVT/VTE Risk/Contraindication: Risk Factor Score Per Nursin RFS Level Per Nursing on Admit: 4+=Very High CARLOS HUTCHINSON MD May 17, 2019 08:29 POS
[2019-05-17] MEDS: LABETALOL HCL 20 MG/4 ML VIAL IV PRN ×2 (08:56→16:00)
--- NOTE | 2019-05-17 08:56 | NUR ---
BP 187/100, LABETALOL 20MG GIVEN IV ORDERED
--- NOTE | 2019-05-17 09:20 | Physical Therapy Daily Note ---
PT Daily Note-Current Subjective Patient able to respond to some questions this morning. Patient says yes to doing okay this morning and reports no to having any pain. Pain Numeric Pain Scale: 0-No Pain Location: No Pain Reported Mental Status Patient Orientation: Confused, Unresponsive Attachments: Oxygen, Pandya Catheter, IV Transfers SCALE: Activities may be completed with or without assistive devices. 4-Hpkxmtbdlo-ozzmeac completes the activity by him/herself with no assistance from a helper. 5-Set-up or Clean-up Assistance-helper sets up or cleans up; patient completes activity. [place] assists only prior to or following the activity. 4-Supervision or Touching Assistance-helper provides verbal cues and/or touching/steadying and/or contact guard assistance as patient completes activity. Assistance may be provided throughout the activity or intermittently. 3-Partial/Moderate Assistance-helper does LESS THAN HALF the effort. [place] lifts, holds or supports trunk or limbs, but provides less than half the effort. 2-Substantial/Maximal Assistance-helper does MORE THAN HALF the effort. [place] lifts or holds trunk or limbs and provides more than half the effort. 3-Qvceiscpe-hckhwa does ALL the effort. Patient does none of the effort to complete the activity. Or, the assistance of 2 or more helpers is required for the patient to complete the activity. If activity was not attempted, code reason: 7-Patient Refused. 9-Not Applicable-not attempted and the patient did not perform the activity before the current illness, exacerbation or injury. 10-Not Attempted due to Environmental Limitations-(lack of equipment, weather restraints, etc.). 88-Not Attempted due to Medical Conditions or Safety Concerns. Transfers (B, C, W/C): 1 Roll Left to Right (QC): 1 Sit to Stand (QC): 1 Weight Bearing Right Lower Extremity: Right Weight Bearing/Tolerated Left Lower Extremity: Left Weight Bearing/Tolerated Exercises Supine Ex: Ankle pumps, Heel Slides, Hip abd/add Supine Reps: 10 Assessment Patient appeared slightly more responsive to questions and therapy today during exercises. Patient able to assist some with exercises on LLE but PROM on RLE for all exercises. Patient dependent for transfer from supine to sitting to EOB. Once seated, patient leaned toward the R persistently, unable to correct self. Patient dependent for transfer to chair with assist of two. Did minimal weight bearing on LEs and leaned forward into therapist for support during transfer. Patient seated in chair with LEs elevated on pillows to suspend heels. PT Mcfp Goals Mcfp Goals PT Mcfp Goals Time Frame: May 23, 2019 Sit to Lying (QC): 2 Lying-Sitting on Side/Bed(QC): 2 Sit to Stand (QC): 2 Roll Left to Right (QC): 2 Chair/Ice-dv-Gywip Xfer(QC): 2 Car Transfer (QC): 2 PT Plan Treatment/Plan Treatment Plan: Continue Plan of Care Treatment Plan: Bed Mobility, Education, Functional Activity Yennifer, Functional Strength, Safety, Therapeutic Exercise, Transfers Frequency: 6 times per week Estimated Hrs Per Day: .25 hour per day Patient and/or Family Agrees t: Yes Time/GCodes Time In: 813 Time Out: 831 Total Billed Treatment Time: 18 Total Billed Treatment 1 visit EX 18min ABILIO DE SOUZA PT May 17, 2019 09:20 POS
--- NOTE | 2019-05-17 10:02 | Occupational Ther Daily Note ---
OT Current Status-Daily Note Subjective Pt upright in recliner, nursing present at start of session using swab to clean pt's mouth. OT informed pt about plans of tx. Pt did not verbalize any responses but was able to track with his eyes some throughout session. ADL-Treatment Therapy Code Descriptions/Definitions Functional [place] Measure: 0=Not Assessed/NA 4=Minimal Assistance 1=Total Assistance 5=Supervision or Setup 2=Maximal Assistance 6=Modified [place] 3=Moderate Assistance 7=Complete IndependenceSCALE: Activities may be completed with or without assistive devices. 7-Qgzecjnrji-xuygcci completes the activity by him/herself with no assistance from a helper. 5-Set-up or Clean-up Assistance-helper sets up or cleans up; patient completes activity. [place] assists only prior to or following the activity. 4-Supervision or Touching Assistance-helper provides verbal cues and/or touching/steadying and/or contact guard assistance as patient completes activity. Assistance may be provided throughout the activity or intermittently. 3-Partial/Moderate Assistance-helper does LESS THAN HALF the effort. [place] lifts, holds or supports trunk or limbs, but provides less than half the effort. 2-Substantial/Maximal Assistance-helper does MORE THAN HALF the effort. [place] lifts or holds trunk or limbs and provides more than half the effort. 3-Azuqzrllg-sdkiug does ALL the effort. Patient does none of the effort to complete the activity. Or, the assistance of 2 or more helpers is required for the patient to complete the activity. If activity was not attempted, code reason: 7-Patient Refused. 9-Not Applicable-not attempted and the patient did not perform the activity before the current illness, exacerbation or injury. 10-Not Attempted due to Environmental Limitations-(lack of equipment, weather restraints, etc.). 88-Not Attempted due to Medical Conditions or Safety Concerns. Other Treatment Pt upright in recliner. OT provided pt with warm wet wipe in L hand, pt did not attempt to use washcloth. OT assisted pt with washing face & washing BUE (dependent with task). OT asked pt if he was able to find the TV, he was able to track eyes to midline where TV was on wall and communicated he found it with facial expression. OT performed PROM right finger flexion/extension, wrist flexion/extension, & elbow flexion/extension x15 reps each, noted moderate swelling in right UE. OT asked pt to squeeze his left hand, pt able to move left thumb. Pt asked to squeeze right hand with no palpable contraction & no movement of RUE. Pt did not track eyes past midline to the right throughout session, and he did not turn his head to the right. For the majority of the session, pt looking out window on his left side, only tracking eyes up to midline with OT instruction/encouragement, and eye movement to OT when his name was spoken. Post OT session, pt upright in recliner, pt oriented to call light placed in left hand, all needs met. Education OT Patient Education: Correct positioning, Exercise program, Modified ADL techniques, Progress toward Goal/Update tx plan, Purpose of tx/functional activities Teaching Recipient: Patient Teaching Methods: Discussion Response to Teaching: Unable to Return Demonstration OT Short Term Goals Short Term Goals 1=Demonstrate adherence to instructed precautions during ADL tasks. 2=Patient will verbalize/demonstrate understanding of assistive devices/modifications for ADL. 3=Patient will improve strength/tolerance for activity to enable patient to perform ADL's. OT Stock Grader Goals Stock Grader Goals Time Frame: May 23, 2019 Eating (QC): 3 Oral Hygiene (QC): 3 Shower/Bathe Self (QC): 2 Upper Body Dressing (QC): 3 Lower Body Dressing (QC): 2 On/Off Footwear (QC): 2 Toileting Hygiene (QC): 3 Toilet/Commode Transfer (QC): 3 Additional Goals: 1-Demonstrate ADL Tasks, 2-Verbalize Understanding, 3- ImproveStrength/Yennifer 1=Demonstrate adherence to instructed precautions during ADL tasks. 2=Patient will verbalize/demonstrate understanding of assistive devices/modifications for ADL. 3=Patient will improve strength/tolerance for activity to enable patient to perform ADL's. OT Education/Plan Problem List/Assessment Assessment: Decreased Activ Tolerance, Decreased UE Strength, Impaired Cognition, Impaired I ADL's, Impaired Self-Care Skills, Restricted Funct UE ROM Discharge Recommendations Plan/Recommendations: Continue POC Treatment Plan/Plan of Care Treatment,Training & Education: Yes Patient would benefit from OT for education, treatment and training to promote independence in ADL's, mobility, safety and/or upper extremity function for ADL's. Plan of Care: ADL Retraining, Caregiver Training, Cognitive Retraining, Functional Mobility, Group Exercise/Act as Ind, UE Funct Exercise/Act, UE Neuromus Re-Ed/Coord, Visual/Perceptual Retrain, W/C Management Training Treatment Duration: May 23, 2019 Frequency: 5 times per week Estimated Hrs Per Day: .25 hour per day Agreement: Yes Rehab Potential: Guarded Time/GCodes Start Time: 09:05 Stop Time: 09:17 Total Time Billed (hr/min): 12 Billed Treatment Time 1, ADL (12min) KETTY HALL OT May 17, 2019 10:02 POS
[2019-05-17] MEDS: D5 1/2 NS 1000 ML IV SOLUTION 1,000 ML IV SCH (10:50)
[2019-05-17] MEDS: ASPIRIN 300 MG (5 GR) SUPPOSITORY PR SCH (11:52)
--- NOTE | 2019-05-17 13:27 | Consultation - Surgery ---
[facility] 05/17/19 1327: History of Present Illness History of Present Illness Patient Consulted On(corinne/time) 05/17/19 13:26 Reason for Visit: CVA History of Present Illness Juan Alberto is a 78 y/o male that had a catastrophic stroke. He presented to the ER on 05/11/19. He has a PMH of A-FIb and was found is his car for over 36 hours. General surgery was consulted because the patient cannot swallow and has been unable to get enteral nutrition. Swallowing evaluation showed the patient had difficulty with 1/2 tsp of water with severe delay in swallow onset. The patient is also a aspiration risk. The plan is to place a percutaneous endoscopic gastrostomy so the patient can get feeding. The patient did not have family at the bedside during the time of consult. We will reach out to the family and discuss placement either today or tomorrow. Allergies and Home Medications Allergies Coded Allergies: No Known Drug Allergies (Unverified , 11/25/17) Home Medications Acetaminophen 500 Mg Tablet, 1,000 MG PO Q6H PRN for PAIN-MILD, (Reported) Apixaban 5 Mg Tablet, 5 MG PO BID, (Reported) LAST FILLED #180 06-17-18 B Complex with Vitamin C 1 Each Tablet, 1 TAB PO MoWeFr, (Reported) Bumetanide 1 Mg Tablet, 1 MG PO BID, (Reported) LAST FILLED #120 02-22-19 Ferrous Sulfate 325 Mg Tablet, 325 MG PO DAILY, (Reported) Furosemide 40 Mg Tablet, 40 MG PO DAILY, (Reported) LAST FILLED #60 02-22-19 Gabapentin 100 Mg Capsule, 100 MG PO DAILY, (Reported) LAST FILLED #270 10-16-18 TAKES 1 AM AND 2 PM Gabapentin 100 Mg Capsule, 200 MG PO HS, (Reported) LAST FILLED #270 10-16-18 TAKES 1 AM AND TAKES 2 (100MG) CAPSULES PM Levocetirizine Dihydrochloride 5 Mg Tablet, 5 MG PO HS, (Reported) LAST FILLED #60 02-22-19 Lisinopril 5 Mg Tablet, 10 MG PO DAILY, (Reported) LAST FILLED #60 02-22-19 TAKES 2 (5MG) TABLETS Magnesium Oxide 400 Mg Tablet, 400 MG PO DAILY, (Reported) Metformin HCl 1,000 Mg Tablet, 1,000 MG PO BID, (Reported) LAST FILLED #180 09-03-18 Metoprolol Tartrate 25 Mg Tablet, 25 MG PO BID, (Reported) LAST FILLED #120 19 Multivits,Stress Formula 1 Each Tablet, 1 TAB PO DAILY, (Reported) Mv,Minerals/FA/Lycopene/Ginkgo 1 Each Tablet, 1 TAB PO DAILY, (Reported) Lacon 3 Polyunsat Fatty Acids 1,000 Mg Cap, 1,000 MG PO BID, (Reported) Polyethylene Glycol 3350 17 Gm Powd.pack, 17 GM PO DAILY PRN for CONSTIPATION- 2ND LINE, (Reported) Ropinirole HCl 0.5 Mg Tablet, 0.5 MG PO DAILY, (Reported) LAST FILLED #180 02-22-19 TAKES 1 TABLET IN AM AND 2 AT HS Ropinirole HCl 0.5 Mg Tablet, 1 MG PO HS, (Reported) LAST FILLED #180 19 TAKES 1 TABLET IN AM AND TAKES 2 (0.5MG) TABLETS PM Rosuvastatin Calcium 10 Mg Tablet, 10 MG PO HS, (Reported) LAST FILLED #60 02-22-19 Turmeric Root Extract 538 Mg Capsule, 538 MG PO BID, (Reported) Past Eibhpts-Wouoqs-Kuqqfj Hx Patient Social History Alcohol Use: Denies Use Recreational Drug Use: No Smoking Status: Unknown if Ever Smoked 2nd Hand Smoke Exposure: No Recent Foreign Travel: No Contact w/Someone Who Travel: No Recent Infectious Disease Expo: No Recent Hopitalizations: No Immunizations Up To Date PED Vaccines UTD: Yes Seasonal Allergies Seasonal Allergies: No Surgeries History of Surgeries: Yes Surgeries: Appendectomy, Cardiac, CABG, Valve Replacement Respiratory History of Respiratory Disorde: No Cardiovascular History of Cardiac Disorders: Yes Cardiac Disorders: Atrial Fibrillation, Chronic Edema/Swelling, Coronary Artery Disease, Heart Murmur, High Cholesterol, Hypertension, Peripheral Vascular, Valvular Heart Disease Neurological History of Neurological Disord: Yes Neurological Disorders: Neuropathy, Stroke Genitourinary History of Genitourinary Disor: Yes (CHRONIC RENAL FAILURE) Genitourinary Disorders: Renal Failure Gastrointestinal History of Gastrointestinal Di: Yes (HX OF ULCERATED PEPTIC ULCER/UPPER GI BLEED) Gastrointestinal Disorders: Gastrointestinal Bleed Musculoskeletal History of Musculoskeletal Dis: Yes Musculoskeletal Disorders: Chronic Back Pain Endocrine History of Endocrine Disorders: Yes (MORBID OBESITY) Endocrine Disorders: Diabetes, Non-Insulin dep HEENT History of HEENT Disorders: No Cancer History of Cancer: No Psychosocial History of Psychiatric Problem: No Integumentary History of Skin or Integumenta: No Blood Transfusions History of Blood Disorders: No Family Medical History Significant Family History: No Pertinent Family Hx Review of Systems-General ROS-Unable to Obtain: unable to obtain, pts family not at bedside Physical Exam-General Problems Physical Exam Vital Signs Vital Signs - First Documented 05/11/19 05/12/19 05/14/19 15:35 03:53 09:15 Temp 36.9 Pulse 80 Resp 18 B/P (MAP) 181/131 (148) Pulse Ox 94 O2 Delivery Room Air O2 Flow Rate 2.00 FiO2 21 Capillary Refill : Less Than 3 SecondsLess Than 3 Seconds Neck: supple, normal inspection Respiratory: no respiratory distress, no accessory muscle use Cardiovascular: normal peripheral pulses, regular rate, rhythm Peripheral Pulses: 2+ Radial Pulses (R), 2+ Radial Pulses (L) Gastrointestinal: soft, no organomegaly, no pulsatile mass Neurologic/Psychiatric: No alert, No normal mood/affect, No oriented x 3 Lymphatic: no adenopathy Data Review Labs Laboratory Tests 05/17/19 05:10: White Blood Count 12.4H, Red Blood Count 4.88, Hemoglobin 14.6, Hematocrit 46, Mean Corpuscular Volume 93, Mean Corpuscular Hemoglobin 30, Mean Corpuscular Hemoglobin Concent 32, Red Cell Distribution Width 15.5H, Platelet Count 259, Mean Platelet Volume 9.9, Neutrophils (%) (Auto) 75, Lymphocytes (%) (Auto) 12, Monocytes (%) (Auto) 11, Eosinophils (%) (Auto) 2, Basophils (%) (Auto) 0, Neutrophils # (Auto) 9.3H, Lymphocytes # (Auto) 1.5, Monocytes # (Auto) 1.3H, Eosinophils # (Auto) 0.2, Basophils # (Auto) 0.1, Sodium Level 146H, Potassium Level 4.3, Chloride Level 116H, Carbon Dioxide Level 21, Anion Gap 9, Blood Urea Nitrogen 28H, Creatinine 0.77, Estimat Glomerular Filtration Rate > 60, BUN/Creatinine Ratio 36, Glucose Level 146H, Calcium Level 8.4L, Phosphorus Level 2.8, Magnesium Level 2.1 Microbiology 05/11/19 Blood Culture - Final, Complete No growth 05/11/19 MRSA Screen - Final, Complete MRSA not isolated 05/11/19 Urine Culture - Final, Complete NO GROWTH Assessment/Plan Assessment/Plan Assessment/Plan Acute cardioembolic stroke, HTN, DM, DVT prophylaxis, Dysphagia The plan is to place a percutaneous endoscopic gastrostomy either today 05/17/19 or tomorrow. The patients family was not at the bedside and this is something we will be discussing with them. Clinical Quality Measures DVT/VTE Risk/Contraindication: Risk Factor Score Per Nursin RFS Level Per Nursing on Admit: 4+=Very High JERAD OCHOA DO 05/17/192057: History of Present Illness History of Present Illness Date Seen by Provider: May 17, 2019 Time Seen by Provider: 13:26 History of Present Illness Consult requested by Dr. Munoz for PEG tube placement. Patient is a 78 year old male that has suffered CVA. Was found in his car and noted to be there for 36 hours or more. Patient unable to swallow and did not pass swallow eval. For nutritional purposes it has been asked that I place gastrostomy tube. Patient is unable to provide any information and no family at bedside at this time. Allergies and Home Medications Allergies Coded Allergies: No Known Drug Allergies (Unverified , 11/25/17) Home Medications Acetaminophen 500 Mg Tablet, 1,000 MG PO Q6H PRN for PAIN-MILD, (Reported) Apixaban 5 Mg Tablet, 5 MG PO BID, (Reported) LAST FILLED #180 06-17-18 B Complex with Vitamin C 1 Each Tablet, 1 TAB PO MoWeFr, (Reported) Bumetanide 1 Mg Tablet, 1 MG PO BID, (Reported) LAST FILLED #120 02-22-19 Ferrous Sulfate 325 Mg Tablet, 325 MG PO DAILY, (Reported) Furosemide 40 Mg Tablet, 40 MG PO DAILY, (Reported) LAST FILLED #60 02-22-19 Gabapentin 100 Mg Capsule, 100 MG PO DAILY, (Reported) LAST FILLED #270 10-16-18 TAKES 1 AM AND 2 PM Gabapentin 100 Mg Capsule, 200 MG PO HS, (Reported) LAST FILLED #270 10-16-18 TAKES 1 AM AND TAKES 2 (100MG) CAPSULES PM Levocetirizine Dihydrochloride 5 Mg Tablet, 5 MG PO HS, (Reported) LAST FILLED #60 02-22-19 Lisinopril 5 Mg Tablet, 10 MG PO DAILY, (Reported) LAST FILLED #60 02-22-19 TAKES 2 (5MG) TABLETS Magnesium Oxide 400 Mg Tablet, 400 MG PO DAILY, (Reported) Metformin HCl 1,000 Mg Tablet, 1,000 MG PO BID, (Reported) LAST FILLED #180 09-03-18 Metoprolol Tartrate 25 Mg Tablet, 25 MG PO BID, (Reported) LAST FILLED #120 19 Multivits,Stress Formula 1 Each Tablet, 1 TAB PO DAILY, (Reported) Mv,Minerals/FA/Lycopene/Ginkgo 1 Each Tablet, 1 TAB PO DAILY, (Reported) Lacon 3 Polyunsat Fatty Acids 1,000 Mg Cap, 1,000 MG PO BID, (Reported) Polyethylene Glycol 3350 17 Gm Powd.pack, 17 GM PO DAILY PRN for CONSTIPATION- 2ND LINE, (Reported) Ropinirole HCl 0.5 Mg Tablet, 0.5 MG PO DAILY, (Reported) LAST FILLED #180 02-22-19 TAKES 1 TABLET IN AM AND 2 AT HS Ropinirole HCl 0.5 Mg Tablet, 1 MG PO HS, (Reported) LAST FILLED #180 19 TAKES 1 TABLET IN AM AND TAKES 2 (0.5MG) TABLETS PM Rosuvastatin Calcium 10 Mg Tablet, 10 MG PO HS, (Reported) LAST FILLED #60 02-22-19 Turmeric Root Extract 538 Mg Capsule, 538 MG PO BID, (Reported) Patient Home Medication List Home Medication List Reviewed: Yes Past Utrzepx-Oypfpc-Wijake Hx Patient Social History Alcohol Use: Denies Use Recreational Drug Use: No Smoking Status: Unknown if Ever Smoked 2nd Hand Smoke Exposure: No Recent Foreign Travel: No Contact w/Someone Who Travel: No Recent Infectious Disease Expo: No Recent Hopitalizations: No Seasonal Allergies Seasonal Allergies: No Surgeries History of Surgeries: Yes Surgeries: Appendectomy, Cardiac, CABG, Valve Replacement Respiratory History of Respiratory Disorde: No Cardiovascular History of Cardiac Disorders: Yes Cardiac Disorders: Atrial Fibrillation, Chronic Edema/Swelling, Coronary Artery Disease, Heart Murmur, High Cholesterol, Hypertension, Peripheral Vascular, Valvular Heart Disease Neurological History of Neurological Disord: Yes Neurological Disorders: Neuropathy, Stroke Genitourinary History of Genitourinary Disor: Yes (CHRONIC RENAL FAILURE) Genitourinary Disorders: Renal Failure Gastrointestinal History of Gastrointestinal Di: Yes (HX OF ULCERATED PEPTIC ULCER/UPPER GI BLEED) Gastrointestinal Disorders: Gastrointestinal Bleed Musculoskeletal History of Musculoskeletal Dis: Yes Musculoskeletal Disorders: Chronic Back Pain Endocrine History of Endocrine Disorders: Yes (MORBID OBESITY) Endocrine Disorders: Diabetes, Non-Insulin dep HEENT History of HEENT Disorders: No Cancer History of Cancer: No Psychosocial History of Psychiatric Problem: No Integumentary History of Skin or Integumenta: No Blood Transfusions History of Blood Disorders: No Family Medical History Significant Family History: No Pertinent Family Hx Physical Exam-General Problems Physical Exam General Appearance: no apparent distress HEENT: PERRL/EOMI Neck: supple, normal inspection Respiratory: chest non-tender, no respiratory distress, no accessory muscle use Cardiovascular: normal peripheral pulses Gastrointestinal: soft, no organomegaly, no pulsatile mass Rectal: deferred Back: no CVA tenderness Extremities: other (no right sided movement) Neurologic/Psychiatric: No alert, No normal mood/affect, No oriented x 3 Skin: normal color, warm/dry Lymphatic: no adenopathy Assessment/Plan Assessment/Plan Assessment/Plan acute cardioembolic stroke htn dm dysphagia patient needing Gastrostomy tube placement for nutrition and medications. Would do percutaneous endoscopic gastrostomy tube if family wishes. No family at this time. Currently NPO Need to obtain consent if they wish to proceed Will hold lovenox one dose to do procedure tomorrow if they wish for me to proceed. Supervisory-Addendum Brief Verification & Attestation Participated in pt care: history, MDM, physical Personally performed: exam, history, MDM, supervision of care Care discussed with: Medical Student Procedures: n/a Results interpretation: Verified all documentation Verification and Attestation of Medical Student E/M Service A medical student performed and documented this service in my presence. I reviewed and verified all information documented by the medical student and made modifications to such information, when appropriate. I personally performed the physical exam and medical decision making. Jread Ochoa, May 17, 2019,21:01 [facility] May 17, 2019 13:27 JERAD HOOVER DO May 17, 2019 20:58 POS
--- NOTE | 2019-05-17 14:00 | NUR ---
DR OCHOA HERE, INSTRUCTED NURSE TO OBTAIN CONSENT FOR PEG TUBE INSERTION, PATIENT REMAINS NPO, PATIENT NONVERBAL, OPENS EYES WHEN SPOKED TO, RIGHT SIDE FLACCID, ORAL CARE GIVEN, FELIX PATENT, RIGHT ARM SWOLLEN
--- NOTE | 2019-05-17 14:15 | Progress Note ---
Subjective Subjective/Events-last exam Seen at 0955. Sitting in chair this am, making good eye contact and appears to be attempting to speak. Shakes head when asked if he has pain. Objective Exam Last Set of Vital Signs Vital Signs Date Time Temp Pulse Resp B/P (MAP) Pulse Ox O2 Delivery O2 Flow Rate FiO2 05/17/19 12:41 73 05/17/19 12:00 36.0 20 171/91 (117) 92 Nasal Cannula 2.00 05/16/19 13:45 28 Capillary Refill : Less Than 3 SecondsLess Than 3 Seconds I&O Intake and Output 05/17/19 00:00 Intake Total 0 ml Output Total 1300 ml Balance -1300 ml Intake Oral 0 ml Output Urine Total 1300 ml General: Alert, No Acute Distress Lungs: Clear to Auscultation, Normal Air Movement Heart: Other (irregularly irregular) Neuro: Other (good eye contact, no vocalization, but shaking head to questions. Moving left hand and picking things up off tray, no spontaneous right sided m ovement.) Results/Procedures Lab Laboratory Tests 05/17/19 05:10: White Blood Count 12.4H, Red Blood Count 4.88, Hemoglobin 14.6, Hematocrit 46, Mean Corpuscular Volume 93, Mean Corpuscular Hemoglobin 30, Mean Corpuscular Hemoglobin Concent 32, Red Cell Distribution Width 15.5H, Platelet Count 259, Mean Platelet Volume 9.9, Neutrophils (%) (Auto) 75, Lymphocytes (%) (Auto) 12, Monocytes (%) (Auto) 11, Eosinophils (%) (Auto) 2, Basophils (%) (Auto) 0, Neutrophils # (Auto) 9.3H, Lymphocytes # (Auto) 1.5, Monocytes # (Auto) 1.3H, Eosinophils # (Auto) 0.2, Basophils # (Auto) 0.1, Sodium Level 146H, Potassium Level 4.3, Chloride Level 116H, Carbon Dioxide Level 21, Anion Gap 9, Blood Urea Nitrogen 28H, Creatinine 0.77, Estimat Glomerular Filtration Rate > 60, BUN/Creatinine Ratio 36, Glucose Level 146H, Calcium Level 8.4L, Phosphorus Level 2.8, Magnesium Level 2.1 Microbiology 05/11/19 Blood Culture - Final, Complete No growth 05/11/19 MRSA Screen - Final, Complete MRSA not isolated 05/11/19 Urine Culture - Final, Complete NO GROWTH Radiology Laboratory Tests 05/11/19 15:50: White Blood Count 11.7H, Red Blood Count 5.73, Hemoglobin 16.8, Hematocrit 50, Mean Corpuscular Volume 88, Mean Corpuscular Hemoglobin 29, Mean Corpuscular Hemoglobin Concent 33, Red Cell Distribution Width 14.7H, Platelet Count 313, Mean Platelet Volume 9.5, Neutrophils (%) (Auto) 74, Lymphocytes (%) (Auto) 15, Monocytes (%) (Auto) 10, Eosinophils (%) (Auto) 1, Basophils (%) (Auto) 0, Neutrophils # (Auto) 8.6H, Lymphocytes # (Auto) 1.8, Monocytes # (Auto) 1.1H, Eosinophils # (Auto) 0.1, Basophils # (Auto) 0.0, Prothrombin Time 15.8H, INR Comment 1.2, Activated Partial Thromboplast Time 36H, D-Dimer 0.77H, Urine Color YELLOW, Urine Clarity SLIGHTLY CLOUDY, Urine pH 6, Urine Specific [place] 1.020, Urine Protein 4+, Urine Glucose (UA) 1+H, Urine Ketones 3+H, Urine Nitrite NEGATIVE, Urine Bilirubin NEGATIVE, Urine Urobilinogen NORMAL, Urine Leukocyte Esterase NEGATIVE, Urine RBC (Auto) 5+H, Urine RBC NONE, Urine WBC NONE, Urine Crystals NONE, Urine Bacteria TRACE, Urine Casts NONE, Urine Mucus NEGATIVE, Urine Culture Indicated NO, Sodium Level 142, Potassium Level 4.0, Chloride Level 105, Carbon Dioxide Level 23, Anion Gap 14, Blood Urea Nitrogen 13, Creatinine 0.86, Estimat Glomerular Filtration Rate > 60, BUN/Creatinine Ratio 15, Glucose Level 134H, Lactic Acid Level 2.00, Calcium Level 9.6, Corrected Calcium 9.8, Total Bilirubin 2.7H, Aspartate Amino Transf (AST/SGOT) 77H, Alanine Aminotransferase (ALT/SGPT) 36, Alkaline Phosphatase 98, Troponin I 0.113H, Total Protein 7.2, Albumin 3.8 05/12/19 04:30: White Blood Count 12.2H, Red Blood Count 5.16, Hemoglobin 15.2, Hematocrit 46, Mean Corpuscular Volume 88, Mean Corpuscular Hemoglobin 30, Mean Corpuscular Hemoglobin Concent 33, Red Cell Distribution Width 14.9H, Platelet Count 281, Mean Platelet Volume 9.4, Neutrophils (%) (Auto) 76H, Lymphocytes (%) (Auto) 12, Monocytes (%) (Auto) 11, Eosinophils (%) (Auto) 1, Basophils (%) (Auto) 0, Neutrophils # (Auto) 9.3H, Lymphocytes # (Auto) 1.5, Monocytes # (Auto) 1.3H, Eosinophils # (Auto) 0.1, Basophils # (Auto) 0.0, Sodium Level 142, Potassium Level 3.8, Chloride Level 109H, Carbon Dioxide Level 20L, Anion Gap 13, Blood Urea Nitrogen 13, Creatinine 0.84, Estimat Glomerular Filtration Rate > 60, BUN/Creatinine Ratio 15, Glucose Level 143H, Calcium Level 8.6, Phosphorus Level 3.3, Magnesium Level 1.6 05/12/19 06:26: White Blood Count 13.1H, Red Blood Count 5.59, Hemoglobin 16.3, Hematocrit 50, Mean Corpuscular Volume 89, Mean Corpuscular Hemoglobin 29, Mean Corpuscular Hemoglobin Concent 33, Red Cell Distribution Width 14.9H, Platelet Count 271, Mean Platelet Volume 10.0, Neutrophils (%) (Auto) 74, Lymphocytes (%) (Auto) 14, Monocytes (%) (Auto) 11, Eosinophils (%) (Auto) 1, Basophils (%) (Auto) 0, Neutrophils # (Auto) 9.7H, Lymphocytes # (Auto) 1.9, Monocytes # (Auto) 1.4H, Eosinophils # (Auto) 0.1, Basophils # (Auto) 0.0, Sodium Level 141, Potassium Level 3.8, Chloride Level 108H, Carbon Dioxide Level 20L, Anion Gap 13, Blood Urea Nitrogen 13, Creatinine 0.87, Estimat Glomerular Filtration Rate > 60, BUN/Creatinine Ratio 15, Glucose Level 135H, Calcium Level 8.9, Corrected Calcium 9.3, Total Bilirubin 3.2H, Aspartate Amino Transf (AST/SGOT) 83H, Alanine Aminotransferase (ALT/SGPT) 37, Alkaline Phosphatase 101, Total Protein 6.6, Albumin 3.5, Phosphorus Level 3.3, Magnesium Level 1.7, Triglycerides Level 108, Cholesterol Level 180, LDL Cholesterol Direct 133H, VLDL Cholesterol 22, HDL Cholesterol 37L Assessment/Plan Assessment/Plan (1) Acute cardioembolic stroke Status: Acute Assessment & Plan: Has had some return of speech, minimal movement, not awake enough to complete swallow eval yesterday. Will try again today, if unable to swallow or not alert enough, will consult Surgery tomorrow to discuss PEG with family. 05/17- unable to safely swallow with speech yesterday, Dr. Cordero to discuss PEG with family today. (2) HTN (hypertension) Status: Chronic Assessment & Plan: Some HTN permitted after acute stroke. Labetalol prn BP > 180. Qualifiers: Qualified Codes: I10 - Essential (primary) hypertension (3) Diabetes mellitus Status: Chronic Assessment & Plan: Blood sugar 130s-150s, monitor. Qualifiers: (4) Atrial fibrillation Status: Chronic Assessment & Plan: Holding anticoagulation x 7 days after stroke per stroke team. Qualifiers: Qualified Codes: I48.11 - Longstanding persistent atrial fibrillation (5) DVT prophylaxis Status: Acute Assessment & Plan: Per stroke center, holding anticoagulation, on antiplatelet only for now. (6) Discharge planning issues Status: Acute Assessment & Plan: shelter referrals for nursing home to be started today. Clinical Quality Measures DVT/VTE Risk/Contraindication: Risk Factor Score Per Nursin RFS Level Per Nursing on Admit: 4+=Very High PAUL RENTERIA MD May 17, 2019 14:15 POS
--- NOTE | 2019-05-17 14:15 | NUR ---
DAUGHTER BEATRICE NOTIFIED OF PROCEDURE AND PHONE CONSENT OBTAINED FOR PEG TUBE INSERTION, WITNESSED BY DESTINY MANDEL
[2019-05-18] VITALS (8 sets, daily range): BP systolic 152–185; BP diastolic 73–113
[2019-05-18] MEDS: D5 1/2 NS 1000 ML IV SOLUTION 1,000 ML IV SCH ×2 (00:18→13:39)
[2019-05-18 05:37] LABS: BASOPHILS # (AUTO) 0.1 10^3/uL (0.0-0.1); BASOPHILS % (AUTO) 0 % (0-10); EOSINOPHILS # (AUTO) 0.4 10^3/uL (0.0-0.3); EOSINOPHILS % (AUTO) 4 % (0-10); HEMATOCRIT 43 % (40-54); HEMOGLOBIN 13.5 G/DL (13.3-17.7); LYMPHOCYTES # (AUTO) 1.7 X 10^3 (1.0-4.0); LYMPHOCYTES % (AUTO) 15 % (12-44); MEAN CORPUSCULAR HEMOGLOBIN 29 PG (25-34); MEAN CORPUSCULAR HGB CONC 31 G/DL (32-36); MEAN CORPUSCULAR VOLUME 94 FL (80-99); MONOCYTES # (AUTO) 1.1 X 10^3 (0.0-1.0); MONOCYTES % (AUTO) 10 % (0-12); NEUTROPHILS % (AUTO) 71 % (42-75); PLATELET COUNT 243 10^3/uL (130-400); RED CELL DISTRIBUTION WIDTH 15.1 % (10.0-14.5); WHITE BLOOD COUNT 11.2 10^3/uL (4.3-11.0)
[2019-05-18 06:01] LABS: BUN/CREATININE RATIO 36; CALCIUM 8.1 MG/DL (8.5-10.1); CARBON DIOXIDE 23 MMOL/L (21-32); CHLORIDE 115 MMOL/L (98-107); CREATININE SERUM 0.73 MG/DL (0.60-1.30); GFR ESTIMATED > 60; GLUCOSE 154 MG/DL (70-105); PHOSPHORUS 2.6 MG/DL (2.3-4.7); SODIUM 146 MMOL/L (135-145)
[2019-05-18] MEDS: POTASSIUM CL 10MEQ/50ML IVPB 50 ML IV SCH (06:10)
[2019-05-18] MEDS: MAGNESIUM 1 GM/100 ML IVPB 100 ML IV SCH (06:10)
[2019-05-18] MEDS: KCL 20 MEQ TAB (K-DUR) PO SCH (06:10)
[2019-05-18] MEDS: RT-ALBUTEROL SULF 2.5 MG/3 ML PRE-MIX VIAL INH SCH ×2 (07:23→19:13)
[2019-05-18] MEDS: ASPIRIN E.C. 325 MG (ECOTRIN) TABLET PO SCH (08:09)
[2019-05-18] MEDS: ASPIRIN 300 MG (5 GR) SUPPOSITORY PR SCH (08:09)
--- NOTE | 2019-05-18 08:10 | NUR ---
aspirin held as instructed by Dr Cordero due to surgery
[2019-05-18] MEDS: LABETALOL HCL 20 MG/4 ML VIAL IV PRN ×2 (08:32→16:06)
--- NOTE | 2019-05-18 08:33 | Cardiology Progress Note ---
Subjective Date Seen by Provider: May 18, 2019 Time Seen by Provider: 08:32 Subjective/Events-last exam Patient asleep in bed, no apparent distress. Objective-Cardiology Exam Last Set of Vital Signs Vital Signs 05/16/19 05/18/19 05/18/19 05/18/19 13:45 04:00 06:41 07:23 Temp 36.6 Pulse 76 Resp 28 B/P (MAP) 154/81 (105) Pulse Ox 92 O2 Delivery Nasal Cannula O2 Flow Rate 3.00 FiO2 28 Capillary Refill : Less Than 3 SecondsLess Than 3 Seconds I&O Intake and Output 05/18/19 00:00 Intake Total 2000 ml Output Total 1700 ml Balance 300 ml Intake Oral 0 ml IV Total 2000 ml Output Urine Total 1700 ml General: Alert, No Acute Distress Neck: Supple Lungs: Clear to Auscultation, Normal Air Movement Heart: Other (irregularly irregular) Abdomen: Normal Bowel Sounds, Soft Extremities: No Clubbing, No Cyanosis Neuro: Other (good eye contact, no vocalization, but shaking head to questions. Moving left hand and picking things up off tray, no spontaneous right sided movement.) Results Lab Laboratory Tests 05/18/19 05:10 A/P-Cardiology Admission Diagnosis CVA CAD PAF [place] Assessment/Plan CVA- CTA revealed displayed inferior anterior R fontal lobe and superior posterior left lateral frontal lobe acute infarct without large vessel occlusion. Per [facility] neurology, continue on antiplatelet at this time and hold OAC x 1 week. Coronary artery disease status post CABG 5 using GOODSON to LAD, vein graft to the first diagonal, vein graft to the obtuse marginal sequential to the posterior lateral of the right and PDA and aortic valve replacement using tissue valve done in July [address] White at [facility] in [place]. Had an abnormal stress test, cardiac catheterization done on November 25, 2017 showing patent GOODSON to LAD, vein graft to diagonal artery giving good flow to the LAD system that has been occluded proximally and patent jump graft to the first obtuse marginal branch which is a very small artery and the posterolateral branch of the right PDA that has ectasia and small vessel disease. The quileute circumflex artery has mild disease, the second and third obtuse marginal branch had moderate to severe disease but there are very small arteries. The right coronary artery is a dominant artery with diffuse ectasia and slow flow noted through followed the right system, medical therapy is recommended Paroxysmal atrial fibrillation, EKG reveals atrial fibrillation, rate controlled. Maintained on Eliquis as outpatient, patient's daughter reports he had not been compliant with medication recently. [id number] score is 5, maintained on Eliquis. Continue to monitor Severe right carotid artery stenosis, was referred to [facility], monitored by Dr. Goodman. CTA neck done revealing near occlusion of right ICA, left ICA 50- 70%. History of elevated liver enzymes, continue to monitor. Hypertension, continue to monitor blood pressure to keep SBP <180 Hyperlipidemia, lipid profile from June 09, 2018 showing total cholesterol 165, HDL 39, triglyceride 193, LDL 97, continue to monitor History of chronic kidney disease, continue to monitor renal function, followed by [facility] energy consultant as outpatient. Diabetes mellitus, followed and managed by primary care physician History of chronic peripheral edema Obesity History of upper GI bleed Overall patient has poor prognosis, had a long discussion with the daughter, followed with medical service recommendation Clinical Quality Measures DVT/VTE Risk/Contraindication: Risk Factor Score Per Nursin RFS Level Per Nursing on Admit: 4+=Very High DANNY GREGORIO May 18, 2019 08:33 POS
--- NOTE | 2019-05-18 09:26 | Occupational Ther Daily Note ---
OT Current Status-Daily Note Subjective CNAs present at start of session assisting pt with sponge bath. Pt's daughter present throughout session. Pt shook head no when asked if he was having any pain. Mental Status/Objective Attachments: Pandya Catheter, IV, Oxygen ADL-Treatment Therapy Code Descriptions/Definitions Functional [place] Measure: 0=Not Assessed/NA 4=Minimal Assistance 1=Total Assistance 5=Supervision or Setup 2=Maximal Assistance 6=Modified [place] 3=Moderate Assistance 7=Complete IndependenceSCALE: Activities may be completed with or without assistive devices. 7-Sorlsheajp-zrcyszl completes the activity by him/herself with no assistance from a helper. 5-Set-up or Clean-up Assistance-helper sets up or cleans up; patient completes activity. [place] assists only prior to or following the activity. 4-Supervision or Touching Assistance-helper provides verbal cues and/or touching/steadying and/or contact guard assistance as patient completes activity. Assistance may be provided throughout the activity or intermittently. 3-Partial/Moderate Assistance-helper does LESS THAN HALF the effort. [place] lifts, holds or supports trunk or limbs, but provides less than half the effort. 2-Substantial/Maximal Assistance-helper does MORE THAN HALF the effort. [place] lifts or holds trunk or limbs and provides more than half the effort. 4-Zytndbaxw-avysfy does ALL the effort. Patient does none of the effort to complete the activity. Or, the assistance of 2 or more helpers is required for the patient to complete the activity. If activity was not attempted, code reason: 7-Patient Refused. 9-Not Applicable-not attempted and the patient did not perform the activity before the current illness, exacerbation or injury. 10-Not Attempted due to Environmental Limitations-(lack of equipment, weather restraints, etc.). 88-Not Attempted due to Medical Conditions or Safety Concerns. Oral Hygiene (QC): 1 (OT assisted pt with cleaning his mouth with foam swab. OT placed swab in pts left hand, he was able to flex his elbow slightly requiring guided assistance to bring to mouth. Pt chewed onto sponge instead of back and forth motion required to clean teeth. OT assisted pt with rest of task. When pt felt swab on his tounge, he would automatically bite down and start "chewing" motion. Unable to follow direction & tactile cue of "open your mouth". Pt opened mouth after OT pulled swab towards pt's lips.) Other Treatment Pt laying in bed at start of session with CNAs present finishing sponge bath. OT assisted with bed mobility of rolling to his side in order for sheets to be changed and his back to be washed. Assist x2 for rolling towards left side. When RN CLINICAL RESOURCE said goodbye while standing on pt's right side, pt did not turn his head to the right nor track eyes towards right side. OT guided pts head to the right past midline, his eyes did not pass midline towards the RN CLINICAL RESOURCE, instead focusing at wall in front of him. Pt expressed himself primarily through facial expressions this session. When asked if his bed felt good now that it is clean, he was able to reply "yeah". Pt's eyes opened wider when OT said pt's name. Pt also able to lift left arm off of the bed in an attempt to pull the sheets over his arm although he still required some assistance with task. Pt's daughter stated he was expressing himself more than she had seen in a while. During session, pt had no active movement of R arm. OT waved "bye" to pt at end of session, pt able to lift left arm up in response. Post OT session, pt laying in bed, call light in left hand, and daughter present. Education OT Patient Education: Correct positioning, Energy conservation, Modified ADL techniques, Progress toward Goal/Update tx plan, Purpose of tx/functional activities Teaching Recipient: Patient, Family Teaching Methods: Demonstration, Discussion Response to Teaching: Reinforcement Needed OT Short Term Goals Short Term Goals 1=Demonstrate adherence to instructed precautions during ADL tasks. 2=Patient will verbalize/demonstrate understanding of assistive devices/modifications for ADL. 3=Patient will improve strength/tolerance for activity to enable patient to perform ADL's. OT Attache Goals Attache Goals Time Frame: May 23, 2019 Eating (QC): 3 Oral Hygiene (QC): 3 Shower/Bathe Self (QC): 2 Upper Body Dressing (QC): 3 Lower Body Dressing (QC): 2 On/Off Footwear (QC): 2 Toileting Hygiene (QC): 3 Toilet/Commode Transfer (QC): 3 Additional Goals: 1-Demonstrate ADL Tasks, 2-Verbalize Understanding, 3- ImproveStrength/Yennifer 1=Demonstrate adherence to instructed precautions during ADL tasks. 2=Patient will verbalize/demonstrate understanding of assistive devices/modifications for ADL. 3=Patient will improve strength/tolerance for activity to enable patient to perform ADL's. OT Education/Plan Problem List/Assessment Assessment: Decreased Activ Tolerance, Decreased Safety Aware, Decreased UE Strength, Dependent Transfers, Impaired Bed Mobility, Impaired Cognition, Impaired Funct Balance, Impaired I ADL's, Impaired Self-Care Skills, Restricted Funct UE ROM, Visual-Perceptual Deficit Discharge Recommendations Plan/Recommendations: Continue POC Treatment Plan/Plan of Care Treatment,Training & Education: Yes Patient would benefit from OT for education, treatment and training to promote independence in ADL's, mobility, safety and/or upper extremity function for ADL's. Plan of Care: ADL Retraining, Caregiver Training, Cognitive Retraining, Functional Mobility, Group Exercise/Act as Ind, UE Funct Exercise/Act, UE Neuromus Re-Ed/Coord, Visual/Perceptual Retrain, W/C Management Training Treatment Duration: May 23, 2019 Frequency: 5 times per week Estimated Hrs Per Day: .25 hour per day Agreement: Yes Rehab Potential: Guarded Time/GCodes Start Time: 09:00 Stop Time: 09:13 Total Time Billed (hr/min): 13 Billed Treatment Time 1, ADL (13mins) KETTY HALL OT May 18, 2019 09:25 POS
--- NOTE | 2019-05-18 10:10 | Physical Therapy Daily Note ---
PT Daily Note-Current Subjective pt asleep in bed pre-tx and is difficulty to arouse. Pt does not respond to PT today for any questions. Pt does not appear to be in any pain at this time. Daughter present for duration of session and states therapy will be good for pt. Appearance pt in recliner post-tx with daughter present. pt with call light, room phone, tray table in reach with all needs met at this time. Nurse instructed to use a sit to stand machine for the transfer back to the bed, or if need be he can come up from the chair enough to slip a filemon sling under him for the transfer. Mental Status Patient Orientation: Unable to Assess, Non-Verbal/Aphasic, Eyes Open Attachments: SCD's, Oxygen (3L), Pandya Catheter, IV pt responds to no Yes/No questions. Transfers SCALE: Activities may be completed with or without assistive devices. 4-Lnbpydrhxt-btelwvk completes the activity by him/herself with no assistance from a helper. 5-Set-up or Clean-up Assistance-helper sets up or cleans up; patient completes activity. [place] assists only prior to or following the activity. 4-Supervision or Touching Assistance-helper provides verbal cues and/or touching/steadying and/or contact guard assistance as patient completes activity. Assistance may be provided throughout the activity or intermittently. 3-Partial/Moderate Assistance-helper does LESS THAN HALF the effort. [place] lifts, holds or supports trunk or limbs, but provides less than half the effort. 2-Substantial/Maximal Assistance-helper does MORE THAN HALF the effort. [place] lifts or holds trunk or limbs and provides more than half the effort. 9-Jnrbvhadz-dgqjrs does ALL the effort. Patient does none of the effort to complete the activity. Or, the assistance of 2 or more helpers is required for the patient to complete the activity. If activity was not attempted, code reason: 7-Patient Refused. 9-Not Applicable-not attempted and the patient did not perform the activity before the current illness, exacerbation or injury. 10-Not Attempted due to Environmental Limitations-(lack of equipment, weather restraints, etc.). 88-Not Attempted due to Medical Conditions or Safety Concerns. Roll Left to Right (QC): 1 Chair/Isr-jb-Hfboj Xfer(QC): 1 (depx2) Weight Bearing Right Lower Extremity: Right Weight Bearing/Tolerated Left Lower Extremity: Left Weight Bearing/Tolerated Gait Training Does the Patient Walk?: No and Walking Goal NOT indicated Wheelchair Training Does the Pt Use a Wheelchair?: No Treatments pt performed bed mobility, transfer training this date. Assessment Current Status: Poor Progress pt moved the L UE/LE while sitting EOB for balance and to move around lines, when asked to move the LLE for SAQ the pt made no motion effort. Pt did not participate in transfer this session. PT Correction Goals Correction Goals PT Roller Embosser Goals Time Frame: May 23, 2019 Sit to Lying (QC): 2 Lying-Sitting on Side/Bed(QC): 2 Sit to Stand (QC): 2 Roll Left to Right (QC): 2 Chair/Gvj-ka-Ntubu Xfer(): 2 Car Transfer (): 2 PT Plan Problem List Problem List: Activity Tolerance, Functional Strength, Safety, Balance, Gait, Transfer, Bed Mobility, ROM Treatment/Plan Treatment Plan: Continue Plan of Care Treatment Plan: Bed Mobility, Education, Functional Activity Yennifer, Functional Strength, Safety, Therapeutic Exercise, Transfers Frequency: 6 times per week Estimated Hrs Per Day: .25 hour per day Patient and/or Family Agrees t: Yes Safety Risks/Education Patient Education: Transfer Techniques, Correct Positioning, Safety Issues Teaching Recipient: Patient, Family Teaching Methods: Discussion Response to Teaching: Unable to Return Demonstration, Reinforcement Needed Time/GCodes Time In: 945 Time Out: 1005 Total Billed Treatment Time: 20 Total Billed Treatment 1 visit FA MIRA RAMOS PT May 18, 2019 10:10 POS
--- NOTE | 2019-05-18 11:00 | NUR ---
PATIENT PUT ON AIR BED
[2019-05-18] MEDS ORDERED: KETAMINE/NaCl 50 MG/5 ML SYRINGE (ED ONLY) ONE (11:54)
[2019-05-18] MEDS ORDERED: PROPOFOL INJECTION 50 ML IV ONE (11:54)
--- NOTE | 2019-05-18 11:54 | Progress Note ---
Subjective Subjective/Events-last exam Afebrile, no acute events. Plan for PEG today. Objective Exam Last Set of Vital Signs Vital Signs Date Time Temp Pulse Resp B/P (MAP) Pulse Ox O2 Delivery O2 Flow Rate FiO2 05/18/19 08:00 Nasal Cannula 3.00 05/18/19 08:00 37.0 89 14 185/82 (116) 91 05/16/19 13:45 28 Capillary Refill : Less Than 3 SecondsLess Than 3 Seconds I&O Intake and Output 05/18/19 00:00 Intake Total 2000 ml Output Total 1700 ml Balance 300 ml Intake Oral 0 ml IV Total 2000 ml Output Urine Total 1700 ml General: Alert, No Acute Distress Lungs: Clear to Auscultation, Normal Air Movement Heart: Other (irregularly irregular) Neuro: Other (makes eye contact and shakes head when asked if in pain, no verbalization, no movement of right side) Results/Procedures Lab Laboratory Tests 05/18/19 05:10: White Blood Count 11.2H, Red Blood Count 4.61, Hemoglobin 13.5, Hematocrit 43, Mean Corpuscular Volume 94, Mean Corpuscular Hemoglobin 29, Mean Corpuscular Hemoglobin Concent 31L, Red Cell Distribution Width 15.1H, Platelet Count 243, Mean Platelet Volume 10.0, Neutrophils (%) (Auto) 71, Lymphocytes (%) (Auto) 15, Monocytes (%) (Auto) 10, Eosinophils (%) (Auto) 4, Basophils (%) (Auto) 0, Neutrophils # (Auto) 8.0H, Lymphocytes # (Auto) 1.7, Monocytes # (Auto) 1.1H, Eosinophils # (Auto) 0.4H, Basophils # (Auto) 0.1, Sodium Level 146H, Potassium Level 4.0, Chloride Level 115H, Carbon Dioxide Level 23, Anion Gap 8, Blood Urea Nitrogen 26H, Creatinine 0.73, Estimat Glomerular Filtration Rate > 60, BUN/Creatinine Ratio 36, Glucose Level 154H, Calcium Level 8.1L, Phosphorus Level 2.6, Magnesium Level 2.0 Microbiology 05/11/19 Blood Culture - Final, Complete No growth 05/11/19 MRSA Screen - Final, Complete MRSA not isolated 05/11/19 Urine Culture - Final, Complete NO GROWTH Radiology Laboratory Tests 05/11/19 15:50: White Blood Count 11.7H, Red Blood Count 5.73, Hemoglobin 16.8, Hematocrit 50, Mean Corpuscular Volume 88, Mean Corpuscular Hemoglobin 29, Mean Corpuscular Hemoglobin Concent 33, Red Cell Distribution Width 14.7H, Platelet Count 313, Mean Platelet Volume 9.5, Neutrophils (%) (Auto) 74, Lymphocytes (%) (Auto) 15, Monocytes (%) (Auto) 10, Eosinophils (%) (Auto) 1, Basophils (%) (Auto) 0, Neutrophils # (Auto) 8.6H, Lymphocytes # (Auto) 1.8, Monocytes # (Auto) 1.1H, Eosinophils # (Auto) 0.1, Basophils # (Auto) 0.0, Prothrombin Time 15.8H, INR Comment 1.2, Activated Partial Thromboplast Time 36H, D-Dimer 0.77H, Urine Color YELLOW, Urine Clarity SLIGHTLY CLOUDY, Urine pH 6, Urine Specific [place] 1.020, Urine Protein 4+, Urine Glucose (UA) 1+H, Urine Ketones 3+H, Urine Nitrite NEGATIVE, Urine Bilirubin NEGATIVE, Urine Urobilinogen NORMAL, Urine Leukocyte Esterase NEGATIVE, Urine RBC (Auto) 5+H, Urine RBC NONE, Urine WBC NONE, Urine Crystals NONE, Urine Bacteria TRACE, Urine Casts NONE, Urine Mucus NEGATIVE, Urine Culture Indicated NO, Sodium Level 142, Potassium Level 4.0, Chloride Level 105, Carbon Dioxide Level 23, Anion Gap 14, Blood Urea Nitrogen 13, Creatinine 0.86, Estimat Glomerular Filtration Rate > 60, BUN/Creatinine Ratio 15, Glucose Level 134H, Lactic Acid Level 2.00, Calcium Level 9.6, Corrected Calcium 9.8, Total Bilirubin 2.7H, Aspartate Amino Transf (AST/SGOT) 77H, Alanine Aminotransferase (ALT/SGPT) 36, Alkaline Phosphatase 98, Troponin I 0.113H, Total Protein 7.2, Albumin 3.8 05/12/19 04:30: White Blood Count 12.2H, Red Blood Count 5.16, Hemoglobin 15.2, Hematocrit 46, Mean Corpuscular Volume 88, Mean Corpuscular Hemoglobin 30, Mean Corpuscular Hemoglobin Concent 33, Red Cell Distribution Width 14.9H, Platelet Count 281, Mean Platelet Volume 9.4, Neutrophils (%) (Auto) 76H, Lymphocytes (%) (Auto) 12, Monocytes (%) (Auto) 11, Eosinophils (%) (Auto) 1, Basophils (%) (Auto) 0, Neutrophils # (Auto) 9.3H, Lymphocytes # (Auto) 1.5, Monocytes # (Auto) 1.3H, Eosinophils # (Auto) 0.1, Basophils # (Auto) 0.0, Sodium Level 142, Potassium Level 3.8, Chloride Level 109H, Carbon Dioxide Level 20L, Anion Gap 13, Blood Urea Nitrogen 13, Creatinine 0.84, Estimat Glomerular Filtration Rate > 60, BUN/Creatinine Ratio 15, Glucose Level 143H, Calcium Level 8.6, Phosphorus Level 3.3, Magnesium Level 1.6 05/12/19 06:26: White Blood Count 13.1H, Red Blood Count 5.59, Hemoglobin 16.3, Hematocrit 50, Mean Corpuscular Volume 89, Mean Corpuscular Hemoglobin 29, Mean Corpuscular Hemoglobin Concent 33, Red Cell Distribution Width 14.9H, Platelet Count 271, Mean Platelet Volume 10.0, Neutrophils (%) (Auto) 74, Lymphocytes (%) (Auto) 14, Monocytes (%) (Auto) 11, Eosinophils (%) (Auto) 1, Basophils (%) (Auto) 0, Neutrophils # (Auto) 9.7H, Lymphocytes # (Auto) 1.9, Monocytes # (Auto) 1.4H, Eosinophils # (Auto) 0.1, Basophils # (Auto) 0.0, Sodium Level 141, Potassium Level 3.8, Chloride Level 108H, Carbon Dioxide Level 20L, Anion Gap 13, Blood Urea Nitrogen 13, Creatinine 0.87, Estimat Glomerular Filtration Rate > 60, BUN/Creatinine Ratio 15, Glucose Level 135H, Calcium Level 8.9, Corrected Ca lcium 9.3, Total Bilirubin 3.2H, Aspartate Amino Transf (AST/SGOT) 83H, Alanine Aminotransferase (ALT/SGPT) 37, Alkaline Phosphatase 101, Total Protein 6.6, Albumin 3.5, Phosphorus Level 3.3, Magnesium Level 1.7, Triglycerides Level 108, Cholesterol Level 180, LDL Cholesterol Direct 133H, VLDL Cholesterol 22, HDL Cholesterol 37L Assessment/Plan Assessment/Plan (1) Acute cardioembolic stroke Status: Acute Assessment & Plan: Has had some return of speech, minimal movement, not awake enough to complete swallow eval yesterday. Will try again today, if unable to swallow or not alert enough, will consult Surgery tomorrow to discuss PEG with family. 05/17- unable to safely swallow with speech yesterday, Dr. Cordero to discuss PEG with family today. 05/18- plan for PEG, Nutrition consult. (2) HTN (hypertension) Status: Chronic Assessment & Plan: Some HTN permitted after acute stroke. Labetalol prn BP > 180. Qualifiers: Qualified Codes: I10 - Essential (primary) hypertension (3) Diabetes mellitus Status: Chronic Assessment & Plan: Blood sugar 130s-150s, monitor. Qualifiers: (4) Atrial fibrillation Status: Chronic Assessment & Plan: Holding anticoagulation x 7 days after stroke per stroke team. 05/18 resume when okay with Surgery after procedure. Qualifiers: Qualified Codes: I48.11 - Longstanding persistent atrial fibrillation (5) DVT prophylaxis Status: Acute Assessment & Plan: Per stroke center, holding anticoagulation, on antiplatelet only for now. (6) Discharge planning issues Status: Acute Assessment & Plan: group home referrals for [facility] started Clinical Quality Measures DVT/VTE Risk/Contraindication: Risk Factor Score Per Nursin RFS Level Per Nursing on Admit: 4+=Very High PAUL RENTERIA MD May 18, 2019 11:54 POS
[2019-05-18] MEDS ORDERED: MIDAZOLAM 2 MG/2 ML (VERSED) VIAL ONE (12:15)
--- NOTE | 2019-05-18 12:30 | NUR ---
TO SURGERY PER BED
[2019-05-18] MEDS ORDERED: LACTATED RINGERS 1,000 ML IV ONE ×2 (12:35→12:45)
--- NOTE | 2019-05-18 13:08 | Cardiology Progress Note ---
Subjective Date Seen by Provider: May 18, 2019 Time Seen by Provider: 13:06 Subjective/Events-last exam Patient is sitting in a chair, opening his eyes, not following commands but appeared to be understanding our questions and conversation Review of Systems General: Other (unable to provide review of systems) Objective-Cardiology Exam Last Set of Vital Signs Vital Signs 05/16/19 05/18/19 13:45 08:00 Temp 37.0 Pulse 89 Resp 14 B/P (MAP) 185/82 (116) Pulse Ox 91 O2 Delivery Nasal Cannula O2 Flow Rate 3.00 FiO2 28 Capillary Refill : Less Than 3 SecondsLess Than 3 Seconds I&O Intake and Output 05/18/19 00:00 Intake Total 2000 ml Output Total 1700 ml Balance 300 ml Intake Oral 0 ml IV Total 2000 ml Output Urine Total 1700 ml General: Alert, No Acute Distress, Other (opening his eyes, looking toward the speaker, not responding verbally) Neck: Supple Lungs: Clear to Auscultation, Normal Air Movement Heart: Normal S1, Normal S2, Other (irregularly irregular) Abdomen: Normal Bowel Sounds, Soft Extremities: No Clubbing, No Cyanosis Neuro: Other (makes eye contact and shakes head when asked if in pain, no verbalization, no movement of right side) Results Lab Laboratory Tests 05/18/19 05:10 A/P-Cardiology Admission Diagnosis CVA CAD PAF [place] Assessment/Plan CVA- CTA revealed displayed inferior anterior R fontal lobe and superior posterior left lateral frontal lobe acute infarct without large vessel occlusion. Per [facility] neurology, continue on antiplatelet at this time and hold OAC, planning to restart Eliquis tomorrow morning Coronary artery disease status post CABG 5 using GOODSON to LAD, vein graft to the first diagonal, vein graft to the obtuse marginal sequential to the posterior lateral of the right and PDA and aortic valve replacement using tissue valve done in July [address] White at [facility] in [place]. Had an abnormal stress test, cardiac catheterization done on November 25, 2017 showing patent GOODSON to LAD, vein graft to diagonal artery giving good flow to the LAD system that has been occluded proximally and patent jump graft to the first obtuse marginal branch which is a very small artery and the posterolateral branch of the right PDA that has ectasia and small vessel disease. The sokaogon circumflex artery has mild disease, the second and third obtuse marginal branch had moderate to severe disease but there are very small arteries. The right coronary artery is a dominant artery with diffuse ectasia and slow flow noted through followed the right system, medical therapy is recommended Paroxysmal atrial fibrillation, EKG reveals atrial fibrillation, rate con trolled. Maintained on Eliquis as outpatient, patient's daughter reports he had not been compliant with medication recently. [id number] score is 5, maintained on Eliquis. Continue to monitor Severe right carotid artery stenosis, was referred to [facility], monitored by Dr. Goodman. CTA neck done revealing near occlusion of right ICA, left ICA 50- 70%. History of elevated liver enzymes, continue to monitor. Hypertension, continue to monitor blood pressure to keep SBP <180 Hyperlipidemia, lipid profile from June 09, 2018 showing total cholesterol 165, HDL 39, triglyceride 193, LDL 97, continue to monitor History of chronic kidney disease, continue to monitor renal function, followed by [facility] business travel consultant as outpatient. Diabetes mellitus, followed and managed by primary care physician History of chronic peripheral edema Obesity History of upper GI bleed Overall patient has poor prognosis, had a long discussion with the daughter, followed with medical service recommendation Clinical Quality Measures DVT/VTE Risk/Contraindication: Risk Factor Score Per Nursin RFS Level Per Nursing on Admit: 4+=Very High CARLOS HTUCHINSON MD May 18, 2019 1:08 pm POS
--- NOTE | 2019-05-18 13:20 | NUR ---
RECEIVED FROM RECOVERY, OPENS EYES WHEN SPOKEN TO, DROWSY, PEG TUBE SITE WITHOUT REDNESS OR DRAINAGE, REPORT RECEIVED FROM MERARI MANDEL, ISIDRO PATENT, O2 ON PER NC AT 3 LITERS, CALL LIGHT WITHIN REACH
--- NOTE | 2019-05-18 15:11 | NUR ---
Received dietary consult for TF recommendations. Given pt's current status, would recommend the following: Glucerna 1.5 at goal rate of 55 ml/hr. Begin at 10 ml/hr and increase by 10 ml q6h as tolerated. At goal rate, provides 1980 kcal (16 kcal/kg); 110 g Pro (0.9 g Pro/kg); and 1002 ml free water. Flush with 150 ml H2O q4h. With flushes, provides 1902 ml free water. Will continue to follow and reassess as pt needs and status change. Colin Ivan, MS, RD, LD
--- NOTE | 2019-05-18 17:24 | Progress Note-Post Operative ---
Post-Operative Progess Note Surgeon (s)/Security Compliance Specialist (s) Surgeon NELDA OCHOA DO Security Compliance Specialist: Jeramy Pre-Operative Diagnosis cva Post-Operative Diagnosis same Procedure & Operative Findings Date of Procedure 05/18/19 Procedure Performed/Findings percutaneous gastrostomy tube placement Dr. Deshpande Performed EGD see his note. Anesthesia Type per consultant technology Estimated Blood Loss Estimated blood loss (mL): min Specimens/Packing Specimens Removed na NELDA OCHOA DO May 18, 2019 17:24 POS
--- NOTE | 2019-05-18 19:29 | OPERATIVE REPORT ---
DATE OF SERVICE: PREOPERATIVE DIAGNOSES: Malnutrition, inability to eat. POSTOPERATIVE DIAGNOSES: Malnutrition, inability to eat. PROCEDURE: EGD. SURGEON: Rajat Deshpande DO SECURITY INSTALLATION SALES TECHNICIAN: None. ANESTHESIA: IV sedation. SPECIMENS: None. BLOOD LOSS: Scant. FLUIDS: Per anesthesia. INDICATION FOR PROCEDURE: The patient is a 78-year-old male who was found down with a stroke. He has been unable to eat and needs a PEG tube placed. I performed the EGD portion of the PEG tube. FINDINGS: The patient had normal appearing stomach. The PEG tube placed without difficulty. PROCEDURE NOTE: After informed consent was obtained, the patient was brought to the endoscopy suite, placed in the supine position. The scope was inserted down the mouth through the esophagus into the stomach. I then dilated the stomach with air and Dr. Cordero was then able to visualize the light and then he performed his part of the procedure. I was able to grasp the guidewire and pulled this out. We attached to the PEG tube. I then followed the PEG tube down and watched it go into the stomach, took pictures of it going down through the esophagus into the stomach. It was in good position. At this point, I then suctioned out the stomach, pulled the scope out and completed the procedure. Job ID: [id number] DocumentID: [id number] Dictated Date: 05/18/2019 14:58:34 Mask Inspector Date: 05/18/2019 19:28:57 Dictated By: RAJAT DESHPANDE DO
[2019-05-18] MEDS ORDERED: hydrALAZINE (APESOLINE) 20 MG/ML VIAL IV PRN (20:00)
[2019-05-19] VITALS (7 sets, daily range): BP systolic 135–168; BP diastolic 69–84
[2019-05-19] MEDS: D5 1/2 NS 1000 ML IV SOLUTION 1,000 ML IV SCH ×2 (03:00→16:19)
[2019-05-19 04:18] LABS: BASOPHILS % (AUTO) 0 % (0-10); EOSINOPHILS # (AUTO) 0.4 10^3/uL (0.0-0.3); EOSINOPHILS % (AUTO) 4 % (0-10); HEMATOCRIT 43 % (40-54); HEMOGLOBIN 13.4 G/DL (13.3-17.7); LYMPHOCYTES # (AUTO) 1.5 X 10^3 (1.0-4.0); LYMPHOCYTES % (AUTO) 14 % (12-44); MEAN CORPUSCULAR HEMOGLOBIN 29 PG (25-34); MEAN CORPUSCULAR HGB CONC 31 G/DL (32-36); MEAN CORPUSCULAR VOLUME 93 FL (80-99); MEAN PLATELET VOLUME 9.7 FL (7.4-10.4); MONOCYTES # (AUTO) 1.2 X 10^3 (0.0-1.0); MONOCYTES % (AUTO) 11 % (0-12); NEUTROPHILS # (AUTO) 7.3 X 10^3 (1.8-7.8); NEUTROPHILS % (AUTO) 70 % (42-75); PLATELET COUNT 265 10^3/uL (130-400); RED CELL DISTRIBUTION WIDTH 15.1 % (10.0-14.5); WHITE BLOOD COUNT 10.5 10^3/uL (4.3-11.0)
[2019-05-19 04:47] LABS: BUN/CREATININE RATIO 25; CALCIUM 8.1 MG/DL (8.5-10.1); CARBON DIOXIDE 24 MMOL/L (21-32); CHLORIDE 113 MMOL/L (98-107); CREATININE SERUM 0.72 MG/DL (0.60-1.30); GFR ESTIMATED > 60; GLUCOSE 153 MG/DL (70-105); MAGNESIUM 1.9 MG/DL (1.6-2.4); PHOSPHORUS 2.9 MG/DL (2.3-4.7); POTASSIUM 3.8 MMOL/L (3.6-5.0); SODIUM 145 MMOL/L (135-145)
[2019-05-19] MEDS: POTASSIUM CL 10MEQ/50ML IVPB 50 ML IV SCH (05:30)
[2019-05-19] MEDS: MAGNESIUM 1 GM/100 ML IVPB 100 ML IV SCH (05:31)
[2019-05-19] MEDS: KCL 20 MEQ TAB (K-DUR) PO SCH (05:31)
--- NOTE | 2019-05-19 07:06 | Anesthesia-General Post-Op ---
MAC Patient Condition Mental Status/LOC: Same as Preop Cardiovascular: Satisfactory Nausea/Vomiting: Absent Respiratory: Satisfactory Pain: Controlled Complications: Absent Post Op Complications Complications None Follow Up Care/Instructions Patient Instructions None needed. Anesthesiology Discharge Order Discharge Order Patient is doing well, no complaints, stable vital signs, no apparent adverse anesthesia problems. No complications reported per nursing. ASHLEY LEON CRNA May 19, 2019 07:06 POS
--- NOTE | 2019-05-19 08:11 | Cardiology Progress Note ---
Subjective Date Seen by Provider: May 19, 2019 Time Seen by Provider: 08:10 Subjective/Events-last exam Patient in bed, nods head to answer questions asked. No apparent distress. Review of Systems General: Appetite, Other (opening his eyes, not providing full review of systems) Objective-Cardiology Exam Last Set of Vital Signs Vital Signs 05/16/19 05/19/19 13:45 08:00 Temp 36.4 Pulse 65 Resp 20 B/P (MAP) 168/84 (112) Pulse Ox 98 O2 Delivery Nasal Cannula O2 Flow Rate 3.00 FiO2 28 Capillary Refill : Less Than 3 SecondsLess Than 3 Seconds I&O Intake and Output 05/18/19 23:59 Intake Total 1200 ml Output Total 1700 ml Balance -500 ml Intake Oral 0 ml IV Total 1200 ml Output Urine Total 1700 ml General: Alert, No Acute Distress, Other (opening his eyes, looking toward the speaker, not responding verbally) HEENT: Atraumatic Neck: Supple Lungs: Clear to Auscultation, Normal Air Movement Heart: Normal S1, Normal S2, Other (irregularly irregular) Abdomen: Normal Bowel Sounds, Soft Extremities: No Clubbing, No Cyanosis Skin: No Rashes Neuro: Other (makes eye contact and shakes head when asked if in pain, no verbalization, no movement of right side) Results Lab Laboratory Tests 05/19/19 04:00 A/P-Cardiology Admission Diagnosis CVA CAD PAF [place] Assessment/Plan CVA- CTA revealed displayed inferior anterior R fontal lobe and superior posterior left lateral frontal lobe acute infarct without large vessel occlus ion. Per [facility] neurology, continue on antiplatelet at this time and hold OAC, I will restart Eliquis this morning. Coronary artery disease status post CABG 5 using GOODSON to LAD, vein graft to the first diagonal, vein graft to the obtuse marginal sequential to the posterior lateral of the right and PDA and aortic valve replacement using tissue valve done in July [address] White at [facility] in [place]. Had an abnormal stress test, cardiac catheterization done on November 25, 2017 showing patent GOODSON to LAD, vein graft to diagonal artery giving good flow to the LAD system that has been occluded proximally and patent jump graft to the first obtuse marginal branch which is a very small artery and the posterolateral branch of the right PDA that has ectasia and small vessel disease. The [place] circumflex artery has mild disease, the second and third obtuse marginal branch had moderate to severe disease but there are very small arteries. The right coronary artery is a dominant artery with diffuse ectasia and slow flow noted through followed the right system, medical therapy is recommended Paroxysmal atrial fibrillation, EKG reveals atrial fibrillation, rate controlled. Maintained on Eliquis as outpatient, patient's daughter reports he had not been compliant with medication recently. [id number] score is 5, maintained on Eliquis. Continue to monitor Severe right carotid artery stenosis, was referred to [facility], monitored by Dr. Goodman. CTA neck done revealing near occlusion of right ICA, left ICA 50- 70%. History of elevated liver enzymes, continue to monitor. Hypertension, continue to monitor blood pressure to keep SBP <180 Hyperlipidemia, lipid profile from June 09, 2018 showing total cholesterol 165, HDL 39, triglyceride 193, LDL 97, continue to monitor History of chronic kidney disease, continue to monitor renal function, followed by [facility] application security consultant as outpatient. Diabetes mellitus, followed and managed by primary care physician History of chronic peripheral edema Obesity History of upper GI bleed Overall patient has poor prognosis, had a long discussion with the daughter, followed with medical service recommendation Patient was seen and evaluated with Dasha, examination performed, management plan was discussed, agree with the current scribed note, I made few changes to the note using Italic font Some improvement today, able to say thank you and yes On examination lungs were clear to auscultation, heart is irregular I am starting Eliquis today and decreasing aspirin dose Continue to monitor closely Continue physical therapy Clinical Quality Measures DVT/VTE Risk/Contraindication: Risk Factor Score Per Nursin RFS Level Per Nursing on Admit: 4+=Very High DASHA GREGORIO May 19, 2019 8:11 am CARLOS MESA MD May 19, 2019 8:40 am LORRAINE
[2019-05-19] MEDS: ASPIRIN E.C. 325 MG (ECOTRIN) TABLET PO SCH (09:03)
[2019-05-19] MEDS: ASPIRIN 300 MG (5 GR) SUPPOSITORY PR SCH (09:12)
--- NOTE | 2019-05-19 09:19 | Progress Note - Surgery ---
SHIRA ROY,MED STUDENT 05/19/19 0919: Subjective Date Seen by a Provider: May 19, 2019 Time Seen by a Provider: 07:20 Subjective/Events-last exam Patient seen and examined. PEG tube placed yesterday in place, SCD's on, simms catheter in place. He was unable to give ROS due to being asleep and no family was currently at the bedside. He is afebrile. Objective Exam Vital Signs Date Time Temp Pulse Resp B/P (MAP) Pulse Ox O2 Delivery O2 Flow Rate FiO2 05/19/19 08:00 36.4 65 20 168/84 (112) 98 Nasal Cannula 3.00 05/19/19 07:00 59 05/19/19 04:00 36.2 56 20 135/69 (91) 94 Nasal Cannula 3.00 05/19/19 01:00 73 05/19/19 00:00 36.3 63 21 147/70 (95) 95 Nasal Cannula 3.00 05/18/19 20:13 36.2 53 20 152/73 (99) 92 Nasal Cannula 3.00 05/18/19 20:00 Nasal Cannula 2.00 05/18/19 19:09 94 Nasal Cannula 3.00 05/18/19 19:00 71 05/18/19 15:56 68 20 184/113 (136) 94 Nasal Cannula 3.00 05/18/19 14:00 37.0 64 18 179/92 (121) 96 Nasal Cannula 3.00 05/18/19 13:30 36.6 66 18 158/85 (109) 96 Nasal Cannula 3.00 05/18/19 13:22 68 05/18/19 12:00 36.6 64 16 175/91 (119) 96 Nasal Cannula 3.00 I & O 05/19/19 07:00 Intake Total 200 ml Output Total 1525 ml Balance -1325 ml Capillary Refill : Less Than 3 SecondsLess Than 3 Seconds General Appearance: No Apparent Distress, Chronically ill HEENT: No Scleral Icterus (L), No Scleral Icterus (R) Neck: Supple; No Lymphadenopathy (L), No Lymphadenopathy (R) Respiratory: Lungs Clear, No Accessory Muscle Use, No Respiratory Distress Cardiovascular: No Murmur, Normal Peripheral Pulses Peripheral Pulses: 2+ Dorsalis Pedis (R), 2+ Left Dors-Pedis (L), 2+ Radial Pulses (R), 2+ Radial Pulses (L) Gastrointestinal: soft, no organomegaly, no pulsatile mass, other (PEG tube in place) Extremity: No Pedal Edema Neurologic/Psychiatric: Disoriented, Motor Weakness Skin: Normal Color, Warm/Dry Results Lab Laboratory Tests 05/19/19 04:00: White Blood Count 10.5, Red Blood Count 4.57, Hemoglobin 13.4, Hematocrit 43, Mean Corpuscular Volume 93, Mean Corpuscular Hemoglobin 29, Mean Corpuscular Hemoglobin Concent 31L, Red Cell Distribution Width 15.1H, Platelet Count 265, Mean Platelet Volume 9.7, Neutrophils (%) (Auto) 70, Lymphocytes (%) (Auto) 14, Monocytes (%) (Auto) 11, Eosinophils (%) (Auto) 4, Basophils (%) (Auto) 0, Neutrophils # (Auto) 7.3, Lymphocytes # (Auto) 1.5, Monocytes # (Auto) 1.2H, Eosinophils # (Auto) 0.4H, Basophils # (Auto) 0.0, Sodium Level 145, Potassium Level 3.8, Chloride Level 113H, Carbon Dioxide Level 24, Anion Gap 8, Blood Urea Nitrogen 18, Creatinine 0.72, Estimat Glomerular Filtration Rate > 60, BU N/Creatinine Ratio 25, Glucose Level 153H, Calcium Level 8.1L, Phosphorus Level 2.9, Magnesium Level 1.9 Microbiology 05/11/19 Blood Culture - Final, Complete No growth 05/17/19 MRSA Screen - Final, Complete MRSA not isolated 05/11/19 Urine Culture - Final, Complete NO GROWTH Assessment/Plan Assessment/Plan Assessment/Plan acute cardioembolic stroke HTN DM dysphagia Gastrostomy tube in place Continue DVT prophylaxis Continue medical management No other general surgery indications at this time Clinical Quality Measures DVT/VTE Risk/Contraindication: Risk Factor Score Per Nursin RFS Level Per Nursing on Admit: 4+=Very High NELDA OCHOA DO 05/19/192119: Subjective Subjective/Events-last exam Patient with no concerns from nursing. Tube feeds started and tolerating. No family at bedside. Patient currently sleeping. Objective Exam General Appearance: No Apparent Distress Respiratory: Chest Non Tender, No Accessory Muscle Use, No Respiratory Distress Gastrointestinal: soft, other (gastrostomy tube in place luq) Neurologic/Psychiatric: Other (asleep) Assessment/Plan Assessment/Plan Assessment/Plan acute cardioembolic stroke HTN DM dysphagia s/p gastrostomy tube placement tube feeds started will sign off, call if needed. Supervisory-Addendum Brief Verification & Attestation Participated in pt care: history, MDM, physical Personally performed: exam, history, MDM, supervision of care Care discussed with: Medical Student Procedures: n/a Results interpretation: Verified all documentation Verification and Attestation of Medical Student E/M Service A medical student performed and documented this service in my presence. I reviewed and verified all information documented by the medical student and made modifications to such information, when appropriate. I personally performed the physical exam and medical decision making. Nelda Ochoa, May 19, 2019,21:20 SHIRA ROY,MED STUDENT May 19, 2019 09:19 NELDA HOOVER DO May 19, 2019 21:20 POS
[2019-05-19] MEDS: RT-ALBUTEROL SULF 2.5 MG/3 ML PRE-MIX VIAL INH SCH ×3 (09:39→20:59)
--- NOTE | 2019-05-19 10:01 | Occupational Ther Daily Note ---
OT Current Status-Daily Note Subjective Pt laying in bed at start of session. Agreeable to OT tx this AM. When asked if he would like to take a sponge bath, clean his teeth, or use a washcloth to wash his face, he replied "washcloth". Pt stated he was not having any pain today. Mental Status/Objective Attachments: Pandya Catheter, IV, Oxygen, PEG Tube, SCD's, Telemetry ADL-Treatment Therapy Code Descriptions/Definitions Functional [place] Measure: 0=Not Assessed/NA 4=Minimal Assistance 1=Total Assistance 5=Supervision or Setup 2=Maximal Assistance 6=Modified [place] 3=Moderate Assistance 7=Complete IndependenceSCALE: Activities may be completed with or without assistive devices. 9-Vbtjxzdczg-tzuvfgm completes the activity by him/herself with no assistance from a helper. 5-Set-up or Clean-up Assistance-helper sets up or cleans up; patient completes activity. [place] assists only prior to or following the activity. 4-Supervision or Touching Assistance-helper provides verbal cues and/or touching/steadying and/or contact guard assistance as patient completes activity. Assistance may be provided throughout the activity or intermittently. 3-Partial/Moderate Assistance-helper does LESS THAN HALF the effort. [place] lifts, holds or supports trunk or limbs, but provides less than half the effort. 2-Substantial/Maximal Assistance-helper does MORE THAN HALF the effort. [place] lifts or holds trunk or limbs and provides more than half the effort. 4-Xwxrswifd-vcxnsh does ALL the effort. Patient does none of the effort to complete the activity. Or, the assistance of 2 or more helpers is required for the patient to complete the activity. If activity was not attempted, code reason: 7-Patient Refused. 9-Not Applicable-not attempted and the patient did not perform the activity before the current illness, exacerbation or injury. 10-Not Attempted due to Environmental Limitations-(lack of equipment, weather restraints, etc.). 88-Not Attempted due to Medical Conditions or Safety Concerns. Oral Hygiene (QC): 1 (Pt attempted to bring foam swab to mouth. Instead of a back and forth cleaning movement, pt chewed on the swab. OT assisted pt with oral hygiene on this date. Pt able to open his mouth during the cleaning without biting down on the swab, and when asked to stick his tounge out, he was able to follow the instructions.) Other Treatment Pt laying in bed throughout session. When asked what he wanted to do this morning and a few options were provided, pt was able to state "washcloth" indicating he wanted to complete the option of washing his face with a washcloth. OT set up wet washcloth in pt's left hand and instructed him to wash his face, pt did not move the washcloth towards his face. OT guided pts left hand and washcloth to his face and he was able to wash his khanna on his right and left side of his face. OT assisted with washing forehead and cheeks. OT then set up foam swabs for oral hygiene (see QC score above). OT asked pt to look towards his right head and find the fan. Pt unable to follow this direction. When OT walked over to right side of pt's head, pt was able to turn head to the right and track OT with his eyes. Pt attempted to talk more throughout session. When OT asked if he was able to feel her touching his right hand he said no, but asked how long?. When OT asked if he meant how long it would take his right side to wake up, he replied "yes". OT educated pt that it could take a while for his right side to wake back up. OT touched the bottom of pt's foot and he jerked his toes. When asked if he felt it he replied "yes". OT oriented pt to call light, instructing him to push the red button if he needed anything. Pt also oriented on how to work the TV remote, pt demonstrated ability to turn on TV, when shown the channel buttons pt instead pushed the TV button again turning the tv off. Pt turned the tx back on and guided pts hand to the channel buttons. OT assisted pt in finding a channel he wanted to watch. When the TV was on, pt was less interactive and did not reply to questions. Post OT session, pt laying in bed, call light in left hand and all needs met. Education OT Patient Education: Correct positioning, Exercise program, Modified ADL techniques, Progress toward Goal/Update tx plan, Purpose of tx/functional activities Teaching Recipient: Patient Teaching Methods: Demonstration, Discussion Response to Teaching: Reinforcement Needed OT Short Term Goals Short Term Goals 1=Demonstrate adherence to instructed precautions during ADL tasks. 2=Patient will verbalize/demonstrate understanding of assistive devices/modifications for ADL. 3=Patient will improve strength/tolerance for activity to enable patient to perform ADL's. OT Dye Reel Operator Helper Goals Correction Goals Time Frame: May 23, 2019 Eating (QC): 3 Oral Hygiene (QC): 3 Shower/Bathe Self (QC): 2 Upper Body Dressing (QC): 3 Lower Body Dressing (QC): 2 On/Off Footwear (QC): 2 Toileting Hygiene (QC): 3 Toilet/Commode Transfer (QC): 3 Additional Goals: 1-Demonstrate ADL Tasks, 2-Verbalize Understanding, 3- ImproveStrength/Yennifer 1=Demonstrate adherence to instructed precautions during ADL tasks. 2=Patient will verbalize/demonstrate understanding of assistive devices/modifications for ADL. 3=Patient will improve strength/tolerance for activity to enable patient to perform ADL's. OT Education/Plan Problem List/Assessment Assessment: Decreased Activ Tolerance, Decreased UE Strength, Dependent Transfers, Edema, Impaired Bed Mobility, Impaired Cognition, Impaired Funct Balance, Impaired I ADL's, Impaired Self-Care Skills, Restricted Funct UE ROM Discharge Recommendations Plan/Recommendations: Continue POC Treatment Plan/Plan of Care Treatment,Training & Education: Yes Patient would benefit from OT for education, treatment and training to promote independence in ADL's, mobility, safety and/or upper extremity function for ADL's. Plan of Care: ADL Retraining, Caregiver Training, Cognitive Retraining, Functional Mobility, Group Exercise/Act as Ind, UE Funct Exercise/Act, UE Neuromus Re-Ed/Coord, Visual/Perceptual Retrain, W/C Management Training Treatment Duration: May 23, 2019 Frequency: 5 times per week Estimated Hrs Per Day: .25 hour per day Agreement: Yes Rehab Potential: Guarded Time/GCodes Start Time: 08:47 Stop Time: 09:06 Total Time Billed (hr/min): 19 Billed Treatment Time 1, ADL (19 mins) KETTY HALL OT May 19, 2019 10:01 POS
--- NOTE | 2019-05-19 10:59 | Physical Therapy Daily Note ---
PT Daily Note-Current Subjective Patient slightly more verbally responsive to PT than previously. Able to state he has no pain and respond to explanation of tx plan. Pain Numeric Pain Scale: 0-No Pain Location: No Pain Reported Mental Status Patient Orientation: Unresponsive, [place] Attachments: Oxygen, PEG Tube, Pandya Catheter, IV Transfers SCALE: Activities may be completed with or without assistive devices. 2-Xyjzniusgg-iawlkdo completes the activity by him/herself with no assistance from a helper. 5-Set-up or Clean-up Assistance-helper sets up or cleans up; patient completes activity. [place] assists only prior to or following the activity. 4-Supervision or Touching Assistance-helper provides verbal cues and/or touching/steadying and/or contact guard assistance as patient completes activity. Assistance may be provided throughout the activity or intermittently. 3-Partial/Moderate Assistance-helper does LESS THAN HALF the effort. [place] lifts, holds or supports trunk or limbs, but provides less than half the effort. 2-Substantial/Maximal Assistance-helper does MORE THAN HALF the effort. [place] lifts or holds trunk or limbs and provides more than half the effort. 1-Rxvnqcfhn-dhbqjn does ALL the effort. Patient does none of the effort to complete the activity. Or, the assistance of 2 or more helpers is required for the patient to complete the activity. If activity was not attempted, code reason: 7-Patient Refused. 9-Not Applicable-not attempted and the patient did not perform the activity before the current illness, exacerbation or injury. 10-Not Attempted due to Environmental Limitations-(lack of equipment, weather restraints, etc.). 88-Not Attempted due to Medical Conditions or Safety Concerns. Transfers (B, C, W/C): 1 Roll Left to Right (QC): 1 Sit to Stand (QC): 1 Chair/Vrz-ti-Bdnor Xfer(QC): 1 Weight Bearing Right Lower Extremity: Right Weight Bearing/Tolerated Left Lower Extremity: Left Weight Bearing/Tolerated Exercises Supine Ex: Ankle pumps, Heel Slides Supine Reps: 10 (PROM) Assessment Patient initially more responsive to PT questions. Patient unable to perform any movement of either LE to perform exercises, which he was previously able to assist with LLE movements. Required assist of two for dependent transfer from supine to sitting EOB and then transfer to chair. Patient demonstrated more weakness today than at initial evaluation during exercises and transfer. Patient positioned in chair with nursing present. PT Drum Sander Setter Goals Custodial Goals PT Custodial Goals Time Frame: May 23, 2019 Sit to Lying (QC): 2 Lying-Sitting on Side/Bed(QC): 2 Sit to Stand (QC): 2 Roll Left to Right (QC): 2 Chair/Ecb-gw-Geghm Xfer(QC): 2 Car Transfer (QC): 2 PT Plan Treatment/Plan Treatment Plan: Continue Plan of Care Treatment Plan: Bed Mobility, Education, Functional Activity Yennifer, Functional Strength, Safety, Therapeutic Exercise, Transfers Frequency: 6 times per week Estimated Hrs Per Day: .25 hour per day Patient and/or Family Agrees t: Yes Time/GCodes Time In: 1008 Time Out: 1025 Total Billed Treatment Time: 17 Total Billed Treatment 1 visit FA 17min ABILIO DE SOUZA PT May 19, 2019 10:59 POS
--- NOTE | 2019-05-19 12:52 | NUR ---
DISCHARGE PLANNING: referral is pending to [facility]..they are awaiting approval from [facility]. I sent additional PT/OT notes this morning. Patient has started PEG tub feeding this morning and is tolerating them well. Currently only at 10 ml/hr hour with goal of 55ml/hr. Daughters are asking for DPOA paperwork. I delivered but explained to them that I do not eel he has capacity now to make that determination. They then started having him write his name....I cannot get consistent answers from him there for will not assist in the completion of the paperwork. WIll see over the next days if he gains more then will reevaluate.
--- NOTE | 2019-05-19 16:29 | Progress Note ---
Subjective Subjective/Events-last exam Seen at 1035. Afebrile, no acute events. PEG placed yesterday. Objective Exam Last Set of Vital Signs Vital Signs Date Time Temp Pulse Resp B/P (MAP) Pulse Ox O2 Delivery O2 Flow Rate FiO2 05/19/19 14:23 96 Nasal Cannula 2.50 05/19/19 13:56 36.4 62 32 05/19/19 12:00 20 142/83 (102) Capillary Refill : Less Than 3 SecondsLess Than 3 Seconds I&O Intake and Output 05/18/19 23:59 Intake Total 1200 ml Output Total 1700 ml Balance -500 ml Intake Oral 0 ml IV Total 1200 ml Output Urine Total 1700 ml General: Alert Lungs: Clear to Auscultation, Normal Air Movement Heart: Other (irregularly irregular) Neuro: Other (trying to speak- possibly saying yes and no, difficult to understand. Good eye contact. Not moving right side, decreased dexterity on left, unable to use remote that is in his hand) Results/Procedures Lab Laboratory Tests 05/19/19 04:00: White Blood Count 10.5, Red Blood Count 4.57, Hemoglobin 13.4, Hematocrit 43, Mean Corpuscular Volume 93, Mean Corpuscular Hemoglobin 29, Mean Corpuscular Hemoglobin Concent 31L, Red Cell Distribution Width 15.1H, Platelet Count 265, Mean Platelet Volume 9.7, Neutrophils (%) (Auto) 70, Lymphocytes (%) (Auto) 14, Monocytes (%) (Auto) 11, Eosinophils (%) (Auto) 4, Basophils (%) (Auto) 0, Neutrophils # (Auto) 7.3, Lymphocytes # (Auto) 1.5, Monocytes # (Auto) 1.2H, Eosinophils # (Auto) 0.4H, Basophils # (Auto) 0.0, Sodium Level 145, Potassium Level 3.8, Chloride Level 113H, Carbon Dioxide Level 24, Anion Gap 8, Blood Urea Nitrogen 18, Creatinine 0.72, Estimat Glomerular Filtration Rate > 60, BUN/Creatinine Ratio 25, Glucose Level 153H, Calcium Level 8.1L, Phosphorus Level 2.9, Magnesium Level 1.9 Microbiology 05/11/19 Blood Culture - Final, Complete No growth 05/17/19 MRSA Screen - Final, Complete MRSA not isolated 05/11/19 Urine Culture - Final, Complete NO GROWTH Radiology Laboratory Tests 05/11/19 15:50: White Blood Count 11.7H, Red Blood Count 5.73, Hemoglobin 16.8, Hematocrit 50, Mean Corpuscular Volume 88, Mean Corpuscular Hemoglobin 29, Mean Corpuscular Hemoglobin Concent 33, Red Cell Distribution Width 14.7H, Platelet Count 313, Mean Platelet Volume 9.5, Neutrophils (%) (Auto) 74, Lymphocytes (%) (Auto) 15, Monocytes (%) (Auto) 10, Eosinophils (%) (Auto) 1, Basophils (%) (Auto) 0, Neutrophils # (Auto) 8.6H, Lymphocytes # (Auto) 1.8, Monocytes # (Auto) 1.1H, Eosinophils # (Auto) 0.1, Basophils # (Auto) 0.0, Prothrombin Time 15.8H, INR C omment 1.2, Activated Partial Thromboplast Time 36H, D-Dimer 0.77H, Urine Color YELLOW, Urine Clarity SLIGHTLY CLOUDY, Urine pH 6, Urine Specific [place] 1.020, Urine Protein 4+, Urine Glucose (UA) 1+H, Urine Ketones 3+H, Urine Nitrite NEGATIVE, Urine Bilirubin NEGATIVE, Urine Urobilinogen NORMAL, Urine Leukocyte Esterase NEGATIVE, Urine RBC (Auto) 5+H, Urine RBC NONE, Urine WBC NONE, Urine Crystals NONE, Urine Bacteria TRACE, Urine Casts NONE, Urine Mucus NEGATIVE, Urine Culture Indicated NO, Sodium Level 142, Potassium Level 4.0, Chloride Level 105, Carbon Dioxide Level 23, Anion Gap 14, Blood Urea Nitrogen 13, Creatinine 0.86, Estimat Glomerular Filtration Rate > 60, BUN/Creatinine Ratio 15, Glucose Level 134H, Lactic Acid Level 2.00, Calcium Level 9.6, Corrected Calcium 9.8, Total Bilirubin 2.7H, Aspartate Amino Transf (AST/SGOT) 77H, Yony ne Aminotransferase (ALT/SGPT) 36, Alkaline Phosphatase 98, Troponin I 0.113H, Total Protein 7.2, Albumin 3.8 05/12/19 04:30: White Blood Count 12.2H, Red Blood Count 5.16, Hemoglobin 15.2, Hematocrit 46, Mean Corpuscular Volume 88, Mean Corpuscular Hemoglobin 30, Mean Corpuscular Hemoglobin Concent 33, Red Cell Distribution Width 14.9H, Platelet Count 281, Mean Platelet Volume 9.4, Neutrophils (%) (Auto) 76H, Lymphocytes (%) (Auto) 12, Monocytes (%) (Auto) 11, Eosinophils (%) (Auto) 1, Basophils (%) (Auto) 0, Neutrophils # (Auto) 9.3H, Lymphocytes # (Auto) 1.5, Monocytes # (Auto) 1.3H, Eosinophils # (Auto) 0.1, Basophils # (Auto) 0.0, Sodium Level 142, Potassium Level 3.8, Chloride Level 109H, Carbon Dioxide Level 20L, Anion Gap 13, Blood Urea Nitrogen 13, Creatinine 0.84, Estimat Glomerular Filtration Rate > 60, BUN/Creatinine Ratio 15, Glucose Level 143H, Calcium Level 8.6, Phosphorus Level 3.3, Magnesium Level 1.6 05/12/19 06:26: White Blood Count 13.1H, Red Blood Count 5.59, Hemoglobin 16.3, Hematocrit 50, Mean Corpuscular Volume 89, Mean Corpuscular Hemoglobin 29, Mean Corpuscular Hemoglobin Concent 33, Red Cell Distribution Width 14.9H, Platelet Count 271, Mean Platelet Volume 10.0, Neutrophils (%) (Auto) 74, Lymphocytes (%) (Auto) 14, Monocytes (%) (Auto) 11, Eosinophils (%) (Auto) 1, Basophils (%) (Auto) 0, Neutrophils # (Auto) 9.7H, Lymphocytes # (Auto) 1.9, Monocytes # (Auto) 1.4H, Eosinophils # (Auto) 0.1, Basophils # (Auto) 0.0, Sodium Level 141, Potassium Level 3.8, Chloride Level 108H, Carbon Dioxide Level 20L, Anion Gap 13, Blood Urea Nitrogen 13, Creatinine 0.87, Estimat Glomerular Filtration Rate > 60, BUN/Creatinine Ratio 15, Glucose Level 135H, Calcium Level 8.9, Corrected Calcium 9.3, Total Bilirubin 3.2H, Aspartate Amino Transf (AST/SGOT) 83H, Al anine Aminotransferase (ALT/SGPT) 37, Alkaline Phosphatase 101, Total Protein 6.6, Albumin 3.5, Phosphorus Level 3.3, Magnesium Level 1.7, Triglycerides Level 108, Cholesterol Level 180, LDL Cholesterol Direct 133H, VLDL Cholesterol 22, HDL Cholesterol 37L Assessment/Plan Assessment/Plan (1) Acute cardioembolic stroke Status: Acute Assessment & Plan: Has had some return of speech, minimal movement, not awake enough to complete swallow eval yesterday. Will try again today, if unable to swallow or not alert enough, will consult Surgery tomorrow to discuss PEG with family. 05/17- unable to safely swallow with speech yesterday, Dr. Cordero to discuss PEG with family today. 05/18- plan for PEG, Nutrition consult. 05/19 PEG done yesterday, enteral feedings started. (2) HTN (hypertension) Status: Chronic Assessment & Plan: Some HTN permitted after acute stroke. Labetalol prn BP > 180. 05/19- had some bradycardia yesterday, hydralazine added for prn. Qualifiers: Qualified Codes: I10 - Essential (primary) hypertension (3) Diabetes mellitus Status: Chronic Assessment & Plan: Blood sugar 130s-150s, monitor. Qualifiers: (4) Atrial fibrillation Status: Chronic Assessment & Plan: Holding anticoagulation x 7 days after stroke per stroke team. 05/18 resume when okay with Surgery after procedure. Qualifiers: Qualified Codes: I48.11 - Longstanding persistent atrial fibrillation (5) DVT prophylaxis Status: Acute Assessment & Plan: Per stroke center, holding anticoagulation x 7 days, on antiplatelet only for now. (6) Discharge planning issues Status: Acute Assessment & Plan: [facility] referrals for intermediate started Clinical Quality Measures DVT/VTE Risk/Contraindication: Risk Factor Score Per Nursin RFS Level Per Nursing on Admit: 4+=Very High PAUL RENTERIA MD May 19, 2019 16:28 POS
[2019-05-19] MEDS: meTOprolol TARTRATE 25 MG (LOPRESSOR) TABLET PO SCH (20:16)
[2019-05-19] MEDS: ROSUVASTATIN 10 MG (CRESTOR) TABLET PO SCH (20:16)
[2019-05-19] MEDS: APIXABAN 5 MG (ELIQUIS) TABLET PEG SCH (20:16)
[2019-05-20] VITALS (11 sets, daily range): BP systolic 99–178; BP diastolic 57–93
[2019-05-20] MEDS: RT-ALBUTEROL SULF 2.5 MG/3 ML PRE-MIX VIAL INH SCH ×4 (02:42→20:22)
[2019-05-20 03:50] LABS: BASOPHILS # (AUTO) 0.1 10^3/uL (0.0-0.1); BASOPHILS % (AUTO) 1 % (0-10); EOSINOPHILS # (AUTO) 0.5 10^3/uL (0.0-0.3); EOSINOPHILS % (AUTO) 5 % (0-10); HEMATOCRIT 39 % (40-54); HEMOGLOBIN 12.2 G/DL (13.3-17.7); LYMPHOCYTES % (AUTO) 19 % (12-44); MEAN CORPUSCULAR HEMOGLOBIN 29 PG (25-34); MEAN CORPUSCULAR HGB CONC 31 G/DL (32-36); MEAN CORPUSCULAR VOLUME 94 FL (80-99); MEAN PLATELET VOLUME 9.9 FL (7.4-10.4); MONOCYTES # (AUTO) 1.1 X 10^3 (0.0-1.0); MONOCYTES % (AUTO) 10 % (0-12); NEUTROPHILS # (AUTO) 6.9 X 10^3 (1.8-7.8); NEUTROPHILS % (AUTO) 66 % (42-75); PLATELET COUNT 251 10^3/uL (130-400); RED CELL DISTRIBUTION WIDTH 14.8 % (10.0-14.5); WHITE BLOOD COUNT 10.5 10^3/uL (4.3-11.0)
[2019-05-20 04:09] LABS: BUN/CREATININE RATIO 34; CALCIUM 8.2 MG/DL (8.5-10.1); CARBON DIOXIDE 25 MMOL/L (21-32); CHLORIDE 111 MMOL/L (98-107); CREATININE SERUM 0.68 MG/DL (0.60-1.30); GFR ESTIMATED > 60; GLUCOSE 127 MG/DL (70-105); MAGNESIUM 1.7 MG/DL (1.6-2.4); PHOSPHORUS 2.6 MG/DL (2.3-4.7); POTASSIUM 3.7 MMOL/L (3.6-5.0); SODIUM 145 MMOL/L (135-145)
[2019-05-20] MEDS: POTASSIUM CL 10MEQ/50ML IVPB 50 ML IV SCH (05:30)
[2019-05-20] MEDS: KCL 20 MEQ TAB (K-DUR) PO SCH (05:30)
[2019-05-20] MEDS: MAGNESIUM 1 GM/100 ML IVPB 100 ML IV SCH ×3 (05:32→06:38)
[2019-05-20] MEDS: D5 1/2 NS 1000 ML IV SOLUTION 1,000 ML IV SCH ×2 (06:39→20:38)
--- NOTE | 2019-05-20 07:23 | Progress Note - Surgery ---
Subjective Date Seen by a Provider: May 20, 2019 Time Seen by a Provider: 07:15 Subjective/Events-last exam Pt is alert but not oriented. Patient was verbal today but could only say yeah to my questions or instructions. No family at bedside Pt has catheter in PEG tube is running and there is no skin irritation around the port. Currently running at 40ml/hr. Abdominal exam did not elicit any rebound or guarding upon palpation Unable to obtain ROS Objective Exam Vital Signs Date Time Temp Pulse Resp B/P (MAP) Pulse Ox O2 Delivery O2 Flow Rate FiO2 05/20/19 04:00 36.8 74 19 178/91 (120) 97 Nasal Cannula 2.00 05/20/19 02:43 98 Nasal Cannula 2.00 05/20/19 01:00 73 05/20/19 00:10 36.6 68 18 172/93 (119) 96 Nasal Cannula 2.00 05/19/19 20:59 93 Nasal Cannula 2.00 05/19/19 20:05 36.5 78 20 165/72 (103) 98 Nasal Cannula 2.50 05/19/19 19:43 Nasal Cannula 2.00 05/19/19 19:00 53 05/19/19 16:35 36.3 65 20 161/78 (105) 98 Nasal Cannula 2.50 05/19/19 14:23 96 Nasal Cannula 2.50 05/19/19 13:56 36.4 62 93 32 05/19/19 13:00 85 05/19/19 12:00 36.4 65 20 142/83 (102) 93 Nasal Cannula 3.00 05/19/19 09:39 97 Nasal Cannula 3.00 05/19/19 08:00 36.4 65 20 168/84 (112) 98 Nasal Cannula 3.00 05/19/19 08:00 97 Nasal Cannula 3.00 I & O 05/20/19 07:00 Intake Total 30 ml Output Total 1450 ml Balance -1420 ml Capillary Refill : Less Than 3 SecondsLess Than 3 Seconds General Appearance: No Apparent Distress HEENT: No Scleral Icterus (L), No Scleral Icterus (R) Neck: Supple; No Lymphadenopathy (L), No Lymphadenopathy (R) Respiratory: Chest Non Tender, No Accessory Muscle Use, No Respiratory Distress Cardiovascular: Regular Rate, Rhythm, Normal Peripheral Pulses Peripheral Pulses: 2+ Dorsalis Pedis (R), 2+ Left Dors-Pedis (L), 2+ Radial Pulses (R), 2+ Radial Pulses (L) Gastrointestinal: soft; No guarding, No rebound; other (gastrostomy tube in place luq) Extremity: No Pedal Edema, Other (Edema of the right arm likely secondary to IV ) Neurologic/Psychiatric: Other (asleep) Skin: Normal Color, Warm/Dry Results Lab Laboratory Tests 05/20/19 03:20: White Blood Count 10.5, Red Blood Count 4.16L, Hemoglobin 12.2L, Hematocrit 39L, Mean Corpuscular Volume 94, Mean Corpuscular Hemoglobin 29, Mean Corpuscular Hemoglobin Concent 31L, Red Cell Distribution Width 14.8H, Platelet Count 251, Mean Platelet Volume 9.9, Neutrophils (%) (Auto) 66, Lymphocytes (%) (Auto) 19, Monocytes (%) (Auto) 10, Eosinophils (%) (Auto) 5, Basophils (%) (Auto) 1, Neutrophils # (Auto) 6.9, Lymphocytes # (Auto) 2.0, Monocytes # (Auto) 1.1H, Eosinophils # (Auto) 0.5H, Basophils # (Auto) 0.1, Sodium Level 145, Potassium Level 3.7, Chloride Level 111H, Carbon Dioxide Level 25, Anion Gap 9, Blood Urea Nitrogen 23H, Creatinine 0.68, Estimat Glomerular Filtration Rate > 60, BUN/Creatinine Ratio 34, Glucose Level 127H, Calcium Level 8.2L, Phosphorus Level 2.6, Magnesium Level 1.7 Microbiology 05/11/19 Blood Culture - Final, Complete No growth 05/17/19 MRSA Screen - Final, Complete MRSA not isolated 05/11/19 Urine Culture - Final, Complete NO GROWTH Assessment/Plan Assessment/Plan Assessment/Plan acute cardioembolic stroke HTN DM dysphagia s/p gastrostomy tube placement tube feeds started will sign off, call if needed. Clinical Quality Measures DVT/VTE Risk/Contraindication: Risk Factor Score Per Nursin RFS Level Per Nursing on Admit: 4+=Very High ERIC HARRIS [employer] [facility] May 20, 2019 07:23 POS
[2019-05-20] MEDS ORDERED: ASPIRIN 325 MG (5 GR) TABLET PEG SCH (09:00)
[2019-05-20] MEDS ORDERED: lisINopril 10 MG (PRINIVIL) TABLET PO SCH (09:00)
--- NOTE | 2019-05-20 09:37 | NUR ---
DISCHARGE PLANNING: Patient is accepted to [facility] and approved by [facility]. Transportation is for 13:30 by [facility] and they have a pump for his PEG feedings. Will notify the daughters about acceptance and discharge today. Addendum: 05/20/19 at 1158 by YUMIKO TAY RN daughters need to be present for admission paper work at [facility] and also to complete the Care Assessment. I have called and left a message with Magi and attempted to call Inez( answered with an "yeimy" and and no when asked if this was Inez. Patient is expected to be picked up at 1330.
[2019-05-20] MEDS: meTOprolol TARTRATE 25 MG (LOPRESSOR) TABLET PO SCH ×2 (10:35→20:38)
[2019-05-20] MEDS: APIXABAN 5 MG (ELIQUIS) TABLET PEG SCH (10:35)
--- NOTE | 2019-05-20 10:50 | NUR ---
Received call from Mauro MANDEL concerning discharge plans. Pt is tolerating TF well at this time, currently at 40 ml/hr and due to increase to 50 ml/hr shortly. Recommend the following enteral nutrition plan at discharge: Glucerna 1.5 at goal rate of 55 ml/hr. Begin at 50 ml/hr and increase to goal rate at 6h, as tolerated. At goal rate, provides 1980 kcal (16 kcal/kg); 110 g Pro (0.9 g Pro/kg); and 1002 ml free water. Flush with 150 ml H2O q4h. With flushes, provides 1902 ml free water. Colin Ivan, MS, RD, LD
[2019-05-20] MEDS ORDERED: ASPI-808 PEG (11:10)
--- NOTE | 2019-05-20 11:12 | Discharge Inst-Skilled Nursing ---
Discharge Inst-Skilled NF Patient Instructions Patient Problems: Cerebrovascular accident Diabetes Hypertension Consult/Follow Up/Orders Skilled NF Admit to: Via [facility] Certifications SNF I certify that SNF services are required to be given on an inpatient basis because of the above named patient's need for [facility]ci care on a continuing basis for the conditions(s) for which he/she was receiving inpatient hospital services prior to his/her transfer to the SNF. [facility] Facility Order: Nursing Services, Log Getter-Evaluate & Treat, Physical Therapy-Evaluate & Treat, Speech Language-Evaluate & Treat Oxygen Delivery Method: Nasal Cannula Discharge Diet: ADA Diet Daily Activity as Tolerated: Yes Resuscitation Status: Full Code New & Resume Previous Orders New & Resume Previous Orders Tube feeds: Glucerna 1.5 at goal rate of 55 ml/hr. Begin at 50 ml/hr and increase to goal rate at 6h, as tolerated. Flush with 150 ml H2O q4h. Discharge Medications New, Converted or Re-Newed RX: Transmitted to Pharmacy New Medications: Aspirin (Aspirin) 325 Mg Tablet 325 MG PEG DAILY@0900, #30 TAB 0 Refills Continued Medications: Acetaminophen (Tylenol Extra Strength) 500 Mg Tablet 1000 MG PO Q6H PRN for PAIN-MILD, TAB Apixaban (Eliquis) 5 Mg Tablet 5 MG PO BID, TAB LAST FILLED #180 06-17-18 Bumetanide (Bumetanide) 1 Mg Tablet 1 MG PO BID, TAB LAST FILLED #120 02-22-19 Ferrous Sulfate (Ferrous Sulfate) 325 Mg Tablet 325 MG PO DAILY, TAB Furosemide (Furosemide) 40 Mg Tablet 40 MG PO DAILY, TAB LAST FILLED #60 02-22-19 Gabapentin (Gabapentin) 100 Mg Capsule 100 MG PO DAILY, CAP LAST FILLED #270 10-16-18 TAKES 1 AM AND 2 PM Gabapentin (Gabapentin) 100 Mg Capsule 200 MG PO HS, CAP LAST FILLED #270 10-16-18 TAKES 1 AM AND TAKES 2 (100MG) CAPSULES PM Lisinopril (Lisinopril) 5 Mg Tablet 10 MG PO DAILY, TAB LAST FILLED #60 02-22-19 TAKES 2 (5MG) TABLETS Magnesium Oxide (Magnesium) 400 Mg Tablet 400 MG PO DAILY, TAB Metoprolol Tartrate (Metoprolol Tartrate) 25 Mg Tablet 25 MG PO BID, TAB LAST FILLED #120 02-22-19 [place] 3 Polyunsat Fatty Acids (Fish Oil 1,000 mg Capsule) 1,000 Mg Cap 1000 MG PO BID, CAP Polyethylene Glycol 3350 (Miralax) 17 Gm Powd.pack 17 GM PO DAILY PRN for CONSTIPATION-2ND LINE, EACH Ropinirole HCl (Ropinirole HCl) 0.5 Mg Tablet 0.5 MG PO DAILY, TAB LAST FILLED #180 02-22-19 TAKES 1 TABLET IN AM AND 2 AT HS Ropinirole HCl (Ropinirole HCl) 0.5 Mg Tablet 1 MG PO HS, TAB LAST FILLED #180 02-22-19 TAKES 1 TABLET IN AM AND TAKES 2 (0.5MG) TABLETS PM Rosuvastatin Calcium (Rosuvastatin Calcium) 10 Mg Tablet 10 MG PO HS, TAB LAST FILLED #60 02-22-19 Discontinued Medications: B Complex with Vitamin C (Super B Complex-Vitamin C) 1 Each Tablet 1 TAB PO MoWeFr, TAB Levocetirizine Dihydrochloride (Xyzal) 5 Mg Tablet 5 MG PO HS, TAB LAST FILLED #60 02-22-19 Metformin HCl (Metformin HCl) 1,000 Mg Tablet 1000 MG PO BID, TAB LAST FILLED #180 09-03-18 Multivits,Stress Formula (Stress Formula) 1 Each Tablet 1 TAB PO DAILY, TAB Mv,Minerals/FA/Lycopene/Ginkgo (One Daily For Men 50+ Adv Tab) 1 Each Tablet 1 TAB PO DAILY, TAB Turmeric Root Extract (Turmeric) 538 Mg Capsule 538 MG PO BID, CAP Paul Munoz May 20, 2019 11:11 PAUL MUNOZ MD May 20, 2019 11:12 POS
--- NOTE | 2019-05-20 11:21 | Cardiology Progress Note ---
Subjective Date Seen by Provider: May 20, 2019 Time Seen by Provider: 11:20 Subjective/Events-last exam patient is sitting in a chair, opening his eyes, no change from baseline Review of Systems General: No Chills, No Night Sweats, No Fatigue, No Malaise, No Appetite, No Other HEENT: No Head Aches, No Visual Changes, No Eye Pain, No Ear Pain, No Dysphasia, No Sinus Congestion, No Post Nasal Drip, No Sore Throat, No Other Pulmonary: No Dyspnea, No Cough, No Pleuritic Chest Pain, No Other Cardiovascular: No: Chest Pain, Palpitations, Orthopnea, Paroxysmal Noc. Dyspnea, Edema, Lt Headedness, Other Objective-Cardiology Exam Last Set of Vital Signs Vital Signs 05/19/19 05/20/19 05/20/19 13:56 08:00 10:28 Temp 36.0 Pulse 97 Resp 20 B/P (MAP) 161/80 (107) Pulse Ox 93 O2 Delivery Nasal Cannula O2 Flow Rate 2.00 FiO2 32 Capillary Refill : Less Than 3 SecondsLess Than 3 Seconds I&O Intake and Output 05/20/19 00:00 Intake Total 30 ml Output Total 1075 ml Balance -1045 ml Intake Oral 0 ml Tube Feeding 30 ml Output Urine Total 1075 ml # Bowel Movements 1 General: Alert HEENT: Atraumatic Neck: Supple Lungs: Clear to Auscultation, Normal Air Movement Heart: Normal S1, Normal S2, Other (irregularly irregular) Abdomen: Normal Bowel Sounds, Soft Extremities: No Clubbing, No Cyanosis Skin: No Rashes Neuro: Other (trying to speak- possibly saying yes and no, difficult to understand. Good eye contact. Not moving right side, decreased dexterity on left, unable to use remote that is in his hand) Results Lab Laboratory Tests 05/20/19 03:20 A/P-Cardiology Admission Diagnosis CVA CAD PAF [place] Assessment/Plan CVA- CTA revealed displayed inferior anterior R fontal lobe and superior posterior left lateral frontal lobe acute infarct without large vessel occlusion. I restarted Eliquis, continue to monitor Coronary artery disease status post CABG 5 using GOODSON to LAD, vein graft to the first diagonal, vein graft to the obtuse marginal sequential to the posterior lateral of the right and PDA and aortic valve replacement using tissue valve done in July [address] White at [facility] in [place]. Had an abnormal stress test, cardiac catheterization done on November 25, 2017 showing pat ent GOODSON to LAD, vein graft to diagonal artery giving good flow to the LAD system that has been occluded proximally and patent jump graft to the first obtuse marginal branch which is a very small artery and the posterolateral branch of the right PDA that has ectasia and small vessel disease. The [place] circumflex artery has mild disease, the second and third obtuse marginal branch had moderate to severe disease but there are very small arteries. The right coronary artery is a dominant artery with diffuse ectasia and slow flow noted through followed the right system, medical therapy is recommended Paroxysmal atrial fibrillation, EKG reveals atrial fibrillation, rate controlled. Maintained on Eliquis as outpatient, patient's daughter reports he had not been compliant with medication recently. [id number] score is 5, maintained on Eliquis. Continue to monitor Severe right carotid artery stenosis, was referred to [facility], monitored by Dr. Goodman. CTA neck done revealing near occlusion of right ICA, left ICA 50- 70%. History of elevated liver enzymes, continue to monitor. Hypertension, continue to monitor blood pressure to keep SBP <180 Hyperlipidemia, lipid profile from June 09, 2018 showing total cholesterol 165, HDL 39, triglyceride 193, LDL 97, continue to monitor History of chronic kidney disease, continue to monitor renal function, followed by [facility] nephrology consultant teacher as outpatient. Diabetes mellitus, followed and managed by primary care physician History of chronic peripheral edema Obesity History of upper GI bleed Overall patient has poor prognosis Clinical Quality Measures DVT/VTE Risk/Contraindication: Risk Factor Score Per Nursin RFS Level Per Nursing on Admit: 4+=Very High CARLOS HUTCHINSON MD May 20, 2019 11:21 POS
--- NOTE | 2019-05-20 11:32 | Discharge Summary ---
Discharge Summary Hospital Course Problems/Diagnosis: (1) Acute cardioembolic stroke Status: Acute Assessment & Plan: Has had some return of speech, minimal movement, not awake enough to complete swallow eval yesterday. Will try again today, if unable to swallow or not alert enough, will consult Surgery tomorrow to discuss PEG with family. 05/17- unable to safely swallow with speech yesterday, Dr. Cordero to discuss PEG with family today. 05/18- plan for PEG, Nutrition consult. 05/19 PEG done yesterday, enteral feedings started. (2) HTN (hypertension) Status: Chronic Assessment & Plan: Some HTN permitted after acute stroke. Labetalol prn BP > 180. 05/19- had some bradycardia yesterday, hydralazine added for prn. Qualifiers: Qualified Codes: I10 - Essential (primary) hypertension (3) Diabetes mellitus Status: Chronic Assessment & Plan: Blood sugar 130s-150s, monitor. Qualifiers: (4) Atrial fibrillation Status: Chronic Assessment & Plan: Holding anticoagulation x 7 days after stroke per stroke team. 05/18 resume when okay with Surgery after procedure. Qualifiers: Qualified Codes: I48.11 - Longstanding persistent atrial fibrillation (5) DVT prophylaxis Status: Acute Assessment & Plan: Per stroke center, holding anticoagulation x 7 days, on antiplatelet only for now. (6) Discharge planning issues Status: Acute Assessment & Plan: [facility] referrals for [facility] started Hospital Course Date of Admission: May 11, 2019 at 18:51 Admission Diagnosis : Family Physician/Provider: Rosario Davidson MD Date of Discharge: 05/20/19 Discharge Diagnosis: [ ] Hospital Course: [ ] Labs and Pending Lab Test: Laboratory Tests 05/20/19 03:20: White Blood Count 10.5, Red Blood Count 4.16L, Hemoglobin 12.2L, Hematocrit 39L, Mean Corpuscular Volume 94, Mean Corpuscular Hemoglobin 29, Mean Corpuscular Hemoglobin Concent 31L, Red Cell Distribution Width 14.8H, Platelet Count 251, Mean Platelet Volume 9.9, Neutrophils (%) (Auto) 66, Lymphocytes (%) (Auto) 19, Monocytes (%) (Auto) 10, Eosinophils (%) (Auto) 5, Basophils (%) (Auto) 1, Neutrophils # (Auto) 6.9, Lymphocytes # (Auto) 2.0, Monocytes # (Auto) 1.1H, Eosinophils # (Auto) 0.5H, Basophils # (Auto) 0.1, Sodium Level 145, Potassium Level 3.7, Chloride Level 111H, Carbon Dioxide Level 25, Anion Gap 9, Blood Urea Nitrogen 23H, Creatinine 0.68, Estimat Glomerular Filtration Rate > 60, BUN/Creatinine Ratio 34, Glucose Level 127H, Calcium Level 8.2L, Phosphorus Level 2.6, Magnesium Level 1.7 Microbiology 05/11/19 Blood Culture - Final, Complete No growth 05/17/19 MRSA Screen - Final, Complete MRSA not isolated 05/11/19 Urine Culture - Final, Complete NO GROWTH Home Meds Active Aspirin 325 Mg Tablet 325 Mg PEG DAILY@0900 Reported Rosuvastatin Calcium 10 Mg Tablet 10 Mg PO HS LAST FILLED #60 02-22-19 Metformin HCl 1,000 Mg Tablet 1,000 Mg PO BID LAST FILLED #180 09-03-18 Super B Complex-Vitamin C (B Complex with Vitamin C) 1 Each Tablet 1 Tab PO MOWEFR Ropinirole HCl 0.5 Mg Tablet 1 Mg PO HS LAST FILLED #180 02-22-19 TAKES 1 TABLET IN AM AND TAKES 2 (0.5MG) TABLETS PM Turmeric (Turmeric Root Extract) 538 Mg Capsule 538 Mg PO BID One Daily For Men 50+ Adv Tab (Mv,Minerals/FA/Lycopene/Ginkgo) 1 Each Tablet 1 Tab PO DAILY Metoprolol Tartrate 25 Mg Tablet 25 Mg PO BID LAST FILLED #120 02-22-19 Tylenol Extra Strength (Acetaminophen) 500 Mg Tablet 1,000 Mg PO Q6H PRN Fish Oil 1,000 mg Capsule ([place] 3 Polyunsat Fatty Acids) 1,000 Mg Cap 1,000 Mg PO BID Ferrous Sulfate 325 Mg Tablet 325 Mg PO DAILY Miralax (Polyethylene Glycol 3350) 17 Gm Powd.pack 17 Gm PO DAILY PRN Bumetanide 1 Mg Tablet 1 Mg PO BID LAST FILLED #120 02-22-19 Furosemide 40 Mg Tablet 40 Mg PO DAILY LAST FILLED #60 02-22-19 Ropinirole HCl 0.5 Mg Tablet 0.5 Mg PO DAILY LAST FILLED #180 02-22-19 TAKES 1 TABLET IN AM AND 2 AT HS Gabapentin 100 Mg Capsule 200 Mg PO HS LAST FILLED #270 10-16-18 TAKES 1 AM AND TAKES 2 (100MG) CAPSULES PM Gabapentin 100 Mg Capsule 100 Mg PO DAILY LAST FILLED #270 10-16-18 TAKES 1 AM AND 2 PM Xyzal (Levocetirizine Dihydrochloride) 5 Mg Tablet 5 Mg PO HS LAST FILLED #60 02-22-19 Stress Formula (Multivits,Stress Formula) 1 Each Tablet 1 Tab PO DAILY Magnesium (Magnesium Oxide) 400 Mg Tablet 400 Mg PO DAILY Eliquis (Apixaban) 5 Mg Tablet 5 Mg PO BID LAST FILLED #180 06-17-18 Lisinopril 5 Mg Tablet 10 Mg PO DAILY LAST FILLED #60 02-22-19 TAKES 2 (5MG) TABLETS Discharge Physical Examination Allergies: Coded Allergies: No Known Drug Allergies (Verified , 05/18/19) Discharge Summary Date of Admission May 11, 2019 at 18:51 Date of Discharge Discharge Date: May 20, 2019 Admission Diagnosis Assessment: Catastrophic CVA Plan: Palliative care Comfort Measures/ End of Life Care: Pallative Care Discharge Diagnosis (1) Acute cardioembolic stroke Status: Acute (2) 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 Status: Acute (3) Bilateral carotid artery stenosis Status: Acute (4) Atrial fibrillation Status: Chronic Qualifiers: Qualified Codes: I48.11 - Longstanding persistent atrial fibrillation (5) HLP (6) HTN (hypertension) Status: Chronic Qualifiers: Qualified Codes: I10 - Essential (primary) hypertension (7) Hypoxia Status: Acute (8) CHF (congestive heart failure) Status: Resolved (9) CAD (coronary artery disease) Status: Chronic (10) Diabetes mellitus Status: Chronic Qualifiers: Clinical Quality Measures DVT/VTE Risk/Contraindication: Risk Factor Score Per Nursin RFS Level Per Nursing on Admit: 4+=Very High PAUL RENTERIA MD May 20, 2019 11:32 POS
--- NOTE | 2019-05-20 11:34 | Physical Therapy Daily Note ---
PT Daily Note-Current Subjective Patient is more lethargic and not responding as well today. Mental Status Patient Orientation: Listless Attachments: PEG Tube, Pandya Catheter, IV Transfers SCALE: Activities may be completed with or without assistive devices. 0-Kevxwtvyng-qutdjyk completes the activity by him/herself with no assistance from a helper. 5-Set-up or Clean-up Assistance-helper sets up or cleans up; patient completes activity. [place] assists only prior to or following the activity. 4-Supervision or Touching Assistance-helper provides verbal cues and/or touching/steadying and/or contact guard assistance as patient completes activity. Assistance may be provided throughout the activity or intermittently. 3-Partial/Moderate Assistance-helper does LESS THAN HALF the effort. [place] lifts, holds or supports trunk or limbs, but provides less than half the effort. 2-Substantial/Maximal Assistance-helper does MORE THAN HALF the effort. [place] lifts or holds trunk or limbs and provides more than half the effort. 8-Fromwseme-xtuzcw does ALL the effort. Patient does none of the effort to complete the activity. Or, the assistance of 2 or more helpers is required for the patient to complete the activity. If activity was not attempted, code reason: 7-Patient Refused. 9-Not Applicable-not attempted and the patient did not perform the activity before the current illness, exacerbation or injury. 10-Not Attempted due to Environmental Limitations-(lack of equipment, weather restraints, etc.). 88-Not Attempted due to Medical Conditions or Safety Concerns. Roll Left to Right (QC): 1 Sit to Lying (QC): 1 Sit to Stand (QC): 1 Chair/Nsy-fv-Nhayq Xfer(QC): 1 Bed to/from Chair: 1 dependent assist x 2 with all bed mobility and SPT bed to recliner. Patient unable to maintain sitting EOB without assistance. Pepper sling placed in recliner for safe transfer to return to bed via RN Weight Bearing Right Lower Extremity: Right Weight Bearing/Tolerated Left Lower Extremity: Left Weight Bearing/Tolerated Assessment Patient to dismiss to HI on this date per SW. PT Trade Specialist Goals Trade Specialist Goals PT [facility] Goals Time Frame: May 23, 2019 Sit to Lying (QC): 2 Lying-Sitting on Side/Bed(QC): 2 Sit to Stand (QC): 2 Roll Left to Right (QC): 2 Chair/Dkf-dg-Bjeas Xfer(QC): 2 Car Transfer (QC): 2 PT Plan Treatment/Plan Treatment Plan: Discontinue PT Treatment Plan: Bed Mobility, Education, Functional Activity Yennifer, Functional Strength, Safety, Therapeutic Exercise, Transfers Frequency: 6 times per week Estimated Hrs Per Day: .25 hour per day Patient and/or Family Agrees t: Yes Time/GCodes Time In: 1000 Time Out: 1008 Total Billed Treatment Time: 8 Total Billed Treatment 1 visit FA 8 min ABILIO DE SOUZA PT May 20, 2019 11:34 POS
--- NOTE | 2019-05-20 13:20 | NUR ---
This RN in to see patient after daughter came out to find an RN. He was sitting in the chair and alert but very diaphoretic. He was soaking wet on his head and his neck. Cool rag to wash him off. Asked aide if he had been febrile and he had not. SHe did get a set of vitals and this RN told nurse about his condition.
--- NOTE | 2019-05-20 13:30 | NUR ---
Patient sitting in chair in room, daughter at bedside. Patient diaphoretic. Vital signs obtained at this time, neuro check done with no changes. Blood sugar taken at this time. Blood sugar 178. Patient alert, no change in patient previous assessment.
--- NOTE | 2019-05-20 14:45 | Diagnostic Imaging Report ---
PROCEDURE: CT head WO r/o stroke. TECHNIQUE: Multiple contiguous axial images were obtained through the brain without the use of intravenous contrast. Auto Exposure Controls were utilized during the CT exam to meet ALARA standards for radiation dose reduction. INDICATION: Possible stroke. TIME OF EXAM: 2:25 p.m. COMPARISON: Correlation is made with a recent head CT performed on 05/16/2019. FINDINGS: Previously noted regions of low density in the left temporal lobe and bilateral frontal lobes are again noted consistent with areas of subacute ischemia. Overall appearance is very similar to prior exam. No new area of low density is identified. There is no mass effect or midline shift. No acute intra-axial or extra-axial hemorrhage is detected. Cisterns are patent. Visualized paranasal sinuses are clear. IMPRESSION: Overall stable noncontrast head CT when compared with exam from 05/16/2019. Dictated by: Dictated on workstation # [id number]
--- NOTE | 2019-05-20 14:45 | NUR ---
Staff called this RN to room, staff was transferring patient from chair to wheelchair to discharge to [facility]. Staff report that once patient sat in wheelchair patient turned gaze and head to right. Patient unable to move arms. This RN activated stroke team. Patient moved back to bed by staff, IV inserted, Dr. Munoz notified, patient down to CT at 1414. Patient back from CT at 1440. Patient in room, in bed at this time, family at bedside.
[2019-05-20 14:48] LABS: BASOPHILS % (AUTO) 0 % (0-10); EOSINOPHILS # (AUTO) 0.3 10^3/uL (0.0-0.3); EOSINOPHILS % (AUTO) 2 % (0-10); HEMATOCRIT 34 % (40-54); HEMOGLOBIN 10.7 G/DL (13.3-17.7); LYMPHOCYTES # (AUTO) 2.5 X 10^3 (1.0-4.0); LYMPHOCYTES % (AUTO) 18 % (12-44); MEAN CORPUSCULAR HEMOGLOBIN 29 PG (25-34); MEAN CORPUSCULAR HGB CONC 32 G/DL (32-36); MEAN CORPUSCULAR VOLUME 93 FL (80-99); MEAN PLATELET VOLUME 10.1 FL (7.4-10.4); MONOCYTES # (AUTO) 1.5 X 10^3 (0.0-1.0); MONOCYTES % (AUTO) 11 % (0-12); NEUTROPHILS # (AUTO) 9.4 X 10^3 (1.8-7.8); NEUTROPHILS % (AUTO) 68 % (42-75); PLATELET COUNT 269 10^3/uL (130-400); RED CELL DISTRIBUTION WIDTH 14.7 % (10.0-14.5); WHITE BLOOD COUNT 13.7 10^3/uL (4.3-11.0)
[2019-05-20 14:56] LABS: FIBRIN DEGRADATION PRODUCTS 2.29 UG/ML (0.00-0.49); INR 1.6 (0.8-1.4); PROTHROMBIN TIME PATIENT 19.3 SEC (12.2-14.7)
[2019-05-20 14:59] LABS: ALANINE AMINOTRANSFERASE 35 U/L (0-55); ALBUMIN 2.3 GM/DL (3.2-4.5); ALKALINE PHOSPHATASE 77 U/L (40-136); BILIRUBIN,TOTAL 0.6 MG/DL (0.1-1.0); BUN/CREATININE RATIO 50; CALCIUM 7.9 MG/DL (8.5-10.1); CARBON DIOXIDE 23 MMOL/L (21-32); CHLORIDE 110 MMOL/L (98-107); GFR ESTIMATED > 60; GLUCOSE 192 MG/DL (70-105); POTASSIUM 4.5 MMOL/L (3.6-5.0); SODIUM 143 MMOL/L (135-145); TOTAL PROTEIN 4.6 GM/DL (6.4-8.2)
--- NOTE | 2019-05-20 15:30 | Occ Therapy Progress Note ---
Therapy Progress Note Nrsg reported pt had decline in medical status, not to see pt this afternoon. OT will check on pt Thursday. SANDRO HAMPTON May 20, 2019 15:30 POS
--- NOTE | 2019-05-20 16:15 | Progress Note ---
Subjective Subjective/Events-last exam Pt was to discharge to group home today, but this afternoon when transferring to wheelchair to leave, he suddenly turned his head all the way to the right and fixed his gaze and became unresponsive, followed by a large bloody appearing bowel movement. Objective Exam Last Set of Vital Signs Vital Signs Date Time Temp Pulse Resp B/P (MAP) Pulse Ox O2 Delivery O2 Flow Rate FiO2 05/20/19 15:49 95 Nasal Cannula 2.00 05/20/19 12:53 86 05/20/19 12:00 36.6 20 107/59 (75) 05/19/19 13:56 32 Capillary Refill : Less Than 3 SecondsLess Than 3 Seconds I&O Intake and Output 05/20/19 00:00 Intake Total 30 ml Output Total 1075 ml Balance -1045 ml Intake Oral 0 ml Tube Feeding 30 ml Output Urine Total 1075 ml # Bowel Movements 1 General: Alert Lungs: Clear to Auscultation, Normal Air Movement Heart: Regular Rate, No Murmurs Neuro: Other (good eye contact, saying "okay" to questions, does not turn head to right or use right side.) Results/Procedures Lab Laboratory Tests 05/20/19 03:20: White Blood Count 10.5, Red Blood Count 4.16L, Hemoglobin 12.2L, Hematocrit 39L, Mean Corpuscular Volume 94, Mean Corpuscular Hemoglobin 29, Mean Corpuscular Hemoglobin Concent 31L, Red Cell Distribution Width 14.8H, Platelet Count 251, Mean Platelet Volume 9.9, Neutrophils (%) (Auto) 66, Lymphocytes (%) (Auto) 19, Monocytes (%) (Auto) 10, Eosinophils (%) (Auto) 5, Basophils (%) (Auto) 1, Neutrophils # (Auto) 6.9, Lymphocytes # (Auto) 2.0, Monocytes # (Auto) 1.1H, Eosinophils # (Auto) 0.5H, Basophils # (Auto) 0.1, Sodium Level 145, Potassium Level 3.7, Chloride Level 111H, Carbon Dioxide Level 25, Anion Gap 9, Blood Urea Nitrogen 23H, Creatinine 0.68, Estimat Glomerular Filtration Rate > 60, BUN/Creatinine Ratio 34, Glucose Level 127H, Calcium Level 8.2L, Phosphorus Level 2.6, Magnesium Level 1.7 05/20/19 13:38: Glucometer 175H 05/20/19 14:03: Glucometer 192H 05/20/19 14:41: White Blood Count 13.7H, Red Blood Count 3.64L, Hemoglobin 10.7L, Hematocrit 34L , Mean Corpuscular Volume 93, Mean Corpuscular Hemoglobin 29, Mean Corpuscular Hemoglobin Concent 32, Red Cell Distribution Width 14.7H, Platelet Count 269, Mean Platelet Volume 10.1, Neutrophils (%) (Auto) 68, Lymphocytes (%) (Auto) 18, Monocytes (%) (Auto) 11, Eosinophils (%) (Auto) 2, Basophils (%) (Auto) 0, Neutrophils # (Auto) 9.4H, Lymphocytes # (Auto) 2.5, Monocytes # (Auto) 1.5H, Eosinophils # (Auto) 0.3, Basophils # (Auto) 0.0, Sodium Level 143, Potassium Level 4.5, Chloride Level 110H, Carbon Dioxide Level 23, Anion Gap 10, Blood Urea Nitrogen 40H, Creatinine 0.80, Estimat Glomerular Filtration Rate > 60, BUN/Creatinine Ratio 50, Glucose Level 192H, Calcium Level 7.9L, Prothrombin Time 19.3H, INR Comment 1.6H, Activated Partial Thromboplast Time 37H, D-Dimer 2.29H, Corrected Calcium 9.3, Total Bilirubin 0.6, Aspartate Amino Transf (AST/SGOT) 40H, Alanine Aminotransferase (ALT/SGPT) 35, Alkaline Phosphatase 77, Troponin I 0.062H, Total Protein 4.6L, Albumin 2.3L Microbiology 05/11/19 Blood Culture - Final, Complete No growth 05/17/19 MRSA Screen - Final, Complete MRSA not isolated 05/11/19 Urine Culture - Final, Complete NO GROWTH Radiology Laboratory Tests 05/11/19 15:50: White Blood Count 11.7H, Red Blood Count 5.73, Hemoglobin 16.8, Hematocrit 50, Mean Corpuscular Volume 88, Mean Corpuscular Hemoglobin 29, Mean Corpuscular Hemoglobin Concent 33, Red Cell Distribution Width 14.7H, Platelet Count 313, Mean Platelet Volume 9.5, Neutrophils (%) (Auto) 74, Lymphocytes (%) (Auto) 15, Monocytes (%) (Auto) 10, Eosinophils (%) (Auto) 1, Basophils (%) (Auto) 0, Neutrophils # (Auto) 8.6H, Lymphocytes # (Auto) 1.8, Monocytes # (Auto) 1.1H, Eosinophils # (Auto) 0.1, Basophils # (Auto) 0.0, Prothrombin Time 15.8H, INR Comment 1.2, Activated Partial Thromboplast Time 36H, D-Dimer 0.77H, Urine Color YELLOW, Urine Clarity SLIGHTLY CLOUDY, Urine pH 6, Urine Specific [place] 1.020, Urine Protein 4+, Urine Glucose (UA) 1+H, Urine Ketones 3+H, Urine Nitrite NEGATIVE, Urine Bilirubin NEGATIVE, Urine Urobilinogen NORMAL, Urine Leukocyte Esterase NEGATIVE, Urine RBC (Auto) 5+H, Urine RBC NONE, Urine WBC NONE, Urine Crystals NONE, Urine Bacteria TRACE, Urine Casts NONE, Urine Mucus NEGATIVE, Urine Culture Indicated NO, Sodium Level 142, Potassium Level 4.0, Chloride L evel 105, Carbon Dioxide Level 23, Anion Gap 14, Blood Urea Nitrogen 13, Creatinine 0.86, Estimat Glomerular Filtration Rate > 60, BUN/Creatinine Ratio 15, Glucose Level 134H, Lactic Acid Level 2.00, Calcium Level 9.6, Corrected Calcium 9.8, Total Bilirubin 2.7H, Aspartate Amino Transf (AST/SGOT) 77H, Alanine Aminotransferase (ALT/SGPT) 36, Alkaline Phosphatase 98, Troponin I 0.113H, Total Protein 7.2, Albumin 3.8 05/12/19 04:30: White Blood Count 12.2H, Red Blood Count 5.16, Hemoglobin 15.2, Hematocrit 46, Mean Corpuscular Volume 88, Mean Corpuscular Hemoglobin 30, Mean Corpuscular Hemoglobin Concent 33, Red Cell Distribution Width 14.9H, Platelet Count 281, Mean Platelet Volume 9.4, Neutrophils (%) (Auto) 76H, Lymphocytes (%) (Auto) 12, Monocytes (%) (Auto) 11, Eosinophils (%) (Auto) 1, Basophils (%) (Auto) 0, Neutrophils # (Auto) 9.3H, Lymphocytes # (Auto) 1.5, Monocytes # (Auto) 1.3H, Eosinophils # (Auto) 0.1, Basophils # (Auto) 0.0, Sodium Level 142, Potassium Level 3.8, Chloride Level 109H, Carbon Dioxide Level 20L, Anion Gap 13, Blood Urea Nitrogen 13, Creatinine 0.84, Estimat Glomerular Filtration Rate > 60, BUN/Creatinine Ratio 15, Glucose Level 143H, Calcium Level 8.6, Phosphorus Level 3.3, Magnesium Level 1.6 05/12/19 06:26: White Blood Count 13.1H, Red Blood Count 5.59, Hemoglobin 16.3, Hematocrit 50, Mean Corpuscular Volume 89, Mean Corpuscular Hemoglobin 29, Mean Corpuscular Hemoglobin Concent 33, Red Cell Distribution Width 14.9H, Platelet Count 271, Mean Platelet Volume 10.0, Neutrophils (%) (Auto) 74, Lymphocytes (%) (Auto) 14, Monocytes (%) (Auto) 11, Eosinophils (%) (Auto) 1, Basophils (%) (Auto) 0, Neutrophils # (Auto) 9.7H, Lymphocytes # (Auto) 1.9, Monocytes # (Auto) 1.4H, Eosinophils # (Auto) 0.1, Basophils # (Auto) 0.0, Sodium Level 141, Potassium Level 3.8, Chloride Level 108H, Carbon Dioxide Level 20L, Anion Gap 13, Blood Urea Nitrogen 13, Creatinine 0.87, Estimat Glomerular Filtration Rate > 60, BUN/Creatinine Ratio 15, Glucose Level 135H, Calcium Level 8.9, Corrected Soham cium 9.3, Total Bilirubin 3.2H, Aspartate Amino Transf (AST/SGOT) 83H, Alanine Aminotransferase (ALT/SGPT) 37, Alkaline Phosphatase 101, Total Protein 6.6, Albumin 3.5, Phosphorus Level 3.3, Magnesium Level 1.7, Triglycerides Level 108, Cholesterol Level 180, LDL Cholesterol Direct 133H, VLDL Cholesterol 22, HDL Cholesterol 37L Assessment/Plan Assessment/Plan (1) Acute cardioembolic stroke Status: Acute Assessment & Plan: Has had some return of speech, minimal movement, not awake enough to complete swallow eval yesterday. Will try again today, if unable to swallow or not alert enough, will consult Surgery tomorrow to discuss PEG with family. 05/17- unable to safely swallow with speech yesterday, Dr. Cordero to discuss PEG with family today. 05/18- plan for PEG, Nutrition consult. 05/19 PEG done yesterday, enteral feedings started, aspirin started 05/20 enteral feedings held for now due to GI bleeding. Abnormal mental status and movement, repeat STAT CT with no change and after CT back to baseline. (2) HTN (hypertension) Status: Chronic Assessment & Plan: Some HTN permitted after acute stroke. Labetalol prn BP > 180. 05/19- had some bradycardia yesterday, hydralazine added for prn. Qualifiers: Qualified Codes: I10 - Essential (primary) hypertension (3) Diabetes mellitus Status: Chronic Assessment & Plan: Blood sugar 130s-150s, monitor. Qualifiers: (4) Atrial fibrillation Status: Chronic Assessment & Plan: Holding anticoagulation x 7 days after stroke per stroke team. 05/18 resume when okay with Surgery after procedure. 05/19 Eliquis resumed Qualifiers: Qualified Codes: I48.11 - Longstanding persistent atrial fibrillation (5) Discharge planning issues Status: Acute Assessment & Plan: [facility] referrals for assisted started (6) GI bleed Status: Acute Assessment & Plan: Likely due to resumption of anticoagulation/antiplatelet. Hgb down somewhat this afternoon compared to morning. Repeat CBC in a few hours. Surgery already following. Hold anticoagulation/antiplatelet. (7) DVT prophylaxis Status: Acute Assessment & Plan: Per stroke center, holding anticoagulation x 7 days, on antiplatelet only for now. Resumed Eliquis, but he had GI bleed after, holding again. Clinical Quality Measures DVT/VTE Risk/Contraindication: Risk Factor Score Per Nursin RFS Level Per Nursing on Admit: 4+=Very High PAUL RENTERIA MD May 20, 2019 16:15 POS
--- NOTE | 2019-05-20 19:47 | Progress Note - Surgery ---
Subjective Date Seen by a Provider: May 20, 2019 Time Seen by a Provider: 15:00 Subjective/Events-last exam Patient was going to be discharged and had fixed gaze and was unresponsive. Also had large bloody bowel movement. Repeat CT head no acute change. Patient was restarted on Eliquis now on hold. Recent gastrostomy tube placed. Hgb dropped to 10.7. Objective Exam Vital Signs Date Time Temp Pulse Resp B/P (MAP) Pulse Ox O2 Delivery O2 Flow Rate FiO2 05/20/19 16:30 36.9 90 28 99/67 (78) 98 Nasal Cannula 2.00 05/20/19 15:49 95 Nasal Cannula 2.00 05/20/19 14:45 85 22 134/60 (84) Nasal Cannula 2.00 05/20/19 14:07 131/75 (93) 95 Nasal Cannula 2.00 05/20/19 14:04 76 145/71 (95) 91 Nasal Cannula 2.00 05/20/19 14:00 35.7 100 125/80 (95) 96 Nasal Cannula 2.00 05/20/19 13:30 90 24 109/57 (74) 94 Nasal Cannula 2.00 05/20/19 12:53 86 05/20/19 12:00 36.6 90 20 107/59 (75) 97 Nasal Cannula 2.00 05/20/19 10:28 93 Nasal Cannula 2.00 05/20/19 08:00 Nasal Cannula 2.00 05/20/19 08:00 36.0 97 20 161/80 (107) 94 Nasal Cannula 2.00 05/20/19 06:42 86 05/20/19 04:00 36.8 74 19 178/91 (120) 97 Nasal Cannula 2.00 05/20/19 02:43 98 Nasal Cannula 2.00 05/20/19 01:00 73 05/20/19 00:10 36.6 68 18 172/93 (119) 96 Nasal Cannula 2.00 05/19/19 20:59 93 Nasal Cannula 2.00 05/19/19 20:05 36.5 78 20 165/72 (103) 98 Nasal Cannula 2.50 05/19/19 19:43 Nasal Cannula 2.00 I & O 05/20/19 07:00 Intake Total 30 ml Output Total 1450 ml Balance -1420 ml Capillary Refill : Less Than 3 SecondsLess Than 3 Seconds General Appearance: No Apparent Distress HEENT: No Scleral Icterus (L), No Scleral Icterus (R) Neck: Supple; No Lymphadenopathy (L), No Lymphadenopathy (R) Respiratory: Chest Non Tender, No Accessory Muscle Use, No Respiratory Distress Cardiovascular: Regular Rate, Rhythm, Normal Peripheral Pulses Peripheral Pulses: 2+ Dorsalis Pedis (R), 2+ Left Dors-Pedis (L), 2+ Radial Pulses (R), 2+ Radial Pulses (L) Gastrointestinal: soft; No guarding, No rebound; other (gastrostomy tube in place luq, no evidence of bleeding at approximately 4 cm) Extremity: No Pedal Edema, Other (Edema of the right arm likely secondary to IV ) Neurologic/Psychiatric: Alert, Other (opens eyes and tried to voice) Skin: Normal Color, Warm/Dry Results Lab Laboratory Tests 05/20/19 03:20: White Blood Count 10.5, Red Blood Count 4.16L, Hemoglobin 12.2L, Hematocrit 39L, Mean Corpuscular Volume 94, Mean Corpuscular Hemoglobin 29, Mean Corpuscular Hemoglobin Concent 31L, Red Cell Distribution Width 14.8H, Platelet Count 251, Mean Platelet Volume 9.9, Neutrophils (%) (Auto) 66, Lymphocytes (%) (Auto) 19, Monocytes (%) (Auto) 10, Eosinophils (%) (Auto) 5, Basophils (%) (Auto) 1, Neutrophils # (Auto) 6.9, Lymphocytes # (Auto) 2.0, Monocytes # (Auto) 1.1H, Eosinophils # (Auto) 0.5H, Basophils # (Auto) 0.1, Sodium Level 145, Potassium Level 3.7, Chloride Level 111H, Carbon Dioxide Level 25, Anion Gap 9, Blood Urea Nitrogen 23H, Creatinine 0.68, Estimat Glomerular Filtration Rate > 60, BU N/Creatinine Ratio 34, Glucose Level 127H, Calcium Level 8.2L, Phosphorus Level 2.6, Magnesium Level 1.7 05/20/19 13:38: Glucometer 175H 05/20/19 14:03: Glucometer 192H 05/20/19 14:41: White Blood Count 13.7H, Red Blood Count 3.64L, Hemoglobin 10.7L, Hematocrit 34L , Mean Corpuscular Volume 93, Mean Corpuscular Hemoglobin 29, Mean Corpuscular Hemoglobin Concent 32, Red Cell Distribution Width 14.7H, Platelet Count 269, Mean Platelet Volume 10.1, Neutrophils (%) (Auto) 68, Lymphocytes (%) (Auto) 18, Monocytes (%) (Auto) 11, Eosinophils (%) (Auto) 2, Basophils (%) (Auto) 0, Neutrophils # (Auto) 9.4H, Lymphocytes # (Auto) 2.5, Monocytes # (Auto) 1.5H, Eosinophils # (Auto) 0.3, Basophils # (Auto) 0.0, Sodium Level 143, Potassium Level 4.5, Chloride Level 110H, Carbon Dioxide Level 23, Anion Gap 10, Blood Urea Nitrogen 40H, Creatinine 0.80, Estimat Glomerular Filtration Rate > 60, BUN/Creatinine Ratio 50, Glucose Level 192H, Calcium Level 7.9L, Prothrombin Time 19.3H, INR Comment 1.6H, Activated Partial Thromboplast Time 37H, D-Dimer 2.29H, Corrected Calcium 9.3, Total Bilirubin 0.6, Aspartate Amino Transf (AST/SGOT) 40H, Alanine Aminotransferase (ALT/SGPT) 35, Alkaline Phosphatase 77, Troponin I 0.062H, Total Protein 4.6L, Albumin 2.3L Microbiology 05/11/19 Blood Culture - Final, Complete No growth 05/17/19 MRSA Screen - Final, Complete MRSA not isolated 05/11/19 Urine Culture - Final, Complete NO GROWTH Assessment/Plan Assessment/Plan Assessment/Plan acute cardioembolic stroke HTN DM dysphagia GI bleed Anticoagulation s/p gastrostomy tube placement GI bleed Eliquis was restarted no on hold Prontix IV BID Follow hgb Transfuse PRN IF continues to drop may need egd to re-evaluate will follow Clinical Quality Measures DVT/VTE Risk/Contraindication: Risk Factor Score Per Nursin RFS Level Per Nursing on Admit: 4+=Very High NELDA OCHOA DO May 20, 2019 19:47 POS
[2019-05-20] MEDS: ROSUVASTATIN 10 MG (CRESTOR) TABLET PO SCH (20:38)
[2019-05-20] MEDS ORDERED: PANTOPRAZOLE 40 MG (PROTONIX) VIAL IV SCH (21:00)
[2019-05-21 00:19] VITALS: BP 109/72
[2019-05-21] MEDS: RT-ALBUTEROL SULF 2.5 MG/3 ML PRE-MIX VIAL INH SCH (02:55)
[2019-05-21 04:00] VITALS: BP 121/71
[2019-05-21 04:09] LABS: BASOPHILS % (AUTO) 0 % (0-10); EOSINOPHILS # (AUTO) 0.1 10^3/uL (0.0-0.3); EOSINOPHILS % (AUTO) 0 % (0-10); HEMATOCRIT 25 % (40-54); LYMPHOCYTES # (AUTO) 1.7 X 10^3 (1.0-4.0); LYMPHOCYTES % (AUTO) 12 % (12-44); MEAN CORPUSCULAR HEMOGLOBIN 29 PG (25-34); MEAN CORPUSCULAR HGB CONC 32 G/DL (32-36); MEAN CORPUSCULAR VOLUME 93 FL (80-99); MEAN PLATELET VOLUME 10.3 FL (7.4-10.4); MONOCYTES # (AUTO) 1.4 X 10^3 (0.0-1.0); MONOCYTES % (AUTO) 10 % (0-12); NEUTROPHILS # (AUTO) 11.1 X 10^3 (1.8-7.8); NEUTROPHILS % (AUTO) 78 % (42-75); PLATELET COUNT 261 10^3/uL (130-400); RED CELL DISTRIBUTION WIDTH 14.9 % (10.0-14.5); WHITE BLOOD COUNT 14.3 10^3/uL (4.3-11.0)
[2019-05-21 04:30] LABS: BUN/CREATININE RATIO 55; CALCIUM 7.9 MG/DL (8.5-10.1); CARBON DIOXIDE 19 MMOL/L (21-32); CHLORIDE 113 MMOL/L (98-107); CHOLESTEROL 83 MG/DL (< 200); CREATININE SERUM 1.17 MG/DL (0.60-1.30); GFR ESTIMATED 60; GLUCOSE 243 MG/DL (70-105); HDL CHOLESTEROL < 15 MG/DL (40-60); MAGNESIUM 2.1 MG/DL (1.6-2.4); PHOSPHORUS 3.4 MG/DL (2.3-4.7); POTASSIUM 5.1 MMOL/L (3.6-5.0); SODIUM 144 MMOL/L (135-145); TRIGLYCERIDES 125 MG/DL (<150); VLDL CHOLESTEROL 25 MG/DL (5-40)
--- NOTE | 2019-05-21 04:45 | Cardiology Progress Note ---
Subjective Date Seen by Provider: May 21, 2019 Time Seen by Provider: 04:42 Subjective/Events-last exam Patient is in bed, no change in condition. Review of Systems General: Other (Unable to provide review of systems) Objective-Cardiology Exam Last Set of Vital Signs Vital Signs 05/19/19 05/21/19 05/21/19 05/21/19 13:56 00:19 01:00 02:55 Temp 36.4 Pulse 105 Resp 22 B/P (MAP) 109/72 (84) Pulse Ox 96 O2 Delivery Nasal Cannula O2 Flow Rate 2.00 FiO2 32 Capillary Refill : Less Than 3 SecondsLess Than 3 Seconds I&O Intake and Output 05/21/19 00:00 Intake Total 0 ml Output Total 1677 ml Balance -1677 ml Intake Oral 0 ml Tube Feeding 0 ml Output Urine Total 1675 ml Stool Total 2 ml # Bowel Movements 1 General: Alert HEENT: Atraumatic Neck: Supple Lungs: Clear to Auscultation, Normal Air Movement Heart: Regular Rate, Normal S1, Normal S2, No Murmurs Abdomen: Normal Bowel Sounds, Soft Extremities: No Clubbing, No Cyanosis Skin: No Rashes Neuro: Other (good eye contact, saying "okay" to questions, does not turn head to right or use right side.) Results Lab Laboratory Tests 05/20/19 14:41 05/21/19 03:45 A/P-Cardiology Admission Diagnosis CVA CAD PAF [place] Assessment/Plan CVA- CTA revealed displayed inferior anterior R fontal lobe and superior posterior left lateral frontal lobe acute infarct without large vessel occlusion, Eliquis was discontinued secondary to GI bleed Anemia, GI bleed, status post PEG tube, managed by Dr. Cordero Coronary artery disease status post CABG 5 using GOODSON to LAD, vein graft to the first diagonal, vein graft to the obtuse marginal sequential to the posterior lateral of the right and PDA and aortic valve replacement using tissue valve done in July [address] White at [facility] in [place]. Had an abnormal stress test, cardiac catheterization done on November 25, 2017 showing patent GOODSON to LAD, vein graft to diagonal artery giving good flow to the LAD system that has been occluded proximally and patent jump graft to the first obtuse marginal branch which is a very small artery and the posterolateral branch of the right PDA that has ectasia and small vessel disease. The [place] circumflex artery has mild disease, the second and third obtuse marginal branch had moderate to severe disease but there are very small arteries. The right coronary artery is a dominant artery with diffuse ectasia and slow flow noted through followed the right system, medical therapy is recommended Paroxysmal atrial fibrillation, EKG reveals atrial fibrillation, rate controlled. Maintained on Eliquis as outpatient, patient's daughter reports he had not been compliant with medication recently. [id number] score is 5, maintained on Eliquis, currently on hold Severe right carotid artery stenosis, was referred to [facility], monitored by Dr. Goodman. CTA neck done revealing near occlusion of right ICA, left ICA 50- 70%. History of elevated liver enzymes, continue to monitor. Hypertension, continue to monitor blood pressure to keep SBP <180 Hyperlipidemia, lipid profile from June 09, 2018 showing total cholesterol 165, HDL 39, triglyceride 193, LDL 97, continue to monitor History of chronic kidney disease, continue to monitor renal function, followed by [facility] technical assistance consultant as outpatient. Diabetes mellitus, followed and managed by primary care physician History of chronic peripheral edema Obesity History of upper GI bleed Overall patient has poor prognosis Clinical Quality Measures DVT/VTE Risk/Contraindication: Risk Factor Score Per Nursin RFS Level Per Nursing on Admit: 4+=Very High CARLOS HUTCHINSON MD May 21, 2019 04:45 POS
[2019-05-21] MEDS: POTASSIUM CL 10MEQ/50ML IVPB 50 ML IV SCH (06:28)
[2019-05-21] MEDS: MAGNESIUM 1 GM/100 ML IVPB 100 ML IV SCH (06:28)
[2019-05-21] MEDS: KCL 20 MEQ TAB (K-DUR) PO SCH (06:29)
[2019-05-21] MEDS ORDERED: FUROSEMIDE 40 MG/4 ML INJ (LASIX) IVP ONE (06:30)
--- NOTE | 2019-05-21 06:30 | NUR ---
pt lungs now have audible coarse crackles. dr spencer made aware. order given to stop fluids and given iv lasix
--- NOTE | 2019-05-21 06:40 | NUR ---
lasix given fluids stopped pt repositioned hob eleavted vss 95% 02 2l hr 88 bp 127/78
--- NOTE | 2019-05-21 07:38 | NUR ---
REPORT TAKEN FROM MINISTERIO COLEMAN AT 0715, AT THIS TIME ICU STRINGER UP SOLDERING MACHINE CALLED TO INFORM MINISTERIO COLEMAN THAT THE PATIENT WAS NOW IN ASYSTOLE. THIS RN AND MINISTERIO COLEMAN WENT TO THIS PATIENT ROOM AT THIS TIME TO CONFIRM THAT HE HAD NO PULSE/RESPIRATIONS. THIS RN THEN STARTED PROCESS FOR [facility] AND NOTIFYING FAMILY, DOCTORS, AND PASTORAL CARE.
--- NOTE | 2019-05-21 08:11 | Physical Therapy Progress Note ---
Therapy Progress Note Patient on this date. ABILIO DE SOUZA PT May 21, 2019 08:11 POS
--- NOTE | 2019-05-21 10:35 | NUR ---
[facility] [employer] contacted by this RN, this patient will leave when they arrive for cremation of the remains.
--- NOTE | 2019-05-21 15:34 | NUR ---
ALL INVASIVE LINES REMOVED BEFORE [facility] [employer] REMOVED HIS REMAINS FOR CREMATION.
== END 2019-05-21 07:15 | DRG 64 ==
LOC: EDUNIT# 15:31 → ER 15:32 → ICU 18:51 → EEVIPCON 18:51 → UNDOADMIN 18:51 → 4TH 05-12 06:35
PROVIDERS: ADMIT Internal Medicine; ATTEND Family Medicine
PROC: 0DH63UZ Insertion of Feeding Device into Stomach, Percutaneous Approach (ICD-10-PCS; principal; 2019-05-18 12:15)
DX: I63.9 Cerebral infarction, unspecified (principal); G81.01 Flaccid hemiplegia affecting right dominant side; R41.4 Neurologic neglect syndrome; R13.10 Dysphagia, unspecified; R40.20 Unspecified coma; K92.2 Gastrointestinal hemorrhage, unspecified; E46 Unspecified protein-calorie malnutrition; Z51.5 Encounter for palliative care; Z66 Do not resuscitate; Z68.41 Body mass index [BMI] 40.0-44.9, adult; I13.0 Hypertensive heart and chronic kidney disease with heart failure and stage 1 through stage 4 chronic kidney disease, or unspecified chronic kidney disease; I50.9 Heart failure, unspecified; R09.02 Hypoxemia; N18.9 Chronic kidney disease, unspecified; I48.0 Paroxysmal atrial fibrillation; I65.23 Occlusion and stenosis of bilateral carotid arteries; I65.03 Occlusion and stenosis of bilateral vertebral arteries; E66.01 Morbid (severe) obesity due to excess calories; E11.40 Type 2 diabetes mellitus with diabetic neuropathy, unspecified; I25.10 Atherosclerotic heart disease of native coronary artery without angina pectoris; E78.5 Hyperlipidemia, unspecified; I45.10 Unspecified right bundle-branch block; Z79.84 Long term (current) use of oral hypoglycemic drugs; Z95.1 Presence of aortocoronary bypass graft; Z95.2 Presence of prosthetic heart valve
CPT/HCPCS: 36415; 51702; 70450; 70470; 70496; 70498; 71045; 80048; 80053; 80061; 81000; 82962; 83605; 83735; 84100; 84484; 85025; 85379; 85610; 85730; 87040; 87081; 87088; 93005; 93041; 94640; 94642; 94760; 96360; 96361